=== PATIENT | male | born 1955 | race Caucasian/White ===

== ENCOUNTER 2019-10-10 12:23 | Emergency (ER) | payer OTHER, SELFPAY ==
--- NOTE | ~2019-10-10 | XR_ITS ---
EXAMINATION: XR ankle LT min 3V DATE: 10/10/2019 13:19 INDICATION: Right ankle edema. TECHNIQUE: 5 views of right ankle were obtained. COMPARISON: None. FINDINGS: Bone alignment is normal. No fracture. There is mild to moderate midfoot osteoarthritis. Th ere are enthesophytes at the posterior and plantar aspects of calcaneal tuberosity. Ankle soft tissue swelling is noted. IMPRESSION: 1. Polyarticular osteoarthritis. Reviewed, dictated and finalized at location A. D CERTIFIED ARTS THERAPIST
--- NOTE | ~2019-10-10 | US_ITS ---
EXAMINATION: US venous doppler LE EXAM DATE: 10/10/2019 14:31 INDICATION: Right leg edema. TECHNIQUE: Multiple grayscale, color flow and Doppler images of the right lower extremity deep venous system obtained and reviewed. There is no prior study for comparison. FINDINGS: RIGHT SIDE Common femoral: -------- Normal. Profunda femoral: ------- Normal. Femoral: Normal. Popliteal: Normal. Posterior tibial: ---------Thrombosed. Peroneal: Thrombosed. Gastrocnemius: Not visualized. Soleus: Not visualized. Greater saphenous: ----- Normal. Lesser saphenous: ------ Not visualized. IMPRESSION: 1. Positive for right calf DVT. Reviewed, dictated and finalized at location B. [facility] [employer]
[2019-10-10 12:41] VITALS: BP 153/68; PULSE 90; RESP 19; TEMP 36.6; O2SAT 100
--- NOTE | 2019-10-10 12:46 | ED.EXTPRO ---
HPI - Extremity Problem General Chief complaint: Extremity Injury, Lower Stated complaint: R FOOT WOUND, DIABETIC Time Seen by Provider: 10/10/19 12:37 Source: patient and RN notes reviewed Mode of arrival: ambulatory Limitations: no limitations History of Present Illness HPI Narrative: Pt is a 63 y/o male with a Hx of diabetic retinopathy, who presents to the ED with c/o pain and swelling in his rt foot starting 4 days ago. Pt notes that he has recently been using new shoes, and states that he has been noticing increasing pain and bruising around his rt posterior foot and ankle while using the shoes. He notes that he developed warmth and erythema around his medial rt foot earlier today, which concerned him that he may have an infection. MD Complaint: extremity pain and extremity swelling Onset (ago): day(s) (4) Location: right (rt foot/ankle) Associated symptoms: other ( bruising around rt foot and ankle; warmth and erythema on medial aspect of rt foot) Context: other (increased walking with new shoes) Related Data Allergies Allergy/AdvReac Type Severity Reaction Status Date / Time No Known Allergies Allergy Unknown Verified 10/10/19 12:55 Review of Systems Review of Systems: Narrative: CONSTITUTIONAL: Denies fever, chills, or sweats. SKIN: Denies itching. Reports erythema and warmth on medial rt foot. MUSCULOSKELETAL: Denies back pain or myalgia. Reports pain and swelling in rt foot and ankle. Reports bruising around rt foot and ankle. NEUROLOGIC: Denies headache, numbness, or weakness. All systems reviewed & are unremarkable except as noted in HPI and below PMFSH Past Medical History Medical History Brain tumor COPD (chronic obstructive pulmonary disease) Diabetes type 2, controlled Diabetic retinopathy GERD (gastroesophageal reflux disease) HLD (hyperlipidemia) HTN (hypertension) Hypothyroidism Sleep apnea UTI (urinary tract infection) Surgical History Surgical History Hx of craniotomy removal of brain tumor Hx of tonsillectomy Social History Social History (Updated 10/10/19 @ 13:02 by Aric Nguyen) Smoking status: Smoker, status unknown Gender identity (if verbalized by the patient): Male 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 Exam Narrative: Exam Narrative: GENERAL: Well-appearing, well-nourished, and in no acute distress. HEAD: Normocephalic, atraumatic. CHEST: Clear to auscultation. No respiratory distress. HEART: Regular rate and rhythm. No murmur heard. Normal peripheral pulses. ABDOMEN: Soft, nontender, nondistended, normal active bowel sounds. EXTREMITIES: Normal range of motion. No edema. Ecchymosis on medial aspect of rt ankle. CHarcoat joint deformity. No pain with flexion or extension of the right ankle. No warmth. Does not thony with pressure. No ulcerations. DP pulse 2+. SKIN: Warm, dry. Erythema on medial aspect of rt foot. NEURO: No focal deficits. Alert and oriented. Course Vital Signs Vital signs: Vital Signs Temperature 36.6 C 10/10/19 12:41 Pulse Rate 90 10/10/19 12:41 Respiratory Rate 19 10/10/19 12:41 Blood Pressure 153/68 H 10/10/19 12:41 Pulse Oximetry 100 10/10/19 12:41 Temperature 36.6 C 10/10/19 12:41 Pulse Rate 90 10/10/19 12:41 Respiratory Rate 19 10/10/19 12:41 Blood Pressure 153/68 H 10/10/19 12:41 Pulse Oximetry 100 10/10/19 12:41 MDM - Extremity (Nontraumatic) MDM Narrative Medical decision making narrative: Patient presented for evaluation of right foot swelling and erythema. At the time of initial assessment, ABCs are intact and vital signs are stable. There is no ulceration to the right foot. He has good pulses and capillary refill. He has no pain with range of motion, there is very mild medial erythema without warmth. This is not entirely consistent with infection. There is some ecchymoses present that the patient attributes to new fo
[2019-10-10 13:52] LABS: Basophils Absolute Auto 0.1 K/mm3 (0.0-0.1); Basophils Percent Auto 1.2 % (0.2-1.2); Eosinophils Absolute Auto 0.1 K/mm3 (0-0.3); Eosinophils Percent Auto 2.3 % (0-4.4); Hematocrit 40.4 % (42.0-52.0); Immature Granulocyte Absolute 0.02 K/mm3 (0.00-0.031); Immature Granulocyte Percent A 0.4 % (0-0.5); Lymphocytes Absolute Auto 0.85 K/mm3 (0.9-3.2); Lymphocytes Percent Auto 16.4 % (18.3-44.2); Mean Corpuscular HGB Conc 34.7 g/dl (32-36); Mean Corpuscular Volume 92.4 fl (80-100); Mean Platelet Volume 10.3 fl (7.4-10.4); Monocytes Absolute Auto 0.7 K/mm3 (0.1-0.6); Monocytes Percent Auto 13.3 % (2.6-8.5); Neutrophils Absolute Auto 3.5 K/mm3 (1.3-6.7); Neutrophils Percent Auto 66.4 % (45.5-73.1); Platelet Count Result 187 k/mm3 (150-375); Red Blood Count 4.37 M/mm3 (4.6-6.20); White Blood Count 5.2 K/mm3 (4.5-10.0)
[2019-10-10 14:09] LABS: Blood Urea Nitrogen 14 mg/dL (9-20); CRP < 0.5 mg/dL (<1.0); Calcium 9.1 mg/dL (8.4-10.2); Carbon Dioxide 29 mmol/L (22-30); Chloride 86 mmol/L (98-107); Estimated Glomerular Filt Rate > 60; Glucose 201 mg/dL (75-110); Potassium 4.2 mmol/L (3.4-5.0); Sodium 126 mmol/L (137-145)
[2019-10-10 14:15] LABS: Erythrocyte Sedimentation Rate 14 mm/hr (0-20)
[2019-10-10 15:47] VITALS: BP 152/94; PULSE 81; RESP 16; O2SAT 100
== END 2019-10-10 15:48 | disposition home or self-care (01) ==
PROVIDERS: Emergency Provider Emergency Medicine
DX: I82.451 Acute embolism and thrombosis of right peroneal vein (principal); E87.1 Hypo-osmolality and hyponatremia; J44.9 Chronic obstructive pulmonary disease, unspecified; K21.9 Gastro-esophageal reflux disease without esophagitis; E78.5 Hyperlipidemia, unspecified; I10 Essential (primary) hypertension; E11.319 Type 2 diabetes mellitus with unspecified diabetic retinopathy without macular edema; E03.9 Hypothyroidism, unspecified; G47.30 Sleep apnea, unspecified; Z87.440 Personal history of urinary (tract) infections; M19.071 Primary osteoarthritis, right ankle and foot
CPT/HCPCS: 36415; 73610; 80048; 85025; 85652; 86140; 93971; 99284

== ENCOUNTER 2020-02-09 14:51 | Emergency (ER) | payer OTHER, SELFPAY ==
--- NOTE | ~2020-02-09 | XR_ITS ---
[XR ribs LT 2V w CXR 2V ] INDICATION: Left axillary and rib pain TECHNIQUE: Frontal projection of the upper left ribs, frontal projection of the lower left ribs, obli que projection of all the left ribs, frontal inspiratory chest x-ray for interpretation. FINDINGS: There are no displaced rib fractures identified. There are no soft tissue abnormality see n. The lungs are clear. There is bilateral lower lobe airspace disease, compatible with pneumonia. There is calcified granuloma right mid thorax. The lower ribs are not well visualized due to soft tis belen attenuation. IMPRESSION: 1:No acute displaced rib fractures. 2:Bilateral lower lobe airspace disease, compatible with pneumonia. Reviewed, dictated and finalized at location A.
[2020-02-09 15:04] VITALS: BP 177/94; PULSE 90; RESP 19; TEMP 36.8; O2SAT 97
--- NOTE | 2020-02-09 16:14 | ED.FALL ---
HPI - Fall General Chief Complaint: Fall Stated Complaint: fall with left rib pain Time Seen by Provider: 02/09/20 15:43 Source: patient Mode of arrival: ambulatory Limitations: no limitations History of Present Illness HPI Narrative: This is a 64 year old male that presents to the ER for left sided rib pain after a fall today. Reports he was doing yard work and fell. Reports hitting his left side. Reports since he has had increasing pain on the left side of the ribs. Reports it is painful when he breathes. Denies hitting his head, loss of consciousness, or other injuries. Related Data Allergies Allergy/AdvReac Type Severity Reaction Status Date / Time No Known Allergies Allergy Unknown Verified 02/09/20 15:15 Review of Systems Review of Systems: Narrative: CONSTITUTIONAL: Denies fever CARDIOVASCULAR: Reports chest pain RESPIRATORY: Reports dyspnea. MUSCULOSKELETAL: Denies back pain, joint pain, or myalgia. All systems reviewed & are unremarkable except as noted in HPI and below PMFSH Social History Social History (Updated 10/10/19 @ 13:02 by Aric Nguyen) Smoking status: Smoker, status unknown Gender identity (if verbalized by the patient): Male Exam Narrative: Exam Narrative: GENERAL: Well-appearing, well-nourished, and in no acute distress. HEAD: Normocephalic, atraumatic. EYES: EOMI. NECK: Supple. No adenopathy or masses. No midline spinal tenderness CHEST: Clear to auscultation. No respiratory distress. No wheezes rales or rhonchi. Tender palpation of left lateral ribs HEART: Regular rate and rhythm. No murmur heard. Normal peripheral pulses. BACK: No midline spinal tenderness EXTREMITIES: Normal range of motion. No edema. SKIN: Warm, dry, no rash. NEURO: No focal deficits. Alert and oriented x3. PSYCH: Normal mood and affect Course Vital Signs Vital signs: Vital Signs Temperature 98.3 F 02/09/20 15:04 Pulse Rate 90 02/09/20 15:04 Respiratory Rate 19 02/09/20 15:04 Blood Pressure 177/94 H 02/09/20 15:04 Pulse Oximetry 97 02/09/20 15:04 Temperature 98.3 F 02/09/20 15:04 Pulse Rate 61 02/09/20 17:30 Respiratory Rate 15 05/29/20 17:30 Blood Pressure 150/84 H 02/09/20 17:30 Pulse Oximetry 96 02/09/20 17:30 MDM - Fall MDM Narrative Medical decision making narrative: Patient presents to the emergency department for a fall this afternoon. Reports he tripped and hit his left side. Denies hitting his head or loss of consciousness. Reports left-sided rib pain. Oxygen saturation is normal on room air. Left-sided rib/chest x-ray shows left eighth rib fracture. Also shows bilateral airspace disease compatible with pneumonia. Patient does not report a cough or fever, does report he has been short of breath over the last couple of days. Patient given incentive spirometer. He will be started on oral antibiotics. He will be given pain medication as needed. He is to follow-up with his primary care doctor. Patient is stable and felt appropriate for further outpatient evaluation. He was given warnings to return to the ER Imaging Data Radiologist's impression: ITS Impressions Ribs w/Chest X-Ray 02/09/20 16:54 IMPRESSION: 1:No acute displaced rib fractures. 2:Bilateral lower lobe airspace disease, compatible with pneumonia. ITS Impressions Ribs w/Chest X-Ray 02/09/20 16:54 IMPRESSION: 1:No acute displaced rib fractures. 2:Bilateral lower lobe airspace disease, compatible with pneumonia. Critical Care Time Critical Care Time Critical Care Time: No Discharge Plan Discharge Clinical Impression: Closed fracture of one rib of left side Qualifiers: Encounter type: initial encounter Qualified Code(s): S22.32XA - Fracture of one rib, left side, initial encounter for closed fracture Pneumonia Qualifiers: Pneumonia type: due to unspecified organism Laterality: bilateral Lung location: lower lobe of lung Qualified Code(s): J18.9 - Pneu
[2020-02-09 17:30] VITALS: BP 150/84; PULSE 61; RESP 15; O2SAT 96
[2020-02-09] MEDS: AZITHROMYCIN 250 MG TABLET 500 MG PO (18:08)
[2020-02-09 18:30] VITALS: BP 154/84; PULSE 67; RESP 18; O2SAT 98
--- NOTE | 2020-02-12 13:41 | PCCCNOTE ---
[facility]
== END 2020-02-09 18:42 | disposition home or self-care (01) ==
PROVIDERS: Emergency Provider Emergency Medicine
DX: S22.32XA Fracture of one rib, left side, initial encounter for closed fracture (principal); J18.9 Pneumonia, unspecified organism; W01.0XXA Fall on same level from slipping, tripping and stumbling without subsequent striking against object, initial encounter
CPT/HCPCS: 71046; 71100; 99283; A9270

== ENCOUNTER 2020-12-11 22:11 | Observation (INO) | payer OTHER, SELFPAY ==
[2020-12-11 22:15] VITALS: BP 151/83; PULSE 76; RESP 16; TEMP 36; O2SAT 100
[2020-12-11] MEDS: SODIUM CHLORIDE 0.9% IV 1,000 ML 200 ML IV CONT (23:24)
--- NOTE | 2020-12-11 23:24 | ED.GIBLEED ---
HPI - GI Bleed General Chief complaint: GI Bleed Stated complaint: massive blood in stool Time Seen by Provider: 12/11/20 22:34 Source: patient Mode of arrival: ambulatory Limitations: no limitations History of Present Illness HPI Narrative: 65-year-old male Complains of hematochezia x3 bowel movements since last night Denies any abdominal pain, denies any discomfort with passing stools No nausea or vomiting, no dizziness or lightheadedness Pertinent past medical history includes being started on Eliquis for a DVT more than a year ago and it does not sound like he was ever actually followed up [facility] and they have just been rolling over his prescription indefinitely instead of stopping it after 3 to 6 months He last took Eliquis this morning approximately 16 hours ago Additionally he drinks 10-15 beers a day but has never had any trouble with that before, although he had hyponatremia when last seen in the ED MD complaint: gross hematochezia Related Data Home Medications Medication Instructions Recorded Confirmed glipizide mg 12/11/20 lovastatin mg 12/11/20 metformin mg 12/11/20 12/11/20 Allergies Allergy/AdvReac Type Severity Reaction Status Date / Time No Known Allergies Allergy Unknown Verified 12/11/20 22:19 Review of Systems Review of Systems: All systems reviewed & are unremarkable except as noted in HPI and below Constitutional: Constitutional: Reports no additional constitutional complaints, Denies chills, Denies fever(s) and Denies headache(s) Eyes: Eyes: Reports no additional eye complaints and Denies change in vision ENT: Denies headache(s) and Denies sore throat Cardiovascular: Cardiovascular: Denies chest pain and Denies dyspnea Respiratory: Respiratory: Denies cough and Denies dyspnea Gastrointestinal: Gastrointestinal: Denies abdominal pain, Denies diarrhea and Denies vomiting Genitourinary: Genitourinary: Denies dysuria and Denies urinary frequency Musculoskeletal: Musculoskeletal: Denies deformity, Denies arthralgias, Denies joint swelling and Denies numbness Integumentary/Breasts: Skin/Breast: Denies rash and Denies wounds Neurologic: Denies headache(s), Denies focal weakness and Denies numbness Psychiatric: Psychiatric: Reports no additional psychiatric complaints Endocrine: Endocrine: Reports no additional endocrine complaints Hematologic/Lymphatic: Hematologic/Lymphatic: Reports no additional hematologic/lymphatic complaints Allergic/Immunologic: Allergic/Immunologic: Reports no additional allergic/immunologic complaints [facility] Past Medical History Medical History (Updated 12/12/20 @ 00:43 by Jaziel Greenberg MD) Brain tumor COPD (chronic obstructive pulmonary disease) Diabetes type 2, controlled Diabetic retinopathy GERD (gastroesophageal reflux disease) HLD (hyperlipidemia) HTN (hypertension) Hypothyroidism Sleep apnea UTI (urinary tract infection) Surgical History Surgical History Hx of craniotomy removal of brain tumor Hx of tonsillectomy Social History Social History (Updated 10/10/19 @ 13:02 by Aric Nguyen) Smoking status: Smoker, status unknown Gender identity (if verbalized by the patient): Male Course Course Emergency Course: Patient is hemodynamically stable and hemoglobin is 12.8 versus previous 14 and will need to be trended It has been approximately 16 hours since his last Eliquis so reversal would not generally be indicated at this time unless there was massive ongoing hemorrhage Other labs unfortunately remain pending through several lab draws at this time Discussed with Dr. Jamil for GI and he will see patient in the a.m., does not need a CT or CTA done tonight Discussed with Dr. Fisher for admission and he will follow up on the other labs once they are resulted Vital Signs Vital signs: Vital Signs Temperature 36.0 C L 12/11/20 22:15 Pulse Rate 76
[2020-12-11] MEDS: THIAMINE HCL 200 MG/2 ML VIAL 500 MG IV PUSH (23:27)
[2020-12-11] MEDS: PANTOPRAZOLE SODIUM IV 40 MG VIAL 80 MG IV PUSH (23:27)
[2020-12-11 23:31] LABS: Basophils Absolute Auto 0.1 K/mm3 (0.0-0.1); Eosinophils Absolute Auto 0.2 K/mm3 (0-0.3); Eosinophils Percent Auto 2.3 % (0-4.4); Hematocrit 34.8 % (42.0-52.0); Hemoglobin 12.8 g/dL (14.0-18.0); Immature Granulocyte Absolute 0.05 K/mm3 (0.00-0.031); Immature Granulocyte Percent A 0.7 % (0-0.5); Lymphocytes Absolute Auto 1.25 K/mm3 (0.9-3.2); Lymphocytes Percent Auto 18.3 % (18.3-44.2); Mean Corpuscular HGB Conc 36.8 g/dl (32-36); Mean Corpuscular Hemoglobin 33.2 pg (26-34); Mean Corpuscular Volume 90.2 fl (80-100); Mean Platelet Volume 11.2 fl (7.4-10.4); Monocytes Absolute Auto 0.8 K/mm3 (0.1-0.6); Monocytes Percent Auto 12.2 % (2.6-8.5); Neutrophils Absolute Auto 4.5 K/mm3 (1.3-6.7); Neutrophils Percent Auto 65.5 % (45.5-73.1); Platelet Count Result 273 k/mm3 (150-375); Red Blood Count 3.86 M/mm3 (4.6-6.20); Red Cell Distribution Width 11.9 % (11.5-14.5); White Blood Count 6.8 K/mm3 (4.5-10.0)
[2020-12-12] VITALS (7 sets, daily range): BP systolic 133–169; BP diastolic 64–94; PULSE 75–97; RESP 16–20; TEMP 36.2–36.8; O2SAT 92–100; BMI 35.8
[2020-12-12 00:52] LABS: Alanine Aminotransferase 30 U/L (4-50); Albumin Level 3.5 g/dL (3.5-5.1); Alkaline Phosphatase 37 U/L (38-126); Anion Gap 7 mmol/L (8-16); Aspartate Amino Transferase 28 U/L (17-59); Bilirubin,Total 0.6 mg/dL (0.2-1.3); Blood Urea Nitrogen 10 mg/dL (9-20); Calcium 8.1 mg/dL (8.4-10.2); Carbon Dioxide 24 mmol/L (22-30); Chloride 100 mmol/L (98-107); Estimated CRCL calculation 221 ml/min; Estimated Glomerular Filt Rate > 60; Glucose 150 mg/dL (75-110); Lipase 216 U/L (23-300); Magnesium 1.7 mg/dL (1.6-2.3); Partial Thromboplastin Time 25.8 SECONDS (22.3-36.8); Sodium 131 mmol/L (137-145)
[2020-12-12] MEDS: POTASSIUM CHLORIDE 20 MEQ TABLET 40 MEQ PO (01:42)
--- NOTE | 2020-12-12 02:10 | PM.IMHP ---
H&P: HPI History of Present Illness Date/Time: 12/12/20 02:10 Chief Complaint: Bright red rectal bleeding since yesterday Narrative: This is a morbidly obese Diabetic male who is known to be chronically anticoagulated on Eliquis for the past year after having multiple DVTs and presented to the hospital with a complaint of #3 bright red bloody stools since yesterday. The patient denies any nausea, vomiting, hematemesis, blurry vision, dizziness, shortness of breath, lightheadedeness, chest pain, syncope, abdominal pain, dysuria, hematuria, LE swelling, LE pain, or LE redness. His last dose of Eliquis was yesterday morning. The patient has no previous history of GI bleeding and denies every having a colonoscopy or EGD before. The patient is known to drink 10-15 alcoholic beverages daily. Tonight he denies any withdrawal symptoms. ER provider has consulted Gastroenterology who will evaluate the patient in the morning. No other complaints. Review of Systems Review of Systems: All systems reviewed & are unremarkable except as noted in HPI and below PMFSH Past Medical History Medical History Brain tumor COPD (chronic obstructive pulmonary disease) Diabetes type 2, controlled Diabetic retinopathy GERD (gastroesophageal reflux disease) HLD (hyperlipidemia) HTN (hypertension) Hypothyroidism Sleep apnea UTI (urinary tract infection) Surgical History Surgical History Hx of craniotomy removal of brain tumor Hx of tonsillectomy Social History Social History Smoking status: Smoker, status unknown Gender identity (if verbalized by the patient): Male Comments Family Medical history is reviewed and noncontributory Meds Home Medications and Allergies Home Medications Medication Instructions Recorded Confirmed Type apixaban [Eliquis DVT-PE Treat 30D See Rx Instructions .ROUTE 10/10/19 Rx Start] .COMPLEX #74 each glipizide mg 12/11/20 History lovastatin mg 12/11/20 History metformin mg 12/11/20 12/11/20 History Allergies Allergy/AdvReac Type Severity Reaction Status Date / Time No Known Allergies Allergy Unknown Verified 12/11/20 22:19 Vital Signs Vital Signs - 24 hr 12/11/20 22:15 12/12/20 00:56 Temperature 36.0 C L Pulse Rate 76 83 Respiratory Rate 16 16 Blood Pressure 151/83 H 143/82 H Pulse Oximetry 100 100 Exam Const: General: cooperative, no acute distress, alert, awake and ill appearing chronically Nutritional Appearance: obese morbidly obese Orientation/consciousness: patient oriented x3 HENMT: Head: normal to inspection General nose exam: Normal external nose present Face and sinus: normal facial exam Mouth: Yes Normal oral and palatal mucosa present and Yes oropharynx normal Eyes: Pupils: Equal, round and reactive pupils present EOM: EOMs intact bilaterally Neck: Neck: supple and no JVD Thyroid: thyroid normal Lymphatic: lymphadenopathy not noted Resp: Effort & Inspection: normal respiratory effort Auscultation: clear to auscultation bilaterally Cardio: Rate: regular rate Rhythm: regular rhythm Heart sounds: no murmurs GI: Inspection: normal to inspection Auscultation: normal bowel sounds Skin: General skin exam: normal color and no rashes or lesions noted Neuro: General: patient oriented x3 Cranial nerves: Yes CN's II-XII intact bilaterally and Yes Equal, round and reactive pupils present Speech: normal speech Motor exam (neuro): 5/5 motor strength present throughout Sensory Exam: normal sensation Extrem: General: normal to inspection and no edema Psych: Mental Status: mental status grossly normal Affect: normal affect H&P: Results Labs Labs: Short CBC 12/11/20 Range/Units 23:24 WBC 6.8 (4.5-10.0) K/mm3 Hgb 12.8 L (14.0-18.0) g/dL Hct 34.8 L (42.0-52.0) % Plt Count 273
--- NOTE | 2020-12-12 02:37 | ADMGEN ---
This patient, Lalo Sexton, was admitted to [address] [place] [address] Room 305-02. Patient/family oriented to hospital policies and general routines including ID bracelet, bed and alarms, visiting hours, pain management, procedures, bathroom and other care routines, personal items, smoking policy, room service/diet, and visiting hours. Information on how to activate the Rapid Response Team has been discussed. Patient/Family are encouraged to report perceived risks to care and to ask questions if they do not understand what they are told or what they should do.
[2020-12-12 06:13] LABS: Glucose Point of Care 161 (65-105)
[2020-12-12] MEDS: LACTATED RINGERS 1,000 ML 125 ML IV CONT ×3 (06:20→23:17)
[2020-12-12 07:07] LABS: Basophils Absolute Auto 0.1 K/mm3 (0.0-0.1); Basophils Percent Auto 1.3 % (0.2-1.2); Eosinophils Absolute Auto 0.1 K/mm3 (0-0.3); Eosinophils Percent Auto 2.6 % (0-4.4); Hematocrit 33.4 % (42.0-52.0); Hemoglobin 11.9 g/dL (14.0-18.0); Immature Granulocyte Absolute 0.03 K/mm3 (0.00-0.031); Immature Granulocyte Percent A 0.6 % (0-0.5); Lymphocytes Absolute Auto 0.98 K/mm3 (0.9-3.2); Mean Corpuscular HGB Conc 35.6 g/dl (32-36); Mean Corpuscular Volume 92.5 fl (80-100); Mean Platelet Volume 10.8 fl (7.4-10.4); Monocytes Absolute Auto 0.6 K/mm3 (0.1-0.6); Monocytes Percent Auto 12.8 % (2.6-8.5); Neutrophils Absolute Auto 2.9 K/mm3 (1.3-6.7); Neutrophils Percent Auto 61.7 % (45.5-73.1); Platelet Count Result 201 k/mm3 (150-375); Red Blood Count 3.61 M/mm3 (4.6-6.20); Red Cell Distribution Width 12.2 % (11.5-14.5); White Blood Count 4.7 K/mm3 (4.5-10.0)
[2020-12-12 07:18] LABS: Anion Gap 3 mmol/L (8-16); Blood Urea Nitrogen 10 mg/dL (9-20); Calcium 8.4 mg/dL (8.4-10.2); Carbon Dioxide 27 mmol/L (22-30); Chloride 102 mmol/L (98-107); Estimated CRCL calculation 178 ml/min; Estimated Glomerular Filt Rate > 60; Glucose 153 mg/dL (75-110); Magnesium 1.7 mg/dL (1.6-2.3); Potassium 4.2 mmol/L (3.4-5.0); Sodium 132 mmol/L (137-145)
[2020-12-12] MEDS: PANTOPRAZOLE SODIUM IV 40 MG VIAL IV PUSH ×2 (09:51→18:20)
[2020-12-12 11:25] LABS: Glucose Point of Care 181 (65-105)
[2020-12-12 12:03] LABS: Hematocrit 32.4 % (42.0-52.0); Hemoglobin 11.5 g/dL (14.0-18.0); Mean Corpuscular HGB Conc 35.5 g/dl (32-36); Mean Corpuscular Volume 93.1 fl (80-100); Mean Platelet Volume 10.3 fl (7.4-10.4); Platelet Count Result 192 k/mm3 (150-375); Red Blood Count 3.48 M/mm3 (4.6-6.20); Red Cell Distribution Width 12.2 % (11.5-14.5); White Blood Count 5.1 K/mm3 (4.5-10.0)
--- NOTE | 2020-12-12 14:14 | PM.IMPN ---
Progress Note: A&P Assessment and Plan (1) Acute lower gastrointestinal bleeding: Code(s): K92.2 - Gastrointestinal hemorrhage, unspecified Status: Acute Assessment and Plan: The patient has been placed in observation. NPO. Continue Protonix. Monitor H&H, transfuse p.r.n.. Strict bed rest. Hold Eliquis. GI has been consulted by ER provider. Continue GI recommendations. 12/12/20 14:14 patient is 65-year-old male with history of multiple DVT chronically on Eliquis currently on hold he presented emergency department with a complaint 3 bloody stools, currently patient denies any abdominal pain nausea or vomiting or rectal bleeding, he does have history of alcohol drinks 10 to 15 beverages daily he denies any history of DT, clinically stable hemoglobin is stable, he will be seen by GI, will continue to monitor H&H. (2) Alcohol dependence: Qualifiers: Substance use status: unspecified alcohol-induced disorder Qualified Code(s): F10.29 - Alcohol dependence with unspecified alcohol-induced disorder Code(s): F10.20 - Alcohol dependence, uncomplicated Status: Acute Assessment and Plan: CIWA-AR protocol. Ativan withdrawal prophylaxis IV. Thiamine IV daily. (3) Hypokalemia: Code(s): E87.6 - Hypokalemia Status: Acute Assessment and Plan: KCL was replaced in ER. Monitor serum potassium. Continue to replace as needed. 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 Resume oral hypoglycemic agents with the patient is eating again. (6) GERD (gastroesophageal reflux disease): Qualifiers: Esophagitis presence: esophagitis presence not specified Qualified Code(s): K21.9 - Gastro-esophageal reflux disease without esophagitis Code(s): K21.9 - Gastro-esophageal reflux disease without esophagitis Status: Chronic Assessment and Plan: Continue PPI therapy. (7) HLD (hyperlipidemia): Qualifiers: Hyperlipidemia type: unspecified Qualified Code(s): E78.5 - Hyperlipidemia, unspecified Code(s): E78.5 - Hyperlipidemia, unspecified Status: Chronic Assessment and Plan: Resume lovastatin when the patient is eating again (8) HTN (hypertension): Qualifiers: Hypertension type: unspecified Qualified Code(s): I10 - Essential (primary) hypertension Code(s): I10 - Essential (primary) hypertension Status: Chronic Assessment and Plan: Monitor blood pressure. P.r.n. IV antihypertensives as needed. Subjective Date/time seen: 12/12/20 14:14 patient is 65-year-old male with history of multiple DVT chronically on Eliquis currently on hold he presented emergency department with a complaint 3 bloody stools, currently patient denies any abdominal pain nausea or vomiting or rectal bleeding, he does have history of alcohol drinks 10 to 15 beverages daily he denies any history of DT, clinically stable hemoglobin is stable, he will be seen by GI, will continue to monitor H&H. Review of Systems Review of Systems: All systems reviewed & are unremarkable except as noted in HPI and below Exam Narrative: Exam Narrative: Patient is comfortable, NAD HEENT: eyes are clear and none icteric LUNGS
[2020-12-12 14:32] LABS: Hemoglobin 11.9 g/dL (14.0-18.0)
[2020-12-12 16:49] LABS: Glucose Point of Care 285 (65-105)
--- NOTE | 2020-12-12 17:17 | WPDGICN ---
Assessment and Plan Assessment and plan (1) GIB (gastrointestinal bleeding): Code(s): K92.2 - Gastrointestinal hemorrhage, unspecified Status: Acute Assessment and Plan: will proceed tomorrow with egd and colonoscopy (had dark stools so need to assess if ulcers, esophagitis, etc) and never had a colonoscopy (2) Acute blood loss anemia: Code(s): D62 - Acute posthemorrhagic anemia Status: Acute Assessment and Plan: continue to monitor hb supportive care npo after midnight (3) Alcohol dependence: Qualifiers: Substance use status: unspecified alcohol-induced disorder Qualified Code(s): F10.29 - Alcohol dependence with unspecified alcohol-induced disorder Code(s): F10.20 - Alcohol dependence, uncomplicated Status: Acute Assessment and Plan: heavy drinker, monitor for withdrawal thiamine, mvi (4) Diabetes type 2, controlled: Qualifiers: 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 insulin use: without terminal operations supervisor use Diabetes mellitus complication status: without complication Qualified Code(s): E11.9 - Type 2 diabetes mellitus without complications Code(s): E11.9 - Type 2 diabetes mellitus without complications Status: Chronic Assessment and Plan: on meds (5) HTN (hypertension): Qualifiers: Hypertension type: unspecified Qualified Code(s): I10 - Essential (primary) hypertension Code(s): I10 - Essential (primary) hypertension Status: Chronic (6) Chronic anticoagulation: Code(s): Z79.01 - MCC (current) use of anticoagulants Status: Acute Assessment and Plan: hold eliquis GI Consult Note Consult date/time: 12/12/20 17:17 Reason for consult: gib, rectal bleeding HPI: Lalo Sexton is a 65 year old male with history of diabetes, history of DVT using Eliquis here with new onset of rectal bleeding but also noted dark stools. Denies previous GIB but never had colonoscopy or EGD. No fever, abdominal pain or nausea. He also is a drinker about 10-15 alcoholic beverages daily. Hb in the past 14 and repeat 11.9, normal renal function, platelets and liver enzymes. is at bedside. Review of Systems Constitutional: Constitutional: Denies chills Eyes: Eyes: Denies blurry vision ENT: Reports Normal hearing present Cardiovascular: Cardiovascular: Denies chest pain Respiratory: Respiratory: Denies dyspnea Gastrointestinal: Gastrointestinal: Denies abdominal pain, Reports melena and Reports hematochezia Genitourinary: Genitourinary: Denies dysuria Musculoskeletal: Musculoskeletal: Denies neck pain Integumentary/Breasts: Skin/Breast: Denies dry skin Neurologic: Denies headache(s) Psychiatric: Psychiatric: Denies behavioral changes [facility] Past Medical History Medical History Brain tumor COPD (chronic obstructive pulmonary disease) Diabetes type 2, controlled Diabetic retinopathy GERD (gastroesophageal reflux disease) HLD (hyperlipidemia) HTN (hypertension) Hypothyroidism Sleep apnea UTI (urinary tract infection) Surgical History Surgical History Hx of craniotomy removal of brain tumor Hx of tonsillectomy Social History Social History Smoking packs per day: 2.5 Smoking cigarettes per day: 50.0 Smoking status: Former smoker Tobacco type: cigarettes Alcohol intake: current Drinks per week: 70 Substance use: former Substance use type: does not use Gender identity (if verbalized by the patient): Male Sexual Orientation (if Verbalized by the Patient): Straight or Heterosexual Spiritual care concerns: No Meds Home Medications and Allergies Home Medications Medication Instructions Recorded Confirmed Type apixaban [Eliquis DVT-PE Treat 30D See Rx Instructions .ROUTE 10/10/19 12/12/[address]
[2020-12-12] MEDS: metFORMIN HCL 500 MG TABLET 1000 MG PO (18:19)
[2020-12-12] MEDS: BISACODYL 5 MG TABLET EC 20 MG PO (18:19)
[2020-12-12] MEDS: glipiZIDE 5 MG TABLET 10 MG PO (18:19)
[2020-12-12] MEDS: polyethylene glycoL 3350 238 GM BOTTLE PO (18:21)
[2020-12-12] MEDS: INSULIN ASPART (*BKC) 100 UNITS/ML SUB-Q (18:22)
[2020-12-12 20:02] LABS: Hematocrit 33.4 % (42.0-52.0)
[2020-12-12] MEDS: LOVASTATIN 20 MG TABLET 40 MG PO (20:26)
[2020-12-12 22:07] LABS: Glucose Point of Care 291 (65-105)
[2020-12-13 00:07] LABS: Glucose Point of Care 191 (65-105)
[2020-12-13] MEDS: MAGNESIUM CITRATE 300 ML BTL PO (04:38)
[2020-12-13 06:00] VITALS: BP 148/81; PULSE 56; RESP 18; TEMP 36.2; O2SAT 99
[2020-12-13 06:15] LABS: Hematocrit 30.9 % (42.0-52.0); Hemoglobin 10.9 g/dL (14.0-18.0); Mean Corpuscular HGB Conc 35.3 g/dl (32-36); Mean Corpuscular Hemoglobin 32.5 pg (26-34); Mean Corpuscular Volume 92.2 fl (80-100); Mean Platelet Volume 10.7 fl (7.4-10.4); Platelet Count Result 186 k/mm3 (150-375); Red Blood Count 3.35 M/mm3 (4.6-6.20); Red Cell Distribution Width 12.1 % (11.5-14.5); White Blood Count 5.1 K/mm3 (4.5-10.0)
[2020-12-13 06:17] LABS: Glucose Point of Care 191 (65-105)
[2020-12-13 06:49] LABS: Anion Gap 3 mmol/L (8-16); Blood Urea Nitrogen 7 mg/dL (9-20); Calcium 7.6 mg/dL (8.4-10.2); Carbon Dioxide 25 mmol/L (22-30); Chloride 104 mmol/L (98-107); Estimated CRCL calculation 178 ml/min; Estimated Glomerular Filt Rate > 60; Glucose 177 mg/dL (75-110); Magnesium 1.7 mg/dL (1.6-2.3); Potassium 3.9 mmol/L (3.4-5.0); Sodium 132 mmol/L (137-145)
[2020-12-13] MEDS: LACTATED RINGERS 1,000 ML 125 ML IV CONT (07:36)
[2020-12-13] MEDS: PANTOPRAZOLE SODIUM IV 40 MG VIAL IV PUSH (10:00)
--- NOTE | 2020-12-13 10:23 | PM.IMPN ---
Progress Note: A&P Assessment and Plan (1) Acute lower gastrointestinal bleeding: Code(s): K92.2 - Gastrointestinal hemorrhage, unspecified Status: Acute Assessment and Plan: The patient has been placed in observation. NPO. Continue Protonix. Monitor H&H, transfuse p.r.n.. Strict bed rest. Hold Eliquis. GI has been consulted by ER provider. Continue GI recommendations. 12/13/20 10:23 The patient has been placed in observation. NPO. Continue Protonix. Monitor H&H, transfuse p.r.n.. Strict bed rest. Hold Eliquis. GI has been consulted by ER provider. Continue GI recommendations. 12/12 patient is 65-year-old male with history of multiple DVT chronically on Eliquis currently on hold he presented emergency department with a complaint 3 bloody stools, currently patient denies any abdominal pain nausea or vomiting or rectal bleeding, he does have history of alcohol drinks 10 to 15 beverages daily he denies any history of DT, clinically stable hemoglobin is stable, he will be seen by GI, will continue to monitor H&H. 12/13 patient was seen by GI yesterday recommended endoscopy and colonoscopy which is scheduled for today patient was prepped last night, patient still complains rectal bleeding sometime bright red blood, any abdominal pain nausea or vomiting fever or chills,Yesterday patient appeared slightly agitated and risk for DTs was placed on CIWA port and Librium as needed, will continue to monitor the patient will follow-up on GI recommendation. (2) Alcohol dependence: Qualifiers: Substance use status: unspecified alcohol-induced disorder Qualified Code(s): F10.29 - Alcohol dependence with unspecified alcohol-induced disorder Code(s): F10.20 - Alcohol dependence, uncomplicated Status: Acute Assessment and Plan: [facility] protocol. Ativan withdrawal prophylaxis IV. Thiamine IV daily. (3) Hypokalemia: Code(s): E87.6 - Hypokalemia Status: Acute Assessment and Plan: KCL was replaced in ER. Monitor serum potassium. Continue to replace as needed. 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 Resume oral hypoglycemic agents with the patient is eating again. (6) GERD (gastroesophageal reflux disease): Qualifiers: Esophagitis presence: esophagitis presence not specified Qualified Code(s): K21.9 - Gastro-esophageal reflux disease without esophagitis Code(s): K21.9 - Gastro-esophageal reflux disease without esophagitis Status: Chronic Assessment and Plan: Continue PPI therapy. (7) HLD (hyperlipidemia): Qualifiers: Hyperlipidemia type: unspecified Qualified Code(s): E78.5 - Hyperlipidemia, unspecified Code(s): E78.5 - Hyperlipidemia, unspecified Status: Chronic Assessment and Plan: Resume lovastatin when the patient is eating again (8) HTN (hypertension): Qualifiers: Hypertension type: unspecified Qualified Code(s): I10 - Essential (primary) hypertension Code(s): I10 - Essential (primary) hypertension Status: Chronic Assessment and Plan: Monitor blood pressure. P.r.n. IV antihypertensives as needed. Subjective Date/time seen: 12/13/20 10:23 The p
[2020-12-13] MEDS: THIAMINE HCL 200 MG/2 ML VIAL 100 MG IV PUSH (11:42)
[2020-12-13 12:04] LABS: Glucose Point of Care 216 (65-105)
[2020-12-13] MEDS: INSULIN ASPART (*BKC) 100 UNITS/ML SUB-Q (12:26)
--- NOTE | 2020-12-13 13:20 | PC.NURSE ---
Patient out of room for EGD with via stretcher
[2020-12-13 13:32] VITALS: BP 161/92; PULSE 68; RESP 18; TEMP 36.6; O2SAT 100
[2020-12-13] MEDS: LACTATED RINGERS 1,000 ML 150 ML IV CONT (13:37)
[2020-12-13 14:01] LABS: Glucose Point of Care 190 (65-105)
--- NOTE | 2020-12-13 14:31 | WPDANESEPPF ---
Anes - Initial Pre Proc Eval Procedure: Operation Date: 12/13/20 16:00 Proposed Procedures p Esophagogastroduodenoscopy & Colonoscopy - Siddhartha Schulz MD Date/Time: 12/13/20 14:31 Surgeon: Ivan Dailey MD Pre Op Diagnosis: lower gi bleed Patient Data Age: 65 Gender: M Height: 6 ft 3 in Weight: 130 kg Last Vital Signs Temp 97.9 F 12/13/20 13:32 Pulse 68 12/13/20 13:32 Resp 18 12/13/20 13:32 BP 161/92 H 12/13/20 13:32 Pulse Ox 100 12/13/20 13:32 Allergies Allergy/AdvReac Type Severity Reaction Status Date / Time No Known Allergies Allergy Unknown Verified 12/13/20 13:30 Home Medications Medication Instructions Recorded Confirmed Type apixaban [Eliquis DVT-PE Treat 30D See Rx Instructions .ROUTE 10/10/19 12/12/20 Rx Start] .COMPLEX #74 each glipizide 10 mg PO BID 12/11/20 12/12/20 History lovastatin 40 mg PO DAILY 12/11/20 12/12/20 History metformin 1,000 mg PO BID 12/11/20 12/12/20 History Fish Oil 1,000 mg PO DAILY 12/12/20 12/12/20 History apixaban [Eliquis] 5 mg PO BID 12/12/20 12/12/20 History multivitamin,jk-dxeq-lumtznbq 1 tablet PO DAILY 12/12/20 12/12/20 History [Complete Multivitamin] Laboratory Tests 12/12/20 12/12/20 12/12/20 14:26 16:42 19:40 WBC RBC Hgb 11.9 g/dL L g/dL 12.0 g/dL L g/dL (14.0-18.0) (14.0-18.0) Hct 33.0 % L % 33.4 % L % (42.0-52.0) (42.0-52.0) MCV MCH MCHC RDW Plt Count MPV Sodium Potassium Chloride Carbon Dioxide Anion Gap BUN Creatinine Estim Creat Clear Calc Estimated GFR Glucose POC Capillary Glucose 285 mg/dl H mg/dl (65-105) Calcium Magnesium 12/12/20 12/13/20 12/13/20 20:24 00:02 05:25 WBC 5.1 K/mm3 K/mm3 (4.5-10.0) RBC 3.35 M/mm3 L M/mm3 (4.6-6.20) Hgb 10.9 g/dL L g/dL (14.0-18.0) Hct 30.9 % L % (42.0-52.0) MCV 92.2 fl fl (80-100) MCH 32.5 pg pg (26-34) MCHC 35.3 g/dl g/dl (32-36) RDW 12.1 % % (11.5-14.5) Plt Count 186 k/mm3 k/mm3 (150-375) MPV 10.7 fl H fl (7.4-10.4) Sodium Potassium Chloride Carbon Dioxide Anion Gap BUN Creatinine Estim Creat Clear Calc Estimated GFR Glucose POC Capillary Glucose 291 mg/dl H mg/dl 191 mg/dl H mg/dl (65-105) (65-105) Calcium Magnesium 12/13/20 12/13/20 12/13/20 05:26 06:07 12:01 WBC RBC Hgb Hct MCV MCH MCHC RDW Plt Count MPV Sodium 132 mmol/L L mmol/L (137-145) Potassium 3.9 mmol/L mmol/L (3.4-5.0) Chloride 104 mmol/L mmol/L (98-107) Carbon Dioxide 25 mmol/L mmol/L (22-30) Anion Gap 3 mmol/L L mmol/L (8-16) BUN 7 mg/dL L mg/dL (9-20) Creatinine 0.50 mg/dL L mg/dL (0.7-1.3) Estim Creat Clear Calc 178 ml/min ml/min Estimated GFR > 60 (59 - ) Glucose 177 mg/dL H mg/dL (75-110) POC Capillary Glucose 191 mg/dl H mg/dl 216 mg/dl H mg/dl (65-105) (65-105) Calcium 7.6 mg/dL L mg/dL (8.4-10.2) Magnesium 1.7 mg/dL mg/dL (1.6-2.3) 12/13/20 13:59 WBC RBC Hgb Hct MCV MCH MCHC RDW Plt Count MPV Sodium Potassium Chloride Carbon Dioxide Anion Gap BUN Creatinine Estim Creat Clear Calc Estimated GFR Glucose POC Capillary
[2020-12-13] MEDS: BENZOCAINE (*SP) 60 ML SPRAY CAN (HURRICAINE) 1 SPRAY MUCOUS MEM (15:13)
[2020-12-13 15:56] VITALS: BP 136/80; PULSE 71; RESP 20; O2SAT 100
[2020-12-13 16:06] VITALS: BP 141/93; PULSE 80; RESP 21; O2SAT 100
[2020-12-13 16:16] VITALS: BP 153/98; PULSE 71; RESP 24; O2SAT 100
--- NOTE | 2020-12-13 17:03 | PM.DS ---
DS: Admitting Diagnosis Admitting Diagnosis Admitting Diagnosis: Chief Complaint: Bright red rectal bleeding since yesterday DS: Discharge Diagnosis Discharge Diagnosis (1) Acute lower gastrointestinal bleeding: Code(s): K92.2 - Gastrointestinal hemorrhage, unspecified Status: Acute Assessment and Plan: The patient has been placed in observation. NPO. Continue Protonix. Monitor H&H, transfuse p.r.n.. Strict bed rest. Hold Eliquis. GI has been consulted by ER provider. Continue GI recommendations. 12/13/20 10:23 The patient has been placed in observation. NPO. Continue Protonix. Monitor H&H, transfuse p.r.n.. Strict bed rest. Hold Eliquis. GI has been consulted by ER provider. Continue GI recommendations. 12/12 patient is 65-year-old male with history of multiple DVT chronically on Eliquis currently on hold he presented emergency department with a complaint 3 bloody stools, currently patient denies any abdominal pain nausea or vomiting or rectal bleeding, he does have history of alcohol drinks 10 to 15 beverages daily he denies any history of DT, clinically stable hemoglobin is stable, he will be seen by GI, will continue to monitor H&H. 12/13 patient was seen by GI yesterday recommended endoscopy and colonoscopy which is scheduled for today patient was prepped last night, patient still complains rectal bleeding sometime bright red blood, any abdominal pain nausea or vomiting fever or chills,Yesterday patient appeared slightly agitated and risk for DTs was placed on CIWA port and Librium as needed, will continue to monitor the patient will follow-up on GI recommendation. (2) Alcohol dependence: Qualifiers: Substance use status: unspecified alcohol-induced disorder Qualified Code(s): F10.29 - Alcohol dependence with unspecified alcohol-induced disorder Code(s): F10.20 - Alcohol dependence, uncomplicated Status: Acute Assessment and Plan: [facility] protocol. Ativan withdrawal prophylaxis IV. Thiamine IV daily. (3) Hypokalemia: Code(s): E87.6 - Hypokalemia Status: Acute Assessment and Plan: KCL was replaced in ER. Monitor serum potassium. Continue to replace as needed. 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 Resume oral hypoglycemic agents with the patient is eating again. (6) GERD (gastroesophageal reflux disease): Qualifiers: Esophagitis presence: esophagitis presence not specified Qualified Code(s): K21.9 - Gastro-esophageal reflux disease without esophagitis Code(s): K21.9 - Gastro-esophageal reflux disease without esophagitis Status: Chronic Assessment and Plan: Continue PPI therapy. (7) HLD (hyperlipidemia): Qualifiers: Hyperlipidemia type: unspecified Qualified Code(s): E78.5 - Hyperlipidemia, unspecified Code(s): E78.5 - Hyperlipidemia, unspecified Status: Chronic Assessment and Plan: Resume lovastatin when the patient is eating again (8) HTN (hypertension): Qualifiers: Hypertension type: unspecified Qualified Code(s): I10 - Essential (primary) hypertension Code(s): I10 - Essential (primary) hypertension Status: Chronic Asses
== END 2020-12-13 18:00 | disposition home or self-care (01) ==
LOC: ANHED 12-12 01:20 → ANH3MEDSUR 12-12 02:42
PROVIDERS: Internal Medicine Gastroenterology; Admitting Provider Family Medicine; Emergency Provider Emergency Medicine; Visit Provider Family Medicine
PROC: 0DJ08ZZ Inspection of Upper Intestinal Tract, Via Natural or Artificial Opening Endoscopic (ICD-10-PCS; CPT 43235; principal; 2020-12-13 16:00)
DX: K92.2 Gastrointestinal hemorrhage, unspecified (principal); F10.20 Alcohol dependence, uncomplicated; E87.6 Hypokalemia; E11.319 Type 2 diabetes mellitus with unspecified diabetic retinopathy without macular edema; K21.9 Gastro-esophageal reflux disease without esophagitis; E78.5 Hyperlipidemia, unspecified; I10 Essential (primary) hypertension; D12.0 Benign neoplasm of cecum; D12.2 Benign neoplasm of ascending colon; D12.5 Benign neoplasm of sigmoid colon; K63.5 Polyp of colon; K64.8 Other hemorrhoids; J44.9 Chronic obstructive pulmonary disease, unspecified; G47.30 Sleep apnea, unspecified; E03.9 Hypothyroidism, unspecified; Z79.01 Long term (current) use of anticoagulants; Z79.84 Long term (current) use of oral hypoglycemic drugs; Z87.891 Personal history of nicotine dependence
CPT/HCPCS: 43239; 45385; 36415; 80048; 80053; 83690; 83735; 85014; 85018; 85025; 85027; 85610; 85730; 86850; 86900; 86901; 88305; 96361; 96374; 96375; 96376; 99285; A9270; C9113; G0378; J1815; J2704; J3411; J7030; J7120

== ENCOUNTER 2021-06-11 07:19 | Emergency (ER) | payer OTHER, SELFPAY ==
[2021-06-11] VITALS (7 sets, daily range): BP systolic 139–155; BP diastolic 72–108; PULSE 68–87; RESP 13–17; TEMP 37.1; O2SAT 98–100
--- NOTE | ~2021-06-11 | XR_ITS ---
EXAMINATION: XR chest 1V portable DATE: 06/11/2021 08:20 INDICATION: Dyspnea TECHNIQUE: frontal view of the chest was obtained. COMPARISON: Chest radiograph dated 02/09/2020 FINDINGS: Unchanged calcified nodule in the right midlung zone consistent with old granulomatous disease. Linea r discoid atelectasis/scarring at the lateral left lower lung zone. No other airspace opacities, pulm onary edema, pleural effusion or pneumothorax. The cardiomediastinal silhouette is normal. Interval h ealing of a prior posterolateral left eighth rib fracture. IMPRESSION: 1. No acute cardiopulmonary disease. Reviewed, dictated and finalized at location [facility].
--- NOTE | 2021-06-11 07:54 | ECG_ITS ---
Measurements Intervals [place] Rate: 72 P: SD: 0 QRS: -60 QRSD: 110 T: 5 QT: 380 QTc: 417 Interpretive Statements ATRIAL FIBRILLATION LEFT ANTERIOR FASCICULAR BLOCK ABNORMAL ECG Electronically Signed On 06-11-2021 10:26:50 CDT by Ranulfo Albright D.O.
--- NOTE | 2021-06-11 07:55 | ED.GENADULT ---
HPI - General Adult General Chief complaint: Arrhythmia/Palpitations Stated complaint: high bp Time Seen by Provider: 06/11/21 07:21 Source: RN notes reviewed History of Present Illness HPI narrative: Patient presents emergency department from home for hypertension. Patient states that this morning he took his blood pressure and it was 220/140. Patient states he does not normally take his blood pressure a morning but this morning has been feeling that he needed to take it he states he recently quit smoking does begin vaping patient states that he has had no chest pain or shortness of breath he denies any headaches vision changes he states he has had some mild tightness in his neck which she describes as feeling like his arteries are expanding . Patient denies any nausea vomiting states he is on blood pressure medication followed at the [facility] and to take his medication this morning Related Data Home Medications Medication Instructions Recorded Confirmed glipizide 10 mg PO BID 12/11/20 12/12/20 lovastatin 40 mg PO DAILY 12/11/20 12/12/20 metformin 1,000 mg PO BID 12/11/20 12/12/20 Eliquis 5 mg PO BID 12/12/20 12/12/20 Fish Oil 1,000 mg PO DAILY 12/12/20 12/12/20 multivitamin,lv-qhxm-epyrsbed 1 tablet PO DAILY 12/12/20 12/12/20 amlodipine 06/11/21 lisinopril-hydrochlorothiazide tablet 06/11/21 Allergies Allergy/AdvReac Type Severity Reaction Status Date / Time No Known Allergies Allergy Unknown Verified 06/11/21 08:37 Review of Systems Review of Systems: Gen.: Denies fevers or chills Eyes: Denies eye pain or visual change ENT: Denies congestion Respiratory: Denies shortness of breath or cough CV: Denies chest pain or palpitations GI: Denies abdominal pain nausea, emesis or diarrhea Musculoskeletal: Denies back pain or muscle pain Neuro: Denies numbness, tingling, weakness or focal weakness Skin: Denies rash Except as documented, all other systems reviewed and negative [facility] Past Medical History Medical History Acute blood loss anemia Brain tumor Chronic anticoagulation COPD (chronic obstructive pulmonary disease) Diabetes type 2, controlled Diabetic retinopathy GERD (gastroesophageal reflux disease) GIB (gastrointestinal bleeding) HLD (hyperlipidemia) HTN (hypertension) Hypothyroidism Sleep apnea UTI (urinary tract infection) Surgical History Surgical History Hx of craniotomy removal of brain tumor Hx of tonsillectomy Social History Social History Smoking packs per day: 2.5 Smoking cigarettes per day: 50.0 Smoking status: Former smoker Tobacco type: cigarettes Alcohol intake: current Drinks per week: 70 Substance use: former Substance use type: does not use Gender identity (if verbalized by the patient): Male Sexual Orientation (if Verbalized by the Patient): Straight or Heterosexual Spiritual care concerns: No Exam Narrative: APPEARANCE: No acute distress, nontoxic, resting in bed EYES: EOMI HEENT: Normocephalic, atraumatic, OMM RESPIRATORY: No respiratory distress Clear to auscultation bilaterally with no rhonchi wheezing or rales. CARDIOVASCULAR: Regular rate and rhythm without murmurs rubs or gallops. ABDOMINAL: Soft, nontender, nondistended, no rebound or guarding MUSCULOSKELETAl: Moves all extremities. No clubbing, cyanosis or edema. NEURO: Awake and alert. Following commands, speech normal, no focal deficits SKIN:: Warm, dry. No rashes lesions or abrasions PSYCHIATRIC: Normal affect/mood, Course Course Emergency Course: Patient was an EKG showing atrial fibrillation discussed with the patient he states he has no history that he is aware of atrial fibrillation [facility] Eli[facility] for history of DVTs that he has been on for the past 2 years. I reviewed the patient old records the
[2021-06-11 08:20] LABS: Basophils Absolute Auto 0.1 K/mm3 (0.0-0.1); Basophils Percent Auto 1.2 % (0.2-1.2); Eosinophils Absolute Auto 0.1 K/mm3 (0-0.3); Eosinophils Percent Auto 1.5 % (0-4.4); Hematocrit 40.5 % (42.0-52.0); Hemoglobin 14.6 g/dL (14.0-18.0); Immature Granulocyte Absolute 0.04 K/mm3 (0.00-0.031); Immature Granulocyte Percent A 0.8 % (0-0.5); Lymphocytes Absolute Auto 0.62 K/mm3 (0.9-3.2); Mean Corpuscular Hemoglobin 32.9 pg (26-34); Mean Corpuscular Volume 91.2 fl (80-100); Mean Platelet Volume 10.1 fl (7.4-10.4); Monocytes Absolute Auto 0.6 K/mm3 (0.1-0.6); Monocytes Percent Auto 12.2 % (2.6-8.5); Neutrophils Absolute Auto 3.7 K/mm3 (1.3-6.7); Neutrophils Percent Auto 72.3 % (45.5-73.1); Platelet Count Result 207 k/mm3 (150-375); Red Blood Count 4.44 M/mm3 (4.6-6.20); Red Cell Distribution Width 12.2 % (11.5-14.5); White Blood Count 5.2 K/mm3 (4.5-10.0)
[2021-06-11 08:43] LABS: Alanine Aminotransferase 26 U/L (4-50); Albumin Level 4.5 g/dL (3.5-5.1); Alkaline Phosphatase 66 U/L (38-126); Anion Gap 8 mmol/L (8-16); Aspartate Amino Transferase 28 U/L (17-59); Bilirubin,Total 0.8 mg/dL (0.2-1.3); Blood Urea Nitrogen 14 mg/dL (9-20); Calcium 9.4 mg/dL (8.4-10.2); Carbon Dioxide 28 mmol/L (22-30); Chloride 94 mmol/L (98-107); Estimated CRCL calculation 183 ml/min; Estimated Glomerular Filt Rate > 60; Glucose 261 mg/dL (65-110); Potassium 4.4 mmol/L (3.4-5.0); Sodium 130 mmol/L (137-145)
[2021-06-11 08:49] LABS: Add Urine Microscopic? YES; Appearance Urine Clear (Clear); Bilirubin Urine Negative (Negative); Blood Urine Negative (Negative); Color Urine Yellow (Yellow); Glucose Urine UA 3+ mg/dL (Negative); Ketones Urine Negative (Negative); Leukocyte Esterase Ur Trace LEU/UL (Negative); Nitrate Urine Negative (Negative); Protein Urine 1+ mg/dL (Negative); RBC Urine 0-2 /hpf (0-2); Urobilinogen Urine Negative mg/dL (<2.0); WBC Urine 0-3 /hpf
[2021-06-11 08:53] LABS: Troponin I < 0.012 ng/mL (0.000-0.034)
== END 2021-06-11 10:00 | disposition home or self-care (01) ==
PROVIDERS: Emergency Provider Emergency Medicine
DX: I10 Essential (primary) hypertension (principal); I48.91 Unspecified atrial fibrillation; J44.9 Chronic obstructive pulmonary disease, unspecified; E11.319 Type 2 diabetes mellitus with unspecified diabetic retinopathy without macular edema; K21.9 Gastro-esophageal reflux disease without esophagitis; E78.5 Hyperlipidemia, unspecified; E03.9 Hypothyroidism, unspecified; G47.30 Sleep apnea, unspecified; F17.290 Nicotine dependence, other tobacco product, uncomplicated; Z87.440 Personal history of urinary (tract) infections; Z79.84 Long term (current) use of oral hypoglycemic drugs; Z79.01 Long term (current) use of anticoagulants
CPT/HCPCS: 36415; 71045; 80053; 81001; 84484; 85025; 93005; 99284

== ENCOUNTER 2022-10-04 21:07 | Emergency (ER) | payer OTHER, SELFPAY ==
--- NOTE | ~2022-10-04 | XR_ITS ---
Right foot Technique: AP, oblique, and lateral views were obtained. Clinical History: Wound Findings: No acute fracture or dislocation is seen. Suggestion of pes planus. Joint spaces are preser matthew without erosive or degenerative change. Marked dorsal soft tissue swelling of the foot noted. Impression: No radiographic evidence for osteomyelitis. Probable pes planus. Marked dorsal soft tissue swelling of the forefoot. Reviewed, dictated and finalized at location . [facility] Impression: No radiographic evidence for osteomyelitis. Probable pes planus. Marked dorsal soft tissue swelling of the forefoot.
[2022-10-04 21:27] VITALS: BP 153/78; PULSE 81; RESP 18; TEMP 36.7; O2SAT 97
[2022-10-05 00:01] VITALS: BP 135/62; PULSE 81; RESP 16; O2SAT 99
--- NOTE | 2022-10-05 00:14 | ED.EXTPRO ---
HPI - Extremity Problem General Chief complaint: Extremity Problem,Nontraumatic Stated complaint: right leg swelling/sores Time Seen by Provider: 10/05/22 00:07 History of Present Illness HPI Narrative: 66-year-old male history of hypothyroidism, hypertension, hyperlipidemia, GERD, type 2 diabetes, COPD who is currently anticoagulated presents to the emergency room for multiple wounds to his right foot. Patient states that he has been wearing new prosthetic shoes due to his foot drop and has noticed the shoes rubbing up against an side of his foot and the bottom of his toes. Patient saw his PCP at the [facility] 2 weeks ago and was instructed to monitor for signs of worsening. States he has been experiencing significant amount of friction with his shoe over the last week. Observed some skin breakdown to the inside of his foot. No purulent drainage noted states he is experiencing some swelling extending from the skin breakdown up into his mid calf. Patient states he recently completed a lower extremity Doppler to assess for peripheral vascular disease, states the results were normal. Related Data Home Medications Medication Instructions Recorded Confirmed glipizide 10 mg tablet 10 mg PO BID 12/11/20 12/12/20 lovastatin 40 mg tablet 40 mg PO DAILY 12/11/20 12/12/20 metformin 1,000 mg tablet 1,000 mg PO BID 12/11/20 12/12/20 Fish Oil 1,000 mg PO DAILY 12/12/20 12/12/20 apixaban 5 mg tablet (Eliquis) 5 mg PO BID 12/12/20 12/12/20 multivitamin,jo-cidq-aucujbmz 1 tablet PO DAILY 12/12/20 12/12/20 amlodipine 5 mg tablet 06/11/21 lisinopril 20 tablet 06/11/21 mg-hydrochlorothiazide 12.5 mg tablet Allergies Allergy/AdvReac Type Severity Reaction Status Date / Time No Known Allergies Allergy Unknown Verified 10/04/22 21:31 Review of Systems Review of Systems: CONSTITUTIONAL: Denies fever, chills, or sweats. EYES: Denies visual changes, redness, or discharge. ENT: Denies rhinorrhea, congestion, sore throat, or otalgia. CARDIOVASCULAR: Denies chest pain, palpitations, or edema. RESPIRATORY: Denies cough or dyspnea. GASTROINTESTINAL: Denies abdominal pain, nausea, vomiting, or diarrhea. GENITOURINARY: Denies dysuria or hematuria. SKIN: Skin breakdown to the right foot MUSCULOSKELETAL: Denies back pain, joint pain, or myalgia. NEUROLOGIC: Denies headache, numbness, dizziness, or weakness. PSYCHIATRIC: Denies anxiety or depression. [facility] Past Medical History Medical History Acute blood loss anemia Brain tumor Chronic anticoagulation COPD (chronic obstructive pulmonary disease) Diabetes type 2, controlled Diabetic retinopathy GERD (gastroesophageal reflux disease) GIB (gastrointestinal bleeding) HLD (hyperlipidemia) HTN (hypertension) Hypothyroidism Sleep apnea UTI (urinary tract infection) Surgical History Surgical History Hx of craniotomy removal of brain tumor Hx of tonsillectomy Social History Social History Smoking packs per day: 2.5 Smoking cigarettes per day: 50.0 Smoking status: Former smoker Tobacco type: cigarettes Alcohol intake: current Drinks per week: 70 Substance use: former Substance use type: does not use Gender identity (if verbalized by the patient): Male Sexual Orientation (if Verbalized by the Patient): Straight or Heterosexual Spiritual care concerns: No Exam Narrative: GENERAL: Well-appearing, well-nourished, no physical limitations, and in no acute distress. HEAD: Normocephalic, atraumatic. EYES: Conjunctivae normal, PERRLA and EOMI. CHEST: Clear to auscultation. No respiratory distress. No wheezes rales or rhonchi. HEART: Regular rate and rhythm. No murmur heard. Normal peripheral pulses. EXTREMITIES: Normal range of motion. No edema. No clubbing or cyanosis SKIN: Right foot: 3 cm x 4 cm diabetic skin
[2022-10-05 00:54] LABS: Basophils Absolute Auto 0.1 K/mm3 (0.0-0.1); Basophils Percent Auto 0.9 % (0.2-1.2); Eosinophils Absolute Auto 0.1 K/mm3 (0-0.3); Eosinophils Percent Auto 1.5 % (0-4.4); Hematocrit 43.4 % (42.0-52.0); Hemoglobin 15.2 g/dL (14.0-18.0); Immature Granulocyte Absolute 0.04 K/mm3 (0.00-0.031); Immature Granulocyte Percent A 0.5 % (0-0.5); Lymphocytes Absolute Auto 1.11 K/mm3 (0.9-3.2); Lymphocytes Percent Auto 14.8 % (18.3-44.2); Mean Corpuscular Hemoglobin 32.4 pg (26-34); Mean Corpuscular Volume 92.5 fl (80-100); Mean Platelet Volume 10.2 fl (7.4-10.4); Monocytes Absolute Auto 0.9 K/mm3 (0.1-0.6); Monocytes Percent Auto 12.3 % (2.6-8.5); Neutrophils Absolute Auto 5.3 K/mm3 (1.3-6.7); Platelet Count Result 201 k/mm3 (150-375); Red Blood Count 4.69 M/mm3 (4.6-6.20); Red Cell Distribution Width 12.9 % (11.5-14.5); White Blood Count 7.5 K/mm3 (4.5-10.0)
[2022-10-05 01:09] LABS: Alanine Aminotransferase 22 U/L (6-50); Albumin Level 3.8 g/dL (3.5-5.1); Alkaline Phosphatase 69 U/L (38-126); Anion Gap 5 mmol/L (8-16); Aspartate Amino Transferase 26 U/L (17-59); Bilirubin,Total 0.9 mg/dL (0.2-1.3); Blood Urea Nitrogen 11 mg/dL (9-20); Calcium 8.6 mg/dL (8.4-10.2); Carbon Dioxide 30 mmol/L (22-30); Chloride 97 mmol/L (98-107); Estimated Glomerular Filt Rate > 60; Glucose 239 mg/dL (65-110); Potassium 4.3 mmol/L (3.4-5.0); Sodium 132 mmol/L (137-145)
== END 2022-10-05 01:51 | disposition home or self-care (01) ==
PROVIDERS: Emergency Provider Nurse Practitioner Family
DX: E11.621 Type 2 diabetes mellitus with foot ulcer (principal); L97.511 Non-pressure chronic ulcer of other part of right foot limited to breakdown of skin; E11.319 Type 2 diabetes mellitus with unspecified diabetic retinopathy without macular edema; J44.9 Chronic obstructive pulmonary disease, unspecified; E78.5 Hyperlipidemia, unspecified; I10 Essential (primary) hypertension; E03.9 Hypothyroidism, unspecified; K21.9 Gastro-esophageal reflux disease without esophagitis; G47.30 Sleep apnea, unspecified; Z87.442 Personal history of urinary calculi; Z87.891 Personal history of nicotine dependence; Z79.84 Long term (current) use of oral hypoglycemic drugs; Z79.01 Long term (current) use of anticoagulants
CPT/HCPCS: 36415; 73630; 80053; 85025; 87070; 87205; 96365; 99284; J0696

== ENCOUNTER 2022-10-16 13:33 | Emergency (ER) | payer OTHER, SELFPAY ==
[2022-10-16 13:48] VITALS: BP 161/79; PULSE 57; RESP 20; TEMP 36.2; O2SAT 97
[2022-10-16 13:50] VITALS: BP 161/79; PULSE 57; RESP 20; TEMP 36.2; O2SAT 97
--- NOTE | 2022-10-16 13:50 | ED.WOUNDLAC ---
HPI - Wound/Laceration General Chief Complaint: Wound/Laceration Stated Complaint: right foot ulcer Time Seen by Provider: 10/16/22 14:00 Source: patient and RN notes reviewed Mode of arrival: ambulatory Limitations: no limitations History of Present Illness HPI narrative: 66-year-old male presents with concern for wounds to his right foot. He reports he was treated with 2 antibiotics on October 05 after a visit to the emergency room. He reports the wounds are persisting. He reports the wounds have been draining, he has been doing dressing changes at home. He reports diabetic neuropathy so he is not having pain to his foot. Denies fevers. Related Data Home Medications Medication Instructions Recorded Confirmed glipizide 10 mg tablet 10 mg PO BID 12/11/20 12/12/20 lovastatin 40 mg tablet 40 mg PO DAILY 12/11/20 12/12/20 metformin 1,000 mg tablet 1,000 mg PO BID 12/11/20 12/12/20 Fish Oil 1,000 mg PO DAILY 12/12/20 12/12/20 apixaban 5 mg tablet (Eliquis) 5 mg PO BID 12/12/20 12/12/20 multivitamin,wd-ixbh-dxhmvkor 1 tablet PO DAILY 12/12/20 12/12/20 amlodipine 5 mg tablet 06/11/21 lisinopril 20 tablet 06/11/21 mg-hydrochlorothiazide 12.5 mg tablet carvedilol 6.25 mg tablet mg 10/16/22 diltiazem HCl 180 mg mg PO 10/16/22 capsule,extended release 24 hr folic acid 400 mcg tablet 0.4 mg PO DAILY 10/16/22 10/16/22 Allergies Allergy/AdvReac Type Severity Reaction Status Date / Time No Known Allergies Allergy Unknown Verified 10/16/22 13:47 Review of Systems Review of Systems: CONSTITUTIONAL: Denies malaise, chills, sweats, or fever. EYES: Denies redness, or discharge. ENT: Denies rhinorrhea, congestion, swollen lips, swollen tongue CARDIOVASCULAR: Denies chest pain, palpitations, or edema. RESPIRATORY: Denies cough or dyspnea. GASTROINTESTINAL: Denies abdominal pain, nausea, vomiting SKIN: Reports redness, swelling and purulence draining wounds to the right foot. MUSCULOSKELETAL: Denies joint pain or myalgia. NEUROLOGIC: Denies headache. All systems reviewed & are unremarkable except as noted in HPI and below PMFSH Past Medical History Medical History Acute blood loss anemia Brain tumor Chronic anticoagulation COPD (chronic obstructive pulmonary disease) Diabetes type 2, controlled Diabetic retinopathy GERD (gastroesophageal reflux disease) GIB (gastrointestinal bleeding) HLD (hyperlipidemia) HTN (hypertension) Hypothyroidism Sleep apnea UTI (urinary tract infection) Surgical History Surgical History Hx of craniotomy removal of brain tumor Hx of tonsillectomy Social History Social History Smoking packs per day: 2.5 Smoking cigarettes per day: 50.0 Smoking status: Former smoker Tobacco type: cigarettes Alcohol intake: current Drinks per week: 70 Substance use: former Substance use type: does not use Gender identity (if verbalized by the patient): Male Sexual Orientation (if Verbalized by the Patient): Straight or Heterosexual Spiritual care concerns: No Comments At time of signature, agree with nursing past medical, surgical, social and family history. There is no relevant family history pertinent to the presenting complaint Exam Narrative: GENERAL: Well-appearing, well-nourished, and in no acute distress. HEAD: Normocephalic, atraumatic. EYES: PERRLA, conjunctivae clear ENT: Mucous membranes moist. NECK: Supple. No lymphadenopathy CHEST: Clear to auscultation. No respiratory distress. HEART: Regular rate and rhythm. SKIN: Warm, dry. Erythema, induration, pitting edema, warmth noted to the generalized right foot moving up the ankle, 3.5 x 4 cm open wound with yellow wound bed noted to the right medial foot. Early staged ulcerations noted to the plantar surface of the 1st, 2nd, 3rd digits of the r
== END 2022-10-16 14:12 | disposition short-term general hospital (02) ==
PROVIDERS: Emergency Provider Nurse Practitioner
DX: E11.621 Type 2 diabetes mellitus with foot ulcer (principal); L97.519 Non-pressure chronic ulcer of other part of right foot with unspecified severity; L97.518 Non-pressure chronic ulcer of other part of right foot with other specified severity; E11.42 Type 2 diabetes mellitus with diabetic polyneuropathy; E11.319 Type 2 diabetes mellitus with unspecified diabetic retinopathy without macular edema; Z79.84 Long term (current) use of oral hypoglycemic drugs; J44.9 Chronic obstructive pulmonary disease, unspecified; K21.9 Gastro-esophageal reflux disease without esophagitis; E78.5 Hyperlipidemia, unspecified; I10 Essential (primary) hypertension; E03.9 Hypothyroidism, unspecified; Z87.891 Personal history of nicotine dependence; Z79.01 Long term (current) use of anticoagulants
CPT/HCPCS: 99212; G0463

== ENCOUNTER 2022-10-16 14:51 | Emergency (ER) | payer OTHER, SELFPAY ==
--- NOTE | ~2022-10-16 | XR_ITS ---
EXAMINATION: XR foot RT min 3V DATE: 10/16/2022 17:17 INDICATION: Right foot diabetic ulcer. TECHNIQUE: 4 views of right foot were obtained. COMPARISON: Right foot radiographs 10/05/2022 FINDINGS: Bone alignment is normal. No fracture. There is mild osteoarthritis of first metatarsophala ngeal and some of the interphalangeal joints. There is moderate osteoarthritis of talonavicular joint and calcaneocuboid joint. There is an enthesophyte at plantar aspect of calcaneal tuberosity. There is soft tissue swelling of the forefoot. IMPRESSION: 1. Polyarticular osteoarthritis. Reviewed, dictated and finalized at location A. SSIONS GATE ATTENDANT
[2022-10-16 14:53] VITALS: BP 163/82; PULSE 71; RESP 18; TEMP 36.9; O2SAT 98
--- NOTE | 2022-10-16 17:05 | ED.WOUNDLAC ---
HPI - Wound/Laceration General Chief Complaint: Wound/Laceration Stated Complaint: patient sent by for foot ulcer Time Seen by Provider: 10/16/22 16:42 Source: patient and old records reviewed Mode of arrival: ambulatory Limitations: no limitations History of Present Illness HPI narrative: Patient is a 66-year-old male who presents to the ED with report of a diabetic ulcer to his right foot. Patient reports having an ulcer to his right medial plantar foot for the past few months, it was about the size of a nickel in Aug. Patient has a chronic foot drop and deformity to his right ankle and recently received new diabetic foot orthotic shoes. He has had issues with the shoes rubbing against that area of his foot. Patient was seen in the ED 10/05 at which point the ulcer was noted to be approximately 4 x 3 cm. He was prescribed Keflex and doxycycline and advised to follow-up with podiatry and wound care through the [place] system. Patient has since completed the antibiotics. He noted improvement of the redness, swelling, inflammation surrounding the ulcer while on the antibiotics. He has an appointment with podiatry on 11/03, but is still waiting to hear from the wound care clinic. Over the last few days, he has noticed increased redness, warmth, drainage from the ulcer, in addition to swelling of his right foot and lower leg. Patient has decreased sensation to his lower extremities and denies significant pain. Patient denies any fevers, chills, diaphoresis. He states his blood sugars have been fairly well under control. Patient also reports he had a arterial Doppler performed of his lower extremity recently which showed adequate blood flow. Patient has a history of DVT and is on Eliquis. He denies missing any doses. Related Data Home Medications Medication Instructions Recorded Confirmed glipizide 10 mg tablet 10 mg PO BID 12/11/20 12/12/20 lovastatin 40 mg tablet 40 mg PO DAILY 12/11/20 12/12/20 metformin 1,000 mg tablet 1,000 mg PO BID 12/11/20 12/12/20 Fish Oil 1,000 mg PO DAILY 12/12/20 12/12/20 apixaban 5 mg tablet (Eliquis) 5 mg PO BID 12/12/20 12/12/20 multivitamin,fm-uhwz-eldpvlkt 1 tablet PO DAILY 04/01/21 04/01/21 amlodipine 5 mg tablet 06/11/21 lisinopril 20 tablet 06/11/21 mg-hydrochlorothiazide 12.5 mg tablet carvedilol 6.25 mg tablet mg 10/16/22 diltiazem HCl 180 mg mg PO 10/16/22 capsule,extended release 24 hr folic acid 400 mcg tablet 0.4 mg PO DAILY 10/16/22 10/16/22 Allergies Allergy/AdvReac Type Severity Reaction Status Date / Time No Known Allergies Allergy Unknown Verified 10/16/22 13:47 Review of Systems Review of Systems: CONSTITUTIONAL: Denies fever, chills, or sweats. CARDIOVASCULAR: Denies chest pain. RESPIRATORY: Denies dyspnea. GASTROINTESTINAL: Denies abdominal pain, nausea, vomiting. SKIN: See HPI. MUSCULOSKELETAL: See HPI. NEUROLOGIC: Reports numbness to feet. All systems reviewed & are unremarkable except as noted in HPI and below PMFSH Past Medical History Medical History Acute blood loss anemia Brain tumor Chronic anticoagulation COPD (chronic obstructive pulmonary disease) Diabetes type 2, controlled Diabetic retinopathy GERD (gastroesophageal reflux disease) GIB (gastrointestinal bleeding) HLD (hyperlipidemia) HTN (hypertension) Hypothyroidism Sleep apnea UTI (urinary tract infection) Surgical History Surgical History Hx of craniotomy removal of brain tumor Hx of tonsillectomy Social History Social History Smoking packs per day: 2.5 Smoking cigarettes per day: 50.0 Smoking status: Former smoker Tobacco type: cigarettes Alcohol intake: current Drinks per week: 70 Substance use: former Substance use type: does not use Gender identity (if verbalized by the patient): Mal
[2022-10-16 17:52] LABS: Basophils Absolute Auto 0.1 K/mm3 (0.0-0.1); Basophils Percent Auto 0.9 % (0.2-1.2); Eosinophils Absolute Auto 0.1 K/mm3 (0-0.3); Eosinophils Percent Auto 1.4 % (0-4.4); Hematocrit 43.6 % (42.0-52.0); Hemoglobin 15.1 g/dL (14.0-18.0); Immature Granulocyte Absolute 0.02 K/mm3 (0.00-0.031); Immature Granulocyte Percent A 0.4 % (0-0.5); Lymphocytes Absolute Auto 0.94 K/mm3 (0.9-3.2); Mean Corpuscular HGB Conc 34.6 g/dl (32-36); Mean Corpuscular Hemoglobin 32.3 pg (26-34); Mean Corpuscular Volume 93.2 fl (80-100); Mean Platelet Volume 9.8 fl (7.4-10.4); Monocytes Absolute Auto 0.7 K/mm3 (0.1-0.6); Monocytes Percent Auto 13.2 % (2.6-8.5); Neutrophils Absolute Auto 3.7 K/mm3 (1.3-6.7); Neutrophils Percent Auto 67.1 % (45.5-73.1); Platelet Count Result 207 k/mm3 (150-375); Red Blood Count 4.68 M/mm3 (4.6-6.20); Red Cell Distribution Width 13.3 % (11.5-14.5); White Blood Count 5.5 K/mm3 (4.5-10.0)
[2022-10-16 18:12] LABS: Hemoglobin A1C 6.4 % (<5.7)
[2022-10-16 18:24] LABS: Alanine Aminotransferase 23 U/L (6-50); Albumin Level 4.3 g/dL (3.5-5.1); Alkaline Phosphatase 72 U/L (38-126); Anion Gap 5 mmol/L (8-16); Aspartate Amino Transferase 29 U/L (17-59); Bilirubin,Total 0.8 mg/dL (0.2-1.3); Blood Urea Nitrogen 11 mg/dL (9-20); CRP 1.6 mg/dL (<1.0); Calcium 8.8 mg/dL (8.4-10.2); Carbon Dioxide 29 mmol/L (22-30); Chloride 95 mmol/L (98-107); Estimated CRCL calculation 151 ml/min; Estimated Glomerular Filt Rate > 60; Glucose 119 mg/dL (65-110); Potassium 3.8 mmol/L (3.4-5.0); Sodium 129 mmol/L (137-145)
[2022-10-16 18:25] LABS: Erythrocyte Sedimentation Rate 17 mm/hr (0-20)
--- NOTE | 2022-10-16 21:02 | PC.NURSE ---
Wound cleaned with wound cleanser, dried, CRAIG applied with non-adherent dressing ad wrapped with kerlex
== END 2022-10-16 20:42 | disposition home or self-care (01) ==
PROVIDERS: Emergency Provider Physician Assistant
DX: E11.621 Type 2 diabetes mellitus with foot ulcer (principal); L97.419 Non-pressure chronic ulcer of right heel and midfoot with unspecified severity; L97.519 Non-pressure chronic ulcer of other part of right foot with unspecified severity; E87.1 Hypo-osmolality and hyponatremia; E11.319 Type 2 diabetes mellitus with unspecified diabetic retinopathy without macular edema; J44.9 Chronic obstructive pulmonary disease, unspecified; I10 Essential (primary) hypertension; E78.5 Hyperlipidemia, unspecified; E03.9 Hypothyroidism, unspecified; K21.9 Gastro-esophageal reflux disease without esophagitis; G47.30 Sleep apnea, unspecified; Z86.718 Personal history of other venous thrombosis and embolism; Z87.440 Personal history of urinary (tract) infections; Z87.891 Personal history of nicotine dependence; Z79.01 Long term (current) use of anticoagulants; Z79.84 Long term (current) use of oral hypoglycemic drugs; M19.071 Primary osteoarthritis, right ankle and foot
CPT/HCPCS: 36415; 73630; 80053; 83036; 85025; 85652; 86140; 99283

== ENCOUNTER 2023-02-22 16:10 | Inpatient (IN) | payer MEDICARE, OTHER, SELFPAY ==
[2023-02-22] VITALS (8 sets, daily range): BP systolic 133–158; BP diastolic 56–117; PULSE 92–123; RESP 14–23; TEMP 37.2–38.2; O2SAT 96–100; BMI 33.6
--- NOTE | ~2023-02-22 | XR_ITS ---
EXAMINATION: XR chest PICC line DATE: 02/26/2023 14:53 INDICATION: Central line placement. TECHNIQUE: A single frontal view of the chest was obtained. COMPARISON: Chest single view 06/11/2021 FINDINGS: Calcified right lung nodules and calcified right hilar lymph nodes are consistent with old granulomatous disease. There is mild atelectasis in left lower lung zone. No pleural effusion or pneu mothorax. The heart size is normal. A right upper extremity peripherally inserted central venous cath eter (PICC) is seen with tip at the superior cavoatrial junction. IMPRESSION: 1. PICC tip at the superior cavoatrial junction. Reviewed, dictated and finalized at location A.
--- NOTE | ~2023-02-22 | XR_ITS ---
EXAM: XR foot RT min 3V DATE: 02/22/2023 18:43 HISTORY: ULCER TO MEDIAL/PLANTAR SURFACE OF FOOT. HX DIABETES . COMPARISON: 10/16/2022. FINDINGS: Severe ankle and foot soft tissue swelling hindfoot and midfoot sclerosis and joint destru ction, typical of neuropathic arthropathy. Interval erosion along the medial navicular, with the sugg estion of overlying soft tissue defect. 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 Progressive neuropathic arthropathyr. Reviewed, dictated and finalized at location K. 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 Progressive neur opathic arthropathyr.
--- NOTE | 2023-02-22 17:00 | PC.NURSE ---
when pt arrived by ems pt needed to use restroom. pt taken to bathroom via wheelchair. gave pt urine cup for urine sample. when pt was done pt states he used the urine cup to drink some water because he was so thirsty. pt taken back to room 5. when undressing pt, pt pulled out IV that ems place. 20 G. in R. hand was removed w/ catheter intact. gauze placed over site. bleeding controlled.
[2023-02-22 17:30] LABS: Basophils Percent Auto 0.3 % (0.2-1.2); Hematocrit 34.9 % (42.0-52.0); Hemoglobin 12.3 g/dL (14.0-18.0); Immature Granulocyte Absolute 0.11 K/mm3 (0.00-0.031); Lymphocytes Absolute Auto 0.25 K/mm3 (0.9-3.2); Lymphocytes Percent Auto 2.2 % (18.3-44.2); Mean Corpuscular HGB Conc 35.2 g/dl (32-36); Mean Corpuscular Hemoglobin 31.5 pg (26-34); Mean Corpuscular Volume 89.5 fl (80-100); Mean Platelet Volume 9.1 fl (7.4-10.4); Monocytes Absolute Auto 0.7 K/mm3 (0.1-0.6); Monocytes Percent Auto 5.9 % (2.6-8.5); Neutrophils Absolute Auto 10.5 K/mm3 (1.3-6.7); Neutrophils Percent Auto 90.6 % (45.5-73.1); Platelet Count Result 372 k/mm3 (150-375); Red Cell Distribution Width 14.2 % (11.5-14.5); White Blood Count 11.5 K/mm3 (4.5-10.0)
[2023-02-22 17:38] LABS: Lactic Acid Reflex 0.8 mmol/L (0.7-2.0)
[2023-02-22 17:39] LABS: INR 1.4; Prothrombin Time 18.1 Seconds (11.1-14.7)
[2023-02-22 17:48] LABS: NT Pro B Type Natriuretic Pept 2670 pg/mL (19.9-100)
[2023-02-22 18:03] LABS: CRP 21.3 mg/dL (<1.0)
--- NOTE | 2023-02-22 18:44 | ED.GENADULT ---
HPI - General Adult General Chief complaint: Weakness Stated complaint: weakness, left leg infection. Time Seen by Provider: 02/22/23 16:26 Source: patient Mode of arrival: EMS Limitations: no limitations History of Present Illness HPI narrative: 67-year-old with a history of hypertension, diabetes, chronic right foot ulcer, foot drop here with complaints of foul-smelling drainage from the right foot. Patient states that he has been a patient in wound clinic at [facility] for last several months he still continues to have a lot of drainage and redness. He finished a course of antibiotics 4 days ago. He presently denies any fever or chills. He states his blood sugar is under well controlled and last hemoglobin A1c was 6.1. Onset (ago): month(s) Location: lower extremity (Right foot) Severity: moderate Relieving factors: none Exacerbating factors: none Associated symptoms: denies other symptoms Treatments prior to arrival: none Related Data Home Medications Medication Instructions Recorded Confirmed glipizide 10 mg tablet 10 mg PO BID 12/11/20 12/12/20 lovastatin 40 mg tablet 40 mg PO DAILY 12/11/20 12/12/20 metformin 1,000 mg tablet 1,000 mg PO BID 12/11/20 12/12/20 Fish Oil 1,000 mg PO DAILY 12/12/20 12/12/20 apixaban 5 mg tablet (Eliquis) 5 mg PO BID 12/12/20 12/12/20 multivitamin,tx-eipn-pldpwdog 1 tablet PO DAILY 12/12/20 12/12/20 amlodipine 5 mg tablet 06/11/21 lisinopril 20 tablet 06/11/21 mg-hydrochlorothiazide 12.5 mg tablet carvedilol 6.25 mg tablet mg 10/16/22 diltiazem HCl 180 mg mg PO 10/16/22 capsule,extended release 24 hr folic acid 400 mcg tablet 0.4 mg PO DAILY 10/16/22 10/16/22 Allergies Allergy/AdvReac Type Severity Reaction Status Date / Time No Known Allergies Allergy Unknown Verified 10/16/22 13:47 Review of Systems Review of Systems: All systems reviewed & are unremarkable except as noted in HPI and below Constitutional: Constitutional: Reports no additional constitutional complaints Eyes: Eyes: Reports no additional eye complaints ENT: Reports system reviewed and no additional complaints, except as documented Cardiovascular: Cardiovascular: Reports no additional cardiovascular complaints Respiratory: Respiratory: Reports no additional respiratory complaints Gastrointestinal: Gastrointestinal: Reports no additional gastrointestinal complaints Musculoskeletal: Musculoskeletal: Reports as per HPI Integumentary/Breasts: Skin/Breast: Reports as per HPI Neurologic: Reports system reviewed and no additional complaints, except as documented Psychiatric: Psychiatric: Reports no additional psychiatric complaints PMFSH Past Medical History Medical History Acute blood loss anemia Brain tumor Chronic anticoagulation COPD (chronic obstructive pulmonary disease) Diabetes type 2, controlled Diabetic retinopathy GERD (gastroesophageal reflux disease) GIB (gastrointestinal bleeding) HLD (hyperlipidemia) HTN (hypertension) Hypothyroidism Sleep apnea UTI (urinary tract infection) Surgical History Surgical History Hx of craniotomy removal of brain tumor Hx of tonsillectomy Social History Social History Smoking packs per day: 2.5 Smoking cigarettes per day: 50.0 Smoking status: Former smoker Tobacco type: cigarettes Alcohol intake: current Drinks per week: 70 Substance use: former Substance use type: does not use Gender identity (if verbalized by the patient): Male Sexual Orientation (if Verbalized by the Patient): Straight or Heterosexual Spiritual care concerns: No Exam Narrative: GENERAL: ill -appearing, well-nourished, and in no acute distress. HEAD: Normocephalic, atraumatic. EYES: PERRLA and EOMI. ENT: Nares clear, no rhinorrhea or epistaxis. Mucous membranes moist. NECK: Supp
[2023-02-22] MEDS: CEFEPIME 1 GM/NS 50 ML 1 GM/50 ML BAG IVPB (19:04)
[2023-02-22] MEDS: ACETAMINOPHEN 325 MG TABLET 650 MG PO (19:52)
[2023-02-22] MEDS: VANCOMYCIN 1,250 MG/NS 250 ML 1,250 MG/250 ML BAG 166.67 MG IVPB ×2 (19:54→21:03)
[2023-02-22] MEDS: SODIUM CHLORIDE 0.9% IV 1,000 ML 75 ML IV CONT (19:58)
[2023-02-22 20:42] LABS: Estimated CRCL calculation 208 ml/min; Estimated Glomerular Filt Rate > 60
[2023-02-22 21:57] LABS: Alanine Aminotransferase 28 U/L (6-50); Albumin Level 2.8 g/dL (3.5-5.1); Alkaline Phosphatase 147 U/L (38-126); Anion Gap 10 mmol/L (8-16); Aspartate Amino Transferase 35 U/L (17-59); Bilirubin,Total 0.9 mg/dL (0.2-1.3); Blood Urea Nitrogen 9 mg/dL (9-20); Calcium 8.1 mg/dL (8.4-10.2); Carbon Dioxide 22 mmol/L (22-30); Chloride 97 mmol/L (98-107); Estimated CRCL calculation 208 ml/min; Estimated Glomerular Filt Rate > 60; Glucose 231 mg/dL (65-110); Potassium 3.1 mmol/L (3.4-5.0); Sodium 129 mmol/L (137-145)
--- NOTE | 2023-02-22 22:41 | PM.IMHP ---
H&P: HPI History of Present Illness Date/Time: 02/22/23 22:41 Chief Complaint: Right foot wound that is infected Narrative: 67-year-old male with a past medical history of alcoholism, diabetic peripheral neuropathy, obstructive sleep apnea and Charcot joint bilateral feet chronic diabetic foot wound of the right foot who presented to the ER with worsening foot wound and increased weakness. Review of Systems Review of Systems: 12 systems were reviewed with pertinent positives and negatives per HPI. Except as documented in the HPI, all other systems were reviewed and are negative. [facility] Past Medical History Medical History (Updated 02/22/23 @ 23:00 by Tayler Dupree DO) Brain tumor Chronic anticoagulation Chronic hyponatremia COPD (chronic obstructive pulmonary disease) Diabetes type 2, controlled A1c 6.7 12/2022 Diabetic retinopathy GERD (gastroesophageal reflux disease) GIB (gastrointestinal bleeding) HLD (hyperlipidemia) HTN (hypertension) Hypothyroidism Sleep apnea With CPAP UTI (urinary tract infection) Surgical History Surgical History (Updated 02/22/23 @ 22:50 by Tayler Dupree DO) Hx of craniotomy removal of brain tumor as a child Hx of tonsillectomy Family History Family History Mother Heart disease Social History Social History (Updated 02/22/23 @ 22:52 by Tayler Dupree DO) Social History: He and his have been since he was 17. A used to smoke 2.5 packs of cigarettes per day but quit approximately 2018. He reports that is not unusual for him to drink 18 beers a day. He has drink heavily since he was 26 years old. He quit drinking alcohol 02/07/2023. He denies illicit substance use. Code status: DNR/DNI per patient request Surrogate decision maker: Smoking packs per day: 2.5 Smoking cigarettes per day: 50.0 Years smoked: 45 Smoking pack-years: 112.50 Smoking status: Former smoker Tobacco type: cigarettes Alcohol intake: current Drinks per week: 70 Substance use: former Substance use type: does not use Gender identity (if verbalized by the patient): Male Sexual Orientation (if Verbalized by the Patient): Straight or Heterosexual Spiritual care concerns: No Meds Home Medications and Allergies Home Medications Medication Instructions Recorded Confirmed Type glipizide 10 mg tablet 10 mg PO BID 12/11/20 02/22/23 History metformin 1,000 mg tablet 1,000 mg PO BID 12/11/20 02/22/23 History apixaban 5 mg tablet (Eliquis) 5 mg PO BID 12/12/20 02/22/23 History carvedilol 6.25 mg tablet 6.25 mg PO BID 10/16/22 02/22/23 History diltiazem HCl 180 mg 180 mg PO DAILY 10/16/22 02/22/23 History capsule,extended release 24 hr empagliflozin 25 mg tablet 25 mg PO DAILY 02/22/23 02/22/23 History omeprazole 20 mg capsule,delayed 20 mg PO 02/22/23 History release Allergies Allergy/AdvReac Type Severity Reaction Status Date / Time No Known Allergies Allergy Unknown Verified 10/16/22 13:47 Vital Signs Vital Signs - 24 hr 02/22/23 16:19 02/22/23 19:05 02/22/23 19:45 Temperature 100.2 F H 100.8 F H 100.7 F H Pulse Rate 95 92 102 H Respiratory Rate 14 20 23 H Blood Pressure 133/70 148/68 H 144/117 H Pulse Oximetry 98 96 96 Oxygen Delivery Room Air 02/22/23 20:21 02/22/23 20:22 02/22/23 20:50 Temperature 99.6 F 100.1 F H Pulse Rate 123 H 97 Respiratory Rate 20 20 Blood Pressure 158/68 H 142/56 H Pulse Oximetry 100 96 Oxygen Delivery 02/22/23 22:15 Temperature 98.9 F Pulse Rate 96 Respiratory Rate 20 Blood Pressure 139/69 Pulse Oximetry 96 Oxygen Delivery Exam Narrative: Weight 133 kg BMI 38.7 Const: Other: Obese, mildly ill-appearing, appears older than stated age, disheveled HENMT: Other: Mucous membranes are tacky, no oral pharyngeal erythema, crowded posterior oropharynx Eyes: Other: Pupil
--- NOTE | 2023-02-22 23:08 | PC.NURSE ---
Patient arrived on 3 Med-Surg at 20:45
[2023-02-23] VITALS (11 sets, daily range): BP systolic 136–147; BP diastolic 73–94; PULSE 88–114; RESP 17–22; TEMP 36.1–36.8; O2SAT 96–98; BMI 33.6
[2023-02-23] MEDS: carvediloL 6.25 MG TABLET PO ×3 (00:22→21:08)
[2023-02-23] MEDS: metFORMIN HCL 500 MG TABLET 1000 MG PO ×3 (00:23→16:57)
[2023-02-23] MEDS: POTASSIUM CHLORIDE 20 MEQ ER TABLET 40 MEQ PO ×2 (00:23→09:15)
[2023-02-23] MEDS: glipiZIDE 5 MG TABLET 10 MG PO ×3 (00:23→16:57)
[2023-02-23] MEDS: MEROPENEM 1 GM in SODIUM CHLORIDE 0.9% IV 100 ML 200 ML IVPB ×4 (01:56→21:07)
[2023-02-23 02:58] LABS: Glucose Point of Care 186 mg/dl (65-105)
[2023-02-23 05:04] LABS: Glucose Point of Care 207 mg/dl (65-105)
[2023-02-23] MEDS: INSULIN ASPART (*BKC) 100 UNITS/ML SUB-Q ×2 (05:05→15:32)
[2023-02-23 06:30] LABS: Basophils Percent Auto 0.4 % (0.2-1.2); Eosinophils Percent Auto 0.1 % (0-4.4); Hematocrit 33.4 % (42.0-52.0); Hemoglobin 11.5 g/dL (14.0-18.0); Immature Granulocyte Absolute 0.08 K/mm3 (0.00-0.031); Immature Granulocyte Percent A 0.9 % (0-0.5); Lymphocytes Absolute Auto 0.61 K/mm3 (0.9-3.2); Lymphocytes Percent Auto 6.5 % (18.3-44.2); Mean Corpuscular HGB Conc 34.4 g/dl (32-36); Mean Corpuscular Hemoglobin 31.2 pg (26-34); Mean Corpuscular Volume 90.5 fl (80-100); Mean Platelet Volume 9.4 fl (7.4-10.4); Monocytes Percent Auto 11.2 % (2.6-8.5); Neutrophils Absolute Auto 7.5 K/mm3 (1.3-6.7); Neutrophils Percent Auto 80.9 % (45.5-73.1); Platelet Count Result 323 k/mm3 (150-375); Red Blood Count 3.69 M/mm3 (4.6-6.20); Red Cell Distribution Width 14.2 % (11.5-14.5); White Blood Count 9.3 K/mm3 (4.5-10.0)
[2023-02-23 06:49] LABS: Anion Gap 8 mmol/L (8-16); Blood Urea Nitrogen 7 mg/dL (9-20); Calcium 7.7 mg/dL (8.4-10.2); Carbon Dioxide 26 mmol/L (22-30); Chloride 98 mmol/L (98-107); Estimated CRCL calculation 168 ml/min; Estimated Glomerular Filt Rate > 60; Glucose 131 mg/dL (65-110); Magnesium 1.8 mg/dL (1.6-2.3); Phosphorus 3.4 mg/dL (2.5-4.5); Potassium 3.1 mmol/L (3.4-5.0); Sodium 132 mmol/L (137-145)
[2023-02-23] MEDS: EMPAGLIFLOZIN 25 MG TABLET PO (09:29)
[2023-02-23] MEDS: dilTIAZem HCL CD 180 MG CAP.ER.24H PO (09:30)
--- NOTE | 2023-02-23 10:17 | PM.CNGS ---
Assessment and Plan Assessment and plan (1) Diabetic foot ulcer associated with type 2 diabetes mellitus: Qualifiers: Diabetic foot ulcer location: unspecified part of foot Laterality: right Non-pressure ulcer stage: with fat layer exposed Qualified Code(s): E11.621 - Type 2 diabetes mellitus with foot ulcer; L97.512 - Non-pressure chronic ulcer of other part of right foot with fat layer exposed Code(s): E11.621 - Type 2 diabetes mellitus with foot ulcer; L97.509 - Non-pressure chronic ulcer of other part of unspecified foot with unspecified severity Status: Acute Assessment and Plan: no acute surgical intervention required at this point as wound base is clean, will need local wound care including packing of tract, will likely need PICC and IV abx, will ask wound care nurse to see (2) Osteomyelitis: Code(s): M86.9 - Osteomyelitis, unspecified Status: Acute Assessment and Plan: local wound care, PICC, IV abx History of Present Illness Consult details Consult date: 02/23/23 Reason for consult: wound care Requesting physician: David Wilson MD Narrative: The patient is a 67-year-old male with multiple medical issues presenting with worsening right foot wound and cellulitis. The patient reports that since November he has been dealing with a wound on his right foot. He reports multiple debridements and rounds of antibiotics. The patient reports recently the foot seems more red and swollen. Workup in the emergency department, including imaging, is significant for likely osteo of the navicular bone on the right. Review of Systems Constitutional: Constitutional: Reports as per HPI, Denies anorexia, Denies chills, Reports fatigue, Denies fever(s), Reports lethargy, Denies malaise, Denies night sweats, Denies poor appetite, Reports weakness, Denies weight gain and Denies weight loss Eyes: Eyes: Reports no additional eye complaints ENT: Reports system reviewed and no additional complaints, except as documented Cardiovascular: Cardiovascular: Reports no additional cardiovascular complaints Respiratory: Respiratory: Reports no additional respiratory complaints Gastrointestinal: Gastrointestinal: Reports no additional gastrointestinal complaints Genitourinary: Genitourinary: Reports no additional male genitourinary complaints Musculoskeletal: Musculoskeletal: Reports as per HPI, Reports abnormal gait and Reports deformity Integumentary/Breasts: Skin/Breast: Reports as per HPI Neurologic: Reports system reviewed and no additional complaints, except as documented Psychiatric: Psychiatric: Reports no additional psychiatric complaints Endocrine: Endocrine: Reports no additional endocrine complaints Hematologic/Lymphatic: Hematologic/Lymphatic: Reports no additional hematologic/lymphatic complaints Allergic/Immunologic: Allergic/Immunologic: Reports no additional allergic/immunologic complaints [facility] Past Medical History Medical History Brain tumor Chronic anticoagulation Chronic hyponatremia COPD (chronic obstructive pulmonary disease) Diabetes type 2, controlled A1c 6.7 12/2022 Diabetic retinopathy GERD (gastroesophageal reflux disease) GIB (gastrointestinal bleeding) HLD (hyperlipidemia) HTN (hypertension) Hypothyroidism Sleep apnea With CPAP UTI (urinary tract infection) Surgical History Surgical History Hx of craniotomy removal of brain tumor as a child Hx of tonsillectomy Family History Family History Mother Heart disease Father Cirrhosis Social History Social History Social History: He and his have been since he was 17. A used to smoke 2.5 packs of cigarettes per day but quit approximately 2018. He reports that is not unusual for h
--- NOTE | 2023-02-23 10:50 | VASCRN ---
Order received for:PICC line insertion from Dr. Levy After review of the chart and the patient assessment, patient is not a candidate for the following reason(s):Patient has positive blood culture drawn on 02/22/23. Will need negative blood cultures prior to picc line placement, so that picc line does not get seeded with bacteria that is in the blood. Provider notified: Charge nurse Leona notified. Wound care, Daniella, is contacting ordering physician, Dr. Levy, regarding another matter, so she inform him that negative blood cultures will be needed prior to picc line placement.
--- NOTE | 2023-02-23 11:02 | PM.IMPN ---
Progress Note: A&P Assessment and Plan (1) Sepsis: Qualifiers: Sepsis type: sepsis due to unspecified organism Sepsis acute organ dysfunction status: without acute organ dysfunction Qualified Code(s): A41.9 - Sepsis, unspecified organism Code(s): A41.9 - Sepsis, unspecified organism Status: Acute Assessment and Plan: Sepsis criteria met with tachycardia, fever, leukocytosis in the setting of osteomyelitis and bacteremia. BCx growing GNB probably from foot. Other BCx bottle pending. Continue Vanco and Meropenem. Follow up on wound and blood cultures (2) Diabetic infection of right foot: Code(s): E11.628 - Type 2 diabetes mellitus with other skin complications; L08.9 - Local infection of the skin and subcutaneous tissue, unspecified Status: Acute Assessment and Plan: Xray showing possible osteomyelitis. Defer to GenSurg about further imaging to confirm osteomyelitis. WBC better. Continue current dressing changes. Appreciate GenSurg input. Appreciate Wound care input (3) Osteomyelitis: Qualifiers: Laterality: right Osteomyelitis location: foot Osteomyelitis type: chronic, with draining sinus Qualified Code(s): M86.471 - Chronic osteomyelitis with draining sinus, right ankle and foot Code(s): M86.9 - Osteomyelitis, unspecified Status: Acute Assessment and Plan: As above. (4) Type 2 diabetes mellitus with hyperglycemia, without long-term current use of insulin: Code(s): E11.65 - Type 2 diabetes mellitus with hyperglycemia Status: Acute Assessment and Plan: A1c 6.4 in Oct. The patient's blood glucose was reviewed on 02/23 Glucose remains well controlled. Continue AccuCheks covering with sliding scale. Hypoglycemia protocol available as needed. Continue current medications. (5) Hypokalemia: Code(s): E87.6 - Hypokalemia Status: Acute Assessment and Plan: Potassium low again this morning. Replace again. Stop IV fluids. (6) Alcohol dependence: Qualifiers: Substance use status: unspecified alcohol-induced disorder Qualified Code(s): F10.29 - Alcohol dependence with unspecified alcohol-induced disorder Code(s): F10.20 - Alcohol dependence, uncomplicated Status: Acute Assessment and Plan: Patient has a hx of alcohol withdrawal. No evidence of withdrawal symptoms. Add thiamine and folate (7) Atrial fibrillation: Code(s): I48.91 - Unspecified atrial fibrillation Status: Inactive Assessment and Plan: Patient has chronic atrial fibrillation. Heart rate is well controlled. Continue Cardizem and Coreg. Resume Eliquis since no plan for surgical intervention. Subjective Date/time seen: 02/23/23 11:02 Interval history: 67yo male with hx of alcoholism, DM with neuropathy, MARCELINA and chronic right diabetic foot wound who presented to the ER with worsening right foot wound and increased weakness. Patient has been followed at the [facility] for wound care. He has had vascular studies showing normal arterial flow. He has been feeling weak. He has no feeling i his feet due tot he neuropathy. No CP or SOB. Hx of DVT and AFib on alf AC. Exam Narrative: Tm 100.8 97.0 147/94 104 18 98% ra Gen - NARD Chest - bibasilar inspiratory crackles. nml RR CV - irregularly irregular. Tele showing AFib with controlled rate Abd - Soft, obese, NT Ext - 2-3+ pittiing pedal edema Psych - Nml mood and affect Skin - right medial shallow ulcer with heaped up lateral border and clean base, possible tunnel. Surrounding erythema Objective Data Vital Signs Vital Signs: Vital Signs - 24 hr 02/22/23 16:19 02/22/23 19:05 02/22/23 19:45 Temperature 100.2 F H 100.8 F H 100.7 F H Pulse Rate 95 92 102 H Respiratory Rate 14 20 23 H Blood Pressure 133/70 148/68 H 144/117 H Pulse Oximetry 98 96 96 Oxygen Delivery Room Air 02/22/23 20:21 02/22/23 20:22
[2023-02-23 12:19] LABS: Glucose Point of Care 214 mg/dl (65-105)
[2023-02-23] MEDS: MAGNESIUM SULF 2 GM/WATER 50ML 2 GM/50 ML BAG IVPB (14:00)
[2023-02-23] MEDS: FOLIC ACID 1 MG TABLET PO (14:04)
[2023-02-23] MEDS: THIAMINE HCL 100 MG TABLET PO (14:04)
[2023-02-23 14:27] LABS: Appearance Urine Cloudy (Clear); Bacteria Urine None Seen /hpf; Bilirubin Urine Negative (Negative); Blood Urine Negative (Negative); Color Urine Yellow (Yellow); Glucose Urine UA 3+ mg/dL (Negative); Ketones Urine 2+ mg/dL (Negative); Leukocyte Esterase Ur Negative LEU/UL (Negative); Nitrate Urine Negative (Negative); Non Pathogenic Casts 0-2; Protein Urine 1+ mg/dL (Negative); Squamous Epithelial Cell Urine Few /hpf (Few); WBC Urine 0-5 /hpf; pH Urine 6.5 (5.0-9.0)
[2023-02-23 14:29] LABS: Add Urine Microscopic? YES; Specific Grav Ur 1.038 (1.001-1.035)
[2023-02-23 16:29] LABS: Glucose Point of Care 160 mg/dl (65-105)
[2023-02-23 21:02] LABS: Glucose Point of Care 166 mg/dl (65-105)
[2023-02-23] MEDS: APIXABAN 5 MG TABLET PO (21:08)
[2023-02-24 12:10] LABS: Glucose Point of Care 121 mg/dl (65-105)
[2023-02-24 12:37] LABS: Glucose Point of Care 293 mg/dl (65-105)
[2023-02-24 17:03] LABS: Glucose Point of Care 236 mg/dl (65-105)
[2023-02-24 20:00] VITALS: BP 158/88; PULSE 94; RESP 18; TEMP 36.3; O2SAT 96
[2023-02-24 21:03] LABS: Glucose Point of Care 338 mg/dl (65-105)
--- NOTE | 2023-02-24 21:14 | PC.NURSE ---
Paper documentation exists on this patient due to [employer] [facility] downtime on 02/24/23 from 0030 to 1930 .
[2023-02-24 21:48] VITALS: BP 158/88; PULSE 94; RESP 18; TEMP 36.3; O2SAT 96
[2023-02-24] MEDS: APIXABAN 5 MG TABLET PO (21:53)
[2023-02-24] MEDS: carvediloL 6.25 MG TABLET PO (21:53)
[2023-02-24] MEDS: INSULIN ASPART (*BKC) 100 UNITS/ML SUB-Q (21:58)
[2023-02-24] MEDS: MEROPENEM 1 GM in SODIUM CHLORIDE 0.9% IV 100 ML 200 ML IVPB (22:38)
[2023-02-24 23:51] VITALS: RESP 20; O2SAT 98
[2023-02-25] VITALS (8 sets, daily range): BP systolic 130–149; BP diastolic 72–92; PULSE 80–93; RESP 18–19; TEMP 35.8–37; O2SAT 97–99
[2023-02-25 03:06] LABS: Glucose Point of Care 151 mg/dl (65-105)
[2023-02-25] MEDS: MEROPENEM 1 GM in SODIUM CHLORIDE 0.9% IV 100 ML 200 ML IVPB (05:25)
[2023-02-25 06:00] LABS: Basophils Percent Auto 0.8 % (0.2-1.2); Eosinophils Percent Auto 0.8 % (0-4.4); Hematocrit 32.9 % (42.0-52.0); Hemoglobin 11.3 g/dL (14.0-18.0); Immature Granulocyte Absolute 0.04 K/mm3 (0.00-0.031); Immature Granulocyte Percent A 0.8 % (0-0.5); Lymphocytes Absolute Auto 0.75 K/mm3 (0.9-3.2); Lymphocytes Percent Auto 14.4 % (18.3-44.2); Mean Corpuscular HGB Conc 34.3 g/dl (32-36); Mean Corpuscular Hemoglobin 30.9 pg (26-34); Mean Corpuscular Volume 89.9 fl (80-100); Mean Platelet Volume 9.7 fl (7.4-10.4); Monocytes Absolute Auto 0.9 K/mm3 (0.1-0.6); Monocytes Percent Auto 16.5 % (2.6-8.5); Neutrophils Absolute Auto 3.5 K/mm3 (1.3-6.7); Neutrophils Percent Auto 66.7 % (45.5-73.1); Platelet Count Result 285 k/mm3 (150-375); Red Blood Count 3.66 M/mm3 (4.6-6.20); Red Cell Distribution Width 13.7 % (11.5-14.5); White Blood Count 5.2 K/mm3 (4.5-10.0)
[2023-02-25 06:21] LABS: Alanine Aminotransferase 54 U/L (6-50); Albumin Level 2.5 g/dL (3.5-5.1); Alkaline Phosphatase 126 U/L (38-126); Anion Gap 4 mmol/L (8-16); Aspartate Amino Transferase 66 U/L (17-59); Bilirubin,Total 0.7 mg/dL (0.2-1.3); Blood Urea Nitrogen 6 mg/dL (9-20); Calcium 7.5 mg/dL (8.4-10.2); Carbon Dioxide 30 mmol/L (22-30); Chloride 97 mmol/L (98-107); Estimated CRCL calculation 205 ml/min; Estimated Glomerular Filt Rate > 60; Glucose 163 mg/dL (65-110); Potassium 3.3 mmol/L (3.4-5.0); Sodium 131 mmol/L (137-145)
[2023-02-25 07:54] LABS: Glucose Point of Care 149 mg/dl (65-105)
[2023-02-25] MEDS: dilTIAZem HCL CD 180 MG CAP.ER.24H PO (08:40)
[2023-02-25] MEDS: carvediloL 6.25 MG TABLET PO ×2 (08:40→21:27)
[2023-02-25] MEDS: THIAMINE HCL 100 MG TABLET PO (08:40)
[2023-02-25] MEDS: FOLIC ACID 1 MG TABLET PO (08:41)
[2023-02-25] MEDS: APIXABAN 5 MG TABLET PO ×2 (08:41→21:27)
[2023-02-25] MEDS: EMPAGLIFLOZIN 25 MG TABLET PO (08:41)
[2023-02-25] MEDS: polyethylene glycoL 3350 17 GM POWD.PACK PO (08:41)
[2023-02-25] MEDS: metFORMIN HCL 500 MG TABLET 1000 MG PO ×2 (08:41→17:19)
[2023-02-25] MEDS: glipiZIDE 5 MG TABLET 10 MG PO ×2 (08:48→17:19)
--- NOTE | 2023-02-25 09:37 | PM.PNGS ---
Progress Note: A&P Assessment and Plan (1) Osteomyelitis: Code(s): M86.9 - Osteomyelitis, unspecified Status: Acute Assessment and Plan: cont local wound care and IV abx, will likely need 6 wks of IV abx, consult ID pharm, no acute surgical issues, will s/o, call c ?s, issues Subjective Subjective Date/Time Seen: 02/25/23 09:37 Interval history: no acute issues, no c/o Review of Systems Review of Systems: All systems reviewed & are unremarkable except as noted in HPI and below Exam Const: General: cooperative and no acute distress GI: Inspection: normal to inspection Extrem: Other: R foot - cellulitis and edema improved, drsg C/D/I Objective Data Vital Signs Vital Signs: Vital Signs - 24 hr 02/24/23 20:00 02/24/23 21:48 02/24/23 20:00 Temperature 36.3 C L 36.3 C L Pulse Rate 94 94 Respiratory Rate 18 18 Blood Pressure 158/88 H 158/88 H Pulse Oximetry 96 96 Oxygen Delivery Room Air 02/24/23 23:51 02/25/23 00:00 02/24/23 22:00 Temperature 37.0 C Pulse Rate 82 Respiratory Rate 20 18 Blood Pressure 130/81 Pulse Oximetry 98 98 Oxygen Delivery Autopap CPAP 02/25/23 04:00 02/25/23 08:00 02/25/23 08:40 Temperature 36.1 C L 35.8 C L Pulse Rate 93 84 84 Respiratory Rate 18 18 Blood Pressure 130/72 149/83 H Pulse Oximetry 98 99 Oxygen Delivery Intake/Output Intake/Output: Intake & Output 02/22/23 02/23/23 02/24/23 02/25/23 23:59 23:59 23:59 23:59 Intake Total 50 6623 928 8530 Output Total 1100 2400 Balance 50 760 100 -1063 Meds/Results Medications: Active Medications Generic Name Dose Route Start Last Admin Trade Name Freq PRN Reason Stop Dose Admin Acetaminophen 650 mg 02/22/23 18:57 02/22/23 19:52 Acetaminophen 325 Mg Tablet PO 650 mg Q4H PRN Administration Mild Pain (1-3) or Fever Hydrocodone Bitart/Acetaminophen 1 tab 02/22/23 18:57 Hydrocodone/Acetaminophen (*Crx) 5-325 Mg Tablet PO Q4H PRN Pain Rated 4-6 Apixaban 5 mg 02/23/23 09:00 02/25/23 08:41 Apixaban 5 Mg Tablet PO 5 mg Q12HR SWETHA Administration Carvedilol 6.25 mg 02/22/23 23:00 02/25/23 08:40 Carvedilol 6.25 Mg Tablet PO 6.25 mg Q12HR SWETHA Administration Dextrose 12.5 gm 02/22/23 18:57 Dextrose 50% 25 Gm/50 Ml Syringe IV PUSH PRN PRN Hypoglycemia Protocol Diltiazem HCl 180 mg 02/23/23 09:00 02/25/23 08:40 Diltiazem Hcl Cd 180 Mg Cap.Er.24h PO 180 mg DAILY SWETHA Administration Empagliflozin 25 mg 02/23/23 09:00 02/25/23 08:41 Empagliflozin 25 Mg Tablet PO 25 mg DAILY SWETHA Administration Folic Acid 1 mg 02/23/23 11:35 02/25/23 08:41 Folic Acid 1 Mg Tablet PO 1 mg DAILY SWETHA Administration Glipizide 10 mg 02/22/23 23:00 02/25/23 08:48 Glipizide 5 Mg Tablet PO 10 mg BID SWETHA Administration Glucagon 1 mg 02/24/23 21:36 Glucagon For Inj 1 Mg Vial IM PRN PRN Hypoglycemia Protocol Glucose 15 gm 02/22/23 18:57 Glucose Oral Gel 15 Gm Of Glucse In 37.5 Gm Tube PO PRN PRN Hypoglycemia Protocol Meropenem 1 gm/ Sodium 100 mls @ 200 mls/hr 02/22/23 23:05 02/25/23 05:55 Chloride IVPB Infused Q8HR SWETHA Infusion Vancomycin HCl 1,500 mg in 500 mls @ 250 mls/hr 02/25/23 03:00 02/25/23 04:44 Vancomycin 1,500 Mg/D5w 500 Ml IVPB Infused Q8H SWETHA Infusion Dextrose 1,000 mls @ 100 mls/hr 02/24/23 21:36 Dextrose 5% 1,000 Ml IVPB PRN PRN Hypoglycemia Protocol Insulin Aspart 2 - 5 units 02/23/23 00:00 02/25/23 03:05 Insulin Aspart (*Bkc) 100 Units/Ml SUB-Q Not Given Q6HR SWETHA Protocol Metformin HCl 1,000 mg 02/22/23 23:00 02/25/23 08:41 Metformin Hcl 500 Mg Tablet PO 1,000 mg BID SWETHA Administration Ondansetron HCl 4 mg 02/22/23 18:57 Ondansetron Inj 4 Mg/2 Ml Vial IV PUSH Q4H PRN Nausea Polyethylene Glycol 17 gm 02/25/23 09:00
--- NOTE | 2023-02-25 10:00 | PM.IMPN ---
Progress Note: A&P Assessment and Plan (1) Sepsis: Qualifiers: Sepsis acute organ dysfunction status: without acute organ dysfunction Sepsis type: sepsis due to unspecified organism Qualified Code(s): A41.9 - Sepsis, unspecified organism Code(s): A41.9 - Sepsis, unspecified organism Status: Acute Assessment and Plan: Sepsis criteria met with tachycardia, fever, leukocytosis in the setting of osteomyelitis and bacteremia. BCx growing GNB probably from foot. Other BCx bottle pending. Continue Vanco and Meropenem. Follow up on wound and blood cultures PICC placed, f/u repeat blood cultures, d/c soon on 6 weeks IV abx, appreciate ID pharm consult, pending (2) Diabetic infection of right foot: Code(s): E11.628 - Type 2 diabetes mellitus with other skin complications; L08.9 - Local infection of the skin and subcutaneous tissue, unspecified Status: Acute Assessment and Plan: Gen surgery has signed off, rec abx only for osteo (3) Osteomyelitis: Qualifiers: Laterality: right Osteomyelitis location: foot Osteomyelitis type: chronic, with draining sinus Qualified Code(s): M86.471 - Chronic osteomyelitis with draining sinus, right ankle and foot Code(s): M86.9 - Osteomyelitis, unspecified Status: Acute Assessment and Plan: As above. (4) Type 2 diabetes mellitus with hyperglycemia, without long-term current use of insulin: Code(s): E11.65 - Type 2 diabetes mellitus with hyperglycemia Status: Acute Assessment and Plan: A1c 6.4 in Oct. The patient's blood glucose was reviewed on 02/25 Glucose remains well controlled. Continue AccuCheks covering with sliding scale. Hypoglycemia protocol available as needed. Continue current medications. (5) Hypokalemia: Code(s): E87.6 - Hypokalemia Status: Acute Assessment and Plan: Potassium low again this morning. Replace again. Stop IV fluids. (6) Alcohol dependence: Qualifiers: Substance use status: unspecified alcohol-induced disorder Qualified Code(s): F10.29 - Alcohol dependence with unspecified alcohol-induced disorder Code(s): F10.20 - Alcohol dependence, uncomplicated Status: Acute Assessment and Plan: Patient has a hx of alcohol withdrawal. No evidence of withdrawal symptoms. Add thiamine and folate (7) Atrial fibrillation: Code(s): I48.91 - Unspecified atrial fibrillation Status: Inactive Assessment and Plan: Patient has chronic atrial fibrillation. Heart rate is well controlled. Continue Cardizem and Coreg. Resume Eliquis since no plan for surgical intervention. Plan DVT prophylaxis with Eliquis GI prophylaxis not indicated Code status DNR Subjective Date/time seen: 02/25/23 10:00 Interval history: 67yo male with hx of alcoholism, DM with neuropathy, MARCELINA and chronic right diabetic foot wound who presented to the ER with worsening right foot wound and increased weakness. No overnight events noted. No chest pain or shortness of breath. No nausea, vomiting or diarrhea. No fevers or chills. Review of Systems Review of Systems: 12 point review of systems was assessed and was negative except as noted in the HPI Exam Narrative: Temp Pulse Resp BP Pulse Ox O2 Del Method 96.8 F L 80 19 145/92 H 99 Autopap 02/25/23 11:40 02/25/23 11:40 02/25/23 11:40 02/25/23 11:40 02/25/23 11:40 02/24/23 23:51 General: No acute distress, alert and oriented per baseline HEENT: Atraumatic, normocephalic, mucous membranes moist CV: Regular rate and rhythm, S1, S2 Lungs: Clear to auscultation bilaterally, no rales or crackles noted, no wheezes, good air entry Abdomen: Soft, nontender, nondistended Extremities:
[2023-02-25 10:42] LABS: Hepatitis B Surface Antigen Negative (Negative)
[2023-02-25 10:48] LABS: HAV RESULT Negative (Negative); Hepatitis B Core IgM Result Negative (Negative)
[2023-02-25 11:00] LABS: Hepatitis C Virus Antibody Negative (Negative)
--- NOTE | 2023-02-25 11:11 | P.PNINF_ITS ---
Pharmacy ID Consult - Stewardship Interventions Type of Interventions: De-escalation Pharmacy ID Note: Subjective Pharmacy was consulted by Singh Russo regarding infectious diseases for Lalo Sexton. Lalo Sexton is a 67 year old M with concerns regarding Osteomyelitis. Background The patient is currently receiving Meropenem and Vancomycin (~full day3). The patient's PMH includes Afib, T2DM and COPD among various provider notes. Additi onally, foot x-ray shows concern for osteomyelitis and leukocytosis has resolved. The patient cultures are as follows 02/22 L. Foot Wound Cx S. aureus Sensitivities Pending 02/22 Blood culture S. aureus, E coli MSSA (oxa=0.5, vanc <0.5), E coli (CTX<1) 02/22 Blood culture [[facility] suspects 2nd set of BCX holding 2 more GPC's likely S. aureus and Enterococcus Spp. but is pending ID and sensitivities via VITEK and MALDI] 02/24 Blood culture Pending Assessment/Recommendation/Discussion Had brief discussion with consulting provider. Likely bloodstream infection secondary to L foot Osteomyelitis that appears to not be undergoing any additional source control per notes. Foot culture shows one of the pathogens in the blood, but this is likely not the only pathogen and this culture was showing mixed bacterial kalina which may be our other causative BSI pathogens. Given that [facility] believes additional GPC organism present in second set of 02/22 Blood cultures, a conservative approach to gram positive therapies is likely appropriate until additional information is known. Will transition this patient to more targeted E. coli coverage with ceftriaxone 2g iv q24h from meropenem, continue anaerobic coverage with PO metronidazole 500 mg q8h, and continue vancomycin therapy for MSSA and potential enterococcus. Looking forward to discharge - parenteral antibiotics are likely recommended and the recommendations would be for ~6 weeks from last source control and given the complicated blood stream infection this duration would have to also be >4 weeks from cleared blood cultures - which at this time falls within the 6 week duration. If outpatient vancomycin at a q8h frequency is needed but cannot be done - may be able to consider daptomycin - however will await resistance profile of enterococcus. While dosing optimization and cultures are still yet pending likely looking at long-term parenteral antibiotics for potential durations stated above with likely vancomycin (or daptomycin) and ceftriaxone iv 2g q24h, with oral metronidazole 500 mg q8h. Thank you for the interesting consult. Link Crawford, PharmD Infectious Disease/Antimicrobial Stewardship Pharmacist 02/25/23; 1111 WBC 5.2 K/mm3 (4.5-10.0) 02/25/23 05:33 Creatinine 0.40 mg/dL (0.7-1.3) L 02/25/23 05:33 Estim Creat Clear Calc 205 ml/min 02/25/23 05:33
[2023-02-25 11:16] LABS: Glucose Point of Care 187 mg/dl (65-105)
[2023-02-25] MEDS: POTASSIUM CHLORIDE 20 MEQ ER TABLET 40 MEQ PO (12:15)
[2023-02-25 13:04] LABS: Hematocrit 32.9 % (42.0-52.0); Hemoglobin 11.3 g/dL (14.0-18.0); Red Blood Count 3.65 M/mm3 (4.6-6.20); White Blood Count 5.8 K/mm3 (4.5-10.0)
[2023-02-25 13:05] LABS: Basophils Percent Auto 0.5 % (0.2-1.2); Eosinophils Absolute Auto 0.1 K/mm3 (0-0.3); Eosinophils Percent Auto 0.9 % (0-4.4); Immature Granulocyte Absolute 0.06 K/mm3 (0.00-0.031); Lymphocytes Absolute Auto 0.67 K/mm3 (0.9-3.2); Lymphocytes Percent Auto 11.5 % (18.3-44.2); Mean Corpuscular HGB Conc 34.3 g/dl (32-36); Mean Corpuscular Volume 90.1 fl (80-100); Mean Platelet Volume 9.7 fl (7.4-10.4); Monocytes Percent Auto 17.7 % (2.6-8.5); Neutrophils Percent Auto 68.4 % (45.5-73.1); Platelet Count Result 317 k/mm3 (150-375); Red Cell Distribution Width 13.9 % (11.5-14.5)
[2023-02-25 13:06] LABS: Anion Gap 4 mmol/L (8-16); Blood Urea Nitrogen 8 mg/dL (9-20); Carbon Dioxide 28 mmol/L (22-30); Chloride 97 mmol/L (98-107); Estimated CRCL calculation 261 ml/min; Estimated Glomerular Filt Rate > 60; Glucose 120 mg/dL (65-110); Potassium 3.5 mmol/L (3.4-5.0); Sodium 129 mmol/L (137-145)
[2023-02-25 13:07] LABS: Albumin Level 2.7 g/dL (3.5-5.1); Calcium 7.7 mg/dL (8.4-10.2); Magnesium 1.9 mg/dL (1.6-2.3)
[2023-02-25] MEDS: cefTRIAXone 2 GM/NS 100 ML 2 GM/100 ML BAG IVPB (16:15)
[2023-02-25] MEDS: metroNIDAZOLE 250 MG TABLET 500 MG PO ×2 (16:15→21:27)
[2023-02-25 16:31] LABS: Glucose Point of Care 217 mg/dl (65-105)
[2023-02-25] MEDS: INSULIN ASPART (*BKC) 100 UNITS/ML SUB-Q (17:19)
[2023-02-25 19:59] LABS: Vancomycin Trough 15.4 ug/mL (10.0-20.0)
[2023-02-26] VITALS: BP 150/85; PULSE 75; RESP 18; TEMP 36.2; O2SAT 98
[2023-02-26 00:01] LABS: Phosphorus 3.5 mg/dL (2.5-4.5)
[2023-02-26 00:13] LABS: Glucose Point of Care 201 mg/dl (65-105)
[2023-02-26] MEDS: INSULIN ASPART (*BKC) 100 UNITS/ML SUB-Q ×2 (01:09→06:07)
[2023-02-26 04:00] VITALS: BP 133/78; PULSE 90; RESP 18; TEMP 35.7; O2SAT 97
[2023-02-26] MEDS: metroNIDAZOLE 250 MG TABLET 500 MG PO ×2 (05:49→15:36)
[2023-02-26 06:07] LABS: Glucose Point of Care 221 mg/dl (65-105)
[2023-02-26 08:14] LABS: Glucose Point of Care 188 mg/dl (65-105)
[2023-02-26] MEDS: polyethylene glycoL 3350 17 GM POWD.PACK PO (08:29)
[2023-02-26] MEDS: dilTIAZem HCL CD 180 MG CAP.ER.24H PO (08:29)
[2023-02-26] MEDS: FOLIC ACID 1 MG TABLET PO (08:29)
[2023-02-26] MEDS: EMPAGLIFLOZIN 25 MG TABLET PO (08:29)
[2023-02-26] MEDS: glipiZIDE 5 MG TABLET 10 MG PO (08:29)
[2023-02-26] MEDS: carvediloL 6.25 MG TABLET PO (08:29)
[2023-02-26] MEDS: THIAMINE HCL 100 MG TABLET PO (08:29)
[2023-02-26] MEDS: APIXABAN 5 MG TABLET PO (08:29)
[2023-02-26] MEDS: metFORMIN HCL 500 MG TABLET 1000 MG PO (08:29)
[2023-02-26 11:32] LABS: Glucose Point of Care 190 mg/dl (65-105)
[2023-02-26 11:38] LABS: Basophils Percent Auto 0.7 % (0.2-1.2); Eosinophils Percent Auto 0.7 % (0-4.4); Hematocrit 36.3 % (42.0-52.0); Hemoglobin 12.3 g/dL (14.0-18.0); Immature Granulocyte Absolute 0.05 K/mm3 (0.00-0.031); Immature Granulocyte Percent A 0.8 % (0-0.5); Lymphocytes Absolute Auto 0.82 K/mm3 (0.9-3.2); Lymphocytes Percent Auto 13.5 % (18.3-44.2); Mean Corpuscular HGB Conc 33.9 g/dl (32-36); Mean Corpuscular Hemoglobin 30.9 pg (26-34); Mean Corpuscular Volume 91.2 fl (80-100); Mean Platelet Volume 9.4 fl (7.4-10.4); Monocytes Absolute Auto 0.9 K/mm3 (0.1-0.6); Monocytes Percent Auto 14.9 % (2.6-8.5); Neutrophils Absolute Auto 4.2 K/mm3 (1.3-6.7); Neutrophils Percent Auto 69.4 % (45.5-73.1); Platelet Count Result 290 k/mm3 (150-375); Red Blood Count 3.98 M/mm3 (4.6-6.20); Red Cell Distribution Width 13.6 % (11.5-14.5); White Blood Count 6.1 K/mm3 (4.5-10.0)
[2023-02-26 11:48] LABS: Alanine Aminotransferase 52 U/L (6-50); Albumin Level 3.1 g/dL (3.5-5.1); Alkaline Phosphatase 145 U/L (38-126); Anion Gap 5 mmol/L (8-16); Aspartate Amino Transferase 47 U/L (17-59); Bilirubin,Total 0.6 mg/dL (0.2-1.3); Blood Urea Nitrogen 10 mg/dL (9-20); Carbon Dioxide 29 mmol/L (22-30); Chloride 97 mmol/L (98-107); Estimated CRCL calculation 205 ml/min; Estimated Glomerular Filt Rate > 60; Glucose 189 mg/dL (65-110); Potassium 4.4 mmol/L (3.4-5.0); Sodium 131 mmol/L (137-145)
--- NOTE | 2023-02-26 12:36 | PCPTNOTE ---
On 02/26/23, the student, [Anjelica Yap], provided care and completed [facility] documentation on this patient. I have reviewed the student's documentation and agree with the findings.
[2023-02-26 14:00] VITALS: BP 152/85; PULSE 92; RESP 17; TEMP 36.3; O2SAT 95
--- NOTE | 2023-02-26 15:34 | PM.DS ---
DS: Admitting Diagnosis Discharge Date 02/26/23 Admitting Diagnosis right foot wound DS: Discharge Diagnosis Discharge Diagnosis (1) Sepsis: Qualifiers: Sepsis type: sepsis due to unspecified organism Sepsis acute organ dysfunction status: without acute organ dysfunction Qualified Code(s): A41.9 - Sepsis, unspecified organism Code(s): A41.9 - Sepsis, unspecified organism Status: Acute Assessment and Plan: Sepsis criteria met with tachycardia, fever, leukocytosis in the setting of osteomyelitis and bacteremia. BCx growing GNB probably from foot. Other BCx bottle pending. Continue Vanco and Meropenem. Follow up on wound and blood cultures PICC placed, f/u repeat blood cultures, d/c soon on 6 weeks IV abx, appreciate ID pharm consult, pending (2) Diabetic infection of right foot: Code(s): E11.628 - Type 2 diabetes mellitus with other skin complications; L08.9 - Local infection of the skin and subcutaneous tissue, unspecified Status: Acute Assessment and Plan: Gen surgery has signed off, rec abx only for osteo (3) Osteomyelitis: Qualifiers: Laterality: right Osteomyelitis location: foot Osteomyelitis type: chronic, with draining sinus Qualified Code(s): M86.471 - Chronic osteomyelitis with draining sinus, right ankle and foot Code(s): M86.9 - Osteomyelitis, unspecified Status: Acute Assessment and Plan: As above. (4) Type 2 diabetes mellitus with hyperglycemia, without long-term current use of insulin: Code(s): E11.65 - Type 2 diabetes mellitus with hyperglycemia Status: Acute Assessment and Plan: A1c 6.4 in Oct. The patient's blood glucose was reviewed on 02/25 Glucose remains well controlled. Continue AccuCheks covering with sliding scale. Hypoglycemia protocol available as needed. Continue current medications. (5) Hypokalemia: Code(s): E87.6 - Hypokalemia Status: Acute Assessment and Plan: Potassium low again this morning. Replace again. Stop IV fluids. (6) Alcohol dependence: Qualifiers: Substance use status: unspecified alcohol-induced disorder Qualified Code(s): F10.29 - Alcohol dependence with unspecified alcohol-induced disorder Code(s): F10.20 - Alcohol dependence, uncomplicated Status: Acute Assessment and Plan: Patient has a hx of alcohol withdrawal. No evidence of withdrawal symptoms. Add thiamine and folate (7) Atrial fibrillation: Code(s): I48.91 - Unspecified atrial fibrillation Status: Inactive Assessment and Plan: Patient has chronic atrial fibrillation. Heart rate is well controlled. Continue Cardizem and Coreg. Resume Eliquis since no plan for surgical intervention. Plan DVT prophylaxis with Eliquis GI prophylaxis not indicated Code status DNR DS: Summary Hospital Course Hospital Course: 67yo male with hx of alcoholism, DM with neuropathy, MARCELINA and chronic right diabetic foot wound who presented to the ER with worsening right foot wound and increased weakness. Surgery was consulted and recommended long-term IV antibiotics for osteomyelitis as opposed to surgical intervention at this point. Patient was initiated on vancomycin and meropenem and this was continued until cultures came back. Of foot wound culture showed Staph aureus. Blood cultures showed Staph aureus as well as E coli. There is concern for possible Enterococcus, sensitivities pending. Repeat blood cultures from February 24 are negative growth times 48 hours. PICC line was placed, patient was transitioned to vancomycin, Rocephin and oral Flagyl. [facility]. However, no physicians were willing to follow the vancomycin troughs while the patient was receiving 6 weeks of IV antibiotics at home. They required transfer to their facility so that the patient could have an in
[2023-02-26] MEDS: VANCOMYCIN HCL 1,500 MG in SODIUM CHLORIDE 0.9% IV 500 ML 350 MG IVPB (15:35)
[2023-02-26] MEDS: cefTRIAXone 2 GM/NS 100 ML 2 GM/100 ML BAG IVPB (15:36)
[2023-02-26 16:24] LABS: Glucose Point of Care 199 mg/dl (65-105)
--- NOTE | 2023-02-26 16:28 | PC.NURSE ---
[facility] pharmacy unable to fill rocephin script. [facility] taking care of medication. I talked with case coordination and they confirmed [facility] taking care of medication. [facility] pharmacy called. I talked with Aric and rocephin script cancelled.
== END 2023-02-26 17:40 | disposition home health service (06) | DRG 872 ==
LOC: ANHED 18:53 → ANH3MEDSUR 20:02
PROVIDERS: Internal Medicine; Admitting Provider Internal Medicine; Emergency Provider Family Medicine; Visit Provider Student in an Organized Health Care Education/Training Program
DX: A41.01 Sepsis due to Methicillin susceptible Staphylococcus aureus (principal); M86.671 Other chronic osteomyelitis, right ankle and foot; I48.20 Chronic atrial fibrillation, unspecified; E11.69 Type 2 diabetes mellitus with other specified complication; I10 Essential (primary) hypertension; J44.9 Chronic obstructive pulmonary disease, unspecified; E11.621 Type 2 diabetes mellitus with foot ulcer; L97.512 Non-pressure chronic ulcer of other part of right foot with fat layer exposed; E11.319 Type 2 diabetes mellitus with unspecified diabetic retinopathy without macular edema; E03.9 Hypothyroidism, unspecified; E78.5 Hyperlipidemia, unspecified; E66.9 Obesity, unspecified; E87.6 Hypokalemia; E11.42 Type 2 diabetes mellitus with diabetic polyneuropathy; F10.20 Alcohol dependence, uncomplicated; G47.33 Obstructive sleep apnea (adult) (pediatric); Z68.33 Body mass index [BMI] 33.0-33.9, adult; Z79.84 Long term (current) use of oral hypoglycemic drugs; Z87.891 Personal history of nicotine dependence
CPT/HCPCS: 36415; 36569; 73630; 80048; 80053; 80069; 80074; 80202; 81001; 82565; 82948; 83605; 83735; 83880; 84100; 85025; 85610; 86140; 87040; 87070; 87077; 87147; 87181; 87186; 87205; 94660; 97161; 97165; 97530; 97535; 99285; A9270; C1751; J0692; J0696; J1815; J2185; J3370; J3475; J7030; J7040

== ENCOUNTER 2023-02-28 10:03 | Outpatient (NON) | payer OTHER, SELFPAY ==
[2023-02-28 10:32] LABS: Anion Gap 5 mmol/L (8-16); Blood Urea Nitrogen 9 mg/dL (9-20); Calcium 7.9 mg/dL (8.4-10.2); Carbon Dioxide 28 mmol/L (22-30); Chloride 98 mmol/L (98-107); Estimated Glomerular Filt Rate > 60; Glucose 215 mg/dL (65-110); Sodium 131 mmol/L (137-145)
[2023-02-28 10:35] LABS: Vancomycin Trough 11.5 ug/mL (10.0-20.0)
== END 2023-02-28 10:04 | disposition home or self-care (01) ==
LOC: HOME HLTH 10:05
PROVIDERS: Visit Provider Student in an Organized Health Care Education/Training Program
DX: M86.9 Osteomyelitis, unspecified (principal)
CPT/HCPCS: 80048; 80202

== ENCOUNTER 2023-03-06 18:17 | Emergency (ER) | payer OTHER, SELFPAY ==
--- NOTE | ~2023-03-06 | XR_ITS ---
Clinical Indication: Cough, fever AP and lateral views of the chest: Comparison: 02/26/2023 Findings: Right-sided PICC line remains in satisfactory position. Stable calcified right midlung gran uloma. The lungs are otherwise clear, without evidence of focal consolidation or pleural effusion. C ardiomediastinal silhouette is within normal limits. Bones and soft tissues are unremarkable. Impression: Right-sided PICC line remains in place. No acute pulmonary abnormality. Stable calcified right midlung granuloma. Reviewed, dictated and finalized at location M. Impression: Right-sided PICC line remains in place. No acute pulmonary abnormality. Stable calcified right midlung granuloma.
[2023-03-06 18:20] VITALS: BP 125/63; PULSE 72; RESP 14; TEMP 36.9; O2SAT 98
--- NOTE | 2023-03-06 18:52 | ED.GENADULT ---
HPI - General Adult General Chief complaint: Wound/Laceration <Joselin Victor PA-C - Last Filed: 03/07/23 00:51> Stated complaint: R FOOT INFECTION <EMEKA Gilliland Last Filed: 03/07/23 00:51> Time Seen by Provider: 03/06/23 18:36 <EMEKA Gilliland Last Filed: 03/07/23 00:51> History of Present Illness HPI narrative: Patient is a 67 year old male with a history of osteomyelitis of the right foot, currently on daptomycin and ertapenem through his PICC, here due to low grade fever today. Patient's home health nurse took his temperature today and it was 99.8. She took it again after taking his hat off and it normalized to 97.5. Patient was doing well and then he took his temperature again later in the afternoon and it was again 99.8. He is having sinus congestion, nonproductive cough and intermittent issues with constipation but he had a large bowel movement before arrival. His is sick with similar symptoms. States his foot is healing well and has improved in appearance. No abdominal pain, chest pain, SOB. <EMEKA Gilliland Last Filed: 03/07/23 00:51> Related Data Home medications: Home Medications Medication Instructions Recorded Confirmed glipizide 10 mg tablet 10 mg PO BID 12/11/20 02/22/23 metformin 1,000 mg tablet 1,000 mg PO BID 12/11/20 02/22/23 apixaban 5 mg tablet (Eliquis) 5 mg PO BID 12/12/20 02/22/23 carvedilol 6.25 mg tablet 6.25 mg PO BID 10/16/22 02/22/23 diltiazem HCl 180 mg 180 mg PO DAILY 10/16/22 02/22/23 capsule,extended release 24 hr empagliflozin 25 mg tablet 25 mg PO DAILY 02/22/23 02/22/23 omeprazole 20 mg capsule,delayed 20 mg PO 02/22/23 release <EMEKA Gilliland Last Filed: 03/07/23 00:51> Allergies/adverse reactions: Allergies Allergy/AdvReac Type Severity Reaction Status Date / Time No Known Allergies Allergy Unknown Verified 02/22/23 23:16 <Joselin Victor PA-C - Last Filed: 03/07/23 00:51> Review of Systems Review of Systems: Gen: Reports fever Eyes: Denies eye pain or visual change ENT: Denies congestion Respiratory: Denies shortness of breath or cough CV: Denies chest pain or palpitations GI: Denies abdominal pain nausea, emesis or diarrhea denies burning, urgency, frequency or hematuria Musculoskeletal: Denies back pain or muscle pain Neuro: Denies numbness, tingling, weakness or focal weakness Skin: Denies rash Except as documented, all other systems reviewed and negative <Joselin Victor PA-C - Last Filed: 03/07/23 00:51> [facility] Past Medical History Medical History: Medical History Atrial fibrillation Brain tumor Chronic anticoagulation Chronic hyponatremia COPD (chronic obstructive pulmonary disease) Diabetes type 2, controlled A1c 6.7 12/2022 Diabetic retinopathy GERD (gastroesophageal reflux disease) GIB (gastrointestinal bleeding) HLD (hyperlipidemia) HTN (hypertension) Hypothyroidism Sleep apnea With CPAP UTI (urinary tract infection) <Joselin Victor PA-C - Last Filed: 03/07/23 00:51> Surgical History Surgical History: Surgical History Hx of craniotomy removal of brain tumor as a child Hx of tonsillectomy <Joselin Victor PA-C - Last Filed: 03/07/23 00:51> Family History Family History: Family History Mother Heart disease Father Cirrhosis <Joselin Victor PA-C - Last Filed: 03/07/23 00:51> Social History Social History: Social History Social History: He and his have been since he was 17. A used to smoke 2.5 packs of cigarettes per day but quit approximately 2018. He reports that is not unusual for him to drink 18 beers a day. He has drink
[2023-03-06 19:18] VITALS: BP 131/88; PULSE 80; RESP 17; TEMP 36.8; O2SAT 98
--- NOTE | 2023-03-06 19:30 | PC.NURSE ---
Patient states he had a low grade fever before coming into ED. Patient was afebrile upon assessment.
[2023-03-06 19:31] LABS: Basophils Percent Auto 0.2 % (0.2-1.2); Eosinophils Percent Auto 0.2 % (0-4.4); Hematocrit 35.1 % (42.0-52.0); Hemoglobin 11.6 g/dL (14.0-18.0); Immature Granulocyte Absolute 0.04 K/mm3 (0.00-0.031); Immature Granulocyte Percent A 0.8 % (0-0.5); Lymphocytes Absolute Auto 0.67 K/mm3 (0.9-3.2); Lymphocytes Percent Auto 13.7 % (18.3-44.2); Mean Corpuscular Hemoglobin 31.1 pg (26-34); Mean Corpuscular Volume 94.1 fl (80-100); Mean Platelet Volume 9.2 fl (7.4-10.4); Monocytes Absolute Auto 0.7 K/mm3 (0.1-0.6); Monocytes Percent Auto 14.5 % (2.6-8.5); Neutrophils Absolute Auto 3.5 K/mm3 (1.3-6.7); Neutrophils Percent Auto 70.6 % (45.5-73.1); Platelet Count Result 255 k/mm3 (150-375); Red Blood Count 3.73 M/mm3 (4.6-6.20); Red Cell Distribution Width 14.9 % (11.5-14.5); White Blood Count 4.9 K/mm3 (4.5-10.0)
[2023-03-06 19:34] VITALS: PULSE 88
[2023-03-06 19:40] LABS: Anion Gap 5 mmol/L (8-16); Blood Urea Nitrogen 9 mg/dL (9-20); Calcium 7.9 mg/dL (8.4-10.2); Carbon Dioxide 30 mmol/L (22-30); Chloride 101 mmol/L (98-107); Estimated CRCL calculation 209 ml/min; Estimated Glomerular Filt Rate > 60; Glucose 159 mg/dL (65-110); Potassium 3.9 mmol/L (3.4-5.0); Sodium 136 mmol/L (137-145)
[2023-03-06 20:01] LABS: Influenza A QL RT-PCR Negative (Negative); Influenza B QL RT-PCR Negative (Negative); SARS-CoV-2 RNA PCR Positive (Negative)
== END 2023-03-06 20:23 | disposition home or self-care (01) ==
PROVIDERS: Emergency Provider Physician Assistant
DX: U07.1 COVID-19 (principal); E11.69 Type 2 diabetes mellitus with other specified complication; M86.8X7 Other osteomyelitis, ankle and foot; I48.91 Unspecified atrial fibrillation; I10 Essential (primary) hypertension; J44.9 Chronic obstructive pulmonary disease, unspecified; E11.319 Type 2 diabetes mellitus with unspecified diabetic retinopathy without macular edema; E78.5 Hyperlipidemia, unspecified; E87.1 Hypo-osmolality and hyponatremia; E03.9 Hypothyroidism, unspecified; G47.30 Sleep apnea, unspecified; Z87.440 Personal history of urinary (tract) infections; Z79.01 Long term (current) use of anticoagulants; Z79.84 Long term (current) use of oral hypoglycemic drugs; Z87.891 Personal history of nicotine dependence
CPT/HCPCS: 36415; 71046; 80048; 85025; 87636; 99283

== ENCOUNTER 2024-05-24 13:10 | Emergency (ER) | payer OTHER, SELFPAY ==
[2024-05-24 13:28] VITALS: BP 157/78; PULSE 91; RESP 16; TEMP 36.5; O2SAT 97
--- NOTE | 2024-05-24 13:30 | ED.URI ---
HPI - URI/Sore Throat General Chief Complaint: Upper Respiratory Infection Stated Complaint: urinary issue,congestion,loss of voice Source: patient, RN notes reviewed and old records reviewed Mode of arrival: ambulatory Limitations: no limitations History of Present Illness HPI Narrative: Patient presents today with 3 weeks worth of multiple complaints. He reports intermittent cough and sinus congestion over the past 3 weeks. Reports temperature has been as high as 99?. He is not taking anything for this. He is also complaining of urinary frequency and burning, associated low back pain, and dark cloudy urine intermittently for 3 weeks Related Data Home Medications Medication Instructions Recorded Confirmed glipizide 10 mg tablet 10 mg PO BID 12/11/20 02/22/23 metformin 1,000 mg tablet 1,000 mg PO BID 12/11/20 02/22/23 apixaban 5 mg tablet (Eliquis) 5 mg PO BID 12/12/20 02/22/23 carvedilol 6.25 mg tablet 6.25 mg PO BID 10/16/22 02/22/23 diltiazem HCl 180 mg 180 mg PO DAILY 10/16/22 02/22/23 capsule,extended release 24 hr empagliflozin 25 mg tablet 25 mg PO DAILY 02/22/23 02/22/23 omeprazole 20 mg capsule,delayed 20 mg PO 02/22/23 release lovastatin 40 mg tablet 40 mg PO HS 05/24/24 05/24/24 Allergies Allergy/AdvReac Type Severity Reaction Status Date / Time No Known Allergies Allergy Unknown Verified 05/24/24 13:13 Review of Systems Review of Systems: All systems reviewed & are unremarkable except as noted in HPI and below Constitutional: Constitutional: Reports no additional constitutional complaints ENT: Reports system reviewed and no additional complaints, except as documented, Reports change in voice, Reports hoarseness, Reports sinus pain, Reports sinus pressure and Reports sore throat Cardiovascular: Cardiovascular: Reports as per HPI and Reports no additional cardiovascular complaints Respiratory: Respiratory: Reports as per HPI, Reports no additional respiratory complaints and Reports cough Gastrointestinal: Gastrointestinal: Reports no additional gastrointestinal complaints Genitourinary: Genitourinary: Reports no additional male genitourinary complaints, Reports as per HPI, Reports urinary frequency, Reports urinary hesitancy and Reports urinary urgency Musculoskeletal: Musculoskeletal: Reports back pain PMFSH Past Medical History Medical History Atrial fibrillation Brain tumor Chronic anticoagulation Chronic hyponatremia COPD (chronic obstructive pulmonary disease) Diabetes type 2, controlled A1c 6.7 12/2022 Diabetic retinopathy GERD (gastroesophageal reflux disease) GIB (gastrointestinal bleeding) HLD (hyperlipidemia) HTN (hypertension) Hypothyroidism Sleep apnea With CPAP UTI (urinary tract infection) Surgical History Surgical History Hx of craniotomy removal of brain tumor as a child Hx of tonsillectomy Family History Family History Mother Heart disease Father Cirrhosis Social History Social History Social History: He and his have been since he was 17. A used to smoke 2.5 packs of cigarettes per day but quit approximately 2018. He reports that is not unusual for him to drink 18 beers a day. He has drink heavily since he was 26 years old. He quit drinking alcohol 02/07/2023. He denies illicit substance use. Code status: DNR/DNI per patient request Surrogate decision maker: Smoking packs per day: 2.5 Smoking cigarettes per day: 50.0 Years smoked: 45 Smoking pack-years: 112.50 Smoking status: Former smoker Tobacco type: cigarettes Smoking end date: 02/22/18 Alcohol intake: former Drinks per week: 105 Substance use: never Substance use type: does not use Lack of Transportation: No Lack of F
[2024-05-24 13:32] LABS: EDUAAPPEAR Cloudy; EDUABILI Negative (Negative); EDUABLOOD Negative (Negative); EDUACOLOR1 Yellow; EDUAGLUCOSE 2+ (Negative); EDUAKETONE Negative (Negative); EDUALEUKO 1+ (Negative); EDUANITRATE Positive (Negative); EDUAPH 7.5; EDUAPROTEIN 1+ (Negative); EDUASPGRAVITY 1.015; EDUAUROBILI 0.2
== END 2024-05-24 13:51 | disposition home or self-care (01) ==
PROVIDERS: Emergency Provider Nurse Practitioner Family
DX: N39.0 Urinary tract infection, site not specified (principal); I10 Essential (primary) hypertension; I48.91 Unspecified atrial fibrillation; Z79.01 Long term (current) use of anticoagulants; E11.9 Type 2 diabetes mellitus without complications; K21.9 Gastro-esophageal reflux disease without esophagitis; E78.5 Hyperlipidemia, unspecified; E03.9 Hypothyroidism, unspecified; G47.30 Sleep apnea, unspecified; Z99.89 Dependence on other enabling machines and devices; Z87.891 Personal history of nicotine dependence
CPT/HCPCS: 81003; 87077; 87086; 87088; 87186; 99213; G0463

== ENCOUNTER 2024-07-17 15:36 | Emergency (ER) | payer OTHER, SELFPAY ==
[2024-07-17 15:46] VITALS: BP 147/72; PULSE 72; RESP 20; TEMP 36.8; O2SAT 96
--- NOTE | 2024-07-17 15:49 | ED.MALEGU ---
HPI - Male Genitourinary General Chief complaint: Urogenital-Male Stated complaint: UTI Time Seen by Provider: 07/17/24 16:30 Source: patient, RN notes reviewed and old records reviewed Mode of arrival: ambulatory Limitations: no limitations History of Present Illness HPI Narrative: Patient presents with complaints of cloudy urine for the past couple of weeks. He denies any dysuria. He denies any yasmin blood in the urine. He does report some low back pain. He denies any fever, chills, sweats. He denies any urinary frequency or urgency. He denies all other complaints. Denies all injury and trauma Related Data Home Medications Medication Instructions Recorded Confirmed glipizide 10 mg tablet 10 mg PO BID 12/11/20 02/22/23 metformin 1,000 mg tablet 1,000 mg PO BID 12/11/20 02/22/23 apixaban 5 mg tablet (Eliquis) 5 mg PO BID 12/12/20 02/22/23 carvedilol 6.25 mg tablet 6.25 mg PO BID 10/16/22 02/22/23 diltiazem HCl 180 mg 180 mg PO DAILY 10/16/22 02/22/23 capsule,extended release 24 hr empagliflozin 25 mg tablet 25 mg PO DAILY 02/22/23 02/22/23 omeprazole 20 mg capsule,delayed 20 mg PO 02/22/23 release lovastatin 40 mg tablet 40 mg PO HS 05/24/24 05/24/24 Allergies Allergy/AdvReac Type Severity Reaction Status Date / Time No Known Allergies Allergy Unknown Verified 05/24/24 13:13 Review of Systems Review of Systems: All systems reviewed & are unremarkable except as noted in HPI and below Constitutional: Constitutional: Reports no additional constitutional complaints ENT: Reports system reviewed and no additional complaints, except as documented Cardiovascular: Cardiovascular: Reports no additional cardiovascular complaints Respiratory: Respiratory: Reports no additional respiratory complaints Gastrointestinal: Gastrointestinal: Reports no additional gastrointestinal complaints Genitourinary: Genitourinary: Reports no additional male genitourinary complaints and Reports as per HPI [facility] Past Medical History Medical History Atrial fibrillation Brain tumor Chronic anticoagulation Chronic hyponatremia COPD (chronic obstructive pulmonary disease) Diabetes type 2, controlled A1c 6.7 12/2022 Diabetic retinopathy GERD (gastroesophageal reflux disease) GIB (gastrointestinal bleeding) HLD (hyperlipidemia) HTN (hypertension) Hypothyroidism Sleep apnea With CPAP UTI (urinary tract infection) Surgical History Surgical History Hx of craniotomy removal of brain tumor as a child Hx of tonsillectomy Family History Family History Mother Heart disease Father Cirrhosis Social History Social History Social History: He and his have been since he was 17. A used to smoke 2.5 packs of cigarettes per day but quit approximately 2018. He reports that is not unusual for him to drink 18 beers a day. He has drink heavily since he was 26 years old. He quit drinking alcohol 02/07/2023. He denies illicit substance use. Code status: DNR/DNI per patient request Surrogate decision maker: Smoking packs per day: 2.5 Smoking cigarettes per day: 50.0 Years smoked: 45 Smoking pack-years: 112.50 Smoking status: Former smoker Tobacco type: cigarettes Smoking end date: 02/22/18 Alcohol intake: former Drinks per week: 105 Substance use: never Substance use type: does not use Lack of Transportation: No Lack of Food: Never True Current Housing: I Have Housing Concerned About Future Housing: No Difficulty Paying Gas/Electric Bills: No Difficulty Paying for Meds: No Currently Unemployed: No Education: Trade/Vocational Certificate Difficulty w/ Childcare or Family Care: No Gender identity (if verbalized by the patient): Male Sexual Orientation (if Verbalized by the Patient): Straight or Heterosexual Spiritual care concerns: No Comments At the time of my signature, I reviewed and agree with the nursing past medical, surgical, social, and family history. There is no relevant family history pertinent to the patient complaint. Exam Const: General: cooperative, no acute distress, alert and awake Orientation/consciousness: oriented to person, oriented to place and oriented to time HENMT: Head: normal to inspection Resp: Effort & Inspection: normal respiratory effort and able to speak in complete sentences Auscultation: clear to auscultation bilaterally, no crackles, no rales, no rhonchi and no wheezes Cardio: Palpation: normal PMI Rate: regular rate Rhythm: regular rhythm Heart sounds: S1 normal heart sound present and S2 normal heart sound present : General: Yes bladder normal to palpation and Yes no CVA tenderness Neuro: General: oriented to person, oriented to place and oriented to time Cranial nerves: Yes CN's II-XII intact bilaterally Psych: Appearance: grossly normal Thought process: Normal thought process present Insight: Good insight present (Psych) Judgement: Good judgement present (Psych) Course Course Level of Care: Express Care Visit Vital Signs Vital signs: Vital Signs Temperature 98.3 F 07/17/24 15:46 Pulse Rate 72 07/17/24 15:46 Respiratory Rate 20 07/17/24 15:46 Blood Pressure 147/72 H 07/17/24 15:46 Pulse Oximetry 96 07/17/24 15:46 Oxygen Delivery Room Air 07/17/24 15:46 Temperature 98.3 F 07/17/24 15:46 Pulse Rate 72 07/17/24 15:46 Respiratory Rate 20 07/17/24 15:46 Blood Pressure 147/72 H 07/17/24 15:46 Pulse Oximetry 96 07/17/24 15:46 Oxygen Delivery Room Air 07/17/24 15:46 Reviewed MDM - Male Genitourinary MDM Narrative Medical decision making narrative: Patient with minimal complaints, reassuring UA, reassuring physical exam. Discharge home, no medications warranted. Follow with primary care provider. Emergency department for new or worse symptoms. Discharge instructions reviewed with patient, as well as provided in writing per nursing staff. The instructions also include specific and strict return/GO TO THE ER as well as f/u information. All questions have been answered, and the patient deny any further questions with discharge and discharge plan. Some parts of this dictation were generated by voice recognition software and may contain typographical and/or grammatical inaccuracies. Differential Diagnosis Differential diagnosis: Likely urinary tract infection and prostatitis Medical Records Attestation: I reviewed the patient's medical records. Lab Data Attestation: I reviewed the patient's lab results. Discharge Plan Discharge Clinical Impression: Cloudy urine Patient Disposition: Home, Self-Care Condition: Stable Instructions: Antibiotic Form, Urinary Urgency and Frequency (DC) Additional Instructions: Follow-up with primary care provider. Emergency department for new or worse symptoms Prescriptions: No Action carvedilol 6.25 mg tablet 6.25 mg PO BID diltiazem HCl 180 mg capsule,extended release 24hr 180 mg PO DAILY lovastatin 40 mg tablet 40 mg PO HS levofloxacin 750 mg tablet 750 mg PO DAILY Qty: 10 0RF glipizide 10 mg tablet 10 mg PO BID metformin 1,000 mg tablet 1,000 mg PO BID Eliquis 5 mg Tablet 5 mg PO BID Hold Instructions: Hold for 10 days omeprazole 20 mg Capsule,Delayed Release(Dr/Ec) 20 mg PO empagliflozin 25 mg Tablet 25 mg PO DAILY trazodone 50 mg Tablet 50 mg PO HS PRN (Reason: Insomnia) Qty: 30 0RF polyethylene glycol 3350 [Miralax] 17 gram Powder In Packet 17 g PO BID Qty: 100 0RF metronidazole 250 mg Tablet 500 mg PO Q8HR 42 Days Qty: 252 0RF thiamine HCl (vitamin B1) [Vitamin B-1] 100 mg Tablet 100 mg PO QAM 30 Days Qty: 30 0RF folic acid 1 mg Tablet 1 mg PO DAILY 30 Days Qty: 30 0RF vancomycin 1.5 gram recon soln 1.5 g IV Q8H 42 Days ceftriaxone 2 gram Recon Soln 2 g IV Q24H 42 Days Qty: 10 0RF Rx Instructions: please dispense QS x 5 weeks Follow-up/Referrals: [facility] [Primary Care Provider] - Time of Disposition: 16:44
[2024-07-17 16:12] LABS: Glucose Point of Care 244 mg/dl (65-105)
[2024-07-17 16:23] LABS: EDUAAPPEAR Cloudy; EDUABILI Negative (Negative); EDUABLOOD Trace (Negative); EDUACOLOR1 Yellow; EDUAGLUCOSE 2+ (Negative); EDUAKETONE Negative (Negative); EDUALEUKO Negative (Negative); EDUANITRATE Negative (Negative); EDUAPROTEIN Negative (Negative); EDUAUROBILI 0.2
== END 2024-07-17 16:56 | disposition home or self-care (01) ==
PROVIDERS: Emergency Provider Nurse Practitioner Family
DX: R82.998 Other abnormal findings in urine (principal); Z87.891 Personal history of nicotine dependence; I48.91 Unspecified atrial fibrillation; J44.9 Chronic obstructive pulmonary disease, unspecified; E11.319 Type 2 diabetes mellitus with unspecified diabetic retinopathy without macular edema; Z79.84 Long term (current) use of oral hypoglycemic drugs; K21.9 Gastro-esophageal reflux disease without esophagitis; I10 Essential (primary) hypertension; E78.5 Hyperlipidemia, unspecified; E03.9 Hypothyroidism, unspecified; G47.30 Sleep apnea, unspecified; Z79.01 Long term (current) use of anticoagulants
CPT/HCPCS: 81003; 82948; 99212; G0463

== ENCOUNTER 2024-11-26 15:10 | Emergency (ER) | payer OTHER, SELFPAY ==
[2024-11-26 15:26] VITALS: BP 160/83; PULSE 87; RESP 19; TEMP 37.4; O2SAT 98
--- NOTE | 2024-11-26 15:27 | ED_ITS ---
HPI - Male Genitourinary General Chief complaint: Urogenital-Male Stated complaint: UTI Time Seen by Provider: 11/26/24 15:27 Source: patient Mode of arrival: ambulatory Limitations: no limitations History of Present Illness HPI Narrative: 69-year-old male presents with complaint cloudy urine, fatigue, fever for 2 days. Patient concerns that he has a urinary tract infection. Last took Tylenol this morning. Afebrile at this time. No nausea vomiting. No abdominal or back pain. All systems reviewed and negative except as noted above. Related Data Home Medications ?Medication ?Instructions ?Recorded ?Confirmed ?Last Taken ?Type glipizide 10 mg tablet 10 mg PO BID 12/11/20 07/17/24 Unknown History metformin 1,000 mg tablet 1,000 mg PO BID 12/11/20 07/17/24 Unknown History apixaban 5 mg tablet (Eliquis) 5 mg PO BID 12/12/20 07/17/24 Unknown History carvedilol 6.25 mg tablet 6.25 mg PO BID 10/16/22 07/17/24 Unknown History omeprazole 20 mg capsule,delayed 20 mg PO DIRECTED 02/22/23 07/17/24 Unknown History release lovastatin 40 mg tablet 40 mg PO HS 05/24/24 07/17/24 Unknown History Allergies Allergy/AdvReac Type Severity Reaction Status Date / Time No Known Allergies Allergy Unknown Verified 05/24/24 13:13 Review of Systems Review of Systems: CONSTITUTIONAL: Reports fever, chills, or sweats. EYES: Denies visual changes, redness, or discharge. ENT: Denies rhinorrhea, congestion, sore throat, or otalgia. CARDIOVASCULAR: Denies chest pain, palpitations, or edema. RESPIRATORY: Denies cough or dyspnea. GASTROINTESTINAL: Denies abdominal pain, nausea, vomiting, or diarrhea. GENITOURINARY: Denies dysuria or hematuria. Reports cloudy urine. SKIN: Denies rash or itching. MUSCULOSKELETAL: Denies back pain, joint pain, or myalgia. NEUROLOGIC: Denies headache, numbness, or weakness. PSYCHIATRIC: Denies anxiety or depression. All other systems reviewed are negative, except as documented in HPI. [facility] Past Medical History Medical History Atrial fibrillation Brain tumor Chronic anticoagulation Chronic hyponatremia COPD (chronic obstructive pulmonary disease) Diabetes type 2, controlled A1c 6.7 12/2022 Diabetic retinopathy GERD (gastroesophageal reflux disease) GIB (gastrointestinal bleeding) HLD (hyperlipidemia) HTN (hypertension) Hypothyroidism Sleep apnea With CPAP UTI (urinary tract infection) Surgical History Surgical History Hx of craniotomy removal of brain tumor as a child Hx of tonsillectomy Family History Family History Mother Heart disease Father Cirrhosis Social History Social History Social History: He and his have been since he was 17. A used to smoke 2.5 packs of cigarettes per day but quit approximately 2018. He reports that is not unusual for him to drink 18 beers a day. He has drink heavily since he was 26 years old. He quit drinking alcohol 02/07/2023. He denies illicit substance use. Code status: DNR/DNI per patient request Surrogate decision maker: Smoking packs per day: 2.5 Smoking cigarettes per day: 50.0 Years smoked: 45 Smoking pack-years: 112.50 Smoking status: Former smoker Tobacco type: cigarettes Smoking end date: 02/22/18 Alcohol intake: former Drinks per week: 105 Substance use: never Substance use type: does not use Lack of Transportation: No Lack of Food: Never True Current Housing: I Have Housing Concerned About Future Housing: No Difficulty Paying Gas/Electric Bills: No Difficulty Paying for Meds: No Currently Unemployed: No Education: Trade/Vocational Certificate Difficulty w/ Childcare or Family Care: No Gender identity (if verbalized by the patient): Male Sexual Orientation (if Verbalized by the Patient): Straight or Heterosexual Spiritual care concerns: No Comments At time of signature, agree with nursing past medical, surgical, social and family history. There is no relevant family history pertinent to the presenting complaint. Exam Narrative: GENERAL: This is a well-nourished, well-developed patient, in no apparent distress. HEAD: normocephalic, atraumatic. EYES: PERRL. Sclera clear/white. Vision is grossly intact. EARS: External ears normal NOSE: External nose normal NECK: Neck supple, non-tender without lymphadenopathy, masses or thyromegaly. CARDIOVASCULAR: Regular rate and rhythm without murmurs, gallops, or rubs. RESPIRATORY: Clear to auscultation. Breath sounds equal bilaterally. No wheezes, rales, or rhonchi. SKIN: warm, Dry, intact with no suspicious lesions or rash, good texture and tur gor. NEURO: awake, alert, and oriented to person, place and time. There were no obvious focal neurologic abnormalities. EXTREMITIES: No joint tenderness, effusion, or edema noted. Course Course Level of Care: Express Care Visit Vital Signs Vital signs: Vital Signs Temperature 37.4 C 11/26/24 15: Pulse Rate 87 11/26/24 15: Respiratory Rate 19 11/26/24 15: Blood Pressure 160/83 H 11/26/24 15: Pulse Oximetry 98 11/26/24 15:26 Oxygen Delivery Room Air 11/26/24 15: Temperature 37.4 C 11/26/24 15: Pulse Rate 87 11/26/24 15:26 Respiratory Rate 19 11/26/24 15:26 Blood Pressure 160/83 H 11/26/24 15:26 Pulse Oximetry 98 11/26/24 15:26 Oxygen Delivery Room Air 11/26/24 15:26 reviewed MDM - Male Genitourinary MDM Narrative Medical decision making narrative: urinalysis positive for leukocytes, nitrites, blood, protein. Patient is alert, nontoxic. Will treat with Augmentin. Urine culture ordered. Please be advised this is a medical document. It is intended for [id number] communication. It is written in medical language and may contain unfamiliar abbreviations or verbiage. Medical documents are intended to carry relevant information, facts as evident, and the clinical opinion of the practitioner at t he time of the encounter. This report may have been done utilizing a voice recognition system. Attempts have been made to correct errors. However, there may be uncorrected grammatical, spelling, and recognition errors present. The file time of this note does not necessarily represent the time of service. Lab Data Labs: Lab Results 11/26/24 Range/Units 15:26 POC Urine Color Dark POC Urine Clarity Cloudy POC Urine pH 5.5 POC Ur Specif [place] 1.000 POC Urine Protein 1+ (Negative) POC Ur Glucose (UA) 2+ (Negative) POC Urine Ketones Negative (Negative) POC Urine Blood Trace (Negative) POC Urine Nitrite Positive (Negative) POC Urine Bilirubin Negative (Negative) POC Urine Urobilinogen 0.2 POC U Leukocyte Esteras 1+ (Negative) Discharge Plan Discharge Clinical Impression: Urinary tract infection Patient Disposition: Home, Self-Care Condition: Stable Instructions: Antibiotic Form Additional Instructions: take antibiotic as prescribed until gone. Drink at least 64 oz water a day. Take Tylenol every 6-8 hours as needed for pain. See your doctor if symptoms are not improving. For any worsening of symptoms go to the ER. Patient Language: Faroese Prescriptions: New amoxicillin-pot clavulanate 875-125 mg tablet 1 tablet PO Q12H 10 Days Qty: 20 0RF No Action carvedilol 6.25 mg tablet 6.25 mg PO BID lovastatin 40 mg tablet 40 mg PO HS glipizide 10 mg tablet 10 mg PO BID metformin 1,000 mg tablet 1,000 mg PO BID Eliquis 5 mg Tablet 5 mg PO BID omeprazole 20 mg Capsule,Delayed Release(Dr/Ec) 20 mg PO DIRECTED trazodone 50 mg Tablet 50 mg PO HS PRN (Reason: Insomnia) Qty: 30 0RF polyethylene glycol 3350 [Miralax] 17 gram Powder In Packet 17 g PO BID Qty: 100 0RF folic acid 1 mg Tablet 1 mg PO DAILY 30 Days Qty: 30 0RF Follow-up/Referrals: [facility] [Primary Care Provider] - Time of Disposition: 15:40
[2024-11-26 15:29] LABS: EDUAAPPEAR Cloudy; EDUABILI Negative (Negative); EDUABLOOD Trace (Negative); EDUACOLOR1 Dark; EDUAGLUCOSE 2+ (Negative); EDUAKETONE Negative (Negative); EDUALEUKO 1+ (Negative); EDUANITRATE Positive (Negative); EDUAPH 5.5; EDUAPROTEIN 1+ (Negative); EDUAUROBILI 0.2
== END 2024-11-26 15:45 | disposition home or self-care (01) ==
PROVIDERS: Emergency Provider Nurse Practitioner Family
DX: N39.0 Urinary tract infection, site not specified (principal); B96.89 Other specified bacterial agents as the cause of diseases classified elsewhere; Z87.891 Personal history of nicotine dependence; I48.91 Unspecified atrial fibrillation; J44.9 Chronic obstructive pulmonary disease, unspecified; E11.319 Type 2 diabetes mellitus with unspecified diabetic retinopathy without macular edema; Z79.84 Long term (current) use of oral hypoglycemic drugs; E78.5 Hyperlipidemia, unspecified; I10 Essential (primary) hypertension; E03.9 Hypothyroidism, unspecified; G47.30 Sleep apnea, unspecified; K21.9 Gastro-esophageal reflux disease without esophagitis; Z79.01 Long term (current) use of anticoagulants
CPT/HCPCS: 81003; 87086; 87186; 99213; G0463

== ENCOUNTER 2025-02-02 14:44 | Emergency (ER) | payer OTHER, SELFPAY ==
[2025-02-02 14:56] VITALS: BP 147/76; PULSE 97; RESP 16; TEMP 36.8; O2SAT 99
--- NOTE | 2025-02-02 15:21 | ED_ITS ---
HPI - Male Genitourinary General Chief complaint: Urogenital-Male Stated complaint: UTI Time Seen by Provider: 02/02/25 15:21 Source: patient and RN notes reviewed Mode of arrival: ambulatory Limitations: no limitations History of Present Illness HPI Narrative: 69-year-old male presents with concern for urinary tract infection. Reports 3-4 day history of fever, fatigue, right flank pain and right groin discomfort. Reports cloudy urine. Reports history of urinary tract infections MD Complaint: dysuria Related Data Home Medications ?Medication ?Instructions ?Recorded ?Confirmed ?Last Taken ?Type glipizide 10 mg tablet 10 mg PO BID 12/11/20 07/17/24 Unknown History metformin 1,000 mg tablet 1,000 mg PO BID 12/11/20 07/17/24 Unknown History apixaban 5 mg tablet (Eliquis) 5 mg PO BID 12/12/20 07/17/24 Unknown History carvedilol 6.25 mg tablet 6.25 mg PO BID 10/16/22 07/17/24 Unknown History omeprazole 20 mg capsule,delayed 20 mg PO DIRECTED 02/22/23 07/17/24 Unknown History release lovastatin 40 mg tablet 40 mg PO HS 05/24/24 07/17/24 Unknown History Allergies Allergy/AdvReac Type Severity Reaction Status Date / Time empagliflozin (From AdvReac Intermediate Rash Verified 02/02/25 15:06 Jardiance) Review of Systems Review of Systems: CONSTITUTIONAL: Reports malaise, chills, fever. CARDIOVASCULAR: Denies chest pain, palpitations, or edema. RESPIRATORY: Denies cough or dyspnea. GASTROINTESTINAL: Denies abdominal pain, nausea, vomiting, diarrhea GENITOURINARY: Reports flank pain, groin discomfort, cloudy urine. Denies flank pain or hematuria. SKIN: Denies rash or itching. MUSCULOSKELETAL: Denies back pain or myalgia. All systems reviewed & are unremarkable except as noted in HPI and below PMFSH Past Medical History Medical History Atrial fibrillation Brain tumor Chronic anticoagulation Chronic hyponatremia COPD (chronic obstructive pulmonary disease) Diabetes type 2, controlled A1c 6.7 12/2022 Diabetic retinopathy GERD (gastroesophageal reflux disease) GIB (gastrointestinal bleeding) HLD (hyperlipidemia) HTN (hypertension) Hypothyroidism Sleep apnea With CPAP UTI (urinary tract infection) Surgical History Surgical History Hx of craniotomy removal of brain tumor as a child Hx of tonsillectomy Family History Family History Mother Heart disease Father Cirrhosis Social History Social History Social History: He and his have been since he was 17. A used to smoke 2.5 packs of cigarettes per day but quit approximately 2018. He reports that is not unusual for him to drink 18 beers a day. He has drink heavily since he was 26 years old. He quit drinking alcohol 02/07/2023. He denies illicit substance use. Code status: DNR/DNI per patient request Surrogate decision maker: Smoking packs per day: 2.5 Smoking cigarettes per day: 50.0 Years smoked: 45 Smoking pack-years: 112.50 Smoking status: Former smoker Tobacco type: cigarettes Smoking end date: 02/22/18 Alcohol intake: former Drinks per week: 105 Substance use: never Substance use type: does not use Lack of Transportation: No Lack of Food: Never True Current Housing: I Have Housing Concerned About Future Housing: No Difficulty Paying Gas/Electric Bills: No Difficulty Paying for Meds: No Currently Unemployed: No Education: Trade/Vocational Certificate Difficulty w/ Childcare or Family Care: No Gender identity (if verbalized by the patient): Male Sexual Orientation (if Verbalized by the Patient): Straight or Heterosexual Spiritual care concerns: No Comments At time of signature, agree with nursing past medical, surgical, social and family history. There is no relevant family history pertinent to the presenting complaint Exam Narrative: GENERAL: Well-appearing, well-nourished, and in no acute distress. HEAD: Normocephalic. EYES: PERRLA, conjunctivae clear. NECK: Supple. No lymphadenopathy CHEST: Clear to auscultation. No respiratory distress. HEART: Regular rate and rhythm. SKIN: Warm, dry, no rash. NEURO: Alert and oriented x3. PSYCH: Normal mood and affect Course Course Emergency Course: Patient is aware of diagnosis, understands and agrees to treatment plan. Ant icipatory guidance given. Patient agrees to follow-up as directed and is aware of reasons to seek care at the emergency department. Portions of this record may have been created with voice recognition software Level of Care: Express Care Visit Vital Signs Vital signs: Vital Signs Temperature 98.2 F 02/02/25 14:56 Pulse Rate 97 02/02/25 14:56 Respiratory Rate 16 02/02/25 14:56 Blood Pressure 147/76 H 02/02/25 14:56 Pulse Oximetry 99 02/02/25 14:56 Oxygen Delivery Room Air 02/02/25 14:56 Temperature 98.2 F 02/02/25 14:56 Pulse Rate 97 02/02/25 14:56 Respiratory Rate 16 02/02/25 14:56 Blood Pressure 147/76 H 02/02/25 14:56 Pulse Oximetry 99 02/02/25 14:56 Oxygen Delivery Room Air 02/02/25 14:56 Reviewed. MDM - Male Genitourinary MDM Narrative Medical decision making narrative: I evaluated this patient in the express care. History is obtained from patient who is an independent historian and physical exam was performed.? Available medical records were reviewed. ? Exam findings and relevant testing show no acute concerns or changes; patient is non-toxic appearing and is in no distress. ? Differential diagnosis and treatment plan were discussed with the patient. Patient agrees with discussion and after shared medical decision making agrees with plan of care. All questions were answered to the patient's satisfaction. Patient is appropriate for outpatient treatment and follow-up. Critical Care Time Critical Care Time Critical Care Time: No Discharge Plan Discharge Clinical Impression: Urinary tract infection Patient Disposition: Home Condition: Stable Instructions: Antibiotic Form, Urinary Tract Infection in Older Adults (ED) Additional Instructions: We will send a urine culture to the lab; if the culture identifies an organism that the prescribed antibiotic will not treat, you will receive a phone call from an urgent care staff member and an appropriate antibiotic will be prescribed. -Your symptoms should begin to improve within a day of starting antibiotics. But you should finish all the antibiotic pills you get. Otherwise your infection might come back. -Also recommend: increase water intake. Tylenol/ibuprofen as needed for pain or fever -Follow-up with your primary care provider for urine recheck or seek ER visit if condition worsens with high fever, nausea, vomiting and severe back pain. Patient Language: [place] Prescriptions: New sulfamethoxazole-trimethoprim 800-160 mg tablet 1 tablet PO Q12H 7 Days Qty: 14 0RF No Action carvedilol 6.25 mg tablet 6.25 mg PO BID lovastatin 40 mg tablet 40 mg PO HS amoxicillin-pot clavulanate 875-125 mg tablet 1 tablet PO Q12H 10 Days Qty: 20 0RF glipizide 10 mg tablet 10 mg PO BID metformin 1,000 mg tablet 1,000 mg PO BID Eliquis 5 mg Tablet 5 mg PO BID omeprazole 20 mg Capsule,Delayed Release(Dr/Ec) 20 mg PO DIRECTED trazodone 50 mg Tablet 50 mg PO HS PRN (Reason: Insomnia) Qty: 30 0RF polyethylene glycol 3350 [Miralax] 17 gram Powder In Packet 17 g PO BID Qty: 100 0RF folic acid 1 mg Tablet 1 mg PO DAILY 30 Days Qty: 30 0RF Follow-up/Referrals: [facility] [Primary Care Provider] - Time of Disposition: 15:28
[2025-02-02 15:25] LABS: EDUAAPPEAR Cloudy; EDUABILI Negative (Negative); EDUABLOOD 3+ (Negative); EDUACOLOR1 Yellow; EDUAGLUCOSE 3+ (Negative); EDUAKETONE Negative (Negative); EDUALEUKO 1+ (Negative); EDUANITRATE Negative (Negative); EDUAPH 5.5; EDUAPROTEIN 1+ (Negative); EDUASPGRAVITY 1.005; EDUAUROBILI 0.2
== END 2025-02-02 15:35 | disposition home or self-care (01) ==
PROVIDERS: Emergency Provider Nurse Practitioner
DX: N39.0 Urinary tract infection, site not specified (principal); Z87.891 Personal history of nicotine dependence; I48.91 Unspecified atrial fibrillation; J44.9 Chronic obstructive pulmonary disease, unspecified; E11.319 Type 2 diabetes mellitus with unspecified diabetic retinopathy without macular edema; Z79.84 Long term (current) use of oral hypoglycemic drugs; K21.9 Gastro-esophageal reflux disease without esophagitis; I10 Essential (primary) hypertension; E78.5 Hyperlipidemia, unspecified; G47.30 Sleep apnea, unspecified; Z79.01 Long term (current) use of anticoagulants
CPT/HCPCS: 81003; 87077; 87086; 87186; 99213; G0463

== ENCOUNTER 2025-02-03 16:35 | Emergency (ER) | payer OTHER, SELFPAY ==
--- NOTE | ~2025-02-03 | CT_ITS ---
CT abdomen pelvis w con Ordering provider: Latrell James MD History: 69 years Male with . concern SBO . Comparison: None. Technique: CT abdomen and pelvis with IV and without oral contrast. Automated exposure control and it erative reconstruction technique were employed. The dose-length product was 1618.44 mGy-cm. 100 mL Om nipaque 350 was given IV. Findings: VISUALIZED LOWER CHEST: Groundglass appearance is seen in the middle lobe and left lower lobe suggest royer of atelectasis versus pneumonia. Atypical pneumonia should be considered. UPPER ABDOMINAL ORGANS: Liver: Hepatomegaly. Focal fat infiltration seen adjacent to the interlobar fissure. Gallbladder: Normal. Spleen: Normal. Calcifications. Stomach/duodenum: Sliding hiatus hernia. Pancreas: Normal. Adrenals: Normal. Kidneys: Tiny cysts in the left kidney lower pole. PELVIC ORGANS: The bladder is slightly thickened wall. Evaluation for cystitis advised. BOWEL AND MESENTERY: Colon: No evidence of diverticulitis.. . Appendix is not demonstrated. Small Bowel: Normal. No obstruction. Peritoneum/mesentery: No free air or free fluid. No mesenteric lymphadenopathy. RETROPERITONEUM: Moderate atheromatous disease of the abdominal aorta. Bilateral iliac atherosclerot ic changes with moderate to severe narrowing seen bilaterally. No retroperitoneal lymphadenopathy. MUSCULOSKELETAL: Superficial soft tissues: The superficial soft tissues are normal. Bones: Age appropriate degenerative changes of the spine. IMPRESSION: 1. Groundglass appearance is seen in the middle lobe and left lower lobe which may indicate pneumoni a. 2. No evidence of appendicitis, diverticulitis or intestinal obstruction. 3. Hepatomegaly. Reviewed, dictated and finalized at location A. IMPRESSION: 1. Groundglass appearance is seen in the middle lobe and left lower lobe which may indicate pneumonia. 2. No evidence of appendicitis, diverticulitis or intestinal obstruction. 3. Hepatomegaly.
[2025-02-03 16:45] VITALS: BP 152/96; PULSE 82; RESP 20; TEMP 36.6; O2SAT 98
--- OUTSIDE RECORDS SUMMARY | 2025-02-03 16:56 | XMS_ITS | Encounter Summary ---
Author Name [facility] [place] [facility] Address [address] [place] [address] Care Team Providers Care Nipple Threader Name Role Phone BAYRON FABRIZIO Primary Care Provider Unavailabl e Insurance Providers: All historical and current Section Date Range: From patient's date of to the date document was created. This section includes the names of all active insurance providers for the patient. Insurance Provider Type of Coverage Plan Name Start of Policy Coverage End of Policy Coverage Group Number Member ID Insurance Provider's Telephone Number Policy Pantoja's Name Patient's Relationship to Policy Pantoja MEDICARE (WNR) MEDICARE (M) PART A Oct 14, 2020 PART A [id number] BECKA FOSTER PATIENT Selected Encounter This section includes the information on record at [place] for the Encounter. Date/Time Encounter Type Encounter Description Reason Provider Source Sep 20, 2024 12:12 PM Outpatient Encounter ADMIN PAT ACTIVTIES (MASNONCT) IRMA GONZALEZ Encounter Template Text not used by [place] Plan of Treatment: Future Appointments (+ 6 months) and Future Tests (+/- 45 days) The Plan of Treatment section includes future care activities for the patient from all [facility] treatment[facility]ilities. This section includes future appointments and future orders which are active, pending or scheduled. Future Appointments This section includes appointments that were scheduled to occur 6 months from the date of the Encounter, up to a maximum of 20 appointments. The data comes from all [place] treatment facilities. Appointment Date/Time Appointment Type Appointme nt Facility Name Oct 19, 2024 10:30 AM AMBULATORY - SURGERY [facility] January 11, 2025 01:00 PM AMBULATORY - NONE [facility] January 15, 2025 03:30 PM AMBULATORY - MEDICINE [facility] January 17, 2025 01:00 PM AMBULATORY - SURGERY [facility] January 18, 2025 01:30 PM AMBULATORY - NONE [facility] January 18, 2025 02:00 PM AMBULATORY - MEDICINE [facility] January 30, 2025 01:30 PM AM[facility]ULATORY - SURGERY [facility] Feb 12, 2025 01:00 PM AMBULATORY - NONE . [facility] Feb 26, 2025 12:40 PM AMBULATORY - MEDICINE [facility] Mar 20, 2025 11:00 AM AMBULATORY - MEDICINE [facility] Lab Results: +/- 30 days of the encounter This section includes the Chemistry and Hematology Lab Results on record with [place] for the patient. Radiology Reports and Pathology Reports are provided separately, in subsequent sections. Lab Results This section contains the Chemistry/Hematology Results that were resulted 30 days before or 30 daysafter the date of the Encounter. Date/Time Source Result Type Result - Unit Interpretation Reference Range Specimen Type Comment Sep 20, 2024 11:09 AM [facility] GLUCOSE,BLOOD-poct (STL) BLOOD Specimen Type: BLOOD Comment: Test Performed by: [id number] Meter #: [id number] Ordering Provider: FABRIZIO QUEEN Report Released Date/Time: Sep 20, 2024 11:11 AM Reporting Lab: [address] [id number] Performing Lab: [address] [address] GLUCOSE,BLOOD-poct (STL) 232 mg/dL H 72-99 Aug 31, 2024 12:44 PM [facility] HGA1C BLOOD Specimen Type: BLOOD No comment entered. Ordering Provider: FABRIZIO QUEEN Report Released Date/Time: Aug 31, 2024 11:36 AM Reporting Lab: [facility] [address] [facility] [address] Performing Lab: [facility] [address] [facility] [address] HGA1C 7.2 H 4.0-6.0 Aug 31, 2024 12:44 PM [facility] VITAMIN D, 25-HYDROXY SERUM Specimen Type: SE RUM No comment entered. Ordering Provider: FABRIZIO QUEEN Report Released Date/Time: Aug 31, 2024 11:36 AM Reporting Lab: [facility] [address] [facility] [address] Performing Lab: [facility] [address] [place] [phone] VITAMIN D, 25-HYDROXY 22.6 ng/mL L 30-96 Aug 31, 2024 12:44 PM [facility] LIPID PANEL (STL) PLASMA Specimen Type: PLASM A Comment: No hemolysis noted. Ordering Provider: FABRIZIO QUEEN Report Released Date/Time: Aug 31, 2024 11:36 AM Reporting Lab: [facility] [address] [facility] [address] Performing Lab: [facility] [address] [facility] [address] CHOLESTEROL 134 mg/dL 0-200 TRIGLYCERIDE 106 mg/dL 0-150 CALCULATED LDL 62 mg/dL HDL(New) 51 mg/dL >40 Aug 31, 2024 12:44 PM [facility] TSH W/ REFLEX FT4 (STL) PLASMA Specimen Type: PLASMA No comment entered. Ordering Provider: FABRIZIO QUEEN Report Released Date/Time: Aug 31, 2024 11:36 AM Reporting Lab: [facility] [address] [facility] [address] Performing Lab: [facility] [address] [facility] [phone] TSH 1.702 u[IU]/mL 0.47-5 Aug 31, 2024 12:44 PM [facility] CBC BLOOD Specimen Type: BLOOD No comment entered. Ordering Provider: FABRIZIO QUEEN Report Released Date/Time: Aug 31, 2024 11:36 AM Reporting Lab: [facility] [address] [facility] [address] Performing Lab: [facility] [address] [place] [phone] WBC 6.5 10*3/uL 3.6-11.2 RBC 5.11 10*6/uL 4.10-5.70 HGB 16.4 g/dL 13.1-16.8 HCT 47.4 38.2-48.4 MCV 92.8 fL 80.0-100.0 MCH 32.1 pg 27.0-34.0 MCHC 34.6 g/dL 33.0-36.0 PLT 189 10*3/uL 150-400 MPV 11.5 fL H 7.5-11.2 RDW 13.0 11.8-15.1 LYMPHOCYTES, AUTO % 14 MONOCYTES, AUTO % 9 NEUTROPHILS, AUTO % 75 EOSINOPHILS, AUTO % 1 BASOPHILS, AUTO % 1 LYMPHOCYTES, ABSOLUTE 0.88 10*3/uL 0.77- 4.50 MONOCYTES, ABSOLUTE 0.58 10*3/uL 0.19-0. 80 NEUTROPHILS, ABSOLUTE 4.83 10*3/uL 2.10- 8.00 EOSINOPHILS, ABSOLUTE 0.07 10*3/uL 0.00- 0.60 BASOPHILS, ABSOLUTE 0.05 10*3/uL 0.00-0. 20 Aug 31, 2024 12:44 PM [facility] COMPREHENSIVE METABOLIC PANEL PLASMA Specimen Type: PLASMA Comment: No hemolysis noted. Ordering Provider: FABRIZIO QUEEN Report Released Date/Time: Aug 31, 2024 11:36 AM Reporting Lab: [facility] [address] [facility] [phone] Performing Lab: [facility] [address] [place] [phone] CREATININE 0.58 mg/dL L 0.7-1.3 UREA NITROGEN 11.3 mg/dL 9.0-25.0 GLUCOSE 159 mg/dL H 72-99 SODIUM 137 meq/L 136-145 POTASSIUM 4.6 meq/L 3.5-5 CHLORIDE 104 meq/L 98-107 CARBON DIOXIDE 23 meq/L 22-31 CALCIUM 9.3 mg/dL 8.4-10.4 PROTEIN 7.5 g/dL 6-8.6 ALBUMIN 4.1 g/dL 3.4-5 TOTAL BILIRUBIN 0.9 mg/dL 0.2-1.2 ALKALINE PHOSPHATASE 62 U/L 40-150 AST/SGOT 29 U/L 5-34 ALT/SGPT 23 U/L 8-40 EGFR (CKD-EPI 2020) 106.2 >60 Aug 31, 2024 12:44 PM [facility] URINALYSIS W/ CX REFLEX (STL-PB) URINE Specim en Type: URINE No comment entered. Ordering Provider: FABRIZIO QUEEN Report Released Date/Time: Aug 31, 2024 11:36 AM Reporting Lab: [facility] [address] [facility] [phone] Performing Lab: [facility] [address] [facility] [phone] URINE COLOR Light-Yellow Yellow U.BILIRUBIN Negative mg/dL Negative U.PH 6.0 5.0-8.0 URINE WBC/HPF 57 /[HPF] H 0-5 URINE RBC/HPF 5 /[HPF] 0-5 APPEARANCE Clear Clear U.NITRITE 2+ mg/dL H Negative WBC Clumps RARE /[HPF] Negative-Rare BACTERIA RARE /[HPF] Negative SQUAMOUS EPITH. <1 /[HPF] 0-5 MUCUS RARE /[LPF] Negative-Rare URN.GLUCOSE > mg/dL H Negative URN.PROTEIN Negative mg/dL URN.UROBILINOGEN Normal mg/dL Normal URN.BLOOD Negative mg/dL Negative-Trace URN.KETONES Negative mg/dL Negative-Trac e URN.LEUK.EST. 500 mg/dL H Negative-Trace URN.SPECIFIC GRAVITY 1.014 *URINE FOR REFLEX CULTURE CX ORDERED AND SENT TO MICROBIOLOGY Social History: Smoking Status (Most current) and Tobacco Use (All prior to encounter date) This section includes the most current, and the historical, smoking and tobacco- related health factors from the [place] facility where the Encounter took place. Current Smoking Status This section includes the most current smoking, or tobacco-related health factor, from the [place] facility where the Encounter took place. Date/Time Current Smoking Status Comment Harriet ity Mar 02, 2023 01:17 AM ORYX ADMIT TOBACCO SCREEN NO [facility] Tobacco Use History This section includes a history of the smoking, or tobacco-related health factors, that were collected on or before the date of the Encounter. The data comes from the [place] facility where the Encounter took place. Date/Time Smoking Status/Tobacco Use Comment F acility Dec 15, 2021 01:45 PM VA-TOBACCO FORMER USER [facility] Dec 15, 2021 01:45 PM VA-TOBACCO QUIT 1 TO < 5 YRS [facility] Oct 01, 2020 01:30 PM VA-TOBACCO FORMER USER [facility] Oct 01, 2020 01:30 PM VA-TOBACCO QUIT 1 TO < 5 YRS [facility] Sep 27, 2018 02:38 PM VA-TOBACCO FORMER USER [facility] Sep 27, 2018 02:38 PM VA-TOBACCO QUIT < 1 YEAR [facility] Nov 04, 2017 12:48 PM CURRENT TOBACCO USER [facility] Nov 04, 2017 12:48 PM CURRENT TOBACCO US ER (NOT READY TO QUIT) [facility] Nov 04, 2017 12:48 PM TOBACCO CESSATION REFERRAL DECLINED [facility] Nov 04, 2017 12:48 PM TOBACCO MEDS OFFER ED BUT DECLINED [facility] Nov 04, 2017 12:48 PM TOBACCO USER OFFERED MEDS [facility] May 22, 2017 11:37 AM CURRENT TOBACCO USER [facility] May 22, 2017 11:37 AM TOBACCO MEDS OFFER ED BUT DECLINED [facility] Oct 08, 2016 08:41 AM CURRENT TOBACCO USER [facility] Oct 08, 2016 08:41 AM TOBACCO MEDS OFFER ED BUT DECLINED [facility] Dec 28, 2015 12:50 AM CURRENT TOBACCO USER [facility] Jun 12, 2015 01:24 PM CURRENT TOBACCO USER [facility] Jun 12, 2015 01:[address] OP SMOKING CLINIC [facility] Oct 26, 2014 01:36 PM CURRENT TOBACCO USER [facility] Nov 10, 2013 11:47 AM CURRENT TOBACCO USER [facility] Nov 10, 2013 11:47 AM TOBACCO MEDS OFFER ED BUT DECLINED [facility] Apr 28, 2012 11:29 AM CURRENT TOBACCO USER [facility] Apr 28, 2012 11:29 AM TOBACCO OFFERRED P T MEDS (PROVIDER) [facility] Mar 10, 2012 09:00 PM CURRENT TOBACCO USER [facility] Mar 10, 2012 09:[address] [facility] SMOKING CLINIC [facility] Mar 09, 2012 12:32 PM CURRENT TOBACCO USER [facility] Mar 09, 2012 12:32 PM TOBACCO MEDS OFFER ED BUT DECLINED [facility] Advance Directives: All historical and current Section Date Range: From patient's date of to the date document was created. This section includes ALL of a patient's completed or amended [place] Advance and Rescinded Directives. The entries below indicate that a directive exists for the patient, but an actual copy is not included with this document. The data comes from all [place] facilities. Date Advance Directives Provider Source Mar 11, 2012 ADVANCE DIRECTIVE DISCUSSION EUGENE HOFFMAN [facility] Pathology Reports: +/- 30 days of the encounter Pathology Reports For cases when an order for pathology services may have been completed prior to the date of the Encounter, the report list includes the Pathology Reports that were completed up to 30 days before dateof the Encounter. For cases when an order for pathology services may have been completed after the date of the Encounter, the report list also includes the Pathology Reports that were completed up to30 days after date of the Encounter. The data comes from all [place] treatment facilities. Date/Time Pathology Report Provider Source Sep 21, 2024 03:20 PM LR SURGICAL PATHOL OGY REPORT: LOCAL TITLE: LR SURGICAL PATHOLOGY REPORT STANDARD TITLE: PATHOLOGY PROCEDURE NOTE DATE OF NOTE: SEP 21, 2024@15:20:10 ENTRY DATE: SEP 21, 2024@15:20:10 AUTHOR: SAL ALEXANDRE COSIGNER: URGENCY: STATUS: COMPLETED $APHDR - - - - - - - - - - - - - - - - - - - - - - - - - - - - - - - - - - - - - - - - MEDICAL RECORD SURGICAL PATHOLOGY - - - - - - - - - - - - - - - - - - - - - - - - - - - - - - - - - - - - - - - - PATHOLOGY REPORT Accession No. SP [id number] 97 - - - - - - - - - - - - - - - - - - - - - - - - - - - - - - - - - - - - - - - - $TEXT Submitted by: JOHN RUBIO Date obtained: Sep 20, 2024 13:39 - - - - - - - - - - - - - - - - - - - - - - - - - - - - - - - - - - - - - - - - Specimen (Received Sep 20, 2024 13:42): A. CECAL POLYP B. ASCENDING COLON POLYPS X 2 C. TRANSVERSE COLON POLYPS X 5 D. DESCENDING COLON POLYP E. SIGMOID COLON POLYPS X 2 - - - - - - - - - - - - - - - - - - - - - - - - - - - - - - - - - - - - - - - - BRIEF CLINICAL HISTORY: Hx of adenomatous polyps, surveillance colonoscopy - - - - - - - - - - - - - - - - - - - - - - - - - - - - - - - - - - - - - - - - PREOPERATIVE DIAGNOSIS: - - - - - - - - - - - - - - - - - - - - - - - - - - - - - - - - - - - - - - - - OPERATIVE FINDINGS: Polyps as described - - - - - - - - - - - - - - - - - - - - - - - - - - - - - - - - - - - - - - - - POSTOPERATIVE DIAGNOSIS: Surgeon/physician: JAYCE LARA MD =-=-=-=-=-=-=-=-=-=-=-=-=-= -=-=-=-=-=-=-=-=-=-=-=-=-=- =-=-=-=-=-=-=-=-=-=-=-=-= - - - - - - - - - - - - - - - - - - - - - - - - - - - - - - - - - - - - - - - - PATHOLOGY REPORT Accession No. SP [id number] 97 - - - - - - - - - - - - - - - - - - - - - - - - - - - - - - - - - - - - - - - - GROSS DESCRIPTION: Mayra Tobar, 09/20/24 The specimen is received in formalin in five containers, each labeled with the patient's full name and SSN. A. Labeled as Cecal Polyp are two jackson tissue fragments measuring 0.6 x 0.4 x 0.2 cm and 0.7 x 0.5 x 0.3 cm, which are submitted in toto in A1. B. Labeled as Ascending Colon Polyps x 2 are multiple red-jackson tissue fragments measuring 1.5 x 1.4 x 0.3 cm in aggregate, which are submitted in toto in B1. C. Labeled as Transverse Colon Polyps x 5 are multiple red-jackson tissue fragments measuring 1.4 x 1.3 x 0.3 cm in aggregate, which are submitted in toto in C1. D. Labeled as Descending Colon Polyp is one jackson tissue fragment measuring 0.4 x 0.3 x .0.3 cm which is submitted in toto in D1. E. Labeled as Sigmoid Colon Polyps x 2 are two red-ran tissue fragments measuring 0.4 x 0.3 x 0.2 cm and 0.5 x 0.4 x 0.6 cm, which are submitted in toto in E1. MICROSCOPIC EXAM: (Sandee) Microscopic examination of the sections submitted from cecal, ascending, transverse and descending colon polyps shows tubular adenomas. High grade dysplasia is not seen within these sections. Microscopic examination of the sections submitted from sigmoid colon polyps shows hyperplastic polyps. Dysplasia is not seen within these sections. DIAGNOSIS: CECUM, POLYP, BIOPSY: TUBULAR ADENOMA COLON, ASCENDING, POLYPS X2, BIOPSY: TUBULAR ADENOMAS COLON, TRANSVERSE, POLYPS X5, BIOPSY: TUBULAR ADENOMAS COLON, DESCENDING, POLYP, BIOPSY: TUBULAR ADENOMA SIGMOID COLON, POLYPS X2, BIOPSY: HYPERPLASTIC POLYPS /george/ SAL ALEXANDRE Pathologist Signed Sep 21, 2024@15:20 Performing Laboratory: Surgical Pathology Report Performed By: [facility] MOCTEZ[facility]MA [facility] CLIA# [id number] [address] [facility] [address] [place] [address] $FTR - - - - - - - - - - - - - - - - - - - - - - - - - - - - - - - - - - - - - - - - (End of report) SAL ALEXANDRE MD [facility] Date Sep 21, 2024 - - - - - - - - - - - - - - - - - - - - - - - - - - - - - - - - - - - - - - - - BECKA FOSTER STANDARD FORM 515 ID:[id number] SEX:M :1955 AGE: 68 LOC:[place] [id number] PCP: Fabrizio Queen MD /george/ SAL ALEXANDRE Pathologist Signed: 09/21/2024 15:20 SAL ALEXANDRE [facility] Aug 31, 2024 12:44 PM LR MICROBIOLOGY RE PORT: Accession [UID]: [id number] [[id number]] Received: Aug 31, 2024@18:20 Collection sample: URINE,CLEAN CATCH Collection date: Aug 31, 2024 12:44 Site/Specimen: URINE Provider: FABRIZIO QUEEN Test(s) ordered: URINE CX REFLEX (STL)......... completed: Sep 02, 2024 14:26 * BACTERIOLOGY FINAL REPORT => Sep 03, 2024 16:51 TECH CODE: [id number] CULTURE RESULTS: 1. STAPHYLOCOCCUS AUREUS - Quantity: >100,000 CFU/ML Comment: Susceptibilities Complete 09/02/24 [facility]G 2. KLEBSIELLA PNEUMONIAE - Quantity: >10,000 - <25,000 CFU/ML Comment: Susceptibilities Complete 09/02/24 [facility] ANTIBIOTIC SUSCEPTIBILITY TEST RESULTS: 1. STAPHYLOCOCCUS AUREUS : 2. KLEBSIELLA PNEUMONIAE : : SUSC INTP SUSC INTP AMIKACIN ..................... <=1.0 S GENTAMICIN................. ... <=0.5 S <=1.0 S TOBRAMYCIN................. ... <=1.0 S AMPICILLIN/SULBACTAM....... ... =4.0 S PIPERACILLIN/TAZOBACTAM.... ... <=4.0 S DAPTOMYCIN................. ... =0.5 S ERTAPENEM.................. ... <=0.12 S IMIPENEM................... ... <=0.25 S CEFEPIME................... ... <=0.12 S CEFTRIAXONE................ ... <=0.25 S ESBL....................... ... NEG NEG CIPROFLOXACIN.............. ... <=0.5 S <=0.06 S OXACILLIN.................. ... =0.5 S SULFA/TRIMETHAPRIM......... ... <=10.0 S <=20.0 S VANCOMYCIN................. ... =1.0 S NITROFURANTOIN............. ... <=16.0 S =64.0 I AMPICILLIN................. ... >=32.0 R PENICILLIN-G............... ... >=0.5 R TETRACYCLINE............... ... <=1.0 S AUGMENTIN.................. ... S S AZTREONAM.................. ... <=1.0 S CEFPODOXIME................ ... <=0.25 S Linezolid IV.................. =2.0 S MINOCYCLINE................ ... <=0.5 S =--=--=--=--=--=--=--=--=-- =--=--=--=--=--=--=--=--=-- =--=--=--=--=--=--=--=-- Performing Laboratory: Bacteriology Report Performed By: [address]# [id number] [address] [place] [phone] [facility] Encounter Notes: All associated encounter notes This section contains the clinical notes associated to the Encounter. Date/Time Encounter Note(s) Provider Source Sep 20, 2024 12:12 PM ANESTHESIOLOGY JOSE WSHEET: LOCAL TITLE: ANES INTRA-OP FLOWSHEET ST STANDARD TITLE: ANESTHESIOLOGY FLOWSHEET DATE OF NOTE: SEP 20, 2024@12:12 ENTRY DATE: SEP 20, 2024@12:12:45 AUTHOR: IRMA GONZALEZ EXP COSIGNER: URGENCY: STATUS: COMPLETED Patient: BECKA FOSTER SSN: [id number] Date of Operation: 09/20/2024 Surgery Start Time: Surgery End Time: Anesthesia Care Start: 09/20/2024 11:14 Anesthesia Care End: 09/20/2024 12:12 Anesthesia Method: Monitored 09/20/2024 11:17 (Primary), Level Of Consciousness: Sedated, Monitors Applied, Oxygen Therapy: Mask, EtCO2 Verified: Waveform Positioning: Head Neutral, Head And Neck In Alignment With Spine, Pressure Points Padded & Checked, Eyes, Ears And Nose Free Of Pressure ASA Number: 3 Procedure: Colonoscopy Diagnosis: GERD & constipation Holding, Anesthesia, PACU Drugs: ------- Lidocaine: 100 mg Propofol: 100 mg Propofol gtt: 639.816 mg Holding, Anesthesia, PACU Fluids: -------- Normal Saline: 250 ml Resources: Headrest - Pillow Staff: --------- IRMA GONZALEZ PRIN. ANES. GILLEN, DANIEL P, ANES. SUPER. Procedure Date: 09/20/2024 Procedure Start Time: 09/20/2024 11:20 Procedure End Time: 09/20/2024 12:08 /george/ IRMA GONZALEZ CERTIFIED REGISTERED NURSE SALES PRODUCT SPECIALIST Signed: 09/20/2024 12:12 IRMA GONZALEZ [facility]
--- OUTSIDE RECORDS SUMMARY | 2025-02-03 16:56 | XMS_ITS | Encounter Summary ---
Author Name [facility] [place] [facility] [place] Address [address] [place] [address] Care Team Providers Care Powdered Sugar Supervisor Name Role Phone FABRIZIO VERMA Primary Care Provider Unavailabl e Insurance Providers: [...] PART A Oct 14, 2020 PART A [id number] BECKA FOSTER PATIENT Selected Encounter This section includes the information on record at [place] for the Encounter. Date/Time Encounter Type Encounter Description Reason Pro vider Source February 11, 2024 09:28 AM Outpatient Encounter CARDIOLOGY IHE Encounter Template Text not used by [place] Plan of Treatment: Future Appointments (+ 6 [...] 20 appointments. The data comes from all [facility]. Appointment Date/Time Appointment Type Appointme nt Facility Name Feb 24, 2024 02:00 PM AMBULATORY - MEDICINE [facility] Mar 15, 2024 11:15 AM AMBULATORY - MEDICINE [facility] Jun 20, 2024 11:00 AM AMBULATORY - MEDICINE [facility] Aug 11, 2024 11:00 AM AMBULATORY - MEDICINE [facility] Aug 11, 2024 01:30 PM AMBULATORY - MEDICINE [facility] Active, Pending, and Scheduled Orders This section includes a listing of several types of active, pending, and scheduled orders, including clinic medications orders, diagnostic test orders, procedure orders and consult orders; where the start date of the order is 45 days before the date of the Encounter or 45 days after the date of theEncounter. The data comes from all [facility]. Test Date/Time Test Type Test Details Facility Name Mar 09, 2024 12:00 AM Laboratory - Chemi stry Order MICRAL/CREAT PROFILE (STL) URINE SP [facility] Lab Results: +/- 30 days of the encounter This section includes the Chemistry and Hematology Lab Results on record with [place] for the patient. Radiology Reports and Pathology Reports are provided separately, in subsequent sections. Lab Results This section contains the Chemistry/Hematology Results that were resulted 30 days before or 30 daysafter the date of the Encounter. Date/Time Source Result Type Result - Unit Interpretation Reference Range Specimen Type Comment Feb 24, 2024 02:16 PM [facility] GLUCOSE,BLOOD-poct (STL) BLOOD Specimen Type: BLOOD Comment: Test Performed by: [id number] Meter #: [id number] Ordering Provider: FABRIZIO VERMA Report Released Date/Time: Feb 24, 2024 04:39 PM Reporting Lab: [facility] [address] [facility] [address] Performing Lab: [place] [id number] [facility] [address] GLUCOSE,BLOOD-poct (STL) 239 mg/dL H 72-99 February 11, 2024 10:23 AM [facility] I-STAT, CREAT (STL-MA) BLOOD Specimen Type: B LOOD Comment: Test Performed by: [id number] Meter #: [id number] Ordering Provider: FABRIZIO VERMA Report Released Date/Time: February 11, 2024 12:08 PM Reporting Lab: [facility] [address] [place] [phone] Performing Lab: [facility] [address] [phone] I-STAT, CREAT (STL-MA) 0.6 mg/dL L 0.7-1.3 February 11, 2024 10:08 AM [facility] MAGNESIUM PLASMA Specimen Type: PLASM A Comment: No hemolysis noted. Ordering Provider: CHERIE MOMIN Report Released Date/Time: February 11, 2024 09:27 AM Reporting Lab: [place] [address] [facility] [address] Performing Lab: [place] [address] [place] [phone] MAGNESIUM 2.2 mg/dL 1.6-2.6 February 11, 2024 10:08 AM [facility] TSH W/ REFLEX FT4 (STL) PLASMA Specimen Type: PLASMA Comment: No hemolysis noted. Ordering Provider: CHERIE MOMIN Report Released Date/Time: February 11, 2024 09:27 AM Reporting Lab: [place] [address] [facility] [address] Performing Lab: [place] [address] [facility] [phone] TSH 2.557 u[IU]/mL 0.47-5 February 11, 2024 10:08 AM [facility] LIPID PANEL (STL) PLASMA Specimen Type: PLASM A Comment: No hemolysis noted. Ordering Provider: CHERIE MOMIN Report Released Date/Time: February 11, 2024 09:27 AM Reporting Lab: [place] [address] [facility] [address] Performing Lab: [place] [address] [facility] [address] CHOLESTEROL 159 mg/dL 0-200 TRIGLYCERIDE 173 mg/dL H 0-150 CALCULATED LDL 79 mg/dL HDL(New) 45 mg/dL >40 February 11, 2024 10:08 AM [facility] COMPREHENSIVE METABOLIC PANEL PLASMA Specimen Type: PLASMA Comment: No hemolysis noted. Ordering Provider: CHERIE MOMIN Report Released Date/Time: February 11, 2024 09:27 AM Reporting Lab: [address] [address] Performing Lab: [address] [address] CREATININE 0.83 mg/dL 0.7-1.3 UREA NITROGEN 14.5 mg/dL 9.0-25.0 GLUCOSE 209 mg/dL H 72-99 SODIUM 135 meq/L L 136-145 POTASSIUM 4.9 meq/L 3.5-5 CHLORIDE 103 meq/L 98-107 CARBON DIOXIDE 24 meq/L 22-31 CALCIUM 9.6 mg/dL 8.4-10.4 PROTEIN 7.4 g/dL 6-8.6 ALBUMIN 4.3 g/dL 3.4-5 TOTAL BILIRUBIN 0.8 mg/dL 0.2-1.2 ALKALINE PHOSPHATASE 81 U/L 40-150 AST/SGOT 19 U/L 5-34 ALT/SGPT 21 U/L 8-40 EGFR (CKD-EPI 2020) 95.3 >60 February 11, 2024 10:08 AM [facility] CBC BLOOD Specimen Type: BLOOD No comment entered. Ordering Provider: CHERIE MOMIN Report Released Date/Time: February 11, 2024 09:27 AM Reporting Lab: [address] [address] Performing Lab: [address] [address] WBC 6.6 10*3/uL 3.6-11.2 RBC 5.08 10*6/uL 4.10-5.70 HGB 16.3 g/dL 13.1-16.8 HCT 46.1 38.2-48.4 MCV 90.7 fL 80.0-100.0 MCH 32.1 pg 27.0-34.0 MCHC 35.4 g/dL 33.0-36.0 PLT 206 10*3/uL 150-400 MPV 10.9 fL 7.5-11.2 RDW 12.9 11.8-15.1 LYMPHOCYTES, AUTO % 23 MONOCYTES, AUTO % 9 NEUTROPHILS, AUTO % 65 EOSINOPHILS, AUTO % 2 BASOPHILS, AUTO % 1 LYMPHOCYTES, ABSOLUTE 1.52 10*3/uL 0.77- 4.50 MONOCYTES, ABSOLUTE 0.60 10*3/uL 0.19-0. 80 NEUTROPHILS, ABSOLUTE 4.29 10*3/uL 2.10- 8.00 EOSINOPHILS, ABSOLUTE 0.10 10*3/uL 0.00- 0.60 BASOPHILS, ABSOLUTE 0.05 10*3/uL 0.00-0. 20 Vital Signs: All taken on the encounter date This section contains inpatient and outpatient Vital Signs collected on the date of the Encounter. Date/Time Temperature Pulse Blood Pressure Respiratory Rate SP02 Pain Height Weight Body Mass Index Source February 11, 2024 09:01 AM 147/83 [facility] February 11, 2024 09:01 AM 98 79 148/71 20 96 0 75 266.8 33 [facility] N Social History: Smoking Status (Most current) and Tobacco Use (All prior to encounter date) This section includes the most current, and the historical, smoking and tobacco- related health factors from the [place] facility where the Encounter took place. Current Smoking Status This section includes the most current smoking, or tobacco-related health factor, from the [place] facility where the Encounter took place. Date/Time Current Smoking Status Comment Harriet butler Mar 02, 2023 01:17 AM ORYX ADMIT TOBACCO SCREEN NO [facility] Tobacco Use History This section includes a history of the smoking, or tobacco-related health factors, that were collected on or before the date of the Encounter. The data comes from the [place] facility where the Encounter took place. Date/Time Smoking Status/Tobacco Use Comment F acility Dec 15, 2021 01:45 PM VA-TOBACCO FORMER USER [facility] Dec 15, 2021 01:45 PM VA-TOBACCO QUIT 1 TO < 5 YRS [facility] Oct 01, 2020 01:30 PM VA-TOBACCO FORMER USER [facility] Oct 01, 2020 01:30 PM VA-TOBACCO QUIT 1 TO < 5 YRS [facility] Sep 27, 2018 02:38 PM VA-TOBACCO FORMER USER [facility] Sep 27, 2018 02:38 PM VA-TOBACCO QUIT < 1 YEAR [facility] Nov 04, 2017 12:48 PM CURRENT TOBACCO USER [facility] Nov 04, 2017 12:48 PM CURRENT TOBACCO US ER (NOT READY TO QUIT) [facility] Nov 04, 2017 12:48 PM TOBACCO CESSATION REFERRAL DECLINED [facility] Nov 04, 2017 12:48 PM TOBACCO MEDS OFFER ED BUT DECLINED [facility] Nov 04, 2017 12:48 PM TOBACCO USER OFFERED MEDS [facility] May 22, 2017 11:37 AM CURRENT TOBACCO USER [facility] May 22, 2017 11:37 AM TOBACCO MEDS OFFER ED BUT DECLINED [facility] Oct 08, 2016 08:41 AM CURRENT TOBACCO USER [facility] Oct 08, 2016 08:41 AM TOBACCO MEDS OFFER ED BUT DECLINED [facility] Dec 28, 2015 12:50 AM CURRENT TOBACCO USER [facility] Jun 12, 2015 01:24 PM CURRENT TOBACCO USER [facility] Jun 12, 2015 01:[address] OP SMOKING CLINIC [facility] Oct 26, 2014 01:36 PM CURRENT TOBACCO USER [facility] Nov 10, 2013 11:47 AM CURRENT TOBACCO USER [facility] Nov 10, 2013 11:47 AM TOBACCO MEDS OFFER ED BUT DECLINED [facility] Apr 28, 2012 11:29 AM CURRENT TOBACCO USER [facility] Apr 28, 2012 11:29 AM TOBACCO OFFERRED P T MEDS (PROVIDER) [facility] Mar 10, 2012 09:00 PM CURRENT TOBACCO USER [facility] Mar 10, 2012 09:[address] OP SMOKING CLINIC [facility] Mar 09, 2012 12:32 PM CURRENT TOBACCO USER [facility] Mar 09, 2012 12:32 PM TOBACCO MEDS OFFER ED BUT DECLINED [facility] Advance Directives: All historical and current Section Date Range: From patient's date of to the date document was created. This section includes ALL of a patient's completed or amended [place] Advance and Rescinded Directives. The entries below indicate that a directive exists for the patient, but an actual copy is not included with this document. The data comes from all [place] facilities. Date Advance Directives Provider Source Mar 11, 2012 ADVANCE DIRECTIVE DISCUSSION EUGENE HOFFMAN [facility] Radiology Reports: +/- 30 days of the encounter Radiology Reports For cases when an order for radiology services may have been completed prior to the date of the Encounter, the report list includes the Radiology Reports that were completed up to 30 days before dateof the Encounter. For cases when an order for radiology services may have been completed after the date of the Encounter, the report list also includes the Radiology Reports that were completed up to30 days after date of the Encounter. The data comes from all [place] treatment facilities. 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 True Patient has 20+ pack-year smoking history? True Patient is current smoker, or has quit within the past 15 years. True Patient does not have a health problem the substantially limits life expectancy, or the ability or willingness to have curative treatment. True Shared decision-making has occurred regarding the benefits and risks of a screening program. True Report Status: Verified Date Reported: FEBRUARY 11, 2024 Date Verified: FEBRUARY 11, 2024 Nuclear Equipment Design Engineer E-Sig:/ES/RAISA HUSAIN MD Report: EXAM: LDCT LUNG CANCER SCREENING COMPARISON: 02/09/2023, 07/31/2015 PROTOCOL: Screening protocol, low dose, non-contrast CT chest was performed at the local [place] facility in accordance with Lung-Rads 2021. Additional coronal and sagittal reconstructions. MIP reconstructions were reviewed. Secondary computer-aided detection post-processing used. INDEX NODULE: OTHER NODULES: Stable LUNG/AIRWAY FINDINGS: Ill-defined groundglass opacities in the middle lobe. Scattered cysts and fibrotic changes MEDIASTINUM: No significant mediastinal adenopathy VISUAL CORONARY ARTERY CALCIFICATIONS: Yes UPPER ABDOMEN: Unremarkable.. This examination has been performed using a low-dose technique which limits the ability to detect nonpulmonary pathology BONES, SOFT TISSUES, AND ADDITIONAL FINDINGS: Unremarkable.. (The term unremarkable may include mild or even moderate spondylotic changes not unusual for patient age}. ) Impression: LUNG-RADS: 2: Benign. RECOMMENDATION: One year Low-dose lung cancer screening CT recommended if patient meets criteria LUNG-RADS MODIFIER: N/A. Primary Interpreting Staff: RAISA HUSAIN MD, Radiologist (Nuclear Equipment Design Engineer) /RAISA LOEPZ [facility] February 11, 2024 09:[address] ABDOMEN PELVIS W/O CONTRAST-P: BECKA FOSTER [id number] -1955 Ex Date: FEBRUARY 11, 2024@09:44 Req Phys: ARA OLIVER Loc: DOUG-PHONE REINA OLIVER (Req'g Loc) Im Loc: DOUG-CT IMAGING DOUG Service: Unknown [facility] [address] [place] [address] (Case [id number] COMPLETE) CT ABDOMEN AND PELVIS W/CONTRAST (CT Detailed) CPT:38562 Contrast Media : Non-ionic Iodinated Reason for Study: RUQ lesion Clinical History: Responsible Attending: Ara Oliver Attending Contact Number: [phone] Resident Contact Number: OSIRIS lesion Allergies listed in CPRS chart: Patient has answered NKA Creatinine:CREATININE 0.60 L mg/dL 03/03/2023 06:00 /eGFR: STL EGFR (within one year). CREATININE 0.60 mg/dL L (03/03/23 06:00) Wt: 226 lb [102.51 kg] (08/12/2023 13:43) History of: Renal failure, chronic or acute renal disease: NO Report Status: Verified Date Reported: FEBRUARY 11, 2024 Date Verified: FEBRUARY 11, 2024 Nuclear Equipment Design Engineer E-Sig:/ES/RAISA HUSAIN MD Report: Spiral axial imaging through the abdomen and pelvis was performed with IV contrast Comparison: 08/17/2023 Liver: normal The spleen: Calcified granulomas Pancreas: normal Adrenal glands: No significant abnormality Kidneys: normal Aorta and retroperitoneum: Calcified plaque, caliber does not exceed 3 cm. No retroperitoneal adenopathy. Peritoneal cavity: No ascites. Minor changes with no increase in size of upper abdominal cyst with more clearly cystic density of less than 20 Hounsfield units on today's imaging Skeleton: Unremarkable. The term unremarkable may include mild to moderate arthritic changes that would not be considered unusual for the patient's age Pelvis: The pelvic organs are unremarkable. 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 Date/Time Encounter Note(s) Provider Source February 11, 2024 02:20 PM CARDIOLOGY DIAGNOS TIC STUDY CONSULT: LOCAL TITLE: EKG CONSULT ST STANDARD TITLE: CARDIOLOGY DIAGNOSTIC STUDY CONSULT DATE OF NOTE: FEBRUARY 11, 2024@14:20:40 ENTRY DATE: FEBRUARY 11, 2024@14:20:40 AUTHOR: CLINICAL,DEVICE PRO EXP COSIGNER: URGENCY: STATUS: COMPLETED DOCUMENT IN VISTA IMAGING SEE FULL REPORT IN VISTA IMAGING SIGNATURE NOT REQUIRED SEE SIGNATURE IN VISTA IMAGING (Gerlaw EKG) AUTO-INSTRUMENT DIAGNOSIS Procedure: [id number] 12 Lead ECG Release Status: Released Off-Line Verified Date Verified: February 11, 2024@14:20:39 96260.2 Ventricular Rate: 77 BPM 60250.5 QRS Duration: 104 ms 77282.6 Q-T Interval: 378 ms 82519 QTC Calculation(Bazett)427 ms 26389.13 Calculated R [place]: -48 degrees 86715.14 Calculated T [place]: 4 degrees Atrial fibrillation Left anterior fascicular block Moderate voltage criteria for LVH, may be normal variant ( R in aVL , Hiwasse product ) Abnormal ECG When compared with ECG of 12-JUN-2021 12:30, No significant change was found Administrative Closure: 02/11/2024 by: CLINICAL,DEVICE PROXY SERVICE CLINICAL,DEVICE PROXY SERVICE [facility]
--- OUTSIDE RECORDS SUMMARY | 2025-02-03 16:56 | XMS_ITS ---
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 Date/Time Encounter Type Encounter Description Reason Provider Source Mar 15, 2024 02:01 PM Outpatient Encounter ADMIN PAT ACTIVTIES (MASNONCT) ANDRIY HANNA Encounter Template Text not used by [place] [...] 20 appointments. The data comes from all [facility]. Appointment Date/Time Appointment Type Appointme nt Facility Name Jun 20, 2024 11:00 AM AMBULATORY - MEDICINE [facility] Aug 11, 2024 11:00 AM AMBULATORY - MEDICINE [facility] Aug 11, 2024 01:30 PM AMBULATORY - MEDICINE [facility] Aug 31, 2024 11:00 AM AMBULATORY MEDICINE [facility] Active, Pending, and Scheduled Orders This section includes a listing of several types of active, pending, and scheduled orders, including clinic medications orders, diagnostic test orders, procedure orders and consult orders; where the start date of the order is 45 days before the date of the Encounter or 45 days after the date of theEncounter. The data comes from all [facility]. Test Date/Time Test Type Test Details Facility Name Mar 09, 2024 12:00 AM Laboratory - Chemi stry Order MICRAL/CREAT PROFILE (STL) URINE SP [facility] Lab Results: +/- 30 days of [...] Unit Interpretation Reference Range Specimen Type Comment Mar 15, 2024 02:52 PM [facility] URIC ACID PLASMA Specimen Type: PLASMA No comment entered. Ordering Provider: FABRIZIO QUEEN Report Released Date/Time: Feb 24, 2024 02:26 PM Reporting Lab: [facility] [address] [facility] [place] [place] [address] Performing Lab: [facility] [address] [facility] [address] URIC ACID 2.4 mg/dL L 3.5-7.2 Mar 15, 2024 02:52 PM [facility] PROST. SPECIFIC AG.(PB-STL) SERUM Specimen Ty pe: SERUM Comment: The listed sex of this patient may not be a typical indication for this test. Therefore, reference ranges or interpretive criteria listed may not be valid. Clinical correlation suggested. Ordering Provider: FABRIZIO QUEEN Report Released Date/Time: Feb 24, 2024 02:26 PM Reporting Lab: [address] [address] Performing Lab: [address] [address] PROST. SPECIFIC AG.(PB-STL) 1.448 ng/mL 0-4 Mar 15, 2024 02:52 PM [facility] HGA1C BLOOD Specimen Type: BLOOD No comment entered. Ordering Provider: FABRIZIO QUEEN Report Released Date/Time: Feb 24, 2024 02:26 PM Reporting Lab: [address] [address] Performing Lab: [address] [address] HGA1C 7.2 H 4.0-6.0 Mar 15, 2024 11:11 AM [facility] GLUCOSE,BLOOD-poct (STL) BLOOD Specimen Type: BLOOD Comment: Test Performed by: [id number] Meter #: [id number] Ordering Provider: FABRIZIO QUEEN Report Released Date/Time: Mar 15, 2024 11:23 AM Reporting Lab: [address] [address] Performing Lab: [address] [address] GLUCOSE,BLOOD-poct (STL) 216 mg/dL H 72-99 Feb 24, 2024 02:16 PM [facility] GLUCOSE,BLOOD-poct (STL) BLOOD Specimen Type: BLOOD Comment: Test Performed by: [id number] Meter #: [id number] Ordering Provider: FABRIZIO QUEEN Report Released Date/Time: Feb 24, 2024 04:39 PM Reporting Lab: [place] [id number] [facility] [address] Performing Lab: [facility] [address] [facility] [address] GLUCOSE,BLOOD-poct (STL) 239 mg/dL H 72-99 Social History: Smoking Status (Most current) and [...] took place. Date/Time Current Smoking Status Comment Facil ity Mar 02, 2023 01:17 AM [facility]YX ADMIT TOBACCO SCREEN NO [facility] Tobacco Use History This section includes a history of the smoking, or tobacco-related health factors, that were collected on or before the date of the Encounter. The data comes from the [place] facility where the Encounter took place. Date/Time Smoking Status/Tobacco Use Comment F acility Dec 15, 2021 01:45 PM VA-TOBACCO FORMER USER [facility] Dec 15, 2021 01:45 PM VA-TOBACCO QUIT 1 TO < 5 YRS [facility] Oct 01, 2020 01:30 PM VA-TOBACCO FORMER USER [facility] Oct 01, 2020 01:30 PM VA-TOBACCO QUIT 1 TO < 5 YRS [facility] Sep 27, 2018 02:38 PM VA-TOBACCO FORMER USER [facility] Sep 27, 2018 02:38 PM VA-TOBACCO QUIT < 1 YEAR [facility] Nov 04, 2017 12:48 PM CURRENT TOBACCO USER [facility] Nov 04, 2017 12:48 PM CURRENT TOBACCO US ER (NOT READY TO QUIT) [facility] Nov 04, 2017 12:48 PM TOBACCO CESSATION REFERRAL DECLINED [facility] Nov 04, 2017 12:48 PM TOBACCO MEDS OFFER ED BUT DECLINED [facility] Nov 04, 2017 12:48 PM TOBACCO USER OFFERED MEDS [facility] May 22, 2017 11:37 AM CURRENT TOBACCO USER [facility] May 22, 2017 11:37 AM TOBACCO MEDS OFFER ED BUT DECLINED [facility] Oct 08, 2016 08:41 AM CURRENT TOBACCO USER [facility] Oct 08, 2016 08:41 AM TOBACCO MEDS OFFER ED BUT DECLINED [facility] Dec 28, 2015 12:50 AM CURRENT TOBACCO USER [facility] Jun 12, 2015 01:24 PM CURRENT TOBACCO USER [facility] Jun 12, 2015 01:[address] OP SMOKING CLINIC [facility] Oct 26, 2014 01:36 PM CURRENT TOBACCO USER [facility] Nov 10, 2013 11:47 AM CURRENT TOBACCO USER [facility] Nov 10, 2013 11:47 AM TOBACCO MEDS OFFER ED BUT DECLINED [facility] Apr 28, 2012 11:29 AM CURRENT TOBACCO USER [facility] Apr 28, 2012 11:29 AM TOBACCO OFFERRED P T MEDS (PROVIDER) [facility] Mar 10, 2012 09:00 PM CURRENT TOBACCO USER [facility] Mar 10, 2012 09:[address] OP SMOKING CLINIC [facility] Mar 09, 2012 12:32 PM CURRENT TOBACCO USER [facility] Mar 09, 2012 12:32 PM TOBACCO MEDS OFFER ED BUT DECLINED [facility] Advance Directives: All historical and current [...] 11, 2012 ADVANCE DIRECTIVE DISCUSSION EUGENE HOFFMAN [facility] Pathology Reports: +/- 30 days of the [...] treatment facilities. Date/Time Pathology Report Provider Source Mar 17, 2024 03:25 PM LR SURGICAL PATHOL OGY REPORT: LOCAL TITLE: LR SURGICAL PATHOLOGY REPORT STANDARD TITLE: PATHOLOGY PROCEDURE NOTE DATE OF NOTE: MAR 17, 2024@15:25:17 ENTRY DATE: MAR 17, 2024@15:25:17 AUTHOR: JAYLA WILLIAM COSIGNER: URGENCY: STATUS: COMPLETED $APHDR - - [...] - - PATHOLOGY REPORT Accession No. [id number] - - - - - - - - - - - - - - - - - - - - - - - - - - - - - - - - - - - - - - - - $TEXT Submitted by: SHANEL OWUSU Date obtained: Mar 15, 2024 15:04 - - - - - - - - - - - - - - - - - - - - - - - - - - - - - - - - - - - - - - - - Specimen (Received Mar 15, 2024 15:07): A. GASTRIC BIOPSIES B. DISTAL ESOPHAGEAL BIOPSIES C. CECAL POLYPS X 7 D. ASCENDING COLON POLYPS X 3 - - - - - - - - - - - - - - - - - - - - - - - - - - - - - - - - - - - - - - - - BRIEF CLINICAL HISTORY: prior hx of GI bleed, personal hx of polyps - - - - - - - - - - - - - - - - - - - - - - - - - - - - - - - - - - - - - - - - PREOPERATIVE DIAGNOSIS: prior hx of GI bleed, personal hx of polyps - - - - - - - - - - - - - - - - - - - - - - - - - - - - - - - - - - - - - - - - OPERATIVE FINDINGS: salmon mucosa in esophagus, several colon polyps - - - - - - - - - - - - - - - - - - - - - - - - - - - - - - - - - - - - - - - - POSTOPERATIVE DIAGNOSIS: salmon mucosa in esophagus, several colon polyps Surgeon/physician: JUSTINE CASTANO MD =-=-=-=-=-=-=-=-=-=-=-=-=-= -=-=-=-=-=-=-=-=-=-=-=-=-=- =-=-=-=-=-=-=-=-=-=-=-=-= - - - - - - - - - - - - - - - - - - - - - - - - - - - - - - - - - - - - - - - - PATHOLOGY REPORT Accession No. [id number] - - - - - - - - - - - - - - - - - - - - - - - - - - - - - - - - - - - - - - - - GROSS DESCRIPTION: (Dr. Kiara Quinones) The specimens are received in four formalin filled containers each labeled with patient's name and Social Security number. Specimen A, gastric biopsies , consists of multiple yellow-jackson tissue fragments measuring 0.2 to 0.5 cm in greatest dimension, and 1.0 x 0.7 x 0.5 cm in aggregate. The specimen is submitted in toto in cassette A1. Specimen B, distal esophageal biopsies , consists of multiple yellow-jackson tissue fragments measuring 0.2 to 0.3 cm in greatest dimension, and 0.9 x 0.3 x 0.5 cm in aggregate. The specimen is submitted in toto in cassette B1. Specimen C, cecal polyps (7) , consists of multiple yellow-jackson tissue fragments measuring 0.2 to 1.1 cm in greatest dimension, and 2.0 x 0.5 x 0.3 cm in aggregate. The specimen is submitted in toto in cassette C1. Specimen D, ascending colon polyps (3) , consists of multiple yellow-jackson tissue fragments measuring 0.1 to 0.7 cm in greatest dimension, and 0.9 x 0.5 x 0.5 cm in aggregate. The specimen is submitted in toto in cassette D1. MICROSCOPIC EXAM: Part A shows gastric mucosa with mild chronic inflammation. No histologic features of H. pylori gastritis are identified. Intestinal metaplasia and dysplasia are not seen. Clinical correlation is required. Part B shows variably oriented portions of squamocolumnar mucosa with chronic inflammation. Intestinal metaplasia is present. No dysplasia or evidence of malignancy is seen. Clinical correlation is required. Microscopic examination of parts C and D substantiates the cited diagnoses. 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 - SEE DESCRIPTION LARGE INTESTINE, CECUM, POLYPS X 7, BIOPSIES (C): - TUBULAR ADENOMAS - NO HIGH-GRADE DYSPLASIA OR MALIGNANCY LARGE INTESTINE, ASCENDING COLON, POLYPS X 3, BIOPSIES (D): - TUBULAR ADENOMAS - NO HIGH-GRADE DYSPLASIA OR MALIGNANCY /george/ JAYLA WILLIAM PATHOLOGIST Signed Mar 17, 2024@15:25 Performing Laboratory: Surgical Pathology Report Performed By: [address]# [id number] [address] [place] [phone] $FTR - - - - - - - - - - - - - - - - - - - - - - - - - - - - - - - - - - - - - - - - (End of report) JAYLA WILLIAM MD Date Mar 17, 2024 - - - - - - - - - - - - - - - - - - - - - - - - - - - - - - - - - - - - - - - - BECKA FOSTER STANDARD FORM 515 ID:[id number] SEX:M :1955 AGE: 68 LOC:[id number] PCP: Fabrizio Queen MD /george/ JAYLA WILLIAM PATHOLOGIST Signed: 03/17/2024 15:25 JAYLA WILLIAM [facility] Encounter Notes: All associated encounter notes This section contains the clinical notes associated to the Encounter. Date/Time Encounter Note(s) Provider Source Mar 15, 2024 02:01 PM ANESTHESIOLOGY JOSE WSHEET: LOCAL TITLE: ANES INTRA-OP FLOWSHEET STL STANDARD TITLE: ANESTHESIOLOGY FLOWSHEET DATE OF NOTE: MAR 15, 2024@14:01 ENTRY DATE: MAR 15, 2024@14:01:56 AUTHOR: ANDRIY HANNA EXP COSIGNER: URGENCY: STATUS: COMPLETED Patient: BECKA FOSTER SSN: [id number] Date of Operation: 03/15/2024 Surgery Start Time: Surgery End Time: Anesthesia Care Start: 03/15/2024 12:30 Anesthesia Care End: 03/15/2024 14:01 Anesthesia Method: - Monitored 03/15/2024 12:40 (Primary), Level Of Consciousness: Sedated, Monitors Applied, Oxygen Therapy: Mask, EtCO2 Verified: Waveform Positioning: Head Neutral, Head And Neck In Alignment With Spine, Pressure Points Padded & Checked, Eyes, Ears And Nose Free Of Pressure ASA Number: 3 Procedure: colonoscopy Diagnosis: surveillance Holding, Anesthesia, PACU Drugs: --------- Lidocaine: 100 mg Propofol: 80 mg Propofol gtt: 986.901 mg Glucagon: 1 mg Holding, Anesthesia, PACU Fluids: Normal Saline: 800 ml Resources: Headrest - Pillow Staff: --------- ARASELI BUTTS ANES. SUPER. ANDRIY HANNA PRIN. ANES. Procedure Date: 03/15/2024 Procedure Start Time: 03/15/2024 12:38 Procedure End Time: 03/15/2024 13:58 /george/ ANDRIY HANNA MANAGER OF CREATIVE SERVICES, Anesthesiology Signed: 03/15/2024 14:01 ANDRIY HANNA [facility]
--- OUTSIDE RECORDS SUMMARY | 2025-02-03 16:56 | XMS_ITS | Continuity of Care Document ---
Author Name [facility] Organization [facility] Care Team Providers Care Building Trades Instructor Name Role Phone [facility] Unavailable Unavailable Problems Combined list of problems from Department of Defense and Veterans Affairs facilities. It does not include entries that were removed or entered in error. Problem Status Onset Date Problem Type Date of Resolution Comments Source Acute deep venous thrombosis of tibial vein of right leg Active Condition [facility] Alcohol abuse (SNOMED CT 98704095) Active Condition [facility] Anticoagulant effect Active Condition [facility] Chronic atrial fibrillation Active Condition [facility] Constipation (SCT 20318179) Active Condition [facility] Deep venous thrombosis of peroneal vein Active Condition [facility] Diabetes Mellitus without mention of Complication, type II or unspecified type, Active Condition [facility] Diabetic Foot Ulcer (SCT 953442940) Active Condition Mar 22, 2023 Entered By: VIKY VERMA Comment: charcot foot [facility] Diabetic neuropathy Active Condition [facility] DM - Diabetes mellitus (SNOMED CT 34336144) Active Condition Mar 28, 2012 Entered By: GEORGINA FERNÁNDEZ Comment: 12-15 years [facility] Essential hypertension (SNOMED CT 53080372) Active Condition Mar 28, 2012 Entered By: GEORGINA FERNÁNDEZ Comment: 10 years [facility] Fatigue Active Condition [facility] Gastroesophageal reflux disease without esophagitis (SNOMED CT 168340102) Active Condition [facility] H/O: rheumatic fever Active Condition [facility] Hypertension Active Condition [facility] Microalbuminuric diabetic nephropathy Active Condition [facility] Obesity (SCT 505994908) Active Condition [facility] Obstructive Sleep Apnea of Adult ([facility] 7518218302579) Active Condition [facility] Rosacea Active Condition [facility] Shoulder pain Active Condition [facility] Therapeutic drug effect Active Condition [facility] Tobacco dependence, continuous Active Condition [facility] Unspecified infection of bone, ankle and foot (ICD-9-CM 730.97) Active Condition [facility] Diabetic Foot Ulcer (ICD-9-CM 250.80/707.15) Inactive Condition 01/16/2014 [facility] Intracranial tumor Inactive Condition 03/23/2014 Mar 23, 2014 Entered By: DIANA RUZI Comment: treated at age 7 with surgery [facility] Diagnosis: ICD-10-CM Z46.89 Encounter for fitting and adjustment of oth devices Active Diagnosis [facility] Diagnosis: ICD-10-CM E11.621 Type 2 diabetes mellitus with foot ulcer Active Diagnosis [facility] Diagnosis: ICD-10-CM Z13.9 Encounter for screening, unspecified Active Diagnosis [facility] Diagnosis: ICD-10-CM E11.42 Type 2 diabetes mellitus with diabetic polyneuropathy Active Diagnosis [facility] Diagnosis: ICD-10-CM Z13.5 Encounter for screening for eye and ear disorders Active Diagnosis [facility] Diagnosis: ICD-10-CM S91.309S Unspecified open wound, unspecified foot, sequela Active Diagnosis [facility] Diagnosis: ICD-10-CM E13.621 Other specified diabetes mellitus with foot ulcer Active Diagnosis [facility] Diagnosis: ICD-10-CM S91.301A Unspecified open wound, right foot, initial encounter Active Diagnosis [facility] Diagnosis: ICD-10-CM M20.42 Other hammer toe(s) (acquired), left foot Active Diagnosis [facility] Diagnosis: ICD-10-CM K63.5 Polyp of colon Active Diagnosis [facility] Diagnosis: ICD-10-CM Z01.818 Encounter for other preprocedural examination Active Diagnosis [facility] Diagnosis: ICD-10-CM I48.20 Chronic atrial fibrillation, unspecified Active Diagnosis [facility] Diagnosis: ICD-10-CM E08.40 Diabetes due to underlying condition w diabetic neurop, unsp Active Diagnosis [facility] Diagnosis: ICD-10-CM N39.0 Urinary tract infection, site not specified Active Diagnosis [facility] Diagnosis: ICD-10-CM Z51.81 Encounter for therapeutic drug level monitoring Active Diagnosis [facility] Diagnosis: ICD-10-CM K59.00 Constipation, unspecified Active Diagnosis [facility] Diagnosis: ICD-10-CM K21.9 Gastro-esophageal reflux disease without esophagitis Active Diagnosis [facility] Diagnosis: ICD-10-CM Z12.11 Encounter for screening for malignant neoplasm of colon Active Diagnosis [facility] Diagnosis: ICD-10-CM Z12.2 Encntr screen for malignant neoplasm of respiratory organs Active Diagnosis [facility] Diagnosis: ICD-10-CM I10 Essential (primary) hypertension Active Diagnosis [facility] Diagnosis: ICD-10-CM E11.3292 Type 2 diab with mild nonp rtnop without mclr edema, l eye Active Diagnosis [facility] Diagnosis: ICD-10-CM R93.5 Abn findings on dx imaging of abd regions, inc retroperiton Active Diagnosis [facility] Diagnosis: ICD-10-CM Z86.31 Personal history of diabetic foot ulcer Active Diagnosis [facility] Medications Combined list of outpatient medications from Department of Defense and Veterans Affairs facilities.Medications provided include 1) outpatient medications from the last 15 months, and 2) patient-reported medications. Medication Details Route Status Patient Instructions Prescription Expires Prescription Number Last Dispense Date Ordering Provider Order Date Order Qty Source AMOXICILLIN TRIHYDRATE 875MG/CLAVU LANATE K 125MG TAB TAKE 1 TABLET BY MOUTH TWICE A DAY FOR URINARY TRACT INFECTIO N TAKE WITH FOOD. TAKE UNTIL GONE UNLESS OTHERWIS E DIRECTED . ORAL 10/19/2024 [id number] VERMA,A RMIDA A 2024 20 [facility] APIXABAN 5MG TAB TAKE ONE TABLET BY MOUTH TWICE A DAY FOR ANTICOAG ULATION ORAL ACTIVE 07/01/2025 [id number] REGAN VIDAL Y S 2023 180 [facility] N APIXABAN 5MG TAB TAKE ONE TABLET BY MOUTH TWICE A DAY FOR ANTICOAG ULATION ORAL DISCONT INUED 07/01/2024 [id number] YOUNGREGAN Y S 2022 180 [facility] N BACITRACIN 500UNT/GM OINT,TOP APPLY LIGHTLY TO AFFECTED AREA(S) TWICE DAILY (EXTERNA L USE ONLY) TOPICA L ACTIVE 02/10/2025 [id number] 5 MICHELLE DEL TORO 2024 30 [facility] DIVISIO N BACITRACIN/ POLYMYXIN B OINT,TOP APPLY TO AFFECTED AREA(S) THREE TIMES A DAY TOPICA L ACTIVE SEANAND LIZZ Jefferson 2011 [facility] N BISACODYL 5MG TAB,EC TAKE TWO TABLETS BY MOUTH DIRECTED AT 4PM 2 DAYS PRIOR TO TEST AND REPEAT AT 4PM ON DAY PRIOR TO TEST. CALL FOR QUESTION S. AT 4PM 2 DAYS PRIOR TO TEST AND REPEAT AT 4PM ON DAY PRIOR TO TEST. CALL FOR QUESTION S. ORAL DISCONT INUED 10/20/2024 [id number] 5 SIR Jessica RUBIO 2024 4 [facility] N BISACODYL 5MG TAB,EC TAKE TWO TABLETS BY MOUTH DIRECTED AT 4PM 2 DAYS PRIOR TO TEST AND REPEAT AT 4PM ON DAY PRIOR TO TEST. CALL FOR QUESTION S. AT 4PM 2 DAYS PRIOR TO TEST AND REPEAT AT 4PM ON DAY PRIOR TO TEST. CALL FOR QUESTION S. ORAL 11/15/2024 [id number] 5 SIR Jessica RUBIO 2024 4 [facility] N BISACODYL 5MG TAB,EC TAKE TWO TABLETS BY MOUTH DIRECTED AT 4PM 2 DAYS PRIOR TO TEST AND REPEAT AT 4PM ON DAY PRIOR TO TEST. CALL FOR QUESTION S. AT 4PM 2 DAYS PRIOR TO TEST AND REPEAT AT 4PM ON DAY PRIOR TO TEST. CALL [phone] FOR QUESTION S. ORAL 04/14/2024 [id number] 4 BERTRAND CASTANO E 2023 4 [facility] N BISACODYL 5MG TAB,EC TAKE TWO TABLETS BY MOUTH ONE TIME TAKE BISACODY L TABLETS AT 4PM ON AFTERNOO N PRIOR TO TEST. CALL WITH ANY QUESTION S ABOUT THESE INSTRUCT IONS. MAIL TAKE BISACODY L TABLETS AT 4PM ON AFTERNOO N PRIOR TO TEST. CALL WITH ANY QUESTION S ABOUT THESE INSTRUCT IONS. MAIL ORAL 01/30/2024 [id number] LEÓN EDWARDS E 2023 2 [facility] N CARVEDILOL 12.5MG TAB TAKE ONE-HALF TABLET BY MOUTH TWICE A DAY FOR HIGH BLOOD PRESSURE TAKE WITH FOOD. ORAL ACTIVE 01/27/2026 [id number] VERMA,A RMIDA A [address] [place] [address] DILTIAZEM (EQV-TIAZAC AB4) 180MG 24HR CAP TAKE ONE CAPSULE BY MOUTH EVERY MORNING BEFORE A MEAL ORAL SUSPEND ED 11/01/2025 [id number] VERMA,A RMIDA A [address] [place] [address] DIVISIO N DILTIAZEM (EQV-TIAZAC AB4) 180MG 24HR CAP TAKE ONE CAPSULE BY MOUTH EVERY MORNING BEFORE A MEAL ORAL DISCONT INUED 09/30/2024 [id number] VERMA,A RMIDA A [address] [place] [address] DIVISIO N EMPAGLIFLOZ IN 25MG TAB TAKE ONE TABLET BY MOUTH ONCE A DAY ORAL DISCONT INUED BY PROVIDE R 07/19/2025 [id number] 5 VERMA,A RMIDA A 2024 90 [facility] EMPAGLIFLOZ IN 25MG TAB TAKE ONE TABLET BY MOUTH ONCE A DAY ORAL DISCONT INUED 09/30/2024 [id number] VERMA,A RMIDA A 2023 90 [facility] DIVISIO N GLIPIZIDE 10MG TAB TAKE ONE TABLET BY MOUTH TWO TIMES A DAY BEFORE MEALS ORAL ACTIVE LUIS ,CATHERIN E 2021 [facility] DIVISIO N HYDROPHILIC (EQV EUCERIN) CREAM,TOP APPLY LIBERALL Y TO AFFECTED AREA(S) ONCE A DAY FOR SKIN CARE (EXTERNA L USE ONLY) APPLY TO FEET DAILY AND DRY BETWEEN TOES AFTER APPLYING . TOPICA L ACTIVE 10/20/2025 [id number] RYAN RAMOS 2024 454 [facility] DIVISIO N LISINOPRIL 40MG TAB TAKE ONE-HALF TABLET BY MOUTH ONCE A DAY ORAL ACTIVE 01/30/2026 [id number] VERMA,A RMIDA A 2024 45 [facility] LOVASTATIN 40MG TAB TAKE ONE TABLET BY MOUTH EVERY EVENING FOR HIGH CHOLESTE ROL ORAL ACTIVE 01/30/2026 [id number] VERMA,A RMIDA A 2024 90 [facility] LOVASTATIN 40MG TAB TAKE ONE TABLET BY MOUTH EVERY EVENING ORAL ACTIVE VERMA,A RMIDA A 2023 [facility] METFORMIN HCL 1000MG TAB TAKE ONE TABLET BY MOUTH TWICE A DAY WITH MEALS TAKE WITH FOOD. AVOID ALCOHOL. DISCONTI NUE BEFORE GETTING XRAY DYE. ORAL ACTIVE 01/27/2026 [id number] VERMA,A RMIDA A 2024 180 [facility] MICONAZOLE NITRATE 2% PWDR,TOP APPLY LIGHTLY TO AFFECTED AREA(S) THREE TIMES A DAY FOR TOPICAL USE ONLY. TOPICA L ACTIVE 09/01/2025 [id number] VERMA,A RMIDA A 2023 90 [facility] NICOTINE 14MG/24HRS PATCH APPLY 1 PATCH TO SKIN SITE EVERY MORNING REMOVE OLD PATCH BEFORE APPLYING NEW ONE. ROTATE SITES. DO NOT SMOKE WHILE WEARING PATCH. TRANSD ERMAL ACTIVE 09/01/2025 [id number] VERMA,A RMIDA A 2023 28 [facility] NICOTINE 7MG/24HRS PATCH APPLY 1 PATCH TO SKIN SITE EVERY MORNING REMOVE OLD PATCH BEFORE APPLYING NEW ONE. ROTATE SITES. DO NOT SMOKE WHILE WEARING PATCH. TRANSD ERMAL ACTIVE 11/01/2025 [id number] VERMA,A RMIDA A 2024 28 [facility] OMEPRAZOLE 20MG CAP,EC TAKE ONE CAPSULE BY MOUTH TWO TIMES A DAY BEFORE MEALS 30 MINUTES BEFORE MEAL(S) ORAL ACTIVE 09/30/2025 [id number] 5 VERMA,A RMIDA A 2024 180 [facility] DIVISIO N OMEPRAZOLE 20MG CAP,EC TAKE ONE CAPSULE BY MOUTH TWO TIMES A DAY BEFORE MEALS 30 MINUTES BEFORE MEAL(S) ORAL DISCONT INUED 07/05/2024 [id number] VERMA,A RMIDA A 2022 180 [facility] DIVISIO N PEG-3350/EL ECTROLYTES PWDR MIX AND DRINK CONTENTS OF BOTTLE BY MOUTH DIRECTED FOR 2 DAYS BEFORE YOUR TEST ONLY DRINK CLEAR LIQUIDS- NO SOLID FOOD! AT 4PM TAKE THE 2 BISACODY L TABLETS AND MIX ONE GOLYTELY WITH WATER AND REFRIGER ATE. AT 7PM START TO DRINK THE GOLYTELY . REPEAT SAME PROCESS ON THE 2ND DAY. DO NOT DRINK ANYTHING AFTER MIDNIGHT . READ INSTRUCT ION SHEET! FOR 2 DAYS BEFORE YOUR TEST ONLY DRINK CLEAR LIQUIDS- NO SOLID FOOD! AT 4PM TAKE THE 2 BISACODY L TABLETS AND MIX ONE GOLYTELY WITH WATER AND REFRIGER ATE. AT 7PM START TO DRINK THE GOLYTELY . REPEAT SAME PROCESS ON THE 2ND DAY. DO NOT DRINK ANYTHING AFTER MIDNIGHT . READ INSTRUCT ION SHEET! ORAL 10/20/2024 [id number] SIR RUBIO Jessica 2024 2 [facility] DIVISIO N PEG-3350/EL ECTROLYTES PWDR MIX AND DRINK CONTENTS OF BOTTLE BY MOUTH DIRECTED FOR 2 DAYS BEFORE YOUR TEST ONLY DRINK CLEAR LIQUIDS- NO SOLID FOOD! AT 4PM TAKE THE 2 BISACODY L TABLETS AND MIX ONE GOLYTELY WITH WATER AND REFRIGER ATE. AT 7PM START TO DRINK THE GOLYTELY . REPEAT SAME PROCESS ON THE 2ND DAY. DO NOT DRINK ANYTHING AFTER MIDNIGHT . READ INSTRUCT ION SHEET! FOR 2 DAYS BEFORE YOUR TEST ONLY DRINK CLEAR LIQUIDS- NO SOLID FOOD! AT 4PM TAKE THE 2 BISACODY L TABLETS AND MIX ONE GOLYTELY WITH WATER AND REFRIGER ATE. AT 7PM START TO DRINK THE GOLYTELY . REPEAT SAME PROCESS ON THE 2ND DAY. DO NOT DRINK ANYTHING AFTER MIDNIGHT . READ INSTRUCT ION SHEET! ORAL 04/14/2024 [id number] BERTRAND CASTANO 2023 2 [facility] DIVISIO N PEG-3350/EL ECTROLYTES PWDR MIX AND DRINK CONTENTS OF BOTTLE BY MOUTH DIRECTED (THE DAY BEFORE YOUR TEST ONLY DRINK CLEAR LIQUIDS- NO SOLID FOOD! TAKE THE BISACODY L TABLETS AT 4PM AND MIX THE GOLYTELY WITH WATER AND REFRIGER ATE. AT 7PM DRINK HALF OF THE GOLYTELY . REFRIGER ATE OVERNIGH T. COMPLETE GOLYTELY 3 HRS BEFORE LEAVING HOME FOR TEST. READ YOUR INSTRUCT IONS!) (THE DAY BEFORE YOUR TEST ONLY DRINK CLEAR LIQUIDS- NO SOLID FOOD! TAKE THE BISACODY L TABLETS AT 4PM AND MIX THE GOLYTELY WITH WATER AND REFRIGER ATE. AT 7PM DRINK HALF OF THE GOLYTELY . REFRIGER ATE OVERNIGH T. COMPLETE GOLYTELY 3 HRS BEFORE LEAVING HOME FOR TEST. READ YOUR INSTRUCT IONS!) ORAL 01/30/2024 [id number] LEÓN EDWARDS 2023 1 [facility] DIVISIO N PLECANATIDE 3MG TAB,ORAL TAKE ONE TABLET BY MOUTH ONCE A DAY FOR CONSTIPA TION ORAL DISCONT INUED 01/01/2025 [id number] PRESTI,TX CHAEL E 2024 90 [facility] DIVISIO N PLECANATIDE 3MG TAB,ORAL TAKE ONE TABLET BY MOUTH ONCE A DAY FOR CONSTIPA TION ORAL DISCONT INUED 09/18/2024 [id number] PARULITX CHAEL E 2023 90 [facility] DIVISIO N PLECANATIDE 3MG TAB,ORAL TAKE ONE TABLET BY MOUTH ONCE A DAY FOR CONSTIPA TION ORAL DISCONT INUED 06/21/2025 [id number] PARULI,LEÓN MAYORGAEL E 2023 30 [facility] DIVISIO N PLECANATIDE 3MG TAB,ORAL TAKE ONE TABLET BY MOUTH ONCE A DAY FOR CONSTIPA TION ORAL 01/10/2025 [id number] PARULI,TX CHAEL E 2024 90 [facility] DIVISIO N POLYETHYLEN E GLYCOL 3350 PWDR,ORAL MIX AND DRINK 1 CAPFUL BY MOUTH TWICE DAILY NEEDED FOR CONSTIPA TION (MEASURE WITH CAP AND MIX IN 8 OZ OF WATER) ORAL ACTIVE 10/27/2025 [id number] 5 PARULI,TX CHAEL E 2024 1020 [facility] DIVISIO N POLYETHYLEN E GLYCOL 3350 PWDR,ORAL MIX AND DRINK 1 CAPFUL BY MOUTH TWICE DAILY NEEDED FOR CONSTIPA TION (MEASURE WITH CAP AND MIX IN 8 OZ OF WATER) ORAL DISCONT INUED 06/21/2025 [id number] PRESTI,TX CHAEL E 2023 1020 [facility] DIVISIO N POLYETHYLEN E GLYCOL 3350 PWDR,ORAL MIX AND DRINK 1 CAPFUL BY MOUTH TWICE DAILY NEEDED FOR CONSTIPA TION (MEASURE WITH CAP AND MIX IN 8 OZ OF WATER) ORAL DISCONT INUED 06/16/2025 [id number] PRESTI,TX CHAEL E 2023 1020 [facility] DIVISIO N POLYETHYLEN E GLYCOL 3350 PWDR,ORAL MIX AND DRINK 1 CAPFUL BY MOUTH TWICE DAILY NEEDED FOR CONSTIPA TION (MEASURE WITH CAP AND MIX IN 8 OZ OF WATER) ORAL DISCONT INUED 01/31/2025 [id number] PARULILEÓN CHAEL E 2023 1020 [facility] DIVISIO N POLYETHYLEN E GLYCOL 3350 PWDR,ORAL MIX AND DRINK 1 CAPFUL BY MOUTH TWICE DAILY NEEDED FOR CONSTIPA TION (MEASURE WITH CAP AND MIX IN 8 OZ OF WATER) ORAL DISCONT INUED 10/15/2024 [id number] PARULILEÓN CHAEL E 2023 1020 [facility] DIVISIO N POLYETHYLEN E GLYCOL 3350 PWDR,ORAL MIX AND DRINK 1 CAPFUL BY MOUTH ONCE A DAY NEEDED FOR CONSTIPA TION (MEASURE WITH CAP AND MIX IN 8 OZ OF WATER) ORAL DISCONT INUED 09/30/2024 [id number] VERMA,A RMIDA A 2023 1530 [facility] DIVISIO N SEMAGLUTIDE 0.25MG/0.37 5ML INJ,SOLN,PE N,3ML INJECT 0.5MG UNDER THE SKIN EVERY WEEK FOR DIABETES SUBCUT ANEOUS ACTIVE 01/19/2026 [id number] 5 VERMA,A RMIDA A 2024 3 [facility] SEMAGLUTIDE 0.25MG/0.37 5ML INJ,SOLN,PE N,3ML INJECT 0.25MG UNDER THE SKIN EVERY WEEK FOR DIABETES SUBCUT ANEOUS DISCONT INUED 09/21/2025 [id number] VERMA,A RMIDA A 2024 1 [facility] SIMETHICONE 80MG TAB,CHEW CHEW AND SWALLOW FOUR TABLETS BY MOUTH DIRECTED FOR GAS DISCOMFO RT FOR TWO DOSES BEFORE GI PROCEDUR E ORAL 10/20/2024 [id number] ANCHA,SIR I 2024 8 [facility] DIVISIO N SIMETHICONE 80MG TAB,CHEW CHEW AND SWALLOW FOUR TABLETS BY MOUTH DIRECTED FOR GAS DISCOMFO RT FOR TWO DOSES BEFORE GI PROCEDUR E ORAL 04/14/2024 [id number] BERTRAND CASTANO E 2023 8 [facility] DIVISIO N SIMETHICONE 80MG TAB,CHEW CHEW AND SWALLOW FOUR TABLETS BY MOUTH DIRECTED FOR GAS DISCOMFO RT FOR TWO DOSES BEFORE GI PROCEDUR E ORAL 01/30/2024 [id number] LEÓN EDWARDS E 2023 8 [facility] DIVISIO N TERBINAFINE HCL 1% CREAM,TOP APPLY SPARINGL Y TO AFFECTED AREA(S) TWICE A DAY TOPICA L ACTIVE 08/19/2025 [id number] VERMA,A RMIDA A 2023 30 [facility] DIVIS N TERBINAFINE HCL 1% CREAM,TOP APPLY SPARINGL Y TO AFFECTED AREA(S) TWICE A DAY TOPICA L DISCONT INUED 09/30/2024 [id number] VERMA,A RMIDA A 2023 30 [facility] DIVISIO N TRIAMCINOLO NE ACETONIDE 0.1% CREAM,TOP APPLY SPARINGL Y TO AFFECTED AREA(S) TWICE A DAY FOR CONTACT DERMATIT IS (EXTERNA L USE ONLY) TOPICA L ACTIVE 06/17/2025 [id number] 4 VERMA,A RMIDA A 2023 454 [facility] TRIAMCINOLO NE ACETONIDE 0.1% CREAM,TOP APPLY SPARINGL Y TO AFFECTED AREA(S) TWICE A DAY FOR ATOPIC DERMATIT IS (EXTERNA L USE ONLY) TOPICA L 06/04/2024 [id number] VERMA,A RMIDA A 2023 454 [facility] Allergies, Adverse Reactions, Alerts Combined list of allergies from Department of Defense and Veterans Affairs facilities. It does not include entries that were removed or entered in error. Substance Category Reaction Severity Reaction type Status Date Reported Comments Source ABEL Escalera Propensity to adverse reactions to drug (finding) Urinary tract infectious disease active 4 [facility] Immunizations Combined list of available immunizations from the Department of Defense and Veterans Affairs facilities. 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 Status Comments Source COVID-19 (Platypus TV), MRNA, LNP-S, PF, RIANA-SUCROSE, 30 MCG/0.3 ML (AGES 12+ YEARS) 4 2023 309 complet ed HISTORICA L INFORMATI ON - FROM OTHER REGISTRY, [facility] INFLUENZA, HIGH-DOSE, TRIVALENT, PF 1 2023 135 complet ed HISTORICA L INFORMATI ON - FROM OTHER REGISTRY, [facility] INFLUENZA, HIGH-DOSE, QUADRIVALENT 2022 DAMION WINTER LEFT DELTO ID [id number] A 197 complet ed Completed Series, ADMINISTE [place] AT [place], [facility] INFLUENZA, HIGH-DOSE, QUADRIVALENT 2021 197 complet ed HISTORICA L INFORMATI ON - FROM OTHER PROVIDER, Partner:Deana RINCON.Admin istered by:[facility] .( [id number]).NDC:[id number] .Address: [address] [place], [place] [id number] Dosage: ML 0.7 [facility] ZOSTER RECOMBINANT 2 2021 187 complet ed [facility] COVID-19 (Platypus TV), MRNA, LNP-S, PF, 30 MCG/0.3 ML DOSE 2021 208 complet ed HISTORICA L INFORMATI ON - FROM OTHER PROVIDER, Partner:Deana RINCON.Admin istered by:[facility] [employer] [facility] .( [id number] [phone]).NDC:[id number] .Address: [address] [place], [place] [id number] Dosage: ML 0.3 [facility] N PNEUMOCOCCAL POLYSACCHARID E PPV23 2020 33 complet ed [facility] INFLUENZA, HIGH-DOSE, QUADRIVALENT 2020 197 complet ed HISTORICA L INFORMATI ON - FROM OTHER PROVIDER, Partner:Deana RINCON.Admin istered by:[facility] [id number].( [id number]).ND:[phone] .Address: [address] [place] [address] [employer] [place] .[id number] Dosage: ML 0.7 [facility] COVID-19 (PFIZER), MRNA, LNP-S, PF, 30 MCG/0.3 ML DOSE 2 2020 208 complet ed [facility] COVID-19 (PFIZER), MRNA, LNP-S, PF, 30 MCG/0.3 ML DOSE 1 2020 208 complet ed [facility] ZOSTER RECOMBINANT 1 2020 187 complet ed [facility] INFLUENZA, RECOMBINANT, QUADRIVALENT, INJECTABLE, PRESERVATIVE FREE 2019 185 complet ed HISTORICA L INFORMATI ON - FROM OTHER PROVIDER, [facility] INFLUENZA, INJECTABLE, QUADRIVALENT 2018 158 complet ed 02, Partner: [facility]. Administe red by: [facility] Clinician (NPI=Not Provided) . Partner 2 Lot#: [id number] 1 Mfr: SEQIRUS [facility] INFLUENZA, INJECTABLE, QUADRIVALENT, PRESERVATIVE FREE 2017 150 complet ed [facility] PNEUMOCOCCAL POLYSACCHARID E PPV23 2015 33 complet ed [facility] TDAP 2015 115 complet ed Left Deltoid [facility] Results Combined list of recent chemistry, hematology and other laboratory results from Department of Defense and Veterans Affairs, ranging from 15 months to all on record, depending upon the facility. Order Name Results Value Reference Range Date Interpretation Specimen Comments Source GLUCOSE, BLOOD-po ct (STL) GLUCOSE [MASS/VOLU ME] IN BLOOD BY AUTOMATED TEST STRIP 232 mg/dL 72 - 99 09/20 H Specimen Type: BLOOD Comment: Test Performed by: [id number] Meter #: [id number] Ordering Provider: VIKY VERMA Report Released Date/Time: Sep 20, 2024 11:11 AM Reporting Lab: [address] [address] Performing Lab: [address] [address] [facility] CBC LEUKOCYTES [#/VOLUME] IN BLOOD BY AUTOMATED COUNT 6.5 10*3/uL 3.6 - 11.2 08/31 Specimen Type: BLOOD No comment entered. Ordering Provider: VIKY VERMA Report Released Date/Time: Aug 31, 2024 11:36 AM Reporting Lab: [address] [address] Performing Lab: [id number] [place] [address] CBC ERYTHROCYT ES [#/VOLUME] IN BLOOD BY AUTOMATED COUNT 5.11 10*6/uL 4.10 - 5.70 08/31 Specimen Type: BLOOD No comment entered. Ordering Provider: VIKY VERMA Report Released Date/Time: Aug 31, 2024 11:36 AM Reporting Lab: [address] [id number] Performing Lab: [id number] [place] [address] CBC HEMOGLOBIN [MASS/VOLU ME] IN BLOOD 16.4 g/dL 13.1 - 16.8 08/31 Specimen Type: BLOOD No comment entered. Ordering Provider: VIKY VERMA Report Released Date/Time: Aug 31, 2024 11:36 AM Reporting Lab: [address] [id number] Performing Lab: [address] [place] [address] [facility] CBC HEMATOCRIT [VOLUME FRACTION] OF BLOOD 47.4 38.2 - 48.4 08/31 Specimen Type: BLOOD No comment entered. Ordering Provider: VIKY VERMA Report Released Date/Time: Aug 31, 2024 11:36 AM Reporting Lab: [address] [address] Performing Lab: [address] [address] [facility] CBC MCV [ENTITIC VOLUME] BY AUTOMATED COUNT 92.8 fL 80.0 - 100.0 08/31 Specimen Type: BLOOD No comment entered. Ordering Provider: VIKY VERMA Report Released Date/Time: Aug 31, 2024 11:36 AM Reporting Lab: [address] [address] Performing Lab: [address] [address] [facility] CBC MCH [ENTITIC MASS] BY AUTOMATED COUNT 32.1 pg 27.0 - 34.0 08/31 Specimen Type: BLOOD No comment entered. Ordering Provider: VIKY VERMA Report Released Date/Time: Aug 31, 2024 11:36 AM Reporting Lab: [address] [phone] Performing Lab: [address] [address] [facility] CBC MCHC [MASS/VOLU ME] BY AUTOMATED COUNT 34.6 g/dL 33.0 - 36.0 08/31 Specimen Type: BLOOD No comment entered. Ordering Provider: VIKY VERMA Report Released Date/Time: Aug 31, 2024 11:36 AM Reporting Lab: [address] [phone] Performing Lab: [address] [address] [facility] CBC PLATELETS [#/VOLUME] IN BLOOD BY AUTOMATED COUNT 189 10*3/uL 150 - 400 08/31 Specimen Type: BLOOD No comment entered. Ordering Provider: VIKY VERMA Report Released Date/Time: Aug 31, 2024 11:36 AM Reporting Lab: [facility] [address] Performing Lab: [facility] [address] [place] [phone] [facility] CBC PLATELET MEAN VOLUME [ENTITIC VOLUME] IN BLOOD BY AUTOMATED COUNT 11.5 fL 7.5 - 11.2 08/31 H Specimen Type: BLOOD No comment entered. Ordering Provider: VIKY VERMA Report Released Date/Time: Aug 31, 2024 11:36 AM Reporting Lab: [address] [address] Performing Lab: [facility] [address] [place] [phone] [facility] CBC ERYTHROCYT E DISTRIBUTI ON WIDTH [RATIO] BY AUTOMATED COUNT 13.0 11.8 - 15.1 08/31 Specimen Type: BLOOD No comment entered. Ordering Provider: VIKY VERMA Report Released Date/Time: Aug 31, 2024 11:36 AM Reporting Lab: [facility] [address] [place] [phone] Performing Lab: [facility] [address] [place] [phone] [facility] CBC LYMPHOCYTE S/100 LEUKOCYTES IN BLOOD BY AUTOMATED COUNT 14 08/31 Specimen Type: BLOOD No comment entered. Ordering Provider: VIKY VERMA Report Released Date/Time: Aug 31, 2024 11:36 AM Reporting Lab: [facility] [address] [place] [phone] Performing Lab: [address] [address] [facility] CBC MONOCYTES/ 100 LEUKOCYTES IN BLOOD BY AUTOMATED COUNT 9 08/31 Specimen Type: BLOOD No comment entered. Ordering Provider: VIKY VERMA A Report Released Date/Time: Aug 31, 2024 11:36 AM Reporting Lab: [facility] [address] [facility] [phone] Performing Lab: [facility] [address] [facility] [address] [facility] CBC NEUTROPHIL S/100 LEUKOCYTES IN BLOOD BY AUTOMATED COUNT 75 08/31 Specimen Type: BLOOD No comment entered. Ordering Provider: VIKY VERMA A Report Released Date/Time: Aug 31, 2024 11:36 AM Reporting Lab: [facility] [address] [facility] [phone] Performing Lab: [facility] [address] [facility] [address] [facility] CBC EOSINOPHIL S/100 LEUKOCYTES IN BLOOD BY AUTOMATED COUNT 1 08/31 Specimen Type: BLOOD No comment entered. Ordering Provider: VIKY VERMA A Report Released Date/Time: Aug 31, 2024 11:36 AM Reporting Lab: [facility] [address] [facility] [address] Performing Lab: [facility] [address] [facility] [address] [facility] CBC BASOPHILS/ 100 LEUKOCYTES IN BLOOD BY AUTOMATED COUNT 1 08/31 Specimen Type: BLOOD No comment entered. Ordering Provider: VIKY VERMA A Report Released Date/Time: Aug 31, 2024 11:36 AM Reporting Lab: [facility] [address] [facility] [phone] Performing Lab: [facility] [address] [place] [phone] [facility] CBC LYMPHOCYTE S [#/VOLUME] IN BLOOD BY AUTOMATED COUNT 0.88 10*3/uL 0.77 - 4.50 08/31 Specimen Type: BLOOD No comment entered. Ordering Provider: VIKY VERMA A Report Released Date/Time: Aug 31, 2024 11:36 AM Reporting Lab: [facility] [address] [place] [phone] Performing Lab: [facility] [address] [place] [phone] [facility] CBC MONOCYTES [#/VOLUME] IN BLOOD BY AUTOMATED COUNT 0.58 10*3/uL 0.19 - 0.80 08/31 Specimen Type: BLOOD No comment entered. Ordering Provider: VIKY VERMA A Report Released Date/Time: Aug 31, 2024 11:36 AM Reporting Lab: [facility] [address] [place] [phone] Performing Lab: [facility] [address] [place] [phone] [place] [address] CBC NEUTROPHIL S [#/VOLUME] IN BLOOD BY AUTOMATED COUNT 4.83 10*3/uL 2.10 - 8.00 08/31 Specimen Type: BLOOD No comment entered. Ordering Provider: VIKY VERMA A Report Released Date/Time: Aug 31, 2024 11:36 AM Reporting Lab: [facility] [address] [place] [phone] Performing Lab: [facility] [address] [place] [phone] [facility] CBC EOSINOPHIL S [#/VOLUME] IN BLOOD BY AUTOMATED COUNT 0.07 10*3/uL 0.00 - 0.60 08/31 Specimen Type: BLOOD No comment entered. Ordering Provider: VIKY VERMA A Report Released Date/Time: Aug 31, 2024 11:36 AM Reporting Lab: [facility] [address] [place] [phone] Performing Lab: [facility] [address] [place] [phone] [facility] CBC BASOPHILS [#/VOLUME] IN BLOOD BY AUTOMATED COUNT 0.05 10*3/uL 0.00 - 0.20 08/31 Specimen Type: BLOOD No comment entered. Ordering Provider: VIKY VERMA Report Released Date/Time: Aug 31, 2024 11:36 AM Reporting Lab: [facility] [address] [facility] [phone] Performing Lab: [facility] [address] [facility] [address] [facility] COMPREHE NSIVE METABOLI C PANEL CREATININE [MASS/VOLU ME] IN SERUM OR PLASMA 0.58 mg/dL 0.7 - 1.3 08/31 L Specimen Type: PLASMA Comment: No hemolysis noted. Ordering Provider: VIKY VERMA A Report Released Date/Time: Aug 31, 2024 11:36 AM Reporting Lab: [facility] [address] [facility] [phone] Performing Lab: [facility] [address] [facility] [address] [facility] COMPREHE NSIVE METABOLI C PANEL UREA NITROGEN [MASS/VOLU ME] IN SERUM OR PLASMA 11.3 mg/dL 9.0 - 25.0 08/31 Specimen Type: PLASMA Comment: No hemolysis noted. Ordering Provider: VIKY VERMA Report Released Date/Time: Aug 31, 2024 11:36 AM Reporting Lab: [facility] [address] [facility] [phone] Performing Lab: [facility] [address] [facility] [facility] [address] [facility] COMPREHE NSIVE METABOLI C PANEL GLUCOSE [MASS/VOLU ME] IN SERUM OR PLASMA 159 mg/dL 72 - 99 08/31 H Specimen Type: PLASMA Comment: No hemolysis noted. Ordering Provider: VIKY VERMA Report Released Date/Time: Aug 31, 2024 11:36 AM Reporting Lab: [facility] [address] [facility] [address] Performing Lab: [facility] [address] [facility] [address] [facility] COMPREHE NSIVE METABOLI C PANEL SODIUM [MOLES/VOL UME] IN SERUM OR PLASMA 137 meq/L 136 - 145 08/31 Specimen Type: PLASMA Comment: No hemolysis noted. Ordering Provider: VIKY VERMA Report Released Date/Time: Aug 31, 2024 11:36 AM Reporting Lab: [facility] [address] [facility] [phone] Performing Lab: [facility] [address] [facility] [phone] [place] [address] COMPREHE NSIVE METABOLI C PANEL POTASSIUM [MOLES/VOL UME] IN SERUM OR PLASMA 4.6 meq/L 3.5 - 5 08/31 Specimen Type: PLASMA Comment: No hemolysis noted. Ordering Provider: VIKY VERMA Report Released Date/Time: Aug 31, 2024 11:36 AM Reporting Lab: [facility] [address] [place] [phone] Performing Lab: [facility] [address] [facility] [address] [facility] COMPREHE NSIVE METABOLI C PANEL CHLORIDE [MOLES/VOL UME] IN SERUM OR PLASMA 104 meq/L 98 - 107 08/31 Specimen Type: PLASMA Comment: No hemolysis noted. Ordering Provider: VIKY VERMA Report Released Date/Time: Aug 31, 2024 11:36 AM Reporting Lab: [facility] [address] [facility] [phone] Performing Lab: [facility] [address] [facility] [phone] [facility] COMPREHE NSIVE METABOLI C PANEL CARBON DIOXIDE, TOTAL [MOLES/VOL UME] IN SERUM OR PLASMA 23 meq/L 22 - 31 08/31 Specimen Type: PLASMA Comment: No hemolysis noted. Ordering Provider: VIKY VERMA Report Released Date/Time: Aug 31, 2024 11:36 AM Reporting Lab: [facility] [address] [facility] [phone] Performing Lab: [facility] [address] [facility] [phone] [facility] COMPREHE NSIVE METABOLI C PANEL CALCIUM [MASS/VOLU ME] IN SERUM OR PLASMA 9.3 mg/dL 8.4 - 10.4 08/31 Specimen Type: PLASMA Comment: No hemolysis noted. Ordering Provider: VIKY VERMA Report Released Date/Time: Aug 31, 2024 11:36 AM Reporting Lab: [facility] [address] [facility] [phone] Performing Lab: [facility] [address] [facility] [phone] [facility] COMPREHE NSIVE METABOLI C PANEL PROTEIN [MASS/VOLU ME] IN SERUM OR PLASMA 7.5 g/dL 6 - 8.6 08/31 Specimen Type: PLASMA Comment: No hemolysis noted. Ordering Provider: VIKY VERMA A Report Released Date/Time: Aug 31, 2024 11:36 AM Reporting Lab: [facility] [address] [facility] [phone] Performing Lab: [facility] [address] [facility] [address] [facility] COMPREHE NSIVE METABOLI C PANEL ALBUMIN [MASS/VOLU ME] IN SERUM OR PLASMA 4.1 g/dL 3.4 - 5 08/31 Specimen Type: PLASMA Comment: No hemolysis noted. Ordering Provider: VIKY VERMA A Report Released Date/Time: Aug 31, 2024 11:36 AM Reporting Lab: [facility] [address] [facility] [phone] Performing Lab: [facility] [address] [facility] [address] [facility] COMPREHE NSIVE METABOLI C PANEL BILIRUBIN. TOTAL [MASS/VOLU ME] IN SERUM OR PLASMA 0.9 mg/dL 0.2 - 1.2 08/31 Specimen Type: PLASMA Comment: No hemolysis noted. Ordering Provider: VIKY VERMA A Report Released Date/Time: Aug 31, 2024 11:36 AM Reporting Lab: [facility] [address] [facility] [phone] Performing Lab: [facility] [address] [place] [phone] [facility] COMPREHE NSIVE METABOLI C PANEL ALKALINE PHOSPHATAS E [ENZYMATIC ACTIVITY/V OLUME] IN SERUM OR PLASMA 62 U/L 40 - 150 08/31 Specimen Type: PLASMA Comment: No hemolysis noted. Ordering Provider: VIKY VERMA Report Released Date/Time: Aug 31, 2024 11:36 AM Reporting Lab: [facility] [address] [facility] [phone] Performing Lab: [facility] [address] [place] [phone] [facility] COMPREHE NSIVE METABOLI C PANEL ASPARTATE AMINOTRANS FERASE [ENZYMATIC ACTIVITY/V OLUME] IN SERUM OR PLASMA 29 U/L 5 - 34 08/31 Specimen Type: PLASMA Comment: No hemolysis noted. Ordering Provider: VIKY VERMA Report Released Date/Time: Aug 31, 2024 11:36 AM Reporting Lab: [facility] [address] [place] [phone] Performing Lab: [facility] [address] [place] [phone] [facility] COMPREHE NSIVE METABOLI C PANEL ALANINE AMINOTRANS FERASE [ENZYMATIC ACTIVITY/V OLUME] IN SERUM OR PLASMA 23 U/L 8 - 40 08/31 Specimen Type: PLASMA Comment: No hemolysis noted. Ordering Provider: VIKY VERMA Report Released Date/Time: Aug 31, 2024 11:36 AM Reporting Lab: [facility] [address] [facility] [address] Performing Lab: [facility] [address] [facility] [address] [facility] COMPREHE NSIVE METABOLI C PANEL GLOMERULAR FILTRATION RATE/1.73 SQ M.PREDICTE D [VOLUME RATE/AREA] IN SERUM, PLASMA OR BLOOD BY CREATININE -BASED FORMULA (CKD-EPI 2020) 106.2 60 08/31 Specimen Type: PLASMA Comment: No hemolysis noted. Ordering Provider: VIKY VERMA Report Released Date/Time: Aug 31, 2024 11:36 AM Reporting Lab: [facility] [address] [place] [phone] Performing Lab: [facility] [address] [place] [place] [phone] [facility] HGA1C HEMOGLOBIN A1C/HEMOGL OBIN.TOTAL IN BLOOD 7.2 4.0 - 6.0 08/31 H Specimen Type: BLOOD No comment entered. Ordering Provider: VIKY VERMA Report Released Date/Time: Aug 31, 2024 11:36 AM Reporting Lab: [address] [phone] Performing Lab: [address] [phone] [facility] LIPID PANEL (STL) CHOLESTERO L [MASS/VOLU ME] IN SERUM OR PLASMA 134 mg/dL 0 - 200 08/31 Specimen Type: PLASMA Comment: No hemolysis noted. Ordering Provider: VIKY VERMA Report Released Date/Time: Aug 31, 2024 11:36 AM Reporting Lab: [address] [phone] Performing Lab: [facility] [address] [place] [phone] [facility] LIPID PANEL (STL) TRIGLYCERI DE [MASS/VOLU ME] IN SERUM OR PLASMA 106 mg/dL 0 - 150 08/31 Specimen Type: PLASMA Comment: No hemolysis noted. Ordering Provider: VIKY VERMA Report Released Date/Time: Aug 31, 2024 11:36 AM Reporting Lab: [facility] [address] [place] [phone] Performing Lab: [address] [phone] [place] [address] LIPID PANEL (STL) CHOLESTERO L IN LDL [MASS/VOLU ME] IN SERUM OR PLASMA BY FELIX N 62 mg/dL 08/31 Specimen Type: PLASMA Comment: No hemolysis noted. Ordering Provider: VIKY VERMA Report Released Date/Time: Aug 31, 2024 11:36 AM Reporting Lab: [facility] [address] [facility] [address] Performing Lab: [facility] [address] [facility] [phone] [place] [address] LIPID PANEL (STL) CHOLESTERO L IN HDL [MASS/VOLU ME] IN SERUM OR PLASMA 51 mg/dL 40 08/31 Specimen Type: PLASMA Comment: No hemolysis noted. Ordering Provider: VIKY VERMA A Report Released Date/Time: Aug 31, 2024 11:36 AM Reporting Lab: [facility] [address] [place] [phone] Performing Lab: [facility] [address] [facility] [phone] [place] [address] TSH W/ REFLEX FT4 (STL) THYROTROPI N [UNITS/VOL UME] IN SERUM OR PLASMA 1.702 u[IU]/mL 0.47 - 5 08/31 Specimen Type: PLASMA No comment entered. Ordering Provider: VIKY VERMA A Report Released Date/Time: Aug 31, 2024 11:36 AM Reporting Lab: [facility] [address] [facility] [phone] Performing Lab: [address] [phone] [facility] URINALYS IS W/ CX REFLEX (STL-PB) COLOR OF URINE Light-Ye llow 08/31 Specimen Type: URINE No comment entered. Ordering Provider: VIKY VERMA Report Released Date/Time: Aug 31, 2024 11:36 AM Reporting Lab: [facility] [address] [facility] [phone] Performing Lab: [facility] [address] [facility] [phone] [facility] URINALYS IS W/ CX REFLEX (STL-PB) BILIRUBIN. TOTAL [PRESENCE] IN URINE BY TEST STRIP Negative mg/dL 08/31 Specimen Type: URINE No comment entered. Ordering Provider: VIKY VERMA A Report Released Date/Time: Aug 31, 2024 11:36 AM Reporting Lab: [address] [address] Performing Lab: [address] [phone] [place] [address] URINALYS IS W/ CX REFLEX (STL-PB) PH OF URINE BY TEST STRIP 6.0 5.0 - 8.0 08/31 Specimen Type: URINE No comment entered. Ordering Provider: VIKY VERMA A Report Released Date/Time: Aug 31, 2024 11:36 AM Reporting Lab: [facility] [address] [place] [phone] Performing Lab: [address] [address] [facility] URINALYS IS W/ CX REFLEX (STL-PB) LEUKOCYTES [#/AREA] IN URINE SEDIMENT BY MICROSCOPY HIGH POWER FIELD 57 /[HPF] 0 - 5 08/31 H Specimen Type: URINE No comment entered. Ordering Provider: VIKY VERMA A Report Released Date/Time: Aug 31, 2024 11:36 AM Reporting Lab: [facility] [address] [place] [phone] Performing Lab: [address] [phone] [facility] URINALYS IS W/ CX REFLEX (STL-PB) ERYTHROCYT ES [#/VOLUME] IN URINE SEDIMENT BY MICROSCOPY HIGH POWER FIELD 5 /[HPF] 0 - 5 08/31 Specimen Type: URINE No comment entered. Ordering Provider: VIKY VERMA A Report Released Date/Time: Aug 31, 2024 11:36 AM Reporting Lab: [facility] [address] [place] [phone] Performing Lab: [facility] [address] [place] [phone] [facility] URINALYS IS W/ CX REFLEX (STL-PB) APPEARANCE OF URINE Clear 08/31 Specimen Type: URINE No comment entered. Ordering Provider: VIKY VERMA Report Released Date/Time: Aug 31, 2024 11:36 AM Reporting Lab: [address] [phone] Performing Lab: [address] [address] [facility] URINALYS IS W/ CX REFLEX (STL-PB) NITRITE [PRESENCE] IN URINE BY TEST STRIP 2+mg/dL 08/31 H Specimen Type: URINE No comment entered. Ordering Provider: VIKY VERMA Report Released Date/Time: Aug 31, 2024 11:36 AM Reporting Lab: [address] [address] Performing Lab: [facility] [address] [place] [phone] [facility] URINALYS IS W/ CX REFLEX (STL-PB) LEUKOCYTE CLUMPS [#/VOLUME] IN URINE BY AUTOMATED COUNT RARE/[HP F] 08/31 Specimen Type: URINE No comment entered. Ordering Provider: VIKY VERMA Report Released Date/Time: Aug 31, 2024 11:36 AM Reporting Lab: [facility] [address] [place] [phone] Performing Lab: [facility] [address] [place] [phone] [facility] URINALYS IS W/ CX REFLEX (STL-PB) BACTERIA [PRESENCE] IN URINE SEDIMENT BY LIGHT MICROSCOPY RARE/[HP F] 08/31 Specimen Type: URINE No comment entered. Ordering Provider: VIKY VERMA Report Released Date/Time: Aug 31, 2024 11:36 AM Reporting Lab: [facility] [address] [place] [phone] Performing Lab: [address] [phone] [place] [address] URINALYS IS W/ CX REFLEX (STL-PB) EPITHELIAL CELLS [#/AREA] IN URINE SEDIMENT BY MICROSCOPY LOW POWER FIELD <1/[HPF] 0 - 5 08/31 Specimen Type: URINE No comment entered. Ordering Provider: VIKY VERMA Report Released Date/Time: Aug 31, 2024 11:36 AM Reporting Lab: [address] [phone] Performing Lab: [address] [phone] [place] [address] URINALYS IS W/ CX REFLEX (STL-PB) MUCUS [PRESENCE] IN URINE SEDIMENT BY LIGHT MICROSCOPY RARE/[LP F] 08/31 Specimen Type: URINE No comment entered. Ordering Provider: VIKY VERMA Report Released Date/Time: Aug 31, 2024 11:36 AM Reporting Lab: [facility] [address] [place] [phone] Performing Lab: [address] [phone] [place] [address] URINALYS IS W/ CX REFLEX (STL-PB) GLUCOSE [MASS/VOLU ME] IN URINE BY TEST STRIP >mg/dL 08/31 H Specimen Type: URINE No comment entered. Ordering Provider: VIKY VERMA Report Released Date/Time: Aug 31, 2024 11:36 AM Reporting Lab: [facility] [address] [place] [phone] Performing Lab: [address] [phone] [facility] URINALYS IS W/ CX REFLEX (STL-PB) PROTEIN [MASS/VOLU ME] IN URINE BY TEST STRIP Negative mg/dL 08/31 Specimen Type: URINE No comment entered. Ordering Provider: VIKY VERMA Report Released Date/Time: Aug 31, 2024 11:36 AM Reporting Lab: [address] [phone] Performing Lab: [address] [phone] [place] [address] URINALYS IS W/ CX REFLEX (STL-PB) URN.UROBIL INOGEN Normalmg /dL 08/31 Specimen Type: URINE No comment entered. Ordering Provider: VIKY VERMA Report Released Date/Time: Aug 31, 2024 11:36 AM Reporting Lab: [address] [phone] Performing Lab: [address] [phone] [facility] URINALYS IS W/ CX REFLEX (STL-PB) HEMOGLOBIN [MASS/VOLU ME] IN URINE BY TEST STRIP Negative mg/dL 08/31 Specimen Type: URINE No comment entered. Ordering Provider: VIKY VERMA Report Released Date/Time: Aug 31, 2024 11:36 AM Reporting Lab: [address] [phone] Performing Lab: [facility] [address] [place] [phone] [facility] URINALYS IS W/ CX REFLEX (STL-PB) KETONES [MASS/VOLU ME] IN URINE BY TEST STRIP Negative mg/dL 08/31 Specimen Type: URINE No comment entered. Ordering Provider: VIKY VERMA Report Released Date/Time: Aug 31, 2024 11:36 AM Reporting Lab: [address] [phone] Performing Lab: [place] [phone] [facility] URINALYS IS W/ CX REFLEX (STL-PB) URN.LEUK.E ST. 500 mg/dL 08/31 H Specimen Type: URINE No comment entered. Ordering Provider: VIKY VERMA Report Released Date/Time: Aug 31, 2024 11:36 AM Reporting Lab: [facility] [facility] [address] [place] [phone] Performing Lab: [facility] [address] [place] [phone] [facility] URINALYS IS W/ CX REFLEX (STL-PB) SPECIFIC GRAVITY OF URINE 1.014 08/31 Specimen Type: URINE No comment entered. Ordering Provider: VIKY VERMA Report Released Date/Time: Aug 31, 2024 11:36 AM Reporting Lab: [address] [phone] Performing Lab: [facility] [address] [place] [phone] [facility] URINALYS IS W/ CX REFLEX (STL-PB) *URINE FOR REFLEX CULTURE [facility] Specimen Type: URINE No comment entered. Ordering Provider: VIKY VERMA Report Released Date/Time: Aug 31, 2024 11:36 AM Reporting Lab: [facility] [address] [place] [phone] Performing Lab: [facility] [address] [place] [phone] [facility] VITAMIN D, 25-HYDRO XY 25-HYDROXY VITAMIN D3 [MASS/VOLU ME] IN SERUM OR PLASMA 22.6 ng/mL 30 - 96 08/31 L Specimen Type: SERUM No comment entered. Ordering Provider: VIKY VERMA Report Released Date/Time: Aug 31, 2024 11:36 AM Reporting Lab: [facility] [address] [place] [phone] Performing Lab: [facility] [address] [place] [phone] [place] [address] PROST. SPECIFIC AG.(PB-S TL) PROSTATE SPECIFIC AG [MASS/VOLU ME] IN SERUM OR PLASMA 1.448 ng/mL 0 - 4 03/15 Specimen Type: SERUM Comment: The listed sex of this patient may not be a typical indication for this test. Therefore, reference ranges or interpretiv e criteria listed may not be valid. Clinical correlation suggested. Ordering Provider: VIKY VERMA Report Released Date/Time: Feb 24, 2024 02:26 PM Reporting Lab: [place] [phone] Performing Lab: [address] URIC ACID URATE [MASS/VOLU ME] IN SERUM OR PLASMA 2.4 mg/dL 3.5 - 7.2 03/15 L Specimen Type: PLASMA No comment entered. Ordering Provider: VIKY VERMA Report Released Date/Time: Feb 24, 2024 02:26 PM Reporting Lab: [facility] [address] [place] [phone] Performing Lab: [place] [phone] [place] [address] Vital Signs Combined list of inpatient and outpatient Vital Signs from Department of Defense and Veterans Affairs, ranging from 12 months to all on record, depending upon the facility. Vital Sign Value Date Comments Source SYSTOLIC BLOOD PRESSURE 140 01/18/2025 14:13:39 [facility] DIASTOLIC BLOOD PRESSURE 74 01/18/2025 14:13:39 [facility] PULSE OXIMETRY 97 01/18/2025 14:13:39 [facility] WEIGHT 285 01/18/2025 14:13:39 [facility] BMI 33 kg/m2 01/18/2025 14:13:39 [facility] PAIN 2 01/18/2025 14:13:39 [facility] HEIGHT 78 01/18/2025 14:13:39 [facility] TEMPERATURE 97.6 01/18/2025 14:13:39 [facility] PULSE 72 01/18/2025 14:13:39 [facility] RESPIRATION 18 01/18/2025 14:13:39 [facility] SYSTOLIC BLOOD PRESSURE 140 08/31/2024 11:07:41 [facility] DIASTOLIC BLOOD PRESSURE 82 08/31/2024 11:07:41 [facility] PULSE OXIMETRY 97 08/31/2024 11:07:41 S [facility] WEIGHT 280 08/31/2024 11:07:41 [facility] BMI 32 kg/m2 08/31/2024 11:07:41 [facility] PAIN 0 08/31/2024 11:07:41 [facility] HEIGHT 78 08/31/2024 11:07:41 [facility] TEMPERATURE 97.8 08/31/2024 11:07:41 [facility] PULSE 88 08/31/2024 11:07:41 [facility] RESPIRATION 18 08/31/2024 11:07:41 [facility] SYSTOLIC BLOOD PRESSURE 152 08/11/2024 10:54:04 [facility] DIASTOLIC BLOOD PRESSURE 80 08/11/2024 10:54:04 [facility] PULSE OXIMETRY 97 08/11/2024 10:54:04 S [place] PACHECO [facility] WEIGHT 272.9 08/11/2024 10:54:04 [facility] BMI 32 kg/m2 08/11/2024 10:54:04 [facility] PAIN 0 08/11/2024 10:54:04 [facility] TEMPERATURE 97.9 08/11/2024 10:54:04 [facility] PULSE 95 08/11/2024 10:54:04 ST[facility] Angella SANDOVAL [facility] RESPIRATION 18 08/11/2024 10:54:04 Dio [facility] SYSTOLIC BLOOD PRESSURE 172 02/24/2024 14:02:28 [facility] EU[facility] DIASTOLIC BLOOD PRESSURE 77 02/24/2024 14:02:28 [facility] EU[facility] PULSE OXIMETRY 99 02/24/2024 14:02:28 S [place] TRAORE [facility] WEIGHT 270 02/24/2024 14:02:[facility] BMI 31 kg/m2 02/24/2024 14:02:[facility] PAIN 0 02/24/2024 14:02:28 [facility] HEIGHT 78 02/24/2024 14:02:28 [facility] PULSE 62 02/24/2024 14:02:28 [facility] RESPIRATION 18 02/24/2024 14:02:28 [facility] SYSTOLIC BLOOD PRESSURE 148 02/11/2024 09:01:41 [facility] DIASTOLIC BLOOD PRESSURE 71 02/11/2024 09:01:41 [facility] PULSE OXIMETRY 96 02/11/2024 09:01:41 Jennifer [facility] WEIGHT 266.8 02/11/2024 09:01:41 [facility] BMI 33 kg/m2 02/11/2024 09:01:41 [facility] PAIN 0 02/11/2024 09:01:41 [facility] HEIGHT 75 02/11/2024 09:01:41 [facility] TEMPERATURE 98 02/11/2024 09:01:41 [facility] PULSE 79 02/11/2024 09:01:41 [facility] RESPIRATION 20 02/11/2024 09:01:41 [facility] Encounters Combined list of: 1) Encounters from Department of Veterans Affairs facilities going backup to the last 18 months, not all [place] inpatient encounters are included; 2) Encounters from the Department of Defense facilities going backup to 280 months. Location Location Details Encounter Type Encounter Number Reason For Visit Attending Provider ADM Date DC Date Status Disposition Source [facility] Outpatient Encounter 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 08/17 [facility] Outpatient Encounter [id number] 08/19 [facility] Outpatient Encounter [id number] 08/19 [facility] Outpatient Encounter [id number] EMILIANA CRANDALL 08/20 [facility] Outpatient Encounter [id number] Diagnos is: ICD-10- CM Z12.2 Encntr screen for maligna nt neoplas m of respira tory organs OHLMKELTON Rodriguez Y 08/25 [facility] Outpatient Encounter [id number] 2 09/02 [facility] Outpatient Encounter [id number] 09/21 [facility] Outpatient Encounter [id number] ASAD ASHFORD 09/26 [facility] Outpatient Encounter [id number] MARGARITO GARAY 09/26 [facility] OFFICE O/P EST SF 10 MIN [id number] Diagnos is: ICD-10- CM Z86.31 Persona l history of diabeti c foot ulcer ASAD LOPES 09/28 [facility] Outpatient Encounter [id number] 10/06 [facility] Outpatient Encounter [id number] JONO DEMPSEY 10/06 [facility] Outpatient Encounter [id number] Diagnos is: ICD-10- CM R93.5 Abn finding s on dx imaging of abd regions , inc retrope MADELYN Ni E 10/07 [facility] Outpatient Encounter [id number] Diagnos is: ICD-10- CM R93.5 Abn finding s on dx imaging of abd regions , inc retrope MADELYN Ni E 10/15 [facility] Outpatient Encounter [id number] 10/15 [facility] Outpatient Encounter [id number] 10/15 [facility] Outpatient Encounter [id number] 10/15 [facility] OFFICE O/P EST LOW 20 MIN [id number] Diagnos is: ICD-10- CM E11.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, l eye MATTEO,K ATHARINE KIMBERLY 12/14 [facility] OFF/OP CNSLTJ NEW/EST LOW 30 [id number] Diagnos is: ICD-10- CM Z12.2 Encntr screen for maligna nt neoplas m of respira tory organs OHLMS,KELTON Y 12/15 [facility] Outpatient Encounter [id number] 12/23 [facility] Outpatient Encounter [id number] [id number] OSCAR GARCIA 12/27 [facility] Outpatient Encounter [id number] KEMAR K D 12/27 [facility] Outpatient Encounter [id number] 12/27 [facility] Outpatient Encounter [id number] [id number] 12/27 [facility] Outpatient Encounter [id number] [id number] 12/29 [facility] Outpatient Encounter [id number] [id number] CECILIA PAGE D 01/30 [facility] Outpatient Encounter [id number] 01/30 [facility] Outpatient Encounter [id number] [id number] VERMALISAA A 01/31 [facility] HC PRO PHONE CALL 5-10 MIN [id number] [id number] Diagnos is: ICD-10- CM I10 Essenti al (primar y) hyperte nsion DEONNA SALINAS S 02/01 [facility] Outpatient Encounter [id number] 02/10 [facility] OFF/OP CNSLTJ NEW/EST MOD 40 [id number] [id number] Diagnos is: ICD-10- CM I48.20 Chronic atrial fibrill ation, unspeci fied JENNIE MOMIN S 02/10 [facility] Outpatient Encounter [id number] [id number] 02/10 [facility] Outpatient Encounter [id number] [id number] Diagnos is: ICD-10- CM Z12.2 Encntr screen for maligna nt neoplas m of respira tory organs OHLMS,KELTON Y 02/10 [facility] OFFICE O/P EST MOD 30 MIN [id number] Diagnos is: ICD-10- CM E11.42 Type 2 diabete s mellitu s with diabeti c polyneu ropathy VERMA,AR MIDA A 02/23 [facility] Outpatient Encounter [id number] 03/02 [facility] Outpatient Encounter [id number] [id number] 03/09 [facility] Outpatient Encounter [id number] [id number] 03/14 [facility] Outpatient Encounter [id number] [id number] 03/14 [facility] Outpatient Encounter [id number] 03/14 [facility] OFFICE O/P EST LOW 20 MIN [id number] [id number] Diagnos is: ICD-10- CM Z01.818 Encount er for other preproc edural examAYDE Armenta 03/15 [facility] COLONOSCOP Y W/CONTROL BLEED [id number] [id number] Diagnos is: ICD-10- CM Z12.11 Encount er for screeni ng for maligna nt neoplas m of colon RJA CASTANO E 03/15 [facility] Outpatient Encounter [id number] [id number] 03/15 [facility] Outpatient Encounter [id number] 03/15 [facility] Outpatient Encounter [id number] [id number] ANDRIY HANNA 03/15 [facility] Outpatient Encounter [id number] [id number] 03/17 [facility] Outpatient Encounter [id number] [id number] TAWNY WILLIAM 03/17 [facility] Outpatient Encounter [id number] [id number] 03/18 [facility] Outpatient Encounter [id number] [id number] 04/28 [facility] Outpatient Encounter [id number] [id number] 05/02 [facility] Outpatient Encounter [id number] [id number] 05/08 [facility] Outpatient Encounter [id number] [id number] 05/08 [facility] Outpatient Encounter [id number] [id number] 05/22 [facility] Outpatient Encounter [id number] [id number] 05/24 [facility] Outpatient Encounter [id number] [id number] 06/14 [facility] Outpatient Encounter [id number] 06/15 [facility] Outpatient Encounter [id number] [id number] Diagnos is: ICD-10- CM K21.9 Gastro- esophag eal reflux disease without esophag itis MADELYN EDWARDS E 06/20 [facility] QNHP OL DIG ASSMT&MGMT 5-10 [id number] [id number] Diagnos is: ICD-10- CM K59.00 Constip ation, unspeci Chiqui Velarde NNChiqui P 06/20 [facility] Outpatient Encounter [id number] 06/29 [facility] MTMS BY PHARM EST 15 MIN [id number] [id number] Diagnos is: ICD-10- CM Z51.81 Encount er for therape utic drug level monitor EILEEN Rush 06/30 [facility] Outpatient Encounter [id number] 07/07 [facility] HC PRO PHONE CALL 11-20 MIN [id number] [id number] Diagnos is: ICD-10- CM N39.0 Urinary tract infecti on, site not specifi ed CODIE,AZUCENAF ANY N 07/07 [facility] Outpatient Encounter [id number] [id number] 07/10 [facility] Outpatient Encounter [id number] 07/17 [facility] Outpatient Encounter [id number] 07/26 [facility] OFFICE O/P EST MOD 30 MIN [id number] [id number] Diagnos is: ICD-10- CM I48.20 Chronic atrial fibrill ation, unspeci fied JENNIE MOMIN IE S 08/11 [facility] Outpatient Encounter [id number] 08/11 [facility] Outpatient Encounter [id number] [id number] 08/14 [facility] OFFICE O/P EST MOD 30 MIN [id number] Diagnos is: ICD-10- CM 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, unsp VERMA,AR MIDA A 08/31 [facility] EXT ECG>48HR<7 D REV&INTERP J [id number] [id number] Diagnos is: ICD-10- CM I48.20 Chronic atrial fibrill ation, unspeci fied EMMANUEL,IGNACIA 09/05 [facility] Outpatient Encounter [id number] [id number] CASEY GARCIA 09/08 [facility] Outpatient Encounter [id number] [id number] 09/19 [facility] OFFICE O/P EST LOW 20 MIN [id number] [id number] Diagnos is: ICD-10- CM Z01.818 Encount er for other preproc edural examina IRMA Bridges 09/20 [facility] Outpatient Encounter [id number] [id number] 09/20 [facility] COLONOSCOP Y SUBMUCOUS NJX [id number] [id number] Diagnos is: ICD-10- CM K63.5 Polyp of colon AYDE LARA TTHEW H 09/20 [facility] Outpatient Encounter [id number] [id number] IRMA GONZALEZ 09/20 [facility] NQHP OL DIG ASSMT&MGMT 5-10 [id number] [id number] 5 Diagnos is: ICD-10- CM E11.42 Type 2 diabete s mellitu s with diabeti c polyneu ropathy MARISELA RAMIREZ 09/20 [facility] Outpatient Encounter [id number] [id number] SAL ALEXANDRE S 09/21 [facility] Outpatient Encounter [id number] [id number] 2 09/22 [facility] OFF/OP CNSLTJ NEW/EST MOD 40 [id number] [id number] Diagnos is: ICD-10- CM M20.42 Other hammer toe(s) (acquir ed), left foot RYAN RAMOS 10/19 [facility] Outpatient Encounter [id number] [id number] 1 10/27 [facility] Outpatient Encounter [id number] [id number] 12/20 [facility] Outpatient Encounter [id number] [id number] 01/11 [facility] Outpatient Encounter [id number] [id number] 01/11 [facility] Outpatient Encounter [id number] [id number] 01/11 [facility] SYNCH AUDIO-ONLY NEW LOW 30 [id number] [id number] Diagnos is: ICD-10- CM S91.301 A Unspeci fied open wound, right foot, initial encount er Sincere DEL TORO 01/11 [facility] PH1 ASSMT&MGMT NQHP 11-20 [id number] [id number] Diagnos is: ICD-10- CM E13.621 Other specifi ed diabete s mellitu s with foot ulcer HERMES CRUZ ORILEANDRO Perkins 01/15 [facility] OFFICE O/P EST LOW 20 MIN [id number] [id number] Diagnos is: ICD-10- CM S91.309 S Unspeci fied open wound, unspeci fied foot, sequela COUPER,TRIXIE ANGELICA G 01/17 [facility] Outpatient Encounter [id number] [id number] 01/18 [facility] IMG RTA DETCJ/MNTR DS STAFF [id number] [id number] Diagnos is: ICD-10- CM Z13.5 Encount er for screeni ng for eye and ear disorde ZACKERY Caldwell 01/18 OFFICE O/P EST MOD 30 MIN [id number] [id number] Diagnos is: ICD-10- CM E11.42 Type 2 diabete s mellitu s with diabeti c polyneu ropathy VERMA,AR MIDA A 01/18 [facility] Outpatient Encounter [id number] [id number] Diagnos is: ICD-10- CM Z13.9 Encount er for screeni ng, unspeci fied Chiqui WISDOM E 01/18 [facility] Outpatient Encounter [id number] [id number] 01/21 [facility] Outpatient Encounter [id number] [id number] 01/22 [facility] Outpatient Encounter [id number] [id number] 1 01/24 [facility] OFFICE O/P EST MOD 30 MIN [id number] [id number] Diagnos is: ICD-10- CM E11.621 Type 2 diabete s mellitu s with foot ulcer ASAD LOPES ISAMAR Earl 01/30 [facility] Outpatient Encounter [id number] [id number] 01/30 [facility] ORTHOTIC MGMT&TRAIN G 1ST ENC [id number] [id number] Diagnos is: ICD-10- CM Z46.89 Encount er for fitting and adjustm ent of oth devices ANAYELI HUA 01/31 [facility] N Social History Combined list of available smoking, tobacco, and other social history from Department of Defense and Veterans Affairs facilities. Social History Type Response Date Comment Sourc e Tobacco smoking status NHIS VA-TOBACCO USER EVERY DAY 02/24/2024 [facility] History of tobacco use VA-TOBACCO USE WI 30 MIN OF WAKEUP 02/24/2024 [facility] History of tobacco use ORYX ADMIT TOBACC O SCREEN NO 03/02/2023 [facility] History of tobacco use [place]-TOBACCO FORMER USER 01/28/2023 [facility] History of tobacco use VA-TOBACCO FORMER USER 12/15/2021 [facility] History of tobacco use NV-TOBACCO FORMER USER 10/01/2020 [facility] History of tobacco use NV-TOBACCO QUIT < 1 YEAR 09/27/2018 [facility] History of tobacco use TOBACCO USER OFFE RED MEDS 11/04/2017 [facility] History of tobacco use CURRENT TOBACCO USER 05/22/2017 [facility] History of tobacco use CURRENT TOBACCO USER 10/08/2016 [facility] History of tobacco use CURRENT TOBACCO USER 12/28/2015 [facility] History of tobacco use TOBACCO OFFERED [facility] 06/12/2015 [facility] History of tobacco use CURRENT TOBACCO USER 10/26/2014 [facility] History of tobacco use CURRENT TOBACCO USER 11/10/2013 [facility] History of tobacco use TOBACCO OFFERRED PT MEDS (PROVIDER) 04/28/2012 [facility] History of tobacco use TOBACCO OFFERED S [facility] 03/10/2012 [facility] History of tobacco use CURRENT TOBACCO USER 03/09/2012 [facility] Plan of Care List of future care activities from [facility] facilities. Additional future care activities may be listed in the Assessment and Plan section. Date/Time Care Activity Care Activity Detail Facili ty 02/12/2025 AMBULATORY - NONE AMBULATORY - NONE [facility] Advance Directives List of completed, amended, or rescinded Advance Directives on record at [facility] facilities. An actual copy of the Directive is not included. Date Advance Directive Provider Source 03/11/2012 ADVANCE DIRECTIVE DISCUSSION EUGENE HOFFMAN [facility]
--- OUTSIDE RECORDS SUMMARY | 2025-02-03 16:56 | XMS_ITS | Encounter Summary ---
Author Name [facility] [place] Organization [facility] [place] [facility] [place] Address [address] [place] [address] Care Team Providers Care Hazmat Cdl A Driver Name Role Phone FABRIZIO VERMA Primary Care [...] PART A Oct 14, 2020 PART A [id number] LALO SEXTON PATIENT Selected Encounter This section includes the information on record at [place] for the Encounter. Date/Time Encounter Type Encounter Description Reason Pro vider Source Aug 11, 2024 01:35 PM Outpatient Encounter ADMIN PAT ACTIVTIES (MASNONCT) IHE Encounter Template Text not used by [place] Plan of Treatment: Future Appointments (+ 6 [...] 20 appointments. The data comes from all [place] treatment facilities. Appointment Date/Time Appointment Type Appointme nt Facility Name Aug 31, 2024 11:00 AM AMBULATORY - MEDICINE [facility] Sep 20, 2024 11:15 AM AMBULATORY - MEDICINE . [facility] Oct 19, 2024 10:30 AM AMBULATORY - SURGERY [facility] January 11, 2025 01:00 PM AMBULATORY - NONE [facility] January 15, 2025 03:30 PM AMBULATORY - MEDICINE [facility] January 17, 2025 01:00 PM AMBULATORY - SURGERY [facility] January 18, 2025 01:30 PM AMBULATORY - NONE [facility] January 18, 2025 02:00 PM AMBULATORY - MEDICINE [facility] January 30, 2025 01:30 PM AMBULATORY - SURGERY [facility] Lab Results: +/- 30 days of the encounter This section includes the Chemistry and Hematology Lab Results on record with [place] for the patient. Radiology Reports and Pathology Reports are provided separately, in subsequent sections. Lab Results This section contains the Chemistry/Hematology Results that were resulted 30 days before or 30 daysafter the date of the Encounter. Date/Time Source Result Type Result - Unit Interpretation Reference Range Specimen Type Comment Aug 31, 2024 12:44 PM [facility] HGA1C BLOOD Specimen Type: BLOOD No comment entered. Ordering Provider: FABRIZIO VERMA Report Released Date/Time: Aug 31, 2024 11:36 AM Reporting Lab: [facility] [address] [facility] [address] Performing Lab: [facility] [address] [phone] HGA1C 7.2 H 4.0-6.0 Aug 31, 2024 12:44 PM [facility] LIPID PANEL (STL) PLASMA Specimen Type: PLASM A Comment: No hemolysis noted. Ordering Provider: FABRIZIO VERMA Report Released Date/Time: Aug 31, 2024 11:36 AM Reporting Lab: [facility] [address] [place] [phone] Performing Lab: [facility] [address] [place] [phone] CHOLESTEROL 134 mg/dL 0-200 TRIGLYCERIDE 106 mg/dL 0-150 CALCULATED LDL 62 mg/dL HDL(New) 51 mg/dL >40 Aug 31, 2024 12:44 PM [facility] VITAMIN D, 25-HYDROXY SERUM Specimen Type: SE RUM No comment entered. Ordering Provider: FABRIZIO VERMA Report Released Date/Time: Aug 31, 2024 11:36 AM Reporting Lab: [address] [phone] Performing Lab: [address] [address] VITAMIN D, 25-HYDROXY 22.6 ng/mL L 30-96 Aug 31, 2024 12:44 PM [facility] TSH W/ REFLEX FT4 (STL) PLASMA Specimen Type: PLASMA No comment entered. Ordering Provider: FABRIZIO VERMA Report Released Date/Time: Aug 31, 2024 11:36 AM Reporting Lab: [facility] [address] [place] [phone] Performing Lab: [address] [address] TSH 1.702 u[IU]/mL 0.47-5 Aug 31, 2024 12:44 PM [facility] CBC BLOOD Specimen Type: BLOOD No comment entered. Ordering Provider: FABRIZOI VERMA Report Released Date/Time: Aug 31, 2024 11:36 AM Reporting Lab: [address] [phone] Performing Lab: [address] [address] WBC 6.5 10*3/uL 3.6-11.2 RBC 5.11 10*6/uL [...] 0.00-0. 20 Aug 31, 2024 12:44 PM [facility] COMPREHENSIVE METABOLIC PANEL PLASMA Specimen Type: PLASMA Comment: No hemolysis noted. Ordering Provider: FABRIZIO VERMA Report Released Date/Time: Aug 31, 2024 11:36 AM Reporting Lab: [facility] [address] [phone] Performing Lab: [facility] [address] [address] CREATININE 0.58 mg/dL L 0.7-1.3 UREA NITROGEN [...] 106.2 >60 Aug 31, 2024 12:44 PM [facility] URINALYSIS W/ CX REFLEX (STL-PB) URINE Specim en Type: URINE No comment entered. Ordering Provider: FABRIZIO VERMA Report Released Date/Time: Aug 31, 2024 11:36 AM Reporting Lab: [facility] [address] [facility] [phone] Performing Lab: [facility] [address] [facility] [phone] URINE COLOR Light-Yellow Yellow U.BILIRUBIN Negative mg/dL [...] CULTURE CX ORDERED AND SENT TO MICROBIOLOGY Vital Signs: All taken on the encounter date This section contains inpatient and outpatient Vital Signs collected on the date of the Encounter. Date/Time Temperature Pulse Blood Pressure Respiratory Rate SP02 Pain Height Weight Body Mass Index Source Aug 11, 2024 10:54 AM 97.9 95 152/80 18 97 0 272.9 32 [facility] Social History: Smoking Status (Most current) and Tobacco Use (All prior to encounter date) This section includes the most current, and the historical, smoking and tobacco- related health factors from the [place] facility where the Encounter took place. Current Smoking Status This section includes the most current smoking, or tobacco-related health factor, from the [place] facility where the Encounter took place. Date/Time Current Smoking Status Comment Harriet butler Mar 02, 2023 01:17 AM ORYX ADMIT TOBACCO SCREEN NO [facility] Tobacco Use History This section includes a history of the smoking, or tobacco-related health factors, that were collected on or before the date of the Encounter. The data comes from the [place] facility where the Encounter took place. Date/Time Smoking Status/Tobacco Use Comment F acility Dec 15, 2021 01:45 PM VA-TOBACCO FORMER USER [facility] Dec 15, 2021 01:45 PM VA-TOBACCO QUIT 1 TO < 5 YRS [facility] Oct 01, 2020 01:30 PM VA-TOBACCO FORMER USER [facility] Oct 01, 2020 01:30 PM VA-TOBACCO QUIT 1 TO < 5 YRS [facility] Sep 27, 2018 02:38 PM VA-TOBACCO FORMER USER [facility] Sep 27, 2018 02:38 PM VA-TOBACCO QUIT < 1 YEAR [facility] Nov 04, 2017 12:48 PM CURRENT TOBACCO USER [facility] Nov 04, 2017 12:48 PM CURRENT TOBACCO US ER (NOT READY TO QUIT) [facility] Nov 04, 2017 12:48 PM TOBACCO CESSATION REFERRAL DECLINED [facility] Nov 04, 2017 12:48 PM TOBACCO MEDS OFFER ED BUT DECLINED [facility] Nov 04, 2017 12:48 PM TOBACCO USER OFFERED MEDS [facility] May 22, 2017 11:37 AM CURRENT TOBACCO USER [facility] May 22, 2017 11:37 AM TOBACCO MEDS OFFER ED BUT DECLINED [facility] Oct 08, 2016 08:41 AM CURRENT TOBACCO USER [facility] Oct 08, 2016 08:41 AM TOBACCO MEDS OFFER ED BUT DECLINED [facility] Dec 28, 2015 12:50 AM CURRENT TOBACCO USER [facility] Jun 12, 2015 01:24 PM CURRENT TOBACCO USER [facility] Jun 12, 2015 01:[address] [facility] Oct 26, 2014 01:36 PM CURRENT TOBACCO USER [facility] Nov 10, 2013 11:47 AM CURRENT TOBACCO USER [facility] Nov 10, 2013 11:47 AM TOBACCO MEDS OFFER ED BUT DECLINED [facility] Apr 28, 2012 11:29 AM CURRENT TOBACCO USER [facility] Apr 28, 2012 11:29 AM TOBACCO OFFERRED P T MEDS (PROVIDER) [facility] Mar 10, 2012 09:00 PM CURRENT TOBACCO USER [facility] Mar 10, 2012 09:[address] [facility] Mar 09, 2012 12:32 PM CURRENT TOBACCO USER [facility] Mar 09, 2012 12:32 PM TOBACCO MEDS OFFER ED BUT DECLINED [facility] Advance Directives: All historical and current Section Date Range: From patient's date of to the date document was created. This section includes ALL of a patient's completed or amended [place] Advance and Rescinded Directives. The entries below indicate that a directive exists for the patient, but an actual copy is not included with this document. The data comes from all [place] facilities. Date Advance Directives Provider Source Mar 11, 2012 ADVANCE DIRECTIVE DISCUSSION EUGENE HOFFMAN [facility] Pathology Reports: +/- 30 days of the [...] the Encounter. The data comes from all [place] treatment facilities. Date/Time Pathology Report Provider Source Aug 31, 2024 12:44 PM LR MICROBIOLOGY RE PORT: Accession [UID]: [id number] [[id number]] Received: Aug 31, 2024@18:20 Collection sample: URINE,CLEAN CATCH Collection date: Aug 31, 2024 12:44 Site/Specimen: URINE Provider: FABRIZIO VERMA Test(s) ordered: URINE CX REFLEX (STL)......... completed: Sep 02, 2024 14:26 * BACTERIOLOGY FINAL REPORT => Sep 03, 2024 16:51 TECH CODE: [id number] CULTURE RESULTS: 1. STAPHYLOCOCCUS AUREUS - Quantity: >100,000 CFU/ML Comment: Susceptibilities Complete 09/02/24 [facility] 2. KLEBSIELLA PNEUMONIAE - Quantity: >10,000 - <25,000 CFU/ML Comment: Susceptibilities Complete 09/02/24 [facility] ANTIBIOTIC SUSCEPTIBILITY TEST RESULTS: 1. STAPHYLOCOCCUS AUREUS : 2. KLEBSIELLA PNEUMONIAE : : SUSC INTP SUSC INTP AMIKACIN ..................... <=1.0 S GENTAMICIN.................... <=0.5 S <=1.0 S TOBRAMYCIN.................... <=1.0 S AMPICILLIN/SULBACTAM.......... =4.0 S PIPERACILLIN/TAZOBACTAM....... <=4.0 S DAPTOMYCIN.................... =0.5 S ERTAPENEM..................... <=0.12 S IMIPENEM...................... <=0.25 S CEFEPIME...................... <=0.12 S CEFTRIAXONE................... <=0.25 S ESBL.......................... NEG NEG CIPROFLOXACIN................. <=0.5 S <=0.06 S OXACILLIN..................... =0.5 S SULFA/TRIMETHAPRIM............ <=10.0 S <=20.0 S VANCOMYCIN.................... =1.0 S NITROFURANTOIN................ <=16.0 S =64.0 I AMPICILLIN.................... >=32.0 R PENICILLIN-G.................. >=0.5 R TETRACYCLINE.................. <=1.0 S AUGMENTIN..................... S S AZTREONAM..................... <=1.0 S CEFPODOXIME................... <=0.25 S Linezolid IV.................. =2.0 S MINOCYCLINE................... <=0.5 S =--=--=--=--=--=--=--=--=--=--= --=--=--=--=--=--=--=--=--=--=- -=--=--=--=--=-- Performing Laboratory: Bacteriology Report Performed By: [facility] [address]# [id number] [address] [place] [phone] [facility] Encounter Notes: All associated encounter notes This section contains the clinical notes associated to the Encounter. Date/Time Encounter Note(s) Provider Source Aug 11, 2024 01:35 PM PHYSICIAN LETTERS: LOCAL TITLE: PHYSICIAN LETTERS STANDARD TITLE: PHYSICIAN LETTERS DATE OF NOTE: AUG 11, 2024@13:35 ENTRY DATE: AUG 11, 2024@13:35:18 AUTHOR: INES SANDRA EXP COSIGNER: URGENCY: STATUS: COMPLETED [facility] [address] [place] [address] ALLO SEXTON [address] [place], [place] [address] Dear Lalo Sexton: Thank you for choosing the [facility] as your primary choice for health care. A home heart monitor has been ordered for you, this will be sent to you by [facility] in [facility], via [employer]. Please plan to wear the monitor for the prescribed time period of 3 days. After you complete the monitoring period, please send the monitor back via [employer] in the pre-addressed/pre-paid box it came in. DO NOT GIVE TO THE POST OFFICE UNLESS THAT IS SPECIFIED ON THE RETURN LABEL [facility] will generate a report, which will be reviewed by a [place] Filer Repairer, results will be uploaded to your record. [facility] contact number is [phone] press 1 then 2 for help 24 hours/day You may receive a text asking you to confirm the appt, please answer yes. Please call us at [phone], extension [phone] if you have any questions. If you would like help applying or removing your monitor you are welcome to come to either the [facility] EKG office 0730-1600pm F Building 1 room [address]206 (next to Blood Draw)ext. [phone] or the [facility] EKG office -F 5669-6848 [address] Room 2C-124 Nurse Practitioner Clinic ext. [phone] Your good health is important to us. Thank you for your service! Sincerely, INES SANDRA [employer] Hand/EKG [facility],INES NES[facility]
[2025-02-03 17:32] LABS: Basophils Absolute Auto 0.1 K/mm3 (0.0-0.1); Basophils Percent Auto 0.8 % (0.2-1.2); Eosinophils Absolute Auto 0.1 K/mm3 (0-0.3); Eosinophils Percent Auto 1.2 % (0-4.4); Hematocrit 39.8 % (42.0-52.0); Hemoglobin 13.7 g/dL (14.0-18.0); Immature Granulocyte Absolute 0.06 K/mm3 (0.00-0.031); Immature Granulocyte Percent A 0.8 % (0-0.5); Lymphocytes Absolute Auto 0.86 K/mm3 (0.9-3.2); Lymphocytes Percent Auto 11.5 % (18.3-44.2); Mean Corpuscular HGB Conc 34.4 g/dl (32-36); Mean Corpuscular Hemoglobin 30.6 pg (26-34); Monocytes Absolute Auto 0.9 K/mm3 (0.1-0.6); Monocytes Percent Auto 11.4 % (2.6-8.5); Neutrophils Absolute Auto 5.6 K/mm3 (1.3-6.7); Neutrophils Percent Auto 74.3 % (45.5-73.1); Platelet Count Result 237 k/mm3 (150-375); Red Blood Count 4.47 M/mm3 (4.6-6.20); White Blood Count 7.5 K/mm3 (4.5-10.0)
[2025-02-03 17:46] LABS: Lactic Acid Reflex 1.1 mmol/L (0.7-2.0)
[2025-02-03 17:47] LABS: Alanine Aminotransferase 19 U/L (6-50); Alkaline Phosphatase 74 U/L (38-126); Anion Gap 9 mmol/L (4-12); Aspartate Amino Transferase 23 U/L (17-59); Bilirubin,Total 0.9 mg/dL (0.2-1.3); Blood Urea Nitrogen 11 mg/dL (9-20); Calcium 8.6 mg/dL (8.4-10.2); Carbon Dioxide 24 mmol/L (22-30); Chloride 96 mmol/L (98-107); Estimated CRCL calculation 147 ml/min; Estimated Glomerular Filt Rate > 60; Glucose 279 mg/dL (65-110); INR 1.1; Lipase 119 U/L (23-300); Potassium 4.4 mmol/L (3.4-5.0); Prothrombin Time 14.9 Seconds (11.1-14.7); Sodium 129 mmol/L (137-145)
[2025-02-03 17:48] LABS: Partial Thromboplastin Time 30.9 Seconds (22.3-36.8)
--- NOTE | 2025-02-03 17:51 | ED_ITS ---
HPI - General Adult General Chief complaint: Abdominal Pain <Latrell James MD - Last Filed: 02/04/25 06:57> Stated complaint: DIARRHEA <Latrell James MD - Last Filed: 02/04/25 06:57> Time Seen by Provider: 02/03/25 16:49 <Latrell James MD - Last Filed: 02/04/25 06:57> History of Present Illness HPI narrative: 69-year-old male present to the emergency department for evaluation for concern of a small-bowel obstruction. Patient has no prior history of small- bowel obstruction. Patient states he typically does have issues with constipation for which he takes MiraLax 3 times a day. Patient states that he has been on was an back for approximately 5 months but did have an increase in his dose approximately 2 weeks ago. Patient states over last few days he has had increased issues with constipation but has been passing multiple bowel movements of chest clear liquid. Patient denies any associated abdominal pain. Patient denies any associated nausea or vomiting. Patient has no prior history of small-bowel obstruction and patient has no prior history of abdominal surgeries. <Latrell James MD - Last Filed: 02/04/25 06:57> Related Data Home medications: Home Medications ?Medication ?Instructions ?Recorded ?Confirmed ?Last Taken ?Type glipizide 10 mg tablet 10 mg PO BID 12/11/20 07/17/24 Unknown History metformin 1,000 mg tablet 1,000 mg PO BID 12/11/20 07/17/24 Unknown History apixaban 5 mg tablet (Eliquis) 5 mg PO BID 12/12/20 07/17/24 Unknown History carvedilol 6.25 mg tablet 6.25 mg PO BID 10/16/22 07/17/24 Unknown History omeprazole 20 mg capsule,delayed 20 mg PO DIRECTED 02/22/23 07/17/24 Unknown History release lovastatin 40 mg tablet 40 mg PO HS 05/24/24 07/17/24 Unknown History <Latrell James MD - Last Filed: 02/04/25 06:57> Allergies/adverse reactions: Allergies Allergy/AdvReac Type Severity Reaction Status Date / Time empagliflozin (From AdvReac Intermediate Rash Verified 02/02/25 15:06 Jardiance) <Latrell James MD - Last Filed: 02/04/25 06:57> Review of Systems 2 Review of Systems: All systems reviewed & are unremarkable except as noted in HPI and below <Latrell James MD - Last Filed: 02/04/25 06:57> FOR[facility]LY [facility] Past Medical History Medical History: Medical History Atrial fibrillation Brain tumor Chronic anticoagulation Chronic hyponatremia COPD (chronic obstructive pulmonary disease) Diabetes type 2, controlled A1c 6.7 12/2022 Diabetic retinopathy GERD (gastroesophageal reflux disease) GIB (gastrointestinal bleeding) HLD (hyperlipidemia) HTN (hypertension) Hypothyroidism Sleep apnea With CPAP UTI (urinary tract infection) <Latrell James MD - Last Filed: 02/04/25 06:57> Surgical History Surgical History: Surgical History Hx of craniotomy removal of brain tumor as a child Hx of tonsillectomy <Latrell James MD - Last Filed: 02/04/25 06:57> Family History Family History: Family History Mother Heart disease Father Cirrhosis <Latrell James MD - Last Filed: 02/04/25 06:57> Social History Social History: Social History Social History: He and his have been since he was 17. A used to smoke 2.5 packs of cigarettes per day but quit approximately 2018. He reports that is not unusual for him to drink 18 beers a day. He has drink heavily since he was 26 years old. He quit drinking alcohol 02/07/2023. He denies illicit substance use. Code status: DNR/DNI per patient request Surrogate decision maker: Smoking packs per day: 2.5 Smoking cigarettes per day: 50.0 Years smoked: 45 Smoking pack-years: 112.50 Smoking status: Former smoker Tobacco type: cigarettes Smoking end date: 02/22/18 Alcohol intake: former Drinks per week: 105 Substance use: never Substance use type: does not use Lack of Transportation: No Lack of Food: Never True Current Housing: I Have Housing Concerned About Future Housing: No Difficulty Paying Gas/Electric Bills: No Difficulty Paying for Meds: No Currently Unemployed: No Education: Trade/Vocational Certificate Difficulty w/ Childcare or Family Care: No Gender identity (if verbalized by the patient): Male Sexual Orientation (if Verbalized by the Patient): Straight or Heterosexual Spiritual care concerns: No <Latrell James MD - Last Filed: 02/04/25 06:57> Exam 2 Narrative: APPEARANCE: Well appearing, no pain, no distress, well-nourished. HEAD: normocephalic, atraumatic. EYES: PERRLA/EOMI, conjunctivae clear. NOSE: Normal no drainage EARS:TMS clear with good light reflex. THROAT: Pharynx clear, no exudate. NECK: Supple. No adenopathy, no masses. RESPIRATORY: Airway patent, respirations nonlabored. Clear to auscultation bilaterally, no rales, rhonchi, wheezing. CARDIOVASCULAR: Regular rate and rhythm without murmurs rubs or gallops. ABDOMINAL: Obese abdomen that is soft nontender with normal bowel sounds MUSCULOSKELETAL: Lower extremities in bilateral braces NEURO: Alert. Cranial nerves II through XII intact. Good gait. Good coordination SKIN: Warm, dry. Normal Color <Latrell James MD - Last Filed: 02/04/25 06:57> Course Vital Signs Vital signs: Vital Signs Temperature 97.8 F 02/03/25 16:45 Pulse Rate 82 02/03/25 16:45 Respiratory Rate 20 02/03/25 16:45 Blood Pressure 152/96 H 02/03/25 16:45 Pulse Oximetry 98 02/03/25 16:45 Oxygen Delivery Room Air 02/03/25 16:45 Temperature 97.8 F 02/03/25 16:45 Pulse Rate 67 02/03/25 18:37 Respiratory Rate 18 02/03/25 18:37 Blood Pressure 153/95 H 02/03/25 18:37 Pulse Oximetry 99 02/03/25 18:37 Oxygen Delivery Room Air 02/03/25 16:45 <Latrell James MD - Last Filed: 02/04/25 06:57> Vital Signs Temperature 97.8 F 02/03/25 16:45 Pulse Rate 82 02/03/25 16:45 Respiratory Rate 20 02/03/25 16:45 Blood Pressure 152/96 H 02/03/25 16:45 Pulse Oximetry 98 02/03/25 16:45 Oxygen Delivery Room Air 02/03/25 16:45 Temperature 97.8 F 02/03/25 16:45 Pulse Rate 67 02/03/25 18:37 Respiratory Rate 18 02/03/25 18:37 Blood Pressure 153/95 H 02/03/25 18:37 Pulse Oximetry 99 02/03/25 18:37 Oxygen Delivery Room Air 02/03/25 16:45 <Mallory Tim, IMAGING SCIENCE PROFESSOR - Last Filed: 02/03/25 19:28> Medical Decision Making MDM Narrative Medical decision making narrative: Pt's CT scan indicates 1. Groundglass appearance is seen in the middle lobe and left lower lobe which may indicate pneumonia. 2. No evidence of appendicitis, diverticulitis or intestinal obstruction. 3. Hepatomegaly. <Mallory Tim, IMAGING SCIENCE PROFESSOR - Last Filed: 02/03/25 19:28> Differential Diagnosis Differential Diagnosis: Small-bowel obstruction, diarrhea, pneumonia <Mallory Tim, IMAGING SCIENCE PROFESSOR - Last Filed: 02/03/25 19:28> Vital Signs Vital Signs: Vital Signs Temperature 97.8 F 02/03/25 16:45 Pulse Rate 82 02/03/25 16:45 Respiratory Rate 20 02/03/25 16:45 Blood Pressure 152/96 H 02/03/25 16:45 Pulse Oximetry 98 02/03/25 16:45 Oxygen Delivery Room Air 02/03/25 16:45 Temperature 97.8 F 02/03/25 16:45 Pulse Rate 67 02/03/25 18:37 Respiratory Rate 18 02/03/25 18:37 Blood Pressure 153/95 H 02/03/25 18:37 Pulse Oximetry 99 02/03/25 18:37 Oxygen Delivery Room Air 02/03/25 16:45 <Latrell James MD - Last Filed: 02/04/25 06:57> Vital Signs Temperature 97.8 F 02/03/25 16:45 Pulse Rate 82 02/03/25 16:45 Respiratory Rate 20 02/03/25 16:45 Blood Pressure 152/96 H 02/03/25 16:45 Pulse Oximetry 98 02/03/25 16:45 Oxygen Delivery Room Air 02/03/25 16:45 Temperature 97.8 F 02/03/25 16:45 Pulse Rate 67 02/03/25 18:37 Respiratory Rate 18 02/03/25 18:37 Blood Pressure 153/95 H 02/03/25 18:37 Pulse Oximetry 99 02/03/25 18:37 Oxygen Delivery Room Air 02/03/25 16:45 <Mallory Tim APRN - Last Filed: 02/03/25 19:28> Lab Data Lab results reviewed: Yes I reviewed the patient's lab results. <Mallory Tim APRN - Last Filed: 02/03/25 19:28> Result diagrams: 02/03/25 17:25 02/03/25 17:25 <Latrell James MD - Last Filed: 02/04/25 06:57> Labs: Lab Results 02/03/25 Range/Units 17:25 WBC 7.5 (4.5-10.0) K/mm3 RBC 4.47 L (4.6-6.20) M/mm3 Hgb 13.7 L (14.0-18.0) g/dL Hct 39.8 L (42.0-52.0) % MCV 89.0 (80-100) fl MCH 30.6 (26-34) pg MCHC 34.4 (32-36) g/dl RDW 13.0 (11.5-14.5) % Plt Count 237 (150-375) k/mm3 MPV 10.0 (7.4-10.4) fl Immature Gran % (Auto) 0.8 H (0-0.5) % Neut % (Auto) 74.3 H (45.5-73.1) % Lymph % (Auto) 11.5 L (18.3-44.2) % [place] % (Auto) 11.4 H (2.6-8.5) % Eos % (Auto) 1.2 (0-4.4) % Baso % (Auto) 0.8 (0.2-1.2) % Lymph # (Auto) 0.86 L (0.9-3.2) K/mm3 [place] # (Auto) 0.9 H (0.1-0.6) K/mm3 Eos # (Auto) 0.1 (0-0.3) K/mm3 Baso # (Auto) 0.1 (0.0-0.1) K/mm3 Abs Immat Gran (auto) 0.06 H (0.00-0.031) K/mm3 Absolute Neuts (auto) 5.6 (1.3-6.7) K/mm3 Absolute Nucleated RBC 0.000 (0.0-0.012) K/mm3 Nucleated RBC % 0.0 (0.0-0.2) % PT 14.9 H (11.1-14.7) Seconds INR 1.1 APTT 30.9 (22.3-36.8) Seconds Sodium 129 L (137-145) mmol/L Potassium 4.4 (3.4-5.0) mmol/L Chloride 96 L (98-107) mmol/L Carbon Dioxide 24 (22-30) mmol/L Anion Gap 9 (4-12) mmol/L BUN 11 (9-20) mg/dL Creatinine 0.57 L (0.7-1.3) mg/dL Estim Creat Clear Calc 147 ml/min Estimated GFR > 60 (59 - ) Glucose 279 H (65-110) mg/dL Lactic Acid 1.1 (0.7-2.0) mmol/L Calcium 8.6 (8.4-10.2) mg/dL Total Bilirubin 0.9 (0.2-1.3) mg/dL AST 23 (17-59) U/L ALT 19 (6-50) U/L Alkaline Phosphatase 74 (38-126) U/L Total Protein 7.0 (6.3-8.2) g/dL Albumin 4.0 (3.5-5.1) g/dL Lipase 119 (23-300) U/L <Latrell James MD - Last Filed: 02/04/25 06:57> Lab Results 02/03/25 Range/Units 17:25 WBC 7.5 (4.5-10.0) K/mm3 RBC 4.47 L (4.6-6.20) M/mm3 Hgb 13.7 L (14.0-18.0) g/dL Hct 39.8 L (42.0-52.0) % MCV 89.0 (80-100) fl MCH 30.6 (26-34) pg MCHC 34.4 (32-36) g/dl RDW 13.0 (11.5-14.5) % Plt Count 237 (150-375) k/mm3 MPV 10.0 (7.4-10.4) fl Immature Gran % (Auto) 0.8 H (0-0.5) % Neut % (Auto) 74.3 H (45.5-73.1) % Lymph % (Auto) 11.5 L (18.3-44.2) % [place] % (Auto) 11.4 H (2.6-8.5) % Eos % (Auto) 1.2 (0-4.4) % Baso % (Auto) 0.8 (0.2-1.2) % Lymph # (Auto) 0.86 L (0.9-3.2) K/mm3 [place] # (Auto) 0.9 H (0.1-0.6) K/mm3 Eos # (Auto) 0.1 (0-0.3) K/mm3 Baso # (Auto) 0.1 (0.0-0.1) K/mm3 Abs Immat Gran (auto) 0.06 H (0.00-0.031) K/mm3 Absolute Neuts (auto) 5.6 (1.3-6.7) K/mm3 Absolute Nucleated RBC 0.000 (0.0-0.012) K/mm3 Nucleated RBC % 0.0 (0.0-0.2) % PT 14.9 H (11.1-14.7) Seconds INR 1.1 APTT 30.9 (22.3-36.8) Seconds Sodium 129 L (137-145) mmol/L Potassium 4.4 (3.4-5.0) mmol/L Chloride 96 L (98-107) mmol/L Carbon Dioxide 24 (22-30) mmol/L Anion Gap 9 (4-12) mmol/L BUN 11 (9-20) mg/dL Creatinine 0.57 L (0.7-1.3) mg/dL Estim Creat Clear Calc 147 ml/min Estimated GFR > 60 (59 - ) Glucose 279 H (65-110) mg/dL Lactic Acid 1.1 (0.7-2.0) mmol/L Calcium 8.6 (8.4-10.2) mg/dL Total Bilirubin 0.9 (0.2-1.3) mg/dL AST 23 (17-59) U/L ALT 19 (6-50) U/L Alkaline Phosphatase 74 (38-126) U/L Total Protein 7.0 (6.3-8.2) g/dL Albumin 4.0 (3.5-5.1) g/dL Lipase 119 (23-300) U/L <Mallory Tim APRN - Last Filed: 02/03/25 19:28> Imaging Data Attestation: I personally reviewed and interpreted this imaging study as follows: < Mallory Tim APRN - Last Filed: 02/03/25 19:28> Radiologist's impression: Impressions Abdomen/Pelvis CT 02/03/25 18:47 IMPRESSION: 1. Groundglass appearance is seen in the middle lobe and left lower lobe which may indicate pneumonia. 2. No evidence of appendicitis, diverticulitis or intestinal obstruction. 3. Hepatomegaly. <Mallory Tim APRN - Last Filed: 02/03/25 19:28> Discharge Plan Discharge Clinical Impression: Pneumonia, Diarrhea <Latrell James MD - Last Filed: 02/04/25 06:57> Patient Disposition: Home <Latrell James MD - Last Filed: 02/04/25 06:57> Condition: Stable <Latrell James MD - Last Filed: 02/04/25 06:57> Instructions: Antibiotic Form <Latrell James MD - Last Filed: 02/04/25 06:57> Additional Instructions: Please return to the ER with any worsening symptoms. Follow-up with primary care provider as soon as possible. Take all medications as prescribed, including regularly scheduled medications. Complete your full dose of antibiotics. <Latrell James MD - Last Filed: 02/04/25 06:57> Patient Language: Greek <Latrell James MD - Last Filed: 02/04/25 06:57> Prescriptions: New azithromycin 250 mg tablet See Rx Instructions .ROUTE .COMPLEX Qty: 6 0RF Rx Instructions: For 250 mg dose pack: take 500 mg today (day 1), then 250 mg for 4 days (days 2-5) amoxicillin-pot clavulanate 875-125 mg tablet 1 tablet PO Q12H Qty: 20 0RF No Action carvedilol 6.25 mg tablet 6.25 mg PO BID lovastatin 40 mg tablet 40 mg PO HS sulfamethoxazole-trimethoprim 800-160 mg tablet 1 tablet PO Q12H 7 Days Qty: 14 0RF amoxicillin-pot clavulanate 875-125 mg tablet 1 tablet PO Q12H 10 Days Qty: 20 0RF glipizide 10 mg tablet 10 mg PO BID metformin 1,000 mg tablet 1,000 mg PO BID Eliquis 5 mg Tablet 5 mg PO BID omeprazole 20 mg Capsule,Delayed Release(Dr/Ec) 20 mg PO DIRECTED trazodone 50 mg Tablet 50 mg PO HS PRN (Reason: Insomnia) Qty: 30 0RF polyethylene glycol 3350 [Miralax] 17 gram Powder In Packet 17 g PO BID Qty: 100 0RF folic acid 1 mg Tablet 1 mg PO DAILY 30 Days Qty: 30 0RF <Latrell James MD - Last Filed: 02/04/25 06:57> Follow-up/Referrals: [facility] [Primary Care Provider] - <Latrell James MD - Last Filed: 02/04/25 06:57> Time of Disposition: 19:27 <Latrell James MD - Last Filed: 02/04/25 06:57> 19:27 <Mallory Tim APRN - Last Filed: 02/03/25 19:28>
[2025-02-03 18:37] VITALS: BP 153/95; PULSE 67; RESP 18; O2SAT 99
[2025-02-03] MEDS: AZITHROMYCIN 250 MG TABLET 500 MG PO (19:41)
[2025-02-03] MEDS: AMOXICILLIN/CLAVULANATE K 875-125 MG TAB 1 TABLET PO (19:41)
== END 2025-02-03 19:59 | disposition home or self-care (01) ==
PROVIDERS: Emergency Provider Emergency Medicine
DX: J18.9 Pneumonia, unspecified organism (principal); R19.7 Diarrhea, unspecified; Z79.01 Long term (current) use of anticoagulants; E11.9 Type 2 diabetes mellitus without complications; K21.9 Gastro-esophageal reflux disease without esophagitis; E78.5 Hyperlipidemia, unspecified; I10 Essential (primary) hypertension; E03.9 Hypothyroidism, unspecified; I48.91 Unspecified atrial fibrillation; Z87.891 Personal history of nicotine dependence
CPT/HCPCS: 36415; 74177; 80053; 83605; 83690; 85025; 85610; 85730; 99284; A9270; Q9967

== ENCOUNTER 2025-02-23 14:46 | Emergency (ER) | payer OTHER, SELFPAY ==
[2025-02-23 15:03] VITALS: BP 146/91; PULSE 89; RESP 16; TEMP 38.3; O2SAT 99
--- NOTE | 2025-02-23 15:17 | ED_ITS ---
HPI - Male Genitourinary General Chief complaint: Urogenital-Male Stated complaint: urinary irritation Time Seen by Provider: 02/23/25 15:17 Source: patient, RN notes reviewed and old records reviewed Mode of arrival: ambulatory Limitations: no limitations History of Present Illness HPI Narrative: 69-year-old male presents to the [facility] with complaints of fever and urinary symptoms. Patient reports fever 102 this morning, fever 100 last night. Has been taking Tylenol. Patient reports frequency, urgency and discomfort with urination. Had similar episode about a month ago. Reports that he is diabetic. Was taken off Jardiance inserted on Ozempic Patient denies any testicular pain. States he has had jock itch which antifungal cream has take care of. Related Data Home Medications ?Medication ?Instructions ?Recorded ?Confirmed ?Last Taken ?Type glipizide 10 mg tablet 10 mg PO BID 12/11/20 07/17/24 Unknown History metformin 1,000 mg tablet 1,000 mg PO BID 12/11/20 07/17/24 Unknown History apixaban 5 mg tablet (Eliquis) 5 mg PO BID 12/12/20 07/17/24 Unknown History carvedilol 6.25 mg tablet 6.25 mg PO BID 10/16/22 07/17/24 Unknown History omeprazole 20 mg capsule,delayed 20 mg PO DIRECTED 02/22/23 07/17/24 Unknown History release lovastatin 40 mg tablet 40 mg PO HS 05/24/24 07/17/24 Unknown History Allergies Allergy/AdvReac Type Severity Reaction Status Date / Time empagliflozin (From AdvReac Intermediate Rash Verified 02/23/25 15:12 Jardiance) Review of Systems Review of Systems: All systems reviewed & are unremarkable except as noted in HPI and below Constitutional: Constitutional: Reports no additional constitutional complaints ENT: Reports system reviewed and no additional complaints, except as docum ented Cardiovascular: Cardiovascular: Reports no additional cardiovascular complaints, Denies chest pain and Denies dyspnea Respiratory: Respiratory: Reports no additional respiratory complaints, Denies chest congestion, Denies cough and Denies dyspnea Genitourinary: Genitourinary: Reports as per HPI Musculoskeletal: Musculoskeletal: Reports no additional musculoskeletal complaints Integumentary/Breasts: Skin/Breast: Reports as per HPI [facility] Past Medical History Medical History Chronic hyponatremia Atrial fibrillation Chronic anticoagulation GIB (gastrointestinal bleeding) Brain tumor Hypothyroidism UTI (urinary tract infection) GERD (gastroesophageal reflux disease) Sleep apnea With CPAP HTN (hypertension) HLD (hyperlipidemia) Diabetic retinopathy Diabetes type 2, controlled A1c 6.7 12/2022 COPD (chronic obstructive pulmonary disease) Surgical History Surgical History Hx of craniotomy removal of brain tumor as a child Hx of tonsillectomy Family History Family History Mother Heart disease Father Cirrhosis Social History Social History Social History: He and his have been since he was 17. A used to smoke 2.5 packs of cigarettes per day but quit approximately 2018. He reports that is not unusual for him to drink 18 beers a day. He has drink heavily since he was 26 years old. He quit drinking alcohol 02/07/2023. He denies illicit substance use. Code status: DNR/DNI per patient request Surrogate decision maker: Smoking packs per day: 2.5 Smoking cigarettes per day: 50.0 Years smoked: 45 Smoking pack-years: 112.50 Smoking status: Former smoker Tobacco type: cigarettes Smoking end date: 02/22/18 Alcohol intake: former Drinks per week: 105 Substance use: never Substance use type: does not use Lack of Transportation: No Lack of Food: Never True Current Housing: I Have Housing Concerned About Future Housing: No Difficulty Paying Gas/Electric Bills: No Difficulty Paying for Meds: No Currently Unemployed: No Education: Trade/Vocational Certificate Difficulty w/ Childcare or Family Care: No Gender identity (if verbalized by the patient): Male Sexual Orientation (if Verbalized by the Patient): Straight or Heterosexual Spiritual care concerns: No Comments At the time of my signature, I reviewed and agree with the nursing past medical, surgical, social, and family history. There is no relevant family history pertinent to the patient complaint. Exam Const: General: cooperative, comfortable, no acute distress, well developed, alert, ill appearing chronically, uncomfortable and well nourished Nutritiona l Appearance: well nourished and obese Orientation/consciousness: patient oriented x3 Limitations: no limitations HENMT: Head: normal to inspection Eyes: General: appearance normal, both eyes and all related structures Alignment and Position: alignment normal Neck: Neck: normal visual inspection, full ROM, no lymphadenopathy and no meningeal signs Chest: Chest palpation & inspection: normal inspection of the chest Resp: Effort & Inspection: normal respiratory effort and able to speak in complete sentences Auscultation: clear to auscultation bilaterally, no crackles, no rales, no rhonchi and no wheezes Cardio: Rate: regular rate GI: GI Palp: No abdominal tenderness : General: Yes no CVA tenderness Skin: General skin exam: normal color and no rashes or lesions noted Neuro: General: patient oriented x3, gait normal, moves all extremities and no meningeal signs Cognition (Neuro): normal cognition Speech: normal speech Gait exam (Neuro): Normal gait present Extrem: General: normal to inspection, full ROM, capillary refill normal and normal gait Psych: Appearance: grossly normal and well kempt Mental Status: mental status grossly normal Speech and movement: Normal speech and movement present and Clear speech present Affect: normal affect Attitude: cooperative Course Course Level of Care: Express Care Visit Vital Signs Vital signs: Vital Signs Temperature 101.0 F H 02/23/25 15:03 Pulse Rate 89 02/23/25 15:03 Respiratory Rate 16 02/23/25 15:03 Blood Pressure 146/91 H 02/23/25 15:03 Pulse Oximetry 99 02/23/25 15:03 Oxygen Delivery Room Air 02/23/25 15:03 Temperature 101.0 F H 02/23/25 15:03 Pulse Rate 89 02/23/25 15:03 Respiratory Rate 16 02/23/25 15:03 Blood Pressure 146/91 H 02/23/25 15:03 Pulse Oximetry 99 02/23/25 15:03 Oxygen Delivery Room Air 02/23/25 15:03 Reviewed MDM - Male Genitourinary MDM Narrative Medical decision making narrative: Patient sitting in exam. Patient is nontoxic in appearance, is febrile. Had just taken Tylenol prior to arrival. Patient presents with concerns for a UTI. Patient has nitrites, leukocytes, will treat with antibiotic Reviewed previous my Patient appropriate for outpatient follow Discharge instructions reviewed with patient, as well as provided in writing per nursing staff. The instructions also include specific and strict return/GO TO THE ER as well as f/u information. All questions have been answered, and the patient deny any further questions with discharge and discharge plan. Some parts of this dictation were generated by voice recognition software and may contain typographical and/or grammatical inaccuracies. Differential Diagnosis Differential diagnosis: Likely urinary tract infection, urethritis, epididymitis, genital herpes simplex, prostatitis and acute retention of urine Lab Data Labs: Lab Results 02/23/25 Range/Units 15:53 POC Urine Color Yellow POC Urine Clarity Cloudy POC Urine pH 5.5 POC Ur Specif [place] 1.020 POC Urine Protein 2+ (Negative) POC Ur Glucose (UA) 3+ (Negative) POC Urine Ketones Trace (Negative) POC Urine Blood 1+ (Negative) POC Urine Nitrite Positive (Negative) POC Urine Bilirubin Negative (Negative) POC Urine Urobilinogen 0.2 POC U Leukocyte Esteras Trace (Negative) Reviewed Critical Care Time Critical Care Time Critical Care Time: No Discharge Plan Discharge Clinical Impression: Urinary tract infection Patient Disposition: Home Condition: Stable Instructions: Antibiotic Form, Urinary Tract Infection in Men (ED) Additional Instructions: Increased water intake Take Tylenol as needed for pain Take antibiotic as prescribed Today your urine dip showed a probability of a UTI. You have been prescribed an antibiotic. Your urine will be sent to our lab for a culture. If at that time a bacteria grows that is not covered by the antibiotic prescribed you will be notified. Follow-up with primary care For new or worsening symptoms go directly to the emergency room Patient Language: Sudanese Prescriptions: New amoxicillin-pot clavulanate 875-125 mg tablet 1 tablet PO Q12H Qty: 14 0RF No Action carvedilol 6.25 mg tablet 6.25 mg PO BID lovastatin 40 mg tablet 40 mg PO HS glipizide 10 mg tablet 10 mg PO BID metformin 1,000 mg tablet 1,000 mg PO BID Eliquis 5 mg Tablet 5 mg PO BID omeprazole 20 mg Capsule,Delayed Release(Dr/Ec) 20 mg PO DIRECTED trazodone 50 mg Tablet 50 mg PO HS PRN (Reason: Insomnia) Qty: 30 0RF polyethylene glycol 3350 [Miralax] 17 gram Powder In Packet 17 g PO BID Qty: 100 0RF folic acid 1 mg Tablet 1 mg PO DAILY 30 Days Qty: 30 0RF Follow-up/Referrals: [facility] [Primary Care Provider] -
[2025-02-23 15:55] LABS: EDUAAPPEAR Cloudy; EDUABILI Negative (Negative); EDUABLOOD 1+ (Negative); EDUACOLOR1 Yellow; EDUAGLUCOSE 3+ (Negative); EDUAKETONE Trace (Negative); EDUALEUKO Trace (Negative); EDUANITRATE Positive (Negative); EDUAPH 5.5; EDUAPROTEIN 2+ (Negative); EDUAUROBILI 0.2
== END 2025-02-23 16:04 | disposition home or self-care (01) ==
PROVIDERS: Emergency Provider Nurse Practitioner
DX: N39.0 Urinary tract infection, site not specified (principal); Z87.891 Personal history of nicotine dependence; I10 Essential (primary) hypertension; I48.91 Unspecified atrial fibrillation; E03.9 Hypothyroidism, unspecified; K21.9 Gastro-esophageal reflux disease without esophagitis; G47.30 Sleep apnea, unspecified; E78.5 Hyperlipidemia, unspecified; E11.319 Type 2 diabetes mellitus with unspecified diabetic retinopathy without macular edema; Z79.84 Long term (current) use of oral hypoglycemic drugs; J44.9 Chronic obstructive pulmonary disease, unspecified; Z79.01 Long term (current) use of anticoagulants
CPT/HCPCS: 81003; 87086; 87186; 99213; G0463

== ENCOUNTER 2025-03-17 11:19 | Emergency (ER) | payer OTHER, SELFPAY ==
[2025-03-17 11:29] VITALS: BP 149/97; PULSE 75; RESP 16; TEMP 37.4; O2SAT 97
[2025-03-17 11:32] VITALS: BP 149/97; PULSE 75; RESP 16; TEMP 37.4; O2SAT 97
[2025-03-17 12:12] LABS: EDUAAPPEAR Cloudy; EDUABILI Negative (Negative); EDUABLOOD Trace (Negative); EDUACOLOR1 Yellow; EDUAGLUCOSE 3+ (Negative); EDUAKETONE Negative (Negative); EDUALEUKO 1+ (Negative); EDUANITRATE Positive (Negative); EDUAPH 5.5; EDUAPROTEIN Trace (Negative); EDUASPGRAVITY 1.010; EDUAUROBILI 0.2
--- NOTE | 2025-03-17 12:17 | ED.MALEGU ---
HPI - Male Genitourinary General Chief complaint: Urogenital-Male Stated complaint: UTI Time Seen by Provider: 03/17/25 12:17 Source: patient Mode of arrival: ambulatory Limitations: no limitations History of Present Illness HPI Narrative: 69 yo M presents with c/o urinary frequency, dysuria startin this AM. Hx of 4 UTIs in the past year. Has appt with urologist this week. Afebrile. All systems reviewed and negative except as noted above. Related Data Home Medications ?Medication ?Instructions ?Recorded ?Confirmed ?Last Taken ?Type glipizide 10 mg tablet 10 mg PO BID 12/11/20 07/17/24 Unknown History metformin 1,000 mg tablet 1,000 mg PO BID 12/11/20 07/17/24 Unknown History apixaban 5 mg tablet (Eliquis) 5 mg PO BID 12/12/20 07/17/24 Unknown History carvedilol 6.25 mg tablet 6.25 mg PO BID 10/16/22 07/17/24 Unknown History omeprazole 20 mg capsule,delayed 20 mg PO DIRECTED 02/22/23 07/17/24 Unknown History release lovastatin 40 mg tablet 40 mg PO HS 05/24/24 07/17/24 Unknown History Fish Oil 03/17/25 Unknown History Allergies Allergy/AdvReac Type Severity Reaction Status Date / Time empagliflozin (From AdvReac Intermediate Rash Verified 03/17/25 11:39 Jardiance) Review of Systems Review of Systems: CONSTITUTIONAL: Denies fever, chills, or sweats. EYES: Denies visual changes, redness, or discharge. ENT: Denies rhinorrhea, congestion, sore throat, or otalgia. CARDIOVASCULAR: Denies chest pain, palpitations, or edema. RESPIRATORY: Denies cough or dyspnea. GASTROINTESTINAL: Denies abdominal pain, nausea, vomiting, or diarrhea. GENITOURINARY: Reports dysuria, frequency. Denies hematuria. SKIN: Denies rash or itching. MUSCULOSKELETAL: Denies back pain, joint pain, or myalgia. NEUROLOGIC: Denies headache, numbness, or weakness. PSYCHIATRIC: Denies anxiety or depression. All other systems reviewed are negative, except as documented in HPI. [facility]MERLY [facility] Past Medical History Medical History Chronic hyponatremia Atrial fibrillation Chronic anticoagulation GIB (gastrointestinal bleeding) Brain tumor Hypothyroidism UTI (urinary tract infection) GERD (gastroesophageal reflux disease) Sleep apnea With CPAP HTN (hypertension) HLD (hyperlipidemia) Diabetic retinopathy Diabetes type 2, controlled A1c 6.7 12/2022 COPD (chronic obstructive pulmonary disease) Surgical History Surgical History Hx of craniotomy removal of brain tumor as a child Hx of tonsillectomy Family History Family History Mother Heart disease Father Cirrhosis Social History Social History Social History: He and his have been since he was 17. A used to smoke 2.5 packs of cigarettes per day but quit approximately 2018. He reports that is not unusual for him to drink 18 beers a day. He has drink heavily since he was 26 years old. He quit drinking alcohol 02/07/2023. He denies illicit substance use. Code status: DNR/DNI per patient request Surrogate decision maker: Smoking packs per day: 2.5 Smoking cigarettes per day: 50.0 Years smoked: 45 Smoking pack-years: 112.50 Smoking status: Former smoker Tobacco type: cigarettes Smoking end date: 02/22/18 Alcohol intake: former Drinks per week: 105 Substance use: never Substance use type: does not use Lack of Transportation: No Lack of Food: Never True Current Housing: I Have Housing Concerned About Future Housing: No Difficulty Paying Gas/Electric Bills: No Difficulty Paying for Meds: No Currently Unemployed: No Education: Trade/Vocational Certificate Difficulty w/ Childcare or Family Care: No Gender identity (if verbalized by the patient): Male Sexual Orientation (if Verbalized by the Patient): Straight or Heterosexual Spiritual care concerns: No Comments At time of signature, agree with nursing past medical, surgical, social and family history. There is no relevant family history pertinent to the presenting complaint. Exam Narrative: GENERAL: This is a well-nourished, well-developed patient, in no apparent distress. HEAD: normocephalic, atraumatic. EYES: PERRL. Sclera clear/white. Vision is grossly intact. EARS: External ears normal NOSE: External nose normal NECK: Neck supple, non-tender without lymphadenopathy, masses or thyromegaly. CARDIOVASCULAR: Regular rate and rhythm without murmurs, gallops, or rubs. RESPIRATORY: Clear to auscultation. Breath sounds equal bilaterally. No wheezes, rales, or rhonchi. SKIN: warm, Dry, intact with no suspicious lesions or rash, good texture and turgor. NEURO: awake, alert, and oriented to person, place and time. There were no obvious focal neurologic abnormalities. EXTREMITIES: No joint tenderness, effusion, or edema noted. Course Course Level of Care: Express Care Visit Vital Signs Vital signs: Vital Signs Temperature 37.4 C 03/17/25 11:29 Pulse Rate 75 03/17/25 11:29 Respiratory Rate 16 03/17/25 11:29 Blood Pressure 149/97 H 03/17/25 11:29 Pulse Oximetry 97 03/17/25 11:29 Oxygen Delivery Room Air 03/17/25 11:29 Temperature 37.4 C 03/17/25 11:32 Pulse Rate 75 03/17/25 11:32 Respiratory Rate 16 03/17/25 11:32 Blood Pressure 149/97 H 03/17/25 11:32 Pulse Oximetry 97 03/17/25 11:32 Oxygen Delivery Room Air 03/17/25 11:32 reviewed MDM - Male Genitourinary MDM Narrative Medical decision making narrative: urinalysis +leukocytes, nitrites, blood. well-appearing, nontoxic. Afebrile. Will treat with antibiotic for urinary tract infection. Has appointment with urologist this week. Stable for outpatient therapy. Lab Data Labs: Lab Results 03/17/25 Range/Units 11:46 POC Urine Color Yellow POC Urine Clarity Cloudy POC Urine pH 5.5 POC Ur Specif [place] 1.010 POC Urine Protein Trace (Negative) POC Ur Glucose (UA) 3+ (Negative) POC Urine Ketones Negative (Negative) POC Urine Blood Trace (Negative) POC Urine Nitrite Positive (Negative) POC Urine Bilirubin Negative (Negative) POC Urine Urobilinogen 0.2 POC U Leukocyte Esteras 1+ (Negative) Discharge Plan Discharge Clinical Impression: Urinary tract infection Patient Disposition: Home Condition: Stable Instructions: Antibiotic Form, Urinary Tract Infection in Men (ED) Additional Instructions: Take antibiotic as prescribed until gone. Follow-up with urologist at scheduled appointment. If you have severe pain, fever, vomiting go to the ER. Patient Language: [place] Prescriptions: New amoxicillin-pot clavulanate 875-125 mg tablet 1 tablet PO Q12H 10 Days Qty: 20 0RF No Action carvedilol 6.25 mg tablet 6.25 mg PO BID lovastatin 40 mg tablet 40 mg PO HS Fish Oil glipizide 10 mg tablet 10 mg PO BID metformin 1,000 mg tablet 1,000 mg PO BID Eliquis 5 mg Tablet 5 mg PO BID omeprazole 20 mg Capsule,Delayed Release(Dr/Ec) 20 mg PO DIRECTED trazodone 50 mg Tablet 50 mg PO HS PRN (Reason: Insomnia) Qty: 30 0RF folic acid 1 mg Tablet 1 mg PO DAILY 30 Days Qty: 30 0RF Follow-up/Referrals: [facility] [Primary Care Provider] - Time of Disposition: 12:24
== END 2025-03-17 12:32 | disposition home or self-care (01) ==
PROVIDERS: Emergency Provider Nurse Practitioner Family
DX: N39.0 Urinary tract infection, site not specified (principal); I48.91 Unspecified atrial fibrillation; E03.9 Hypothyroidism, unspecified; K21.9 Gastro-esophageal reflux disease without esophagitis; G47.33 Obstructive sleep apnea (adult) (pediatric); I10 Essential (primary) hypertension; E78.5 Hyperlipidemia, unspecified; E11.319 Type 2 diabetes mellitus with unspecified diabetic retinopathy without macular edema; Z79.84 Long term (current) use of oral hypoglycemic drugs; Z79.01 Long term (current) use of anticoagulants; Z87.891 Personal history of nicotine dependence
CPT/HCPCS: 81003; 87077; 87086; 87186; 99213; G0463

== ENCOUNTER 2025-06-12 15:07 | Emergency (ER) | payer OTHER, SELFPAY ==
--- NOTE | 2025-06-12 15:08 | ED.MALEGU ---
HPI - Male Genitourinary General Chief complaint: Urogenital-Male Stated complaint: UTI Time Seen by Provider: 06/12/25 15:08 Source: patient Mode of arrival: ambulatory Limitations: no limitations History of Present Illness HPI Narrative: Patient is a 69-year-old male who presents with 4 days lower abdominal pain, bladder spasms, dark urine and malodorous urine. Patient recently started Ozempic. Denies any low back pain, nausea, burning with urination, frequency urgency. Reports itis fever of 101. Related Data Home Medications ?Medication ?Instructions ?Recorded ?Confirmed ?Last Taken ?Type glipizide 10 mg tablet 10 mg PO BID 12/11/20 07/17/24 Unknown History metformin 1,000 mg tablet 1,000 mg PO BID 12/11/20 07/17/24 Unknown History apixaban 5 mg tablet (Eliquis) 5 mg PO BID 12/12/20 07/17/24 Unknown History carvedilol 6.25 mg tablet 6.25 mg PO BID 10/16/22 07/17/24 Unknown History omeprazole 20 mg capsule,delayed 20 mg PO DIRECTED 02/22/23 07/17/24 Unknown History release lovastatin 40 mg tablet 40 mg PO HS 05/24/24 07/17/24 Unknown History Fish Oil 03/17/25 Unknown History Allergies Allergy/AdvReac Type Severity Reaction Status Date / Time empagliflozin (From AdvReac Intermediate Rash Verified 06/12/25 15:09 Jardiance) Review of Systems Review of Systems: All systems reviewed & are unremarkable except as noted in HPI and below Constitutional: Constitutional: Denies chills, Reports fever(s), Denies headache(s), Denies malaise and Denies weakness Eyes: Eyes: Denies change in vision, Denies eye discharge and Denies irritation ENT: Denies otalgia, Denies headache(s), Denies nasal congestion, Denies nasal discharge, Denies sinus pain and Denies sore throat Cardiovascular: Cardiovascular: Denies chest pain, Denies edema, Denies palpitations and Denies dyspnea Respiratory: Respiratory: Denies cough and Denies dyspnea Gastrointestinal: Gastrointestinal: Reports abdominal pain, Denies diarrhea, Denies nausea and Denies vomiting Genitourinary: Genitourinary: Denies hematuria, Denies dysuria, Denies flank pain and Denies urinary urgency Musculoskeletal: Musculoskeletal: Denies back pain and Denies numbness Integumentary/Breasts: Skin/Breast: Denies pruritus and Denies rash Neurologic: Denies headache(s), Denies numbness and Denies weakness Psychiatric: Psychiatric: Reports no additional psychiatric complaints Endocrine: Endocrine: Denies palpitations REPLACED BY [facility] Past Medical History Medical History Chronic hyponatremia Atrial fibrillation Chronic anticoagulation GIB (gastrointestinal bleeding) Brain tumor Hypothyroidism UTI (urinary tract infection) GERD (gastroesophageal reflux disease) Sleep apnea With CPAP HTN (hypertension) HLD (hyperlipidemia) Diabetic retinopathy Diabetes type 2, controlled A1c 6.7 12/2022 COPD (chronic obstructive pulmonary disease) Surgical History Surgical History Hx of craniotomy removal of brain tumor as a child Hx of tonsillectomy Family History Family History Mother Heart disease Father Cirrhosis Social History Social History Social History: He and his have been since he was 17. A used to smoke 2.5 packs of cigarettes per day but quit approximately 2018. He reports that is not unusual for him to drink 18 beers a day. He has drink heavily since he was 26 years old. He quit drinking alcohol 02/07/2023. He denies illicit substance use. Code status: DNR/DNI per patient request Surrogate decision maker: Smoking packs per day: 2.5 Smoking cigarettes per day: 50.0 Years smoked: 45 Smoking pack-years: 112.50 Smoking status: Former smoker Tobacco type: cigarettes Smoking end date: 02/22/18 Alcohol intake: former Drinks per week: 105 Substance use: never Substance use type: does not use Lack of Transportation: No Lack of Food: Never True Current Housing: I Have Housing Concerned About Future Housing: No Difficulty Paying Gas/Electric Bills: No Difficulty Paying for Meds: No Currently Unemployed: No Education: Trade/Vocational Certificate Difficulty w/ Childcare or Family Care: No Gender identity (if verbalized by the patient): Male Sexual Orientation (if Verbalized by the Patient): Straight or Heterosexual Spiritual care concerns: No Comments At time of signature, agree with nursing past medical, surgical, social and family history. There is no relevant family history pertinent to the presenting complaint. Exam Const: General: cooperative, healthy appearing, comfortable, no acute distress and well nourished Nutritional Appearance: well nourished Orientation/consciousness: patient oriented x3 HENMT: Head: normocephalic and atraumatic Ears: external ears normal Face/Nose/Sinus: Normal external nose present, Normal nares present and normal facial exam Face and sinus: normal facial exam Eyes: General: appearance normal, both eyes and all related structures Pupils: Equal, round and reactive pupils present EOM: EOMs intact bilaterally Neck: Neck: normal visual inspection, full ROM and supple Chest: Chest palpation & inspection: normal inspection of the chest Resp: Effort & Inspection: normal respiratory effort and able to speak in complete sentences Cardio: Rate: regular rate Rhythm: regular rhythm GI: Inspection: normal to inspection GI Palp: No abdominal tenderness and Yes Soft to palpation : General: Yes no CVA tenderness Back/Spine/Pelvis: Back: no CVA tenderness Skin: General skin exam: normal color and no rashes or lesions noted Neuro: General: patient oriented x3 and moves all extremities Cranial nerves: Yes Equal, round and reactive pupils present Extrem: General: normal to inspection and full ROM Psych: Appearance: grossly normal and well kempt Course Course Emergency Course: Patient is aware of diagnosis, understands and agrees to treatment plan. Anticipatory guidance given. Patient agrees to follow-up as directed and is aware of reasons to seek care at the emergency department. Portions of this record may have been created with voice recognition software Level of Care: Express Care Visit Vital Signs Vital signs: Vital Signs Temperature 36.7 C 06/12/25 15:20 Pulse Rate 77 06/12/25 15:20 Respiratory Rate 18 06/12/25 15:20 Blood Pressure 132/71 06/12/25 15:20 Pulse Oximetry 98 06/12/25 15:20 Oxygen Delivery Room Air 06/12/25 15:20 Temperature 36.7 C 06/12/25 15:20 Pulse Rate 77 06/12/25 15:20 Respiratory Rate 18 06/12/25 15:20 Blood Pressure 132/71 06/12/25 15:20 Pulse Oximetry 98 06/12/25 15:20 Oxygen Delivery Room Air 06/12/25 15:20 Reviewed MDM - Male Genitourinary MDM Narrative Medical decision making narrative: Exam findings and UA show probable UTI, will treat with antibiotics. Patient needs to follow-up with urologist; patient is non-toxic appearing and is in no distress. No CMT, adnexal tenderness, or evidence of pelvic etiology. Patient is appropriate for outpatient treatment and follow-up. Differential Diagnosis Differential diagnosis: Likely urinary tract infection, urethritis, epididymitis and prostatitis Medical Records Attestation: I reviewed the patient's medical records. Lab Data Attestation: I reviewed the patient's lab results. Labs: Lab Results 06/12/25 Range/Units 16:15 POC Urine Color [place] POC Urine Clarity Cloudy POC Urine pH 6.0 POC Ur Specif [place] 1.020 POC Urine Protein 2+ (Negative) POC Ur Glucose (UA) 3+ (Negative) POC Urine Ketones Negative (Negative) POC Urine Blood 1+ (Negative) POC Urine Nitrite Negative (Negative) POC Urine Bilirubin Negative (Negative) POC Urine Urobilinogen 0.2 POC U Leukocyte Esteras Trace (Negative) Discharge Plan Discharge Clinical Impression: Acute UTI Patient Disposition: Home Condition: Stable Instructions: Urinary Tract Infection in Men (ED) Additional Instructions: We will send a urine culture to the lab, based on your symptoms and urine dip we will start treatment today. If culture comes back and bacteria is not susceptible to antibiotic, your prescription may change. Your symptoms should improve within a day of starting antibiotics, but you should finish all the antibiotic pills you get. Otherwise your infection might come back Continue with increased water intake. Take Tylenol or ibuprofen as needed for pain or fever. Follow-up with primary care provider for urine recheck or see ER visit if condition worsens with high fever, nausea, vomiting, severe back pain Patient Language: Welsh Prescriptions: New sulfamethoxazole-trimethoprim 800-160 mg tablet 1 tablet PO Q12H 10 Days Qty: 20 0RF No Action carvedilol 6.25 mg tablet 6.25 mg PO BID lovastatin 40 mg tablet 40 mg PO HS Fish Oil glipizide 10 mg tablet 10 mg PO BID metformin 1,000 mg tablet 1,000 mg PO BID Eliquis 5 mg Tablet 5 mg PO BID omeprazole 20 mg Capsule,Delayed Release(Dr/Ec) 20 mg PO DIRECTED trazodone 50 mg Tablet 50 mg PO HS PRN (Reason: Insomnia) Qty: 30 0RF folic acid 1 mg Tablet 1 mg PO DAILY 30 Days Qty: 30 0RF Follow-up/Referrals: [facility] [Primary Care Provider, Medical] - 3 Days Time of Disposition: 16:34
[2025-06-12 15:20] VITALS: BP 132/71; PULSE 77; RESP 18; TEMP 36.7; O2SAT 98
[2025-06-12 16:28] LABS: EDUAAPPEAR Cloudy; EDUABILI Negative (Negative); EDUABLOOD 1+ (Negative); EDUACOLOR1 Amber; EDUAGLUCOSE 3+ (Negative); EDUAKETONE Negative (Negative); EDUALEUKO Trace (Negative); EDUANITRATE Negative (Negative); EDUAPH 6.0; EDUAPROTEIN 2+ (Negative); EDUASPGRAVITY 1.020; EDUAUROBILI 0.2
== END 2025-06-12 16:45 | disposition home or self-care (01) ==
PROVIDERS: Emergency Provider Nurse Practitioner Family
DX: N39.0 Urinary tract infection, site not specified (principal); I48.91 Unspecified atrial fibrillation; E11.319 Type 2 diabetes mellitus with unspecified diabetic retinopathy without macular edema; Z79.84 Long term (current) use of oral hypoglycemic drugs; I10 Essential (primary) hypertension; E78.5 Hyperlipidemia, unspecified; E03.9 Hypothyroidism, unspecified; J44.9 Chronic obstructive pulmonary disease, unspecified; K21.9 Gastro-esophageal reflux disease without esophagitis; G47.30 Sleep apnea, unspecified; Z79.01 Long term (current) use of anticoagulants; Z87.891 Personal history of nicotine dependence
CPT/HCPCS: 81003; 87077; 87086; 87186; 99213; G0463

== ENCOUNTER 2025-08-19 18:22 | Emergency (ER) | payer OTHER, SELFPAY ==
--- NOTE | ~2025-08-19 | CT_ITS ---
Lalo Sexton EXAMINATION: CT abdomen pelvis w con COMPARISON: None HISTORY: Pneumaturia TECHNIQUE: Axial images were obtained through the abdomen, pelvis post administration of IV contrast. Oral contrast was also administered. Coronal reconstruction images were obtained from the axial views. CT scan performed using dose optimization techniques including the following automated exposure control; adjustment of mA and/or kV; use of iterative reconstruction technique. Automatic exposure control was used to reduce radiation dose. Permanent radiation dose record is archived to PACS. FINDINGS: CT abdomen: LUNG BASES: The lung bases demonstrate chronic changes with scattered areas of groundglass attenuation more focal in the right middle lobe nonspecific, correlate with symptoms of bronchopneumonia, dedicated chest CT may be of benefit. LIVER: Mild cirrhotic disease of the liver suspected. There are calcified liver granulomas. The main portal vein is patent. There is no intrahepatic biliary duct dilatation. SPLEEN: No calcified splenic granulomas noted.. KIDNEYS: Right Kidney: The right kidney renal parenchyma demonstrates a heterogeneous appearance with subcentimeter probable renal cysts. Left Kidney: The left kidney renal parenchyma demonstrates a heterogeneous appearance with subcentimeter probable renal cysts. ADRENAL GLANDS: Unremarkable. PANCREAS: Mild atrophy of the pancreas. Arising from the head of the pancreas there is a cystic lesion measuring 2.5 x 2 cm possibly an exophytic pancreatic cyst however distinction from a mesenteric cyst is limited. GALLBLADDER/BILIARY: Unremarkable. No biliary dilatation. STOMACH AND ESOPHAGUS: There is thickening of the esophagus may represent mild esophagitis. BOWEL/MESENTERY: Moderate fecal content. Moderate diverticulosis. No colitis or diverticulitis. Appendix normal. Mesentery normal. No thickened or dilated loops of small bowel. ADENOPATHY/RETROPERITONEUM: No lymphadenopathy. AORTA/VASCULATURE: Dense calcified atherosclerotic changes of the aorta without aneurysm. FREE FLUID OR FREE AIR: Trace free fluid.. CT pelvis: SOLID ORGANS/REPRODUCTIVE: The prostate is enlarged correlate with PSA. BLADDER: The bladder is distended. OSSEOUS STRUCTURES: No acute osseous abnormality.No suspicious lesions. OVERLYING SOFT TISSUES: Unremarkable. IMPRESSION: 1. Nonspecific heterogeneity of the renal parenchyma bilaterally, correlate for underlying pyelonephritis. No abscess is identified. Follow-up is recommended to assess. Other etiologies are not excluded. 2. Possible cystic pancreatic lesion. Contrast-enhanced MRI recommended Reviewed, dictated and finalized at location [facility]
--- NOTE | 2025-08-19 18:54 | ED.MALEGU ---
HPI - Male Genitourinary General Chief complaint: Urogenital-Male Stated complaint: I passed gas while urinating through - Time Seen by Provider: 08/19/25 18:28 History of Present Illness HPI Narrative: Patient is a 69-year-old male presents to the ER with air when I pee and I just feel yucky. He reports he has had chronic urinary tract infections over the past year (approximately 8-9). Patient reports he started releasing gas with urination yesterday. He denies any hematuria, abdominal pain, or recent fevers. Patient endorses a history of constipation, chronic back pain, atrial fibrillation and diabetes. He reports he his normal temperature ranges from 97.4 to 97.8 but recently has been in the 99 range. Related Data Home Medications ?Medication ?Instructions ?Recorded ?Confirmed ?Last Taken ?Type glipizide 10 mg tablet 10 mg PO BID 12/11/20 07/17/24 Unknown History metformin 1,000 mg tablet 1,000 mg PO BID 12/11/20 07/17/24 Unknown History apixaban 5 mg tablet (Eliquis) 5 mg PO BID 12/12/20 07/17/24 Unknown History carvedilol 6.25 mg tablet 6.25 mg PO BID 10/16/22 07/17/24 Unknown History omeprazole 20 mg capsule,delayed 20 mg PO DIRECTED 02/22/23 07/17/24 Unknown History release lovastatin 40 mg tablet 40 mg PO HS 05/24/24 07/17/24 Unknown History Fish Oil 03/17/25 Unknown History Allergies Allergy/AdvReac Type Severity Reaction Status Date / Time empagliflozin (From AdvReac Intermediate Rash Verified 06/12/25 15:09 Jardiance) Review of Systems Review of Systems: All systems reviewed & are unremarkable except as noted in HPI and below PMFSH Past Medical History Medical History Chronic hyponatremia Atrial fibrillation Chronic anticoagulation GIB (gastrointestinal bleeding) Brain tumor Hypothyroidism UTI (urinary tract infection) GERD (gastroesophageal reflux disease) Sleep apnea With CPAP HTN (hypertension) HLD (hyperlipidemia) Diabetic retinopathy Diabetes type 2, controlled A1c 6.7 12/2022 COPD (chronic obstructive pulmonary disease) Surgical History Surgical History Hx of craniotomy removal of brain tumor as a child Hx of tonsillectomy Family History Family History Mother Heart disease Father Cirrhosis Social History Social History Social History: He and his have been since he was 17. A used to smoke 2.5 packs of cigarettes per day but quit approximately 2017. He reports that is not unusual for him to drink 18 beers a day. He has drink heavily since he was 26 years old. He quit drinking alcohol 02/07/2023. He denies illicit substance use. Code status: DNR/DNI per patient request Surrogate decision maker: Smoking packs per day: 2.5 Smoking cigarettes per day: 50.0 Years smoked: 45 Smoking pack-years: 112.50 Smoking status: Former smoker Tobacco type: cigarettes Smoking end date: 02/22/18 Alcohol intake: former Drinks per week: 105 Substance use: never Substance use type: does not use Lack of Transportation: No Lack of Food: Never True Current Housing: I Have Housing Concerned About Future Housing: No Difficulty Paying Gas/Electric Bills: No Difficulty Paying for Meds: No Currently Unemployed: No Education: Trade/Vocational Certificate Difficulty w/ Childcare or Family Care: No Gender identity (if verbalized by the patient): Male Sexual Orientation (if Verbalized by the Patient): Straight or Heterosexual Spiritual care concerns: No Exam Narrative: GENERAL: Well appearing, obese, non-toxic, in no acute distress. HEAD: Normocephalic, atraumatic. NECK: Supple. No adenopathy, no masses. RESPIRATORY: Airway patent, respirations nonlabored. Clear to auscultation bilaterally, no rales, rhonchi, wheezing. CARDIOVASCULAR: Regular rate and rhythm without murmurs, rubs, or gallops. Peripheral pulses 2+ and equal bilaterally. ABDOMINAL: Soft, nontender, nondistended, no hepatosplenomegaly. Normoactive BS. MUSCULOSKELETAL: Moves all extremities. Strength/ROM intact without gross deformities. SKIN: Warm, dry, normal color. No rashes. NEURO: A&O X3. Speech clear. Cranial nerves II-XII intact. No ataxic movements. PSYCHIATRIC: Appropriate mood and affect. Normal interaction. Course Vital Signs Vital signs: Vital Signs Temperature 36.8 C 08/19/25 19:03 Pulse Rate 74 08/19/25 19:03 Respiratory Rate 20 08/19/25 19:03 Blood Pressure 144/83 H 08/19/25 19:03 Pulse Oximetry 99 08/19/25 19:03 Oxygen Delivery Room Air 08/19/25 19:03 Temperature 36.7 C 08/19/25 22:41 Pulse Rate 78 08/19/25 22:41 Respiratory Rate 19 08/19/25 22:41 Blood Pressure 140/75 08/19/25 22:41 Pulse Oximetry 100 08/19/25 22:41 Oxygen Delivery Room Air 08/19/25 19:03 MDM MDM Narrative Medical decision making narrative: Patient is a 69-year-old male presents to the ER with air when I pee and I just feel yucky. He reports he has had chronic urinary tract infections over the past year (approximately 8-9). Patient reports he started releasing gas with urination yesterday. He denies any hematuria, abdominal pain, or recent fevers. Patient endorses a history of constipation, chronic back pain, atrial fibrillation and diabetes. He reports he was normal the only temperature ranges from 97.4 to 97.8 but recently has been in the 99 range. Labs Ordered:CBC, CMP, UA Imaging Ordered:CT abdomen/pelvis Medications Ordered: 1 L normal saline IV bolus, ceftriaxone 1 g IV Results: Pt's CT indicates CT abdomen: LUNG BASES: The lung bases demonstrate chronic changes with scattered areas of groundglass attenuation more focal in the right middle lobe nonspecific, correlate with symptoms of bronchopneumonia, dedicated chest CT may be of benefit. LIVER: Mild cirrhotic disease of the liver suspected. There are calcified liver granulomas. The main portal vein is patent. There is no intrahepatic biliary duct dilatation. SPLEEN: No calcified splenic granulomas noted.. KIDNEYS: Right Kidney: The right kidney renal parenchyma demonstrates a heterogeneous appearance with subcentimeter probable renal cysts. Left Kidney: The left kidney renal parenchyma demonstrates a heterogeneous appearance with subcentimeter probable renal cysts. ADRENAL GLANDS: Unremarkable. PANCREAS: Mild atrophy of the pancreas. Arising from the head of the pancreas there is a cystic lesion measuring 2.5 x 2 cm possibly an exophytic pancreatic cyst however distinction from a mesenteric cyst is limited. GALLBLADDER/BILIARY: Unremarkable. No biliary dilatation. STOMACH AND ESOPHAGUS: There is thickening of the esophagus may represent mild esophagitis. BOWEL/MESENTERY: Moderate fecal content. Moderate diverticulosis. No colitis or diverticulitis. Appendix normal. Mesentery normal. No thickened or dilated loops of small bowel. ADENOPATHY/RETROPERITONEUM: No lymphadenopathy. AORTA/VASCULATURE: Dense calcified atherosclerotic changes of the aorta without aneurysm. FREE FLUID OR FREE AIR: Trace free fluid.. CT pelvis: SOLID ORGANS/REPRODUCTIVE: The prostate is enlarged correlate with PSA. BLADDER: The bladder is distended. OSSEOUS STRUCTURES: No acute osseous abnormality.No suspicious lesions. OVERLYING SOFT TISSUES: Unremarkable. Diagnosis: urinary tract infection, pyelonephritis, pancreatic lesions Patient has chosen to refuse further care. Risks of an incomplete evaluation and treatment were discussed with the patient, including potential for or permanent disability. Patient seems to understand these risks, but still desires to refuse further care. Patient recommended to follow up with PCP in the next possible interval. Specifically, patient was told they can return to the ED at any time to resume care. Differential Diagnosis Differential Diagnosis: pneumaturia, fistula, pancreatitis, COVID, flu, urinary tract infection, pyelonephritis Lab Data MDM Lab Attestation statement: I personally reviewed the patient's lab results. 08/19/25 19:02 08/19/25 19:02 Labs: Lab Results 08/19/25 08/19/25 08/19/25 Range/Units 18:59 19:02 20:27 WBC 6.9 (4.5-10.0) K/mm3 RBC 4.38 L (4.6-6.20) M/mm3 Hgb 13.3 L (14.0-18.0) g/dL Hct 38.2 L (42.0-52.0) % MCV 87.2 (80-100) fl MCH 30.4 (26-34) pg MCHC 34.8 (32-36) g/dl RDW 13.9 (11.5-14.5) % Plt Count 192 (150-375) k/mm3 MPV 10.6 H (7.4-10.4) fl Immature Gran % (Auto) 0.9 H (0-0.5) % Neut % (Auto) 73.2 H (45.5-73.1) % Lymph % (Auto) 13.3 L (18.3-44.2) % [place] % (Auto) 10.4 H (2.6-8.5) % Eos % (Auto) 1.3 (0-4.4) % Baso % (Auto) 0.9 (0.2-1.2) % Lymph # (Auto) 0.92 (0.9-3.2) K/mm3 [place] # (Auto) 0.7 H (0.1-0.6) K/mm3 Eos # (Auto) 0.1 (0-0.3) K/mm3 Baso # (Auto) 0.1 (0.0-0.1) K/mm3 Abs Immat Gran (auto) 0.06 H (0.00-0.031) K/mm3 Absolute Neuts (auto) 5.1 (1.3-6.7) K/mm3 Absolute Nucleated RBC 0.000 (0.0-0.012) K/mm3 Nucleated RBC % 0.0 (0.0-0.2) % ESR 40 H (0-20) mm/hr PT 13.4 (11.1-14.7) Seconds INR 1.0 APTT 29.6 (22.3-36.8) Seconds Sodium 131 L (137-145) mmol/L Potassium 4.4 (3.4-5.0) mmol/L Chloride 100 (98-107) mmol/L Carbon Dioxide 24 (22-30) mmol/L Anion Gap 7 (4-12) mmol/L BUN 16 (9-20) mg/dL Creatinine 0.87 (0.7-1.3) mg/dL Estim Creat Clear Calc 100 ml/min Estimated GFR > 60 (59 - ) Glucose 363 H (65-110) mg/dL Lactic Acid (0.7-2.0) mmol/L Calcium 9.2 (8.4-10.2) mg/dL Phosphorus 3.7 (2.5-4.5) mg/dL Magnesium 1.8 (1.6-2.3) mg/dL Total Bilirubin 0.7 (0.2-1.3) mg/dL AST 17 (17-59) U/L ALT 16 (6-50) U/L Alkaline Phosphatase 71 (38-126) U/L C-Reactive Protein 2.4 H (<1.0) mg/dL Total Protein 7.2 (6.3-8.2) g/dL Albumin 3.9 (3.5-5.1) g/dL Lipase 126 (23-300) U/L Procalcitonin 0.0 ng/mL Urine Color Yellow (Yellow) Urine Appearance Cloudy H (Clear) Urine pH 5.0 (5.0-9.0) Ur Specific [place] 1.023 (1.001-1.035) Urine Protein 1+ H (Negative) mg/dL Urine Glucose (UA) 3+ H (Negative) mg/dL Urine Ketones Negative (Negative) mg/dL Ur Blood (Man) 1+ H (Negative) Urine Nitrate Negative (Negative) Urine Bilirubin Negative (Negative) Urine Urobilinogen 0.2 (<2.0) mg/dL Add Ur Microanalysis Reviewed Leukocyte Esterase Rfl 2+ H (Negative) JOY/UL Urine RBC 3-5 H (0-2) /hpf Urine WBC >100 H (0-3) /hpf Urine WBC Clumps Present H (None) /HPF Ur Squamous Epith Cells Occasional (Few) /hpf Urine Bacteria 4+ H /hpf Urine Casts 0-2 Ethyl Alcohol < 10 (<10) mg/dL Influenza A (RT-PCR) Negative (Negative) Influenza B (RT-PCR) Negative (Negative) RSV (RT-PCR) Negative (Negative) SARS-CoV-2 RNA (RT-PCR) Negative (Negative) 08/19/25 Range/Units 20:51 WBC (4.5-10.0) K/mm3 RBC (4.6-6.20) M/mm3 Hgb (14.0-18.0) g/dL Hct (42.0-52.0) % MCV (80-100) fl MCH (26-34) pg MCHC (32-36) g/dl RDW (11.5-14.5) % Plt Count (150-375) k/mm3 MPV (7.4-10.4) fl Immature Gran % (Auto) (0-0.5) % Neut % (Auto) (45.5-73.1) % Lymph % (Auto) (18.3-44.2) % [place] % (Auto) (2.6-8.5) % Eos % (Auto) (0-4.4) % Baso % (Auto) (0.2-1.2) % Lymph # (Auto) (0.9-3.2) K/mm3 [place] # (Auto) (0.1-0.6) K/mm3 Eos # (Auto) (0-0.3) K/mm3 Baso # (Auto) (0.0-0.1) K/mm3 Abs Immat Gran (auto) (0.00-0.031) K/mm3 Absolute Neuts (auto) (1.3-6.7) K/mm3 Absolute Nucleated RBC (0.0-0.012) K/mm3 Nucleated RBC % (0.0-0.2) % ESR (0-20) mm/hr PT (11.1-14.7) Seconds INR APTT (22.3-36.8) Seconds Sodium (137-145) mmol/L Potassium (3.4-5.0) mmol/L Chloride (98-107) mmol/L Carbon Dioxide (22-30) mmol/L Anion Gap (4-12) mmol/L BUN (9-20) mg/dL Creatinine (0.7-1.3) mg/dL Estim Creat Clear Calc ml/min Estimated GFR (59 - ) Glucose (65-110) mg/dL Lactic Acid 1.3 (0.7-2.0) mmol/L Calcium (8.4-10.2) mg/dL Phosphorus (2.5-4.5) mg/dL Magnesium (1.6-2.3) mg/dL Total Bilirubin (0.2-1.3) mg/dL AST (17-59) U/L ALT (6-50) U/L Alkaline Phosphatase (38-126) U/L C-Reactive Protein (<1.0) mg/dL Total Protein (6.3-8.2) g/dL Albumin (3.5-5.1) g/dL Lipase (23-300) U/L Procalcitonin ng/mL Urine Color (Yellow) Urine Appearance (Clear) Urine pH (5.0-9.0) Ur Specific [place] (1.001-1.035) Urine Protein (Negative) mg/dL Urine Glucose (UA) (Negative) mg/dL Urine Ketones (Negative) mg/dL Ur Blood (Man) (Negative) Urine Nitrate (Negative) Urine Bilirubin (Negative) Urine Urobilinogen (<2.0) mg/dL Add Ur Microanalysis Leukocyte Esterase Rfl (Negative) JOY/UL Urine RBC (0-2) /hpf Urine WBC (0-3) /hpf Urine WBC Clumps (None) /HPF Ur Squamous Epith Cells (Few) /hpf Urine Bacteria /hpf Urine Casts Ethyl Alcohol (<10) mg/dL Influenza A (RT-PCR) (Negative) Influenza B (RT-PCR) (Negative) RSV (RT-PCR) (Negative) SARS-CoV-2 RNA (RT-PCR) (Negative) Imaging Data Attestation: I personally reviewed and interpreted this imaging study as follows: Radiologist's impression: ITS Impressions Abdomen/Pelvis CT 08/19/25 19:43 IMPRESSION: 1. Nonspecific heterogeneity of the renal parenchyma bilaterally, correlate for underlying pyelonephritis. No abscess is identified. Follow-up is recommended to assess. Other etiologies are not excluded. 2. Possible cystic pancreatic lesion. Contrast-enhanced MRI recommended Discharge Plan Discharge Clinical Impression: Urinary tract infection, Pyelonephritis, Pancreatic lesion Patient Disposition: Left Against Medical Advice Condition: Stable Patient Language: [place] Prescriptions: No Action carvedilol 6.25 mg tablet 6.25 mg PO BID lovastatin 40 mg tablet 40 mg PO HS Fish Oil sulfamethoxazole-trimethoprim 800-160 mg tablet 1 tablet PO Q12H 10 Days Qty: 20 0RF glipizide 10 mg tablet 10 mg PO BID metformin 1,000 mg tablet 1,000 mg PO BID Eliquis 5 mg Tablet 5 mg PO BID omeprazole 20 mg Capsule,Delayed Release(Dr/Ec) 20 mg PO DIRECTED trazodone 50 mg Tablet 50 mg PO HS PRN (Reason: Insomnia) Qty: 30 0RF folic acid 1 mg Tablet 1 mg PO DAILY 30 Days Qty: 30 0RF Follow-up/Referrals: [facility] [Primary Care Provider, Medical]
[2025-08-19 19:03] VITALS: BP 144/83; PULSE 74; RESP 20; TEMP 36.8; O2SAT 99
[2025-08-19 19:12] LABS: Hematocrit 38.2 % (42.0-52.0); Hemoglobin 13.3 g/dL (14.0-18.0); Immature Granulocyte Percent A 0.9 % (0-0.5); Lymphocytes Absolute Auto 0.92 K/mm3 (0.9-3.2); Mean Corpuscular HGB Conc 34.8 g/dl (32-36); Mean Corpuscular Hemoglobin 30.4 pg (26-34); Mean Corpuscular Volume 87.2 fl (80-100); Nucleated Red Blood Cells Absolute Auto 0.000 K/mm3 (0.0-0.012); Nucleated Red Blood Cells Perc 0.0 % (0.0-0.2); Platelet Count Result 192 k/mm3 (150-375); Red Blood Count 4.38 M/mm3 (4.6-6.20); White Blood Count 6.9 K/mm3 (4.5-10.0)
[2025-08-19 19:20] LABS: Alanine Aminotransferase 16 U/L (6-50); Albumin Level 3.9 g/dL (3.5-5.1); Alkaline Phosphatase 71 U/L (38-126); Anion Gap 7 mmol/L (4-12); Aspartate Amino Transferase 17 U/L (17-59); Bilirubin,Total 0.7 mg/dL (0.2-1.3); Blood Urea Nitrogen 16 mg/dL (9-20); Calcium 9.2 mg/dL (8.4-10.2); Carbon Dioxide 24 mmol/L (22-30); Chloride 100 mmol/L (98-107); Estimated CRCL calculation 100 ml/min; Estimated Glomerular Filt Rate > 60; Glucose 363 mg/dL (65-110); Potassium 4.4 mmol/L (3.4-5.0); Sodium 131 mmol/L (137-145); Total Protein 7.2 g/dL (6.3-8.2)
[2025-08-19 19:39] LABS: Add Urine Microscopic? YES; Appearance Urine Cloudy (Clear); Glucose Urine UA 3+ mg/dL (Negative); Leukocyte Esterase Ur 2+ LEU/UL (Negative); Need Manual Microscopic Reviewed; Nitrate Urine Negative (Negative); Non Pathogenic Casts 0-2; Specific Grav Ur 1.023 (1.001-1.035)
[2025-08-19 19:46] LABS: Influenza A QL RT-PCR Negative (Negative); Influenza B QL RT-PCR Negative (Negative); RSV RNA, RT-PCR Negative (Negative); SARS-CoV-2 RNA PCR Negative (Negative)
[2025-08-19 20:44] LABS: INR 1.0; Prothrombin Time 13.4 Seconds (11.1-14.7)
[2025-08-19 20:45] LABS: Partial Thromboplastin Time 29.6 Seconds (22.3-36.8)
[2025-08-19 20:54] LABS: CRP 2.4 mg/dL (<1.0); Lipase 126 U/L (23-300); Magnesium 1.8 mg/dL (1.6-2.3)
[2025-08-19 21:20] LABS: Procalcitonin 0.0 ng/mL
[2025-08-19] MEDS: SODIUM CHLORIDE 0.9% IV 1,000 ML 999 ML IV CONT (21:23)
[2025-08-19] MEDS: cefTRIAXone 1 GM in SODIUM CHLORIDE 0.9% IV 50 ML 100 ML IVPB (21:23)
[2025-08-19 21:56] VITALS: BP 140/75; PULSE 78; RESP 19; TEMP 36.7; O2SAT 100
[2025-08-19 22:41] VITALS: BP 140/75; PULSE 78; RESP 19; TEMP 36.7; O2SAT 100
== END 2025-08-19 22:43 | disposition left against medical advice (07) ==
PROVIDERS: Emergency Provider Registered Nurse
DX: N39.0 Urinary tract infection, site not specified (principal); N12 Tubulo-interstitial nephritis, not specified as acute or chronic; K86.9 Disease of pancreas, unspecified; Z79.01 Long term (current) use of anticoagulants; M54.9 Dorsalgia, unspecified; G89.29 Other chronic pain; I48.91 Unspecified atrial fibrillation; E03.9 Hypothyroidism, unspecified; E11.319 Type 2 diabetes mellitus with unspecified diabetic retinopathy without macular edema; E78.5 Hyperlipidemia, unspecified; I10 Essential (primary) hypertension; J44.9 Chronic obstructive pulmonary disease, unspecified; G47.30 Sleep apnea, unspecified; Z99.89 Dependence on other enabling machines and devices; Z79.84 Long term (current) use of oral hypoglycemic drugs; Z87.891 Personal history of nicotine dependence; Z20.822 Contact with and (suspected) exposure to COVID-19
CPT/HCPCS: 36415; 74177; 80053; 81001; 82077; 83605; 83690; 83735; 84100; 84145; 85025; 85610; 85652; 85730; 86140; 87077; 87086; 87186; 87637; 96365; 99284; J0696; J7030; Q9967

== ENCOUNTER 2025-08-20 14:19 | Inpatient (IN) | payer MEDICARE, OTHER, SELFPAY ==
--- NOTE | ~2025-08-20 | CT_ITS ---
EXAMINATION: CT abdomen pelvis w con DATE: 08/20/2025 16:56 INDICATION: History of pneumaturia. TECHNIQUE: Computed tomography (CT) of the abdomen and pelvis was performed with IV contrast 100 cc Omnipaque 350 intravenous contrast. Automated exposure control and iterative reconstruction technique were employed. The dose-length product was 1563.97 mGy-cm. COMPARISON: CT with contrast dated 08/19/2025. FINDINGS: Lung bases do not show acute findings. No focal lesions of liver and spleen other than calcified granulomatous lesions. Hepatomegaly.. Gallbladder, bile ducts do not show acute findings. Stable 3.5 x 2 cm size cystic structure in the lesser peritoneal cavity posterior to the gastric antrum. Pancreas shows no acute findings. Mild cortical scarring of left kidney and perinephric stranding of both kidneys suggesting upper urinary tract infection. No calculi, obstruction or abscess. Diverticulosis of the distal colon. No CT evidence of acute diverticulitis. There is evidence of air in the urinary bladder, possibly due to cystitis. Mild enlargement of prostate. No herniations. Significant calcific atherosclerotic changes of the iliac arteries on both sides. IMPRESSION: 1. No calculi or obstruction of the upper urinary tract. Perinephric stranding of mild degree on both sides suggests upper urinary tract infection. No abscess at or around the kidneys. 2. Air noted in the urinary bladder possibly due to cystitis. No bladder calculi. 3. Stable cystic lesion, anterior to the pancreas in the lesser peritoneal sac. Possible pancreatic pseudocyst. 4. Significant atherosclerotic changes of iliac arteries on both sides. Reviewed, dictated and finalized at location T. T I FARMWORKER IMPRESSION: 1. No calculi or obstruction of the upper urinary tract. Perinephric stranding of mild degree on both sides suggests upper urinary tract infection. No abscess at or around the kidneys. 2. Air noted in the urinary bladder possibly due to cystitis. No bladder calcul i. 3. Stable cystic lesion, anterior to the pancreas in the lesser peritoneal sac. Possible pancreatic pseudocyst. 4. Significant atherosclerotic changes of iliac arteries on both sides.
[2025-08-20 14:30] VITALS: BP 133/71; PULSE 94; RESP 16; TEMP 36.7; O2SAT 96
--- NOTE | 2025-08-20 15:45 | ED_ITS ---
HPI - General Adult General Chief complaint: Urogenital-Male <ISREAL Perez - Last Filed: 08/20/25 15:54> Stated complaint: gas with urination <ISREAL Perez - Last Filed: 08/20/25 15:54> Time Seen by Provider: 08/20/25 17:04 <ISREAL Perez - Last Filed: 08/20/25 15:54> Focused HPI: 69 year old male presenting with concerns for air discharging from his penis. He reports he was seen in the ER yesterday where he left AMA. Reports a significant history of UTIs counting 8 or 9 within this last year. He has not attended appointments where he was scheduled for further workup and care. Denies hematuria, dysuria, fevers/chill, abdominal pain, or nausea/vomiting/diarrhea. GENERAL: No acute distress. HEAD: Normocephalic, atraumatic. CHEST: Clear to auscultation. ?No respiratory distress. ABDOMEN: No TTP. HEART: Regular rate and rhythm.? NEURO: ?Alert and oriented x3. Patient screened in triage and initial orders placed.? ?Additional care and disposition to be based upon?diagnostic testing and treatment. <ISREAL Perez - Last Filed: 08/20/25 15:54> History of Present Illness HPI narrative: per HPI <Billie Malcolm MD - Last Filed: 08/20/25 19:33> Related Data Home medications: Home Medications ?Medication ?Instructions ?Recorded ?Confirmed ?Last Taken ?Type glipizide 10 mg tablet 10 mg PO BID 12/11/20 Unknown History metformin 1,000 mg tablet 1,000 mg PO BID 12/11/2001/04 Unknown History apixaban 5 mg tablet (Eliquis) 5 mg PO BID 12/12/20 Unknown History carvedilol 6.25 mg tablet 6.25 mg PO BID 10/16/2201/04 Unknown History omeprazole 20 mg capsule,delayed 20 mg PO DIRECTED 02/22/23 07/17/24 Unknown History release lovastatin 40 mg tablet 40 mg PO HS 05/24/24 4 Unknown History Fish Oil 03/17/25 Unknown History <ISREAL Perez - Last Filed: 08/20/25 15:54> Allergies/adverse reactions: Allergies Allergy/AdvReac Type Severity Reaction Status Date / Time empagliflozin (From AdvReac Intermediate Rash Verified 06/12/25 15:09 Jardiance) <ISREAL Perez - Last Filed: 08/20/25 15:54> Review of Systems 2 Review of Systems: All systems reviewed & are unremarkable except as noted in HPI and below <Joselin Mathis PA-C - Last Filed: 08/20/25 17:59> [facility] Past Medical History Medical History: Medical History Chronic hyponatremia Atrial fibrillation Chronic anticoagulation GIB (gastrointestinal bleeding) Brain tumor Hypothyroidism UTI (urinary tract infection) GERD (gastroesophageal reflux disease) Sleep apnea With CPAP HTN (hypertension) HLD (hyperlipidemia) Diabetic retinopathy Diabetes type 2, controlled A1c 6.7 12/2022 COPD (chronic obstructive pulmonary disease) <ISREAL Perez - Last Filed: 08/20/25 15:54> Surgical History Surgical History: Surgical History Hx of craniotomy removal of brain tumor as a child Hx of tonsillectomy <ISREAL Perez - Last Filed: 08/20/25 15:54> Family History Family History: Family History Mother Heart disease Father Cirrhosis <ISREAL Perez - Last Filed: 08/20/25 15:54> Social History Social History: Social History Social History: He and his have been since he was 17. A used to smoke 2.5 packs of cigarettes per day but quit approximately 2018. He reports that is not unusual for him to drink 18 beers a day. He has drink heavily since he was 26 years old. He quit drinking alcohol 02/07/2023. He denies illicit substance use. Code status: DNR/DNI per patient request Surrogate decision maker: Smoking packs per day: 2.5 Smoking cigarettes per day: 50.0 Years smoked: 45 Smoking pack-years: 112.50 Smoking status: Former smoker Tobacco type: cigarettes Smoking end date: 02/22/18 Alcohol intake: former Drinks per week: 105 Substance use: never Substance use type: does not use Lack of Transportation: No Lack of Food: Never True Current Housing: I Have Housing Concerned About Future Housing: No Difficulty Paying Gas/Electric Bills: No Difficulty Paying for Meds: No Currently Unemployed: No Education: Trade/Vocational Certificate Difficulty w/ Childcare or Family Care: No Gender identity (if verbalized by the patient): Male Sexual Orientation (if Verbalized by the Patient): Straight or Heterosexual Spiritual care concerns: No <ISREAL Perez - Last Filed: 08/20/25 15:54> Exam 2 Narrative: GENERAL: Well-appearing, well-nourished, and in no acute distress. HEAD: Normocephalic, atraumatic. EYES: EOMI. CHEST: Clear to auscultation. No respiratory distress. No wheezes rales or rhonchi HEART: Regular rate and rhythm. No murmur heard. Normal peripheral pulses. ABDOMEN: Soft, nontender, nondistended, normal active bowel sounds. EXTREMITIES: Normal range of motion. No edema. SKIN: Warm, dry, no rash. NEURO: No focal deficits. Alert and oriented x3. PSYCH: Normal mood and affect <Joselin Mathis PA-C - Last Filed: 08/20/25 17:59> Course SURGICAL ATTENDANT/PA Physician Supervision This visit was performed by both a physician and an APC; I performed all aspects of the medical decision making component of this evaluation as documented. <Billie Malcolm MD - Last Filed: 08/20/25 19:33> Vital Signs Vital signs: Vital Signs Temperature 98.0 F 08/20/25 14:30 Pulse Rate 94 08/20/25 14:30 Respiratory Rate 16 08/20/25 14:30 Blood Pressure 133/71 08/20/25 14:30 Pulse Oximetry 96 08/20/25 14:30 Oxygen Delivery Room Air 08/20/25 14:30 Temperature 98.0 F 08/20/25 14:30 Pulse Rate 58 L 08/20/25 16:05 Respiratory Rate 17 08/20/25 16:05 Blood Pressure 133/71 08/20/25 16:05 Pulse Oximetry 98 08/20/25 16:05 Oxygen Delivery Room Air 08/20/25 14:30 <ISREAL Perez - Last Filed: 08/20/25 15:54> Vital Signs Temperature 98.0 F 08/20/25 14:30 Pulse Rate 94 08/20/25 14:30 Respiratory Rate 16 08/20/25 14:30 Blood Pressure 133/71 08/20/25 14:30 Pulse Oximetry 96 08/20/25 14:30 Oxygen Delivery Room Air 08/20/25 14:30 Temperature 98.0 F 08/20/25 14:30 Pulse Rate 58 L 08/20/25 16:05 Respiratory Rate 17 08/20/25 16:05 Blood Pressure 133/71 08/20/25 16:05 Pulse Oximetry 98 08/20/25 16:05 Oxygen Delivery Room Air 08/20/25 14:30 <Joselin Mathis PA-C - Last Filed: 08/20/25 17:59> Vital Signs Temperature 98.0 F 08/20/25 14:30 Pulse Rate 94 08/20/25 14:30 Respiratory Rate 16 08/20/25 14:30 Blood Pressure 133/71 08/20/25 14:30 Pulse Oximetry 96 08/20/25 14:30 Oxygen Delivery Room Air 08/20/25 14:30 Temperature 98.0 F 08/20/25 14:30 Pulse Rate 58 L 08/20/25 16:05 Respiratory Rate 17 08/20/25 16:05 Blood Pressure 133/71 08/20/25 16:05 Pulse Oximetry 98 08/20/25 16:05 Oxygen Delivery Room Air 08/20/25 14:30 <Billie Malcolm MD - Last Filed: 08/20/25 19:33> MDM MDM Narrative Medical decision making narrative: patient presents to the emergency department after signing out AMA yesterday after being diagnosed with pyelonephritis. He is afebrile and nontoxic appearing. Vitals are stable. Cbc without leukocytosis. Kidney function is normal. CT once again showing evidence of bilateral pyelonephritis. Patient is agreeable to admission at this time for IV antibiotics. Will be admitted to the hospitalist service <Joselin Mathis PA-C - Last Filed: 08/20/25 17:59> Differential Diagnosis Differential Diagnosis: Pyelonephritis, UTI <Joselin Mathis PA-C - Last Filed: 08/20/25 17:59> Medical Records I have reviewed the following patient records and this information was taken into consideration when formulating the assessment and plan.: previous labs and previous ER visits <Joselin Mathis PA-C - Last Filed: 08/20/25 17:59> Lab Data MDM Lab Attestation statement: I personally reviewed the patient's lab results. <Joselin Mathis PA-C - Last Filed: 08/20/25 17:59> Result diagrams: 08/20/25 16:03 08/20/25 16:03 <ISREAL Perez Last Filed: 08/20/25 15:54> Labs: Lab Results 08/20/25 Range/Units 16:03 WBC 6.9 (4.5-10.0) K/mm3 RBC 4.55 L (4.6-6.20) M/mm3 Hgb 13.9 L (14.0-18.0) g/dL Hct 40.5 L (42.0-52.0) % MCV 89.0 (80-100) fl MCH 30.5 (26-34) pg MCHC 34.3 (32-36) g/dl RDW 14.1 (11.5-14.5) % Plt Count 214 (150-375) k/mm3 MPV 10.6 H (7.4-10.4) fl Immature Gran % (Auto) 1.0 H (0-0.5) % Neut % (Auto) 75.7 H (45.5-73.1) % Lymph % (Auto) 12.4 L (18.3-44.2) % [place] % (Auto) 9.0 H (2.6-8.5) % Eos % (Auto) 1.3 (0-4.4) % Baso % (Auto) 0.6 (0.2-1.2) % Lymph # (Auto) 0.86 L (0.9-3.2) K/mm3 [place] # (Auto) 0.6 (0.1-0.6) K/mm3 Eos # (Auto) 0.1 (0-0.3) K/mm3 Baso # (Auto) 0.0 (0.0-0.1) K/mm3 Abs Immat Gran (auto) 0.07 H (0.00-0.031) K/mm3 Absolute Neuts (auto) 5.2 (1.3-6.7) K/mm3 Absolute Nucleated RBC 0.000 (0.0-0.012) K/mm3 Nucleated RBC % 0.0 (0.0-0.2) % Sodium 131 L (137-145) mmol/L Potassium 4.3 (3.4-5.0) mmol/L Chloride 99 (98-107) mmol/L Carbon Dioxide 25 (22-30) mmol/L Anion Gap 7 (4-12) mmol/L BUN 13 (9-20) mg/dL Creatinine 0.84 (0.7-1.3) mg/dL Estim Creat Clear Calc 103 ml/min Estimated GFR > 60 (59 - ) Glucose 284 H (65-110) mg/dL Calcium 8.9 (8.4-10.2) mg/dL Total Bilirubin 0.8 (0.2-1.3) mg/dL AST 20 (17-59) U/L ALT 14 (6-50) U/L Alkaline Phosphatase 78 (38-126) U/L Total Protein 7.3 (6.3-8.2) g/dL Albumin 3.9 (3.5-5.1) g/dL <ISREAL Perez - Last Filed: 08/20/25 15:54> Lab Results 08/20/25 Range/Units 16:03 WBC 6.9 (4.5-10.0) K/mm3 RBC 4.55 L (4.6-6.20) M/mm3 Hgb 13.9 L (14.0-18.0) g/dL Hct 40.5 L (42.0-52.0) % MCV 89.0 (80-100) fl MCH 30.5 (26-34) pg MCHC 34.3 (32-36) g/dl RDW 14.1 (11.5-14.5) % Plt Count 214 (150-375) k/mm3 MPV 10.6 H (7.4-10.4) fl Immature Gran % (Auto) 1.0 H (0-0.5) % Neut % (Auto) 75.7 H (45.5-73.1) % Lymph % (Auto) 12.4 L (18.3-44.2) % [place] % (Auto) 9.0 H (2.6-8.5) % Eos % (Auto) 1.3 (0-4.4) % Baso % (Auto) 0.6 (0.2-1.2) % Lymph # (Auto) 0.86 L (0.9-3.2) K/mm3 [place] # (Auto) 0.6 (0.1-0.6) K/mm3 Eos # (Auto) 0.1 (0-0.3) K/mm3 Baso # (Auto) 0.0 (0.0-0.1) K/mm3 Abs Immat Gran (auto) 0.07 H (0.00-0.031) K/mm3 Absolute Neuts (auto) 5.2 (1.3-6.7) K/mm3 Absolute Nucleated RBC 0.000 (0.0-0.012) K/mm3 Nucleated RBC % 0.0 (0.0-0.2) % Sodium 131 L (137-145) mmol/L Potassium 4.3 (3.4-5.0) mmol/L Chloride 99 (98-107) mmol/L Carbon Dioxide 25 (22-30) mmol/L Anion Gap 7 (4-12) mmol/L BUN 13 (9-20) mg/dL Creatinine 0.84 (0.7-1.3) mg/dL Estim Creat Clear Calc 103 ml/min Estimated GFR > 60 (59 - ) Glucose 284 H (65-110) mg/dL Calcium 8.9 (8.4-10.2) mg/dL Total Bilirubin 0.8 (0.2-1.3) mg/dL AST 20 (17-59) U/L ALT 14 (6-50) U/L Alkaline Phosphatase 78 (38-126) U/L Total Protein 7.3 (6.3-8.2) g/dL Albumin 3.9 (3.5-5.1) g/dL <Joselin Mathis PA-C - Last Filed: 08/20/25 17:59> Lab Results 08/20/25 Range/Units 16:03 WBC 6.9 (4.5-10.0) K/mm3 RBC 4.55 L (4.6-6.20) M/mm3 Hgb 13.9 L (14.0-18.0) g/dL Hct 40.5 L (42.0-52.0) % MCV 89.0 (80-100) fl MCH 30.5 (26-34) pg MCHC 34.3 (32-36) g/dl RDW 14.1 (11.5-14.5) % Plt Count 214 (150-375) k/mm3 MPV 10.6 H (7.4-10.4) fl Immature Gran % (Auto) 1.0 H (0-0.5) % Neut % (Auto) 75.7 H (45.5-73.1) % Lymph % (Auto) 12.4 L (18.3-44.2) % [place] % (Auto) 9.0 H (2.6-8.5) % Eos % (Auto) 1.3 (0-4.4) % Baso % (Auto) 0.6 (0.2-1.2) % Lymph # (Auto) 0.86 L (0.9-3.2) K/mm3 [place] # (Auto) 0.6 (0.1-0.6) K/mm3 Eos # (Auto) 0.1 (0-0.3) K/mm3 Baso # (Auto) 0.0 (0.0-0.1) K/mm3 Abs Immat Gran (auto) 0.07 H (0.00-0.031) K/mm3 Absolute Neuts (auto) 5.2 (1.3-6.7) K/mm3 Absolute Nucleated RBC 0.000 (0.0-0.012) K/mm3 Nucleated RBC % 0.0 (0.0-0.2) % Sodium 131 L (137-145) mmol/L Potassium 4.3 (3.4-5.0) mmol/L Chloride 99 (98-107) mmol/L Carbon Dioxide 25 (22-30) mmol/L Anion Gap 7 (4-12) mmol/L BUN 13 (9-20) mg/dL Creatinine 0.84 (0.7-1.3) mg/dL Estim Creat Clear Calc 103 ml/min Estimated GFR > 60 (59 - ) Glucose 284 H (65-110) mg/dL Calcium 8.9 (8.4-10.2) mg/dL Total Bilirubin 0.8 (0.2-1.3) mg/dL AST 20 (17-59) U/L ALT 14 (6-50) U/L Alkaline Phosphatase 78 (38-126) U/L Total Protein 7.3 (6.3-8.2) g/dL Albumin 3.9 (3.5-5.1) g/dL <Billie Malcolm MD - Last Filed: 08/20/25 19:33> Imaging Data Radiologist's impression: ITS Impressions Abdomen/Pelvis CT 08/20/25 16:57 IMPRESSION: 1. No calculi or obstruction of the upper urinary tract. Perinephric stranding of mild degree on both sides suggests upper urinary tract infection. No abscess at or around the kidneys. 2. Air noted in the urinary bladder possibly due to cystitis. No bladder calculi. 3. Stable cystic lesion, anterior to the pancreas in the lesser peritoneal sac. Possible pancreatic pseudocyst. 4. Significant atherosclerotic changes of iliac arteries on both sides. <ISREAL Perez - Last Filed: 08/20/25 15:54> ITS Impressions Abdomen/Pelvis CT 08/20/25 16:57 IMPRESSION: 1. No calculi or obstruction of the upper urinary tract. Perinephric stranding of mild degree on both sides suggests upper urinary tract infection. No abscess at or around the kidneys. 2. Air noted in the urinary bladder possibly due to cystitis. No bladder calculi. 3. Stable cystic lesion, anterior to the pancreas in the lesser peritoneal sac. Possible pancreatic pseudocyst. 4. Significant atherosclerotic changes of iliac arteries on both sides. <Joselin Mathis PA-C - Last Filed: 08/20/25 17:59> ITS Impressions Abdomen/Pelvis CT 08/20/25 16:57 IMPRESSION: 1. No calculi or obstruction of the upper urinary tract. Perinephric stranding of mild degree on both sides suggests upper urinary tract infection. No abscess at or around the kidneys. 2. Air noted in the urinary bladder possibly due to cystitis. No bladder calculi. 3. Stable cystic lesion, anterior to the pancreas in the lesser peritoneal sac. Possible pancreatic pseudocyst. 4. Significant atherosclerotic changes of iliac arteries on both sides. <Billie Malcolm MD - Last Filed: 08/20/25 19:33> Critical Care Time Critical Care Time Critical Care Time: No <Joselin Mathis PA-C - Last Filed: 08/20/25 17:59> Discharge Plan Discharge Clinical Impression: Acute pyelonephritis, Pancreatic pseudocyst <ISREAL Perez Last Filed: 08/20/25 15:54> Patient Disposition: Still a Patient <ISREAL Perez Last Filed: 08/20/25 15:54> Condition: Stable <ISREAL Perez Last Filed: 08/20/25 15:54> Patient Language: Panamanian <ISREAL Perez Last Filed: 08/20/25 15:54> Prescriptions: No Action carvedilol 6.25 mg tablet 6.25 mg PO BID lovastatin 40 mg tablet 40 mg PO HS Fish Oil sulfamethoxazole-trimethoprim 800-160 mg tablet 1 tablet PO Q12H 10 Days Qty: 20 0RF glipizide 10 mg tablet 10 mg PO BID metformin 1,000 mg tablet 1,000 mg PO BID Eliquis 5 mg Tablet 5 mg PO BID omeprazole 20 mg Capsule,Delayed Release(Dr/Ec) 20 mg PO DIRECTED trazodone 50 mg Tablet 50 mg PO HS PRN (Reason: Insomnia) Qty: 30 0RF folic acid 1 mg Tablet 1 mg PO DAILY 30 Days Qty: 30 0RF <ISREAL Perez Last Filed: 08/20/25 15:54> Follow-up/Referrals: [facility] [Primary Care Provider, Medical] <ISREAL Perez Last Filed: 08/20/25 15:54>
[2025-08-20 16:05] VITALS: BP 133/71; PULSE 58; RESP 17; O2SAT 98
[2025-08-20 16:14] LABS: Hematocrit 40.5 % (42.0-52.0); Hemoglobin 13.9 g/dL (14.0-18.0); Immature Granulocyte Percent A 1.0 % (0-0.5); Lymphocytes Absolute Auto 0.86 K/mm3 (0.9-3.2); Mean Corpuscular HGB Conc 34.3 g/dl (32-36); Mean Corpuscular Hemoglobin 30.5 pg (26-34); Mean Corpuscular Volume 89.0 fl (80-100); Nucleated Red Blood Cells Absolute Auto 0.000 K/mm3 (0.0-0.012); Nucleated Red Blood Cells Perc 0.0 % (0.0-0.2); Platelet Count Result 214 k/mm3 (150-375); Red Blood Count 4.55 M/mm3 (4.6-6.20); White Blood Count 6.9 K/mm3 (4.5-10.0)
[2025-08-20 16:40] LABS: Alanine Aminotransferase 14 U/L (6-50); Albumin Level 3.9 g/dL (3.5-5.1); Alkaline Phosphatase 78 U/L (38-126); Anion Gap 7 mmol/L (4-12); Aspartate Amino Transferase 20 U/L (17-59); Bilirubin,Total 0.8 mg/dL (0.2-1.3); Blood Urea Nitrogen 13 mg/dL (9-20); Calcium 8.9 mg/dL (8.4-10.2); Carbon Dioxide 25 mmol/L (22-30); Chloride 99 mmol/L (98-107); Estimated CRCL calculation 103 ml/min; Estimated Glomerular Filt Rate > 60; Glucose 284 mg/dL (65-110); Potassium 4.3 mmol/L (3.4-5.0); Sodium 131 mmol/L (137-145); Total Protein 7.3 g/dL (6.3-8.2)
--- NOTE | 2025-08-20 17:32 | PC.NURSE ---
RN called and ordered pt a dinner tray.
--- NOTE | 2025-08-20 17:33 | PM.IMHP2 ---
H&P: HPI History of Present Illness Date/Time: 08/20/25 17:33 Chief Complaint: Gas with urination Narrative: 69-year-old male with a past medical history of diabetes, AFib, hypertension, COPD, hyperlipidemia, MARCELINA with CPAP presents to the ED on 08/20/2025 with complaints of passing of gas while urinating. Patient was in the ED on 08/19 with the same complaint of passing air through his penis while urinating but left AMA as he was worried he would be in the ED for prolonged amount of time due to it being busy. He was found to have a UTI and pyelonephritis. reports he has had 8 or 9 UTIs within the last year. He denies any symptoms of for this UTI aside from the passing of air while urinating. Denies abdominal pain, dysuria, hematuria, fever, nausea, vomiting, diarrhea. Patient questions whether animals in his life are causing these frequent UTIs. The patient and his moved recently where 4 stray cats come up and sit on his lap sometimes. Of note, patient states he has a feeling he won't make it to 70. Initial vital signs 133/71, HR 94, respirations 16, afebrile and 96% on room air. Labs revealed no leukocytosis, baseline anemia, ESR was 40 yesterday and CRP 2.4. Sodium 131, glucose 248. UA yesterday 1+ protein, 3+ glucose, 1+ blood, 2+ leukocyte esterase, 3-5 RBC, >100 WBC, WBC clumps present, 4+ bacteria. CT abdomen pelvis reveals perinephric stranding bilaterally suggesting pyelonephritis. No abscess. Air in the urinary bladder possibly due to cystitis. Possible pancreatic pseudocyst. Significant atherosclerotic changes of iliac arteries bilaterally. Review of Systems Review of Systems: All systems reviewed & are unremarkable except as noted in HPI and below PMFSH Past Medical History Medical History (Updated 08/20/25 @ 23:47 by Columba Gooden APRN) Chronic hyponatremia Atrial fibrillation Chronic anticoagulation GIB (gastrointestinal bleeding) Brain tumor Hypothyroidism UTI (urinary tract infection) GERD (gastroesophageal reflux disease) Sleep apnea With CPAP HTN (hypertension) HLD (hyperlipidemia) Diabetic retinopathy Diabetes type 2, controlled A1c 6.7 12/2022 COPD (chronic obstructive pulmonary disease) Surgical History Surgical History Hx of craniotomy removal of brain tumor as a child Hx of tonsillectomy Family History Family History Mother Heart disease Father Cirrhosis Social History Social History Social History: He and his have been since he was 17. A used to smoke 2.5 packs of cigarettes per day but quit approximately 2017. He reports that is not unusual for him to drink 18 beers a day. He has drink heavily since he was 26 years old. He quit drinking alcohol 02/07/2023. He denies illicit substance use. Code status: DNR/DNI per patient request Surrogate decision maker: Smoking packs per day: 2.5 Smoking cigarettes per day: 50.0 Years smoked: 45 Smoking pack-years: 112.50 Smoking status: Former smoker Tobacco type: cigarettes Smoking end date: 02/22/18 Alcohol intake: current Drinks per week: 20 Substance use: never Substance use type: does not use Lack of Transportation: No Lack of Food: Never True Current Housing: I Have Housing Concerned About Future Housing: No Difficulty Paying Gas/Electric Bills: YES Difficulty Paying for Meds: No Currently Unemployed: No Education: Trade/Vocational Certificate Difficulty w/ Childcare or Family Care: No Gender identity (if verbalized by the patient): Male Sexual Orientation (if Verbalized by the Patient): Straight or Heterosexual Spiritual care concerns: No Meds Home Medications and Allergies Home Medications ?Medication ?Instructions ?Recorded ?Confirmed ?Type glipizide 10 mg tablet 10 mg PO BID 12/11/20 08/20/25 History metformin 1,000 mg tablet 1,000 mg PO BID 12/11/20 08/20/25 History apixaban 5 mg tablet (Eliquis) 5 mg PO BID 12/12/20 08/20/25 History carvedilol 6.25 mg tablet 6.25 mg PO BID 10/16/22 08/20/25 History omeprazole 20 mg capsule,delayed 20 mg PO DIRECTED 02/22/23 08/20/25 History release folic acid 1 mg tablet 1 mg PO DAILY 1 month #30 tabs 02/26/23 08/20/25 Rx trazodone 50 mg tablet 50 mg PO HS PRN Insomnia #30 tabs 02/26/23 08/20/25 Rx Held on 08/20/25. Instructions: takes OTC medication for insomnia lovastatin 40 mg tablet 40 mg PO HS 05/24/24 08/20/25 History Fish Oil 03/17/25 History diphenhydramine HCl 50 mg tablet 50 mg PO HS insomnia 08/20/25 08/20/25 History (Benadryl Allergy) docusate sodium 100 mg capsule 200 mg PO ONCE constipation 08/20/25 08/20/25 History (Colace) semaglutide 0.25 mg or 0.5 mg (2 0.25 mg subcut WEEKLY 08/20/25 08/20/25 History mg/3 mL) subcutaneous pen injector (Ozempic) tamsulosin 0.4 mg capsule 0.8 mg PO HS 08/20/25 08/20/25 History Allergies Allergy/AdvReac Type Severity Reaction Status Date / Time empagliflozin (From AdvReac Intermediate Rash Verified 08/20/25 23:02 Jardiance) Vital Signs Vital Signs - 24 hr 08/20/25 14:30 08/20/25 16:05 Temperature 98.0 F Pulse Rate 94 58 L Respiratory Rate 16 17 Blood Pressure 133/71 133/71 Pulse Oximetry 96 98 Oxygen Delivery Room Air Exam Narrative: GENERAL: non-toxic appearing, in no acute distress. HEAD: Normocephalic, atraumatic. EYES: PERRLA. Conjunctivae clear. NOSE: Normal no drainage. THROAT: Pharynx clear, no exudate. NECK: Trachea midline. No adenopathy, no masses. RESPIRATORY: Airway patent, respirations nonlabored. CTA. CARDIOVASCULAR: Regular rate and rhythm GASTROINTESTINAL: Abdomen is soft and nontender. No organomegaly. Bowel sounds normal in all quadrants. GENITOURINARY: Defer MUSCULOSKELETAL: Moves all extremities. Brace to right ankle and foot. SKIN: Warm, dry, normal color. NEURO: A&O X4. Speech clear PSYCHIATRIC: Normal interaction Results Labs Labs: Short CBC 08/20/25 Range/Units 16:03 WBC 6.9 (4.5-10.0) K/mm3 Hgb 13.9 L (14.0-18.0) g/dL Hct 40.5 L (42.0-52.0) % Plt Count 214 (150-375) k/mm3 BMP 08/20/25 16:03 Sodium 131 L Potassium 4.3 Chloride 99 Carbon Dioxide 25 BUN 13 Creatinine 0.84 Glucose 284 H Calcium 8.9 Liver Function 08/20/25 Range/Units 16:03 Total Bilirubin 0.8 (0.2-1.3) mg/dL AST 20 (17-59) U/L ALT 14 (6-50) U/L Alkaline Phosphatase 78 (38-126) U/L Albumin 3.9 (3.5-5.1) g/dL Quality VTE Prophylaxis VTE prophylaxis: mechanical ordered Assessment and Plan Assessment and plan (1) UTI (urinary tract infection): Qualifiers: Urinary tract infection type: site unspecified Code(s): N39.0 - Urinary tract infection, site not specified Status: Acute Assessment and Plan: Patient presents after passing air through his penis while urinating. No dysuria or symptoms of UTI. Patient has had about [address] abdomen pelvis reveals perinephric stranding bilaterally suggesting pyelonephritis. No abscess. Air in the urinary bladder possibly due to cystitis. - UA yesterday 1+ protein, 3+ glucose, 1+ blood, 2+ leukocyte esterase, 3-5 RBC, >100 WBC, WBC clumps present, 4+ bacteria. - UC pending - Urine culture 06/12/2025 grew Klebsiella - started on Ceftriaxone on 08/19 - Infectious Disease consult due to the frequent UTIs (2) Acute pyelonephritis: Code(s): N10 - Acute pyelonephritis Status: Acute Assessment and Plan: CT demonstrates bilateral pyelonephritis with no abscess identified. Patient does not complain of symptoms. -ceftriaxone started 08/19 -trend WBC -monitor for fever -NS @ 100 -monitor for urinary retention with history of BPH (3) Diabetes type 2, controlled: Code(s): E11.9 - Type 2 diabetes mellitus without complications Status: Chronic Assessment and Plan: - hypoglycemia protocol - POC blood glucose ACHS - correct regimen ordered moderate dose sliding scale (4) HTN (hypertension): Qualifiers: Hypertension type: unspecified Qualified Code(s): I10 - Essential (primary) hypertension Code(s): I10 - Essential (primary) hypertension Status: Chronic Assessment and Plan: continue Coreg (5) HLD (hyperlipidemia): Qualifiers: Hyperlipidemia type: unspecified Qualified Code(s): E78.5 - Hyperlipidemia, unspecified Code(s): E78.5 - Hyperlipidemia, unspecified Status: Chronic Assessment and Plan: continue lovastatin (6) GERD (gastroesophageal reflux disease): Qualifiers: Esophagitis presence: esophagitis presence not specified Qualified Code(s): K21.9 - Gastro-esophageal reflux disease without esophagitis Code(s): K21.9 - Gastro-esophageal reflux disease without esophagitis Status: Chronic Assessment and Plan: continue pantoprazole Prior Studies I have reviewed the following patient records and this information was taken into consideration when formulating the assessment and plan.: previous labs, previous ER visits, previous hospitalizations and previous clinic visits Time Spent with Patient Time with patient: 45 - 74 minutes Hospitalist MIPS Advance Care Plan I have confirmed that the patient's Advanced Care Plan is present, code status is documented, or surrogate decision maker is listed in patient medical record.: Yes Medication Reconciliation I have utilized all available resources to obtain, update and review the patients current medications (includes all prescriptions, OTC, herbals, cannabis, and nutritional supplements).: Yes
[2025-08-20] MEDS: cefTRIAXone 1 GM in SODIUM CHLORIDE 0.9% IV 50 ML 100 ML IVPB (17:37)
--- NOTE | 2025-08-20 21:26 | PC.NURSE ---
Patient moved to a room with a recliner, per patient request.
[2025-08-20 21:29] VITALS: BP 152/69; PULSE 50; RESP 20; TEMP 36.6; O2SAT 100
--- NOTE | 2025-08-20 22:24 | WPCEDHO ---
ED Hand Off Checklist All vitals saved:yes IV Site documented:yes All med administrations documented:yes Triage Note Triage Note Pt to ed ambulatory co gas with 08/20/25 19:00 urinations, has been dealing with many UTI, Pt was here yesterday, offered admission but decided to go home and come today to be admitted to the hospital. Allergies empagliflozin (From Jardiance) Adverse Reaction (Intermediate, Verified 06/12/25 15:09) Rash Family History (Last Reviewed 08/19/25 @ 18:59 by Mallory Tim, FINISHING INSPECTOR) Mother Heart disease Father Cirrhosis Administered/Completed Medications Discontinued Medications Ceftriaxone Sodium 1 gm/ (Sodium Chloride) 50 mls @ 100 mls/hr IVPB ONCE STA Stop: 08/20/25 17:57 Last Infusion: 08/20/25 18:19 Dose: Infused Documented By: Admin: 08/20/25 17:37 Dose: 100 mls/hr Documented By: MARLON Notes 08/20/25 21:26 Nurse Note by Denita Rawls Patient moved to a room with a recliner, per patient request. Initialized on 08/20/25 21:26 - END OF NOTE 08/20/25 17:32 Nurse Note by Denita Rawls RN called and ordered pt a dinner tray. Initialized on 08/20/25 17:32 - END OF NOTE Interventions/Assessments IV / Saline Lock, Insert Start: 08/20/25 14:22 Freq: Status: Active Protocol: Document 08/20/25 16:05 MELANIG (Rec: 08/20/25 16:05 MELANIG [id number]) IV Assessment Peripheral Access Left Antecubital IV Catheter Access Initiated IV Insertion Date 08/20/25 IV Insertion Time 16:05 Catheter Gauge 18 IV Site Assessment WNL IV Care and WNL Maintenance Last Vital Signs Temperature 97.9 F 08/20/25 21:29 Pulse Rate 50 L 08/20/25 21:29 Respiratory Rate 20 08/20/25 21:29 Pulse Oximetry 100 08/20/25 21:29 Blood Pressure 152/69 H 08/20/25 21:29 Blood Pressure Mean 96 08/20/25 21:29 Blood Pressure Position Sitting 08/20/25 14:30 Oxygen Delivery Room Air 08/20/25 14:30 Weight 124.5 kg 08/20/25 14:30 Last Result - Abnormals Only RBC 4.55 M/mm3 (4.6-6.20) L 08/20/25 16:03 Hgb 13.9 g/dL (14.0-18.0) L 08/20/25 16:03 Hct 40.5 % (42.0-52.0) L 08/20/25 16:03 MPV 10.6 fl (7.4-10.4) H 08/20/25 16:03 Immature Gran % (Auto) 1.0 % (0-0.5) H 08/20/25 16:03 Neut % (Auto) 75.7 % (45.5-73.1) H 08/20/25 16:03 Lymph % (Auto) 12.4 % (18.3-44.2) L 08/20/25 16:03 [place] % (Auto) 9.0 % (2.6-8.5) H 08/20/25 16:03 Lymph # (Auto) 0.86 K/mm3 (0.9-3.2) L 08/20/25 16:03 Abs Immat Gran (auto) 0.07 K/mm3 (0.00-0.031) H 08/20/25 16:03 Sodium 131 mmol/L (137-145) L 08/20/25 16:03 Glucose 284 mg/dL (65-110) H 08/20/25 16:03 Most Recent Suicide Severity Rating Suicide Severity Rating NO RISK INDICATED 08/20/25 19:00
[2025-08-20 22:33] VITALS: BMI 34.2
--- NOTE | 2025-08-20 23:00 | ADMGEN ---
This patient, Lalo Sexton, was admitted to Virtual Bed 3rd Floor-4. Patient/family oriented to hospital policies and general routines including ID bracelet, bed and alarms, visiting hours, pain management, procedures, bathroom and other care routines, personal items, smoking policy, room service/diet, and visiting hours. Information on how to activate the Rapid Response Team has been discussed. Patient/Family are encouraged to report perceived risks to care and to ask questions if they do not understand what they are told or what they should do.
--- NOTE | 2025-08-20 23:04 | PC.NURSE ---
Pt has just made it to floor and was very nasty with this nurse refused to allow nurse to complete an physical assessment stating nothing is on his body and no I can see private areas. Thi nurse asked pt was he okay or needed anything and he responded with if I everything was okay I wouldn't be here. pt is currently allowing another nurse to complete his admission but refused physical assessment at this time.
[2025-08-20 23:37] VITALS: BP 153/76; PULSE 76; RESP 18; TEMP 36.7; O2SAT 98
[2025-08-21] MEDS: APIXABAN 5 MG TABLET PO ×3 (00:30→20:48)
[2025-08-21] MEDS: LOVASTATIN 20 MG TABLET 40 MG PO ×2 (00:31→20:49)
[2025-08-21] MEDS: SODIUM CHLORIDE 0.9% IV 1,000 ML 100 ML IV CONT (00:32)
[2025-08-21] MEDS: TAMSULOSIN HCL 0.4 MG CAPSULE 0.8 MG PO ×2 (00:34→20:49)
[2025-08-21 00:35] VITALS: PULSE 62; RESP 35; O2SAT 97
[2025-08-21 06:00] VITALS: BP 146/85; PULSE 70; RESP 17; TEMP 35.9; O2SAT 97
[2025-08-21 06:18] LABS: Hematocrit 37.2 % (42.0-52.0); Hemoglobin 12.8 g/dL (14.0-18.0); Immature Granulocyte Percent A 1.2 % (0-0.5); Lymphocytes Absolute Auto 0.72 K/mm3 (0.9-3.2); Mean Corpuscular HGB Conc 34.4 g/dl (32-36); Mean Corpuscular Hemoglobin 30.7 pg (26-34); Mean Corpuscular Volume 89.2 fl (80-100); Nucleated Red Blood Cells Absolute Auto 0.000 K/mm3 (0.0-0.012); Nucleated Red Blood Cells Perc 0.0 % (0.0-0.2); Platelet Count Result 187 k/mm3 (150-375); Red Blood Count 4.17 M/mm3 (4.6-6.20); White Blood Count 5.8 K/mm3 (4.5-10.0)
[2025-08-21 06:54] LABS: Anion Gap 7 mmol/L (4-12); Blood Urea Nitrogen 11 mg/dL (9-20); Calcium 9.0 mg/dL (8.4-10.2); Carbon Dioxide 22 mmol/L (22-30); Chloride 102 mmol/L (98-107); Estimated CRCL calculation 119 ml/min; Estimated Glomerular Filt Rate > 60; Glucose 204 mg/dL (65-110); Potassium 4.0 mmol/L (3.4-5.0); Sodium 131 mmol/L (137-145)
[2025-08-21] MEDS: INSULIN ASPART (*BKC) 100 UNITS/ML SUB-Q ×3 (08:20→17:14)
[2025-08-21] MEDS: PANTOPRAZOLE 40 MG TABLET PO (08:21)
[2025-08-21] MEDS: FOLIC ACID 1 MG TABLET PO (08:21)
[2025-08-21 08:24] VITALS: PULSE 72
--- NOTE | 2025-08-21 10:53 | WPDIDCN ---
Assessment and Plan Assessment and plan (1) UTI (urinary tract infection): Qualifiers: Urinary tract infection type: site unspecified Code(s): N39.0 - Urinary tract infection, site not specified Status: Acute Plan ASSESSMENT: 1. pyelonephritis 2. recurrent UTIs--most recently with Klebsiella 3. DM 4. Afib 5. HTN, HL, COPD 6. MARCELINA RECOMMENDATIONS: -continue ceftriaxone for now -f/u on urine cx and tailor abx further -urology consult-->BPH, cystoscopy to r/o structural lesions-->pt is scheduled for cystoscopy in September -consider re-CT abdomen without contrast for stone protocol and consider using po contrast to evaluate for bowel fistula given pneumaturia -HgbA1c elevated-->needs tighter glucose control to prevent infections -psa d/w pharmacy staff Pt was seen via video telehealth consultation with the assistance of staff. Chart, data and patient info reviewed. Patient was located at [facility] while I was in my [place] office. Pt gave consent. HPI Data of Consult Date/Time: 08/21/25 10:53 Requesting Physician: Heidi Diego MD Primary Care Provider: [facility] Consult Narrative Reason for consult: recurrent UTIs Narrative: Lalo Sexton is a 69 year old male with pmhx/o DM, HTN, HL, COPD, Afib, BPH, MARCELINA, presented to hospital with pneumaturia. Had come to ED 08/19 with same complaint but left AMA. UA with pyuria. CT with pyelonephritis but no abscess. Has had multiple urine cxs/recurrent UTI for klebsiella. Currently on ceftriaxone. [facility] Past Medical History Medical History (Updated 08/20/25 @ 23:47 by Columba Gooden APRN) Chronic hyponatremia Atrial fibrillation Chronic anticoagulation GIB (gastrointestinal bleeding) Brain tumor Hypothyroidism UTI (urinary tract infection) GERD (gastroesophageal reflux disease) Sleep apnea With CPAP HTN (hypertension) HLD (hyperlipidemia) Diabetic retinopathy Diabetes type 2, controlled A1c 6.7 12/2022 COPD (chronic obstructive pulmonary disease) Surgical History Surgical History Hx of craniotomy removal of brain tumor as a child Hx of tonsillectomy Family History Family History Mother Heart disease Father Cirrhosis Social History Social History Social History: He and his have been since he was 17. A used to smoke 2.5 packs of cigarettes per day but quit approximately 2018. He reports that is not unusual for him to drink 18 beers a day. He has drink heavily since he was 26 years old. He quit drinking alcohol 02/07/2023. He denies illicit substance use. Code status: DNR/DNI per patient request Surrogate decision maker: Smoking packs per day: 2 Smoking cigarettes per day: 40.0 Years smoked: 45 Smoking pack-years: 90.00 Smoking status: Former smoker Tobacco type: cigarettes Second hand tobacco smoke exposure: No Smoking end date: 02/22/18 Alcohol intake: current Drinks per week: 20 Substance use: never Substance use type: does not use Lack of Transportation: No Lack of Food: Never True Current Housing: I Have Housing Concerned About Future Housing: No Difficulty Paying Gas/Electric Bills: YES Difficulty Paying for Meds: No Currently Unemployed: No Education: Trade/Vocational Certificate Difficulty w/ Childcare or Family Care: No Gender identity (if verbalized by the patient): Male Sexual Orientation (if Verbalized by the Patient): Straight or Heterosexual Spiritual care concerns: No Meds Home Medications and Allergies Home Medications ?Medication ?Instructions ?Recorded ?Confirmed ?Type glipizide 10 mg tablet 10 mg PO BID 12/11/20 08/20/25 History metformin 1,000 mg tablet 1,000 mg PO BID 12/11/20 08/20/25 History apixaban 5 mg tablet (Eliquis) 5 mg PO BID 12/12/20 08/20/25 History carvedilol 6.25 mg tablet 6.25 mg PO BID 10/16/22 08/20/25 History omeprazole 20 mg capsule,delayed 20 mg PO DIRECTED 02/22/23 08/20/25 History release folic acid 1 mg tablet 1 mg PO DAILY 1 month #30 tabs 02/26/23 08/20/25 Rx trazodone 50 mg tablet 50 mg PO HS PRN Insomnia #30 tabs 02/26/23 08/20/25 Rx Held on 08/20/25. Instructions: takes OTC medication for insomnia lovastatin 40 mg tablet 40 mg PO HS 05/24/24 08/20/25 History Fish Oil 03/17/25 History diphenhydramine HCl 50 mg tablet 50 mg PO HS insomnia 08/20/25 08/20/25 History (Benadryl Allergy) docusate sodium 100 mg capsule 200 mg PO ONCE constipation 08/20/25 08/20/25 History (Colace) semaglutide 0.25 mg or 0.5 mg (2 0.25 mg subcut WEEKLY 08/20/25 08/20/25 History mg/3 mL) subcutaneous pen injector (Ozempic) tamsulosin 0.4 mg capsule 0.8 mg PO HS 08/20/25 08/20/25 History Allergies Allergy/AdvReac Type Severity Reaction Status Date / Time empagliflozin (From AdvReac Intermediate Rash Verified 08/20/25 23:02 Jardiance) Vital Signs Vital Signs - 24 hr 08/20/25 14:30 08/20/25 16:05 08/20/25 21:29 Temperature 98.0 F 97.9 F Pulse Rate 94 58 L 50 L Respiratory Rate 16 17 20 Blood Pressure 133/71 133/71 152/69 H Pulse Oximetry 96 98 100 Oxygen Delivery Room Air 08/20/25 23:37 08/21/25 00:35 08/21/25 06:00 Temperature 98.1 F 96.7 F L Pulse Rate 76 62 70 Respiratory Rate 18 35 H 17 Blood Pressure 153/76 H 146/85 H Pulse Oximetry 98 97 97 Oxygen Delivery CPAP 08/21/25 08:20 08/21/25 08:24 Temperature Pulse Rate 72 Respiratory Rate Blood Pressure Pulse Oximetry Oxygen Delivery Room Air Exam Narrative: NAD, on room air, non-toxic Abd soft NT obese Results Labs 08/21/25 05:23 08/21/25 05:23 Labs: Short CBC 08/20/25 08/21/25 Range/Units 16:03 05:23 WBC 6.9 5.8 (4.5-10.0) K/mm3 Hgb 13.9 L 12.8 L (14.0-18.0) g/dL Hct 40.5 L 37.2 L (42.0-52.0) % Plt Count 214 187 (150-375) k/mm3 BMP 08/20/25 08/21/25 16:03 05:23 Sodium 131 L 131 L Potassium 4.3 4.0 Chloride 99 102 Carbon Dioxide 25 22 BUN 13 11 Creatinine 0.84 0.72 Glucose 284 H 204 H Calcium 8.9 9.0 Liver Function 08/20/25 Range/Units 16:03 Total Bilirubin 0.8 (0.2-1.3) mg/dL AST 20 (17-59) U/L ALT 14 (6-50) U/L Alkaline Phosphatase 78 (38-126) U/L Albumin 3.9 (3.5-5.1) g/dL
[2025-08-21 11:30] LABS: Hemoglobin A1C 9.4 % (<5.7)
[2025-08-21 11:55] LABS: Prostate Specific Antigen 2.5 ng/mL (< OR = 4.0)
[2025-08-21 14:00] VITALS: BP 148/90; PULSE 74; RESP 16; TEMP 36.1; O2SAT 99
--- NOTE | 2025-08-21 14:08 | P.PNIM_ITS ---
Assessment and Plan Assessment and Plan (1) UTI (urinary tract infection): Qualifiers: Urinary tract infection type: site unspecified Code(s): N39.0 - Urinary tract infection, site not specified Status: Acute Assessment and Plan: Patient presents after passing air through his penis while urinating. No dysuria or symptoms of UTI. Patient has had about [address] abdomen pelvis reveals perinephric stranding bilaterally suggesting pyelonephritis. No abscess. Air in the urinary bladder possibly due to cystitis. - UA yesterday 1+ protein, 3+ glucose, 1+ blood, 2+ leukocyte esterase, 3-5 RBC, >100 WBC, WBC clumps present, 4+ bacteria. - UC pending - Urine culture 06/12/2025 grew Klebsiella - started on Ceftriaxone on 08/19 - Infectious Disease consult due to the frequent UTIs (2) Acute pyelonephritis: Code(s): N10 - Acute pyelonephritis Status: Acute Assessment and Plan: CT demonstrates bilateral pyelonephritis with no abscess identified. Patient does not complain of symptoms. -ceftriaxone started 08/19 -trend WBC -monitor for fever s/p IVF -monitor for urinary retention with history of BPH (3) Diabetes type 2, controlled: Code(s): E11.9 - Type 2 diabetes mellitus without complications Status: Chronic Assessment and Plan: - hypoglycemia protocol - POC blood glucose ACHS - correct regimen ordered moderate dose sliding scale (4) HTN (hypertension): Qualifiers: Hypertension type: unspecified Qualified Code(s): I10 - Essential (primary) hypertension Code(s): I10 - Essential (primary) hypertension Status: Chronic Assessment and Plan: continue Coreg (5) HLD (hyperlipidemia): Qualifiers: Hyperlipidemia type: unspecified Qualified Code(s): E78.5 - Hyperlipidemia, unspecified Code(s): E78.5 - Hyperlipidemia, unspecified Status: Chronic Assessment and Plan: continue lovastatin (6) GERD (gastroesophageal reflux disease): Qualifiers: Esophagitis presence: esophagitis presence not specified Qualified Code(s): K21.9 - Gastro-esophageal reflux disease without esophagitis Code(s): K21.9 - Gastro-esophageal reflux disease without esophagitis Status: Chronic Assessment and Plan: continue pantoprazole Plan DVt prophylaxis on Eliquis Subjective Date/time seen: 08/21/25 14:08 Interval history: Comfortable at bedside Review of Systems Review of Systems: All systems reviewed & are unremarkable except as noted in HPI and below Exam Narrative: GENERAL: non-toxic appearing, in no acute distress. HEAD: Normocephalic, atraumatic. EYES: PERRLA. Conjunctivae clear. NOSE: Normal no drainage. THROAT: Pharynx clear, no exudate. NECK: Trachea midline. No adenopathy, no masses. RESPIRATORY: Airway patent, respirations nonlabored. CTA. CARDIOVASCULAR: Regular rate and rhythm GASTROINTESTINAL: Abdomen is soft and nontender. No organomegaly. Bowel sounds normal in all quadrants. GENITOURINARY: Defer MUSCULOSKELETAL: Moves all extremities. Brace to right ankle and foot. SKIN: Warm, dry, normal color. NEURO: A&O X4. Speech clear PSYCHIATRIC: Normal interaction Objective Data Vital Signs Vital Signs: Vital Signs - 24 hr 08/20/25 14:30 08/20/25 16:05 08/20/25 21:29 Temperature 98.0 F 97.9 F Pulse Rate 94 58 L 50 L Respiratory Rate 16 17 20 Blood Pressure 133/71 133/71 152/69 H Pulse Oximetry 96 98 100 Oxygen Delivery Room Air 08/20/25 23:37 08/21/25 00:35 08/21/25 06:00 Temperature 98.1 F 96.7 F L Pulse Rate 76 62 70 Respiratory Rate 18 35 H 17 Blood Pressure 153/76 H 146/85 H Pulse Oximetry 98 97 97 Oxygen Delivery CPAP 08/21/25 08:20 08/21/25 08:24 Temperature Pulse Rate 72 Respiratory Rate Blood Pressure Pulse Oximetry Oxygen Delivery Room Air Intake/Output Intake/Output: Intake & Output 08/18/25 08/19/25 08/20/25 08/21/25 23:59 23:59 23:59 23:59 Intake Total 50 1880 Balance 50 1880 Meds/Results Medications: Active Medications Generic Name Dose Route Start Last Admin Trade Name Freq PRN Reason Stop Dose Admin Acetaminophen 650 mg 08/21/25 00:08 Acetaminophen 325 Mg Tablet PO Q6H PRN Mild Pain (1-3) or Fever Apixaban 5 mg 08/20/25 23:50 08/21/25 08:21 Apixaban 5 Mg Tablet PO 5 mg Q12HR SWETHA Administration Carvedilol 6.25 mg 08/20/25 23:50 08/21/25 08:24 Carvedilol 6.25 Mg Tablet PO 6.25 mg Q12HR SWETHA Administration Dextrose 12.5 gm 08/20/25 23:44 Dextrose 50% 25 Gm/50 Ml Syringe IV PUSH PRN PRN Hypoglycemia Protocol Docusate Sodium 100 mg 08/21/25 21:00 Docusate Sodium 100 Mg Capsule PO Q12HR SWETHA Folic Acid 1 mg 08/21/25 09:00 08/21/25 08:21 Folic Acid 1 Mg Tablet PO 1 mg DAILY SWETHA Administration Glucagon 1 mg 08/20/25 23:44 Glucagon For Inj 1 Mg Vial IM PRN PRN Hypoglycemia Protocol Glucose 15 gm 08/20/25 23:44 Glucose Oral Gel 15 Gm Of Glucse In 37.5 Gm Tube PO PRN PRN Hypoglycemia Protocol Ceftriaxone Sodium 1 gm/ 50 mls @ 100 mls/hr 08/21/25 18:00 Sodium Chloride IVPB Q24H SWETHA Dextrose 1,000 mls @ 100 mls/hr 08/20/25 23:44 Dextrose 5% 1,000 Ml IVPB PRN PRN Hypoglycemia Protocol Insulin Aspart 3 - 6 units 08/21/25 08:00 08/21/25 12:00 Insulin Aspart (*Bkc) 100 Units/Ml SUB-Q 4 units TIDWM SWETHA Administration Protocol Lovastatin 40 mg 08/20/25 23:55 08/21/25 00:31 Lovastatin 20 Mg Tablet PO 40 mg HS SWETHA Administration Pantoprazole Sodium 40 mg 08/21/25 09:00 08/21/25 08:21 Pantoprazole 40 Mg Tablet PO 40 mg QAM SWETHA Administration Polyethylene Glycol 17 gm 08/21/25 17:00 Polyethylene Glycol 3350 17 Gm Powd.Pack PO TID SWETHA Senna 8.6 mg 08/21/25 21:00 Sennosides 8.6 Mg Tablet PO HS SWETHA Tamsulosin HCl 0.8 mg 08/20/25 23:55 08/21/25 00:34 Tamsulosin Hcl 0.4 Mg Capsule PO 0.8 mg HS SWETHA Administration Radiology Results: ITS Impressions Abdomen/Pelvis CT 08/20/25 16:57 IMPRESSION: 1. No calculi or obstruction of the upper urinary tract. Perinephric stranding of mild degree on both sides suggests upper urinary tract infection. No abscess at or around the kidneys. 2. Air noted in the urinary bladder possibly due to cystitis. No bladder calculi. 3. Stable cystic lesion, anterior to the pancreas in the lesser peritoneal sac. Possible pancreatic pseudocyst. 4. Significant atherosclerotic changes of iliac arteries on both sides. Labs Labs: Laboratory Results - last 24 hr 08/20/25 08/20/25 08/21/25 16:03 23:33 05:23 WBC 6.9 5.8 RBC 4.55 L 4.17 L Hgb 13.9 L 12.8 L Hct 40.5 L 37.2 L MCV 89.0 89.2 MCH 30.5 30.7 MCHC 34.3 34.4 RDW 14.1 14.1 Plt Count 214 187 MPV 10.6 H 10.9 H Immature Gran % (Auto) 1.0 H 1.2 H Neut % (Auto) 75.7 H 75.0 H Lymph % (Auto) 12.4 L 12.3 L [place] % (Auto) 9.0 H 9.1 H Eos % (Auto) 1.3 1.7 Baso % (Auto) 0.6 0.7 Lymph # (Auto) 0.86 L 0.72 L [place] # (Auto) 0.6 0.5 Eos # (Auto) 0.1 0.1 Baso # (Auto) 0.0 0.0 Abs Immat Gran (auto) 0.07 H 0.07 H Absolute Neuts (auto) 5.2 4.4 Absolute Nucleated RBC 0.000 0.000 Nucleated RBC % 0.0 0.0 Sodium 131 L 131 L Potassium 4.3 4.0 Chloride 99 102 Carbon Dioxide 25 22 Anion Gap 7 7 BUN 13 11 Creatinine 0.84 0.72 Estim Creat Clear Calc 103 119 Estimated GFR > 60 > 60 Glucose 284 H 204 H POC Capillary Glucose 238 H Hemoglobin A1c 9.4 H Calcium 8.9 9.0 Total Bilirubin 0.8 AST 20 ALT 14 Alkaline Phosphatase 78 Total Protein 7.3 Albumin 3.9 Prostate Specific Ag 2.5 08/21/25 08/21/25 07:38 11:18 WBC RBC Hgb Hct MCV MCH MCHC RDW Plt Count MPV Immature Gran % (Auto) Neut % (Auto) Lymph % (Auto) [place] % (Auto) Eos % (Auto) Baso % (Auto) Lymph # (Auto) [place] # (Auto) Eos # (Auto) Baso # (Auto) Abs Immat Gran (auto) Absolute Neuts (auto) Absolute Nucleated RBC Nucleated RBC % Sodium Potassium Chloride Carbon Dioxide Anion Gap BUN Creatinine Estim Creat Clear Calc Estimated GFR Glucose POC Capillary Glucose 219 H 297 H Hemoglobin A1c Calcium Total Bilirubin AST ALT Alkaline Phosphatase Total Protein Albumin Prostate Specific Ag Quality VTE Prophylaxis VTE prophylaxis: mechanical ordered
[2025-08-21] MEDS: cefTRIAXone 1 GM in SODIUM CHLORIDE 0.9% IV 50 ML 100 ML IVPB (17:15)
[2025-08-21] MEDS: SENNOSIDES 8.6 MG TABLET PO (20:48)
[2025-08-21] MEDS: DOCUSATE SODIUM 100 MG CAPSULE PO (20:49)
[2025-08-21 22:00] VITALS: BP 147/80; PULSE 85; RESP 18; TEMP 36.1; O2SAT 98
[2025-08-22] MEDS: ACETAMINOPHEN 325 MG TABLET 650 MG PO ×2 (00:35→17:12)
[2025-08-22 06:00] VITALS: BP 159/87; PULSE 77; RESP 18; TEMP 36.4; O2SAT 97
[2025-08-22 07:01] LABS: Hematocrit 37.3 % (42.0-52.0); Hemoglobin 12.7 g/dL (14.0-18.0); Immature Granulocyte Percent A 0.9 % (0-0.5); Lymphocytes Absolute Auto 0.78 K/mm3 (0.9-3.2); Mean Corpuscular HGB Conc 34.0 g/dl (32-36); Mean Corpuscular Hemoglobin 30.5 pg (26-34); Mean Corpuscular Volume 89.7 fl (80-100); Nucleated Red Blood Cells Absolute Auto 0.000 K/mm3 (0.0-0.012); Nucleated Red Blood Cells Perc 0.0 % (0.0-0.2); Platelet Count Result 169 k/mm3 (150-375); Red Blood Count 4.16 M/mm3 (4.6-6.20); White Blood Count 5.3 K/mm3 (4.5-10.0)
[2025-08-22 07:25] LABS: Alanine Aminotransferase 12 U/L (6-50); Albumin Level 3.7 g/dL (3.5-5.1); Alkaline Phosphatase 68 U/L (38-126); Anion Gap 5 mmol/L (4-12); Aspartate Amino Transferase 28 U/L (17-59); Bilirubin,Total 0.6 mg/dL (0.2-1.3); Blood Urea Nitrogen 11 mg/dL (9-20); Calcium 9.0 mg/dL (8.4-10.2); Carbon Dioxide 24 mmol/L (22-30); Chloride 101 mmol/L (98-107); Estimated CRCL calculation 120 ml/min; Estimated Glomerular Filt Rate > 60; Glucose 246 mg/dL (65-110); Magnesium 1.7 mg/dL (1.6-2.3); Potassium 4.1 mmol/L (3.4-5.0); Sodium 130 mmol/L (137-145); Total Protein 6.8 g/dL (6.3-8.2)
[2025-08-22 08:40] VITALS: PULSE 86
[2025-08-22] MEDS: PANTOPRAZOLE 40 MG TABLET PO (08:40)
[2025-08-22] MEDS: APIXABAN 5 MG TABLET PO ×2 (08:40→20:24)
[2025-08-22] MEDS: DOCUSATE SODIUM 100 MG CAPSULE PO ×2 (08:41→20:24)
[2025-08-22] MEDS: INSULIN ASPART (*BKC) 100 UNITS/ML SUB-Q ×3 (08:41→17:11)
[2025-08-22] MEDS: FOLIC ACID 1 MG TABLET PO (08:41)
--- NOTE | 2025-08-22 12:30 | PM.IMPN2 ---
Assessment and Plan Assessment and Plan (1) UTI (urinary tract infection): Qualifiers: Urinary tract infection type: site unspecified Code(s): N39.0 - Urinary tract infection, site not specified Status: Acute Assessment and Plan: Patient presents after passing air through his penis while urinating. No dysuria or symptoms of UTI. Patient has had about [address] abdomen pelvis reveals perinephric stranding bilaterally suggesting pyelonephritis. No abscess. Air in the urinary bladder possibly due to cystitis. - UA yesterday 1+ protein, 3+ glucose, 1+ blood, 2+ leukocyte esterase, 3-5 RBC, >100 WBC, WBC clumps present, 4+ bacteria. - UC pending - Urine culture 06/12/2025 grew Klebsiella - started on Ceftriaxone on 08/19 - Infectious Disease consult due to the frequent UTIs (2) Acute pyelonephritis: Code(s): N10 - Acute pyelonephritis Status: Acute Assessment and Plan: CT demonstrates bilateral pyelonephritis with no abscess identified. Patient does not complain of symptoms. -ceftriaxone started 08/19 -Urine culture positive GNB -monitor for fever s/p IVF -monitor for urinary retention with history of BPH (3) Diabetes type 2, controlled: Code(s): E11.9 - Type 2 diabetes mellitus without complications Status: Chronic Assessment and Plan: - hypoglycemia protocol - POC blood glucose ACHS - correct regimen ordered moderate dose sliding scale (4) HTN (hypertension): Qualifiers: Hypertension type: unspecified Qualified Code(s): I10 - Essential (primary) hypertension Code(s): I10 - Essential (primary) hypertension Status: Chronic Assessment and Plan: continue Coreg (5) HLD (hyperlipidemia): Qualifiers: Hyperlipidemia type: unspecified Qualified Code(s): E78.5 - Hyperlipidemia, unspecified Code(s): E78.5 - Hyperlipidemia, unspecified Status: Chronic Assessment and Plan: continue lovastatin (6) GERD (gastroesophageal reflux disease): Qualifiers: Esophagitis presence: esophagitis presence not specified Qualified Code(s): K21.9 - Gastro-esophageal reflux disease without esophagitis Code(s): K21.9 - Gastro-esophageal reflux disease without esophagitis Status: Chronic Assessment and Plan: continue pantoprazole Plan DVt prophylaxis on Eliquis Subjective Date/time seen: 08/22/25 12:30 Interval history: Comfortable at bedside Review of Systems Review of Systems: All systems reviewed & are unremarkable except as noted in HPI and below Exam Narrative: GENERAL: non-toxic appearing, in no acute distress. HEAD: Normocephalic, atraumatic. EYES: PERRLA. Conjunctivae clear. NOSE: Normal no drainage. THROAT: Pharynx clear, no exudate. NECK: Trachea midline. No adenopathy, no masses. RESPIRATORY: Airway patent, respirations nonlabored. CTA. CARDIOVASCULAR: Regular rate and rhythm GASTROINTESTINAL: Abdomen is soft and nontender. No organomegaly. Bowel sounds normal in all quadrants. GENITOURINARY: Defer MUSCULOSKELETAL: Moves all extremities. Brace to right ankle and foot. SKIN: Warm, dry, normal color. NEURO: A&O X4. Speech clear PSYCHIATRIC: Normal interaction Objective Data Vital Signs Vital Signs: Vital Signs - 24 hr 08/21/25 14:00 08/21/25 22:00 08/22/25 06:00 Temperature 96.9 F L 97.0 F L 97.5 F L Pulse Rate 74 85 77 Respiratory Rate 16 18 18 Blood Pressure 148/90 H 147/80 H 159/87 H Pulse Oximetry 99 98 97 08/22/25 08:40 Temperature Pulse Rate 86 Respiratory Rate Blood Pressure Pulse Oximetry Intake/Output Intake/Output: Intake & Output 08/19/25 08/20/25 08/21/25 08/22/25 23:59 23:59 23:59 23:59 Intake Total 50 2170 1240 Balance 50 2170 1240 Meds/Results Medications: Active Medications Generic Name Dose Route Start Last Admin Trade Name Freq PRN Reason Stop Dose Admin Acetaminophen 650 mg 08/21/25 00:08 08/22/25 00:35 Acetaminophen 325 Mg Tablet PO 650 mg Q6H PRN Administration Mild Pain (1-3) or Fever Apixaban 5 mg 08/20/25 23:50 08/22/25 08:40 Apixaban 5 Mg Tablet PO 5 mg Q12HR SWETHA Administration Carvedilol 6.25 mg 08/20/25 23:50 08/22/25 08:40 Carvedilol 6.25 Mg Tablet PO 6.25 mg Q12HR SWETHA Administration Dextrose 12.5 gm 08/20/25 23:44 Dextrose 50% 25 Gm/50 Ml Syringe IV PUSH PRN PRN Hypoglycemia Protocol Docusate Sodium 100 mg 08/21/25 21:00 08/22/25 08:41 Docusate Sodium 100 Mg Capsule PO 100 mg Q12HR SWETHA Administration Folic Acid 1 mg 08/21/25 09:00 08/22/25 08:41 Folic Acid 1 Mg Tablet PO 1 mg DAILY SWETHA Administration Glucagon 1 mg 08/20/25 23:44 Glucagon For Inj 1 Mg Vial IM PRN PRN Hypoglycemia Protocol Glucose 15 gm 08/20/25 23:44 Glucose Oral Gel 15 Gm Of Glucse In 37.5 Gm Tube PO PRN PRN Hypoglycemia Protocol Ceftriaxone Sodium 1 gm/ 50 mls @ 100 mls/hr 08/21/25 18:00 08/21/25 17:45 Sodium Chloride IVPB Infused Q24H SWETHA Infusion Dextrose 1,000 mls @ 100 mls/hr 08/20/25 23:44 Dextrose 5% 1,000 Ml IVPB PRN PRN Hypoglycemia Protocol Insulin Aspart 3 - 6 units 08/21/25 08:00 08/22/25 12:08 Insulin Aspart (*Bkc) 100 Units/Ml SUB-Q 5 units TIDWM SWETHA Administration Protocol Lovastatin 40 mg 08/20/25 23:55 08/21/25 20:49 Lovastatin 20 Mg Tablet PO 40 mg HS SWETHA Administration Pantoprazole Sodium 40 mg 08/21/25 09:00 08/22/25 08:40 Pantoprazole 40 Mg Tablet PO 40 mg QAM SWETHA Administration Polyethylene Glycol 17 gm 08/21/25 17:00 08/22/25 12:08 Polyethylene Glycol 3350 17 Gm Powd.Pack PO 17 gm TID SWETHA Administration Senna 8.6 mg 08/21/25 21:00 08/21/25 20:48 Sennosides 8.6 Mg Tablet PO 8.6 mg HS SWETHA Administration Tamsulosin HCl 0.8 mg 08/20/25 23:55 08/21/25 20:49 Tamsulosin Hcl 0.4 Mg Capsule PO 0.8 mg HS SWETHA Administration Radiology Results: ITS Impressions Abdomen/Pelvis CT 08/20/25 16:57 IMPRESSION: 1. No calculi or obstruction of the upper urinary tract. Perinephric stranding of mild degree on both sides suggests upper urinary tract infection. No abscess at or around the kidneys. 2. Air noted in the urinary bladder possibly due to cystitis. No bladder calculi. 3. Stable cystic lesion, anterior to the pancreas in the lesser peritoneal sac. Possible pancreatic pseudocyst. 4. Significant atherosclerotic changes of iliac arteries on both sides. Labs Labs: Laboratory Results - last 24 hr 08/21/25 08/21/25 08/22/25 16:32 20:32 06:35 WBC 5.3 RBC 4.16 L Hgb 12.7 L Hct 37.3 L MCV 89.7 MCH 30.5 MCHC 34.0 RDW 14.1 Plt Count 169 MPV 10.7 H Immature Gran % (Auto) 0.9 H Neut % (Auto) 71.4 Lymph % (Auto) 14.7 L [place] % (Auto) 10.5 H Eos % (Auto) 1.7 Baso % (Auto) 0.8 Lymph # (Auto) 0.78 L [place] # (Auto) 0.6 Eos # (Auto) 0.1 Baso # (Auto) 0.0 Abs Immat Gran (auto) 0.05 H Absolute Neuts (auto) 3.8 Absolute Nucleated RBC 0.000 Nucleated RBC % 0.0 Sodium 130 L Potassium 4.1 Chloride 101 Carbon Dioxide 24 Anion Gap 5 BUN 11 Creatinine 0.71 Estim Creat Clear Calc 120 Estimated GFR > 60 Glucose 246 H POC Capillary Glucose 269 H 260 H Calcium 9.0 Magnesium 1.7 Total Bilirubin 0.6 AST 28 ALT 12 Alkaline Phosphatase 68 Total Protein 6.8 Albumin 3.7 08/22/25 08/22/25 07:42 11:34 WBC RBC Hgb Hct MCV MCH MCHC RDW Plt Count MPV Immature Gran % (Auto) Neut % (Auto) Lymph % (Auto) [place] % (Auto) Eos % (Auto) Baso % (Auto) Lymph # (Auto) [place] # (Auto) Eos # (Auto) Baso # (Auto) Abs Immat Gran (auto) Absolute Neuts (auto) Absolute Nucleated RBC Nucleated RBC % Sodium Potassium Chloride Carbon Dioxide Anion Gap BUN Creatinine Estim Creat Clear Calc Estimated GFR Glucose POC Capillary Glucose 256 H 320 H Calcium Magnesium Total Bilirubin AST ALT Alkaline Phosphatase Total Protein Albumin Quality VTE Prophylaxis VTE prophylaxis: mechanical ordered
--- NOTE | 2025-08-22 13:23 | PC.NURSE ---
Patient's upper (right to them) bedrail was down. This nurse put it back in the correct position. Patient states should I wait until you leave to put that back down. This nurse stated due to safety we need the upper bed rails up while you're in the bed. Patient states good thing I can just put it back down when you leave. Im not keeping it up cause I don't want it up.
[2025-08-22 14:00] VITALS: BP 139/67; PULSE 83; RESP 18; TEMP 36.1; O2SAT 98
[2025-08-22] MEDS: cefTRIAXone 1 GM in SODIUM CHLORIDE 0.9% IV 50 ML 100 ML IVPB (17:12)
--- NOTE | 2025-08-22 17:14 | P.PNINF_ITS ---
Progress Note: A&P Assessment and Plan (1) UTI (urinary tract infection): Qualifiers: Urinary tract infection type: site unspecified Code(s): N39.0 - Urinary tract infection, site not specified Status: Acute Plan ASSESSMENT: 1. pyelonephritis 2. recurrent UTIs--most recently with Klebsiella 3. DM 4. Afib 5. HTN, HL, COPD 6. MARCELINA RECOMMENDATIONS: -continue ceftriaxone for now -f/u on urine cx and tailor abx further -urology consult-->BPH, cystoscopy to r/o structural lesions-->pt is scheduled for cystoscopy in September -consider re-CT abdomen without contrast for stone protocol and consider using po contrast to evaluate for bowel fistula given pneumaturia -HgbA1c elevated-->needs tighter glucose control to prevent infections -psa wnl d/w pharmacy staff Pt was seen via video telehealth consultation with the assistance of staff. Chart, data and patient info reviewed. Patient was located at [facility] while I was in my [place] office. Pt gave consent. Subjective Date/time seen: 08/22/25 17:14 Interval history: no fever no leukocytosis Exam Narrative: obese, NAD abd soft, NT HD Objective Data Vital Signs Vital Signs: Vital Signs - 24 hr 08/21/25 22:00 08/22/25 06:00 08/22/25 08:40 Temperature 97.0 F L 97.5 F L Pulse Rate 85 77 86 Respiratory Rate 18 18 Blood Pressure 147/80 H 159/87 H Pulse Oximetry 98 97 08/22/25 14:00 Temperature 96.9 F L Pulse Rate 83 Respiratory Rate 18 Blood Pressure 139/67 Pulse Oximetry 98 Intake/Output Intake/Output: Intake & Output 08/19/25 08/20/25 08/21/25 08/22/25 23:59 23:59 23:59 23:59 Intake Total 50 2170 1480 Balance 50 2170 1480 Meds/Results Medications: Active Medications Generic Name Dose Route Start Last Admin Trade Name Freq PRN Reason Stop Dose Admin Acetaminophen 650 mg 08/21/25 00:08 08/22/25 00:35 Acetaminophen 325 Mg Tablet PO 650 mg Q6H PRN Administration Mild Pain (1-3) or Fever Apixaban 5 mg 08/20/25 23:50 08/22/25 08:40 Apixaban 5 Mg Tablet PO 5 mg Q12HR SWETHA Administration Carvedilol 6.25 mg 08/20/25 23:50 08/22/25 08:40 Carvedilol 6.25 Mg Tablet PO 6.25 mg Q12HR SWETHA Administration Dextrose 12.5 gm 08/20/25 23:44 Dextrose 50% 25 Gm/50 Ml Syringe IV PUSH PRN PRN Hypoglycemia Protocol Docusate Sodium 100 mg 08/21/25 21:00 08/22/25 08:41 Docusate Sodium 100 Mg Capsule PO 100 mg Q12HR SWETHA Administration Folic Acid 1 mg 08/21/25 09:00 08/22/25 08:41 Folic Acid 1 Mg Tablet PO 1 mg DAILY SWETHA Administration Glucagon 1 mg 08/20/25 23:44 Glucagon For Inj 1 Mg Vial IM PRN PRN Hypoglycemia Protocol Glucose 15 gm 08/20/25 23:44 Glucose Oral Gel 15 Gm Of Glucse In 37.5 Gm Tube PO PRN PRN Hypoglycemia Protocol Ceftriaxone Sodium 1 gm/ 50 mls @ 100 mls/hr 08/21/25 18:00 08/21/25 17:45 Sodium Chloride IVPB Infused Q24H SWETHA Infusion Dextrose 1,000 mls @ 100 mls/hr 08/20/25 23:44 Dextrose 5% 1,000 Ml IVPB PRN PRN Hypoglycemia Protocol Insulin Aspart 3 - 6 units 08/21/25 08:00 08/22/25 12:08 Insulin Aspart (*Bkc) 100 Units/Ml SUB-Q 5 units TIDWM SWETHA Administration Protocol Lovastatin 40 mg 08/20/25 23:55 08/21/25 20:49 Lovastatin 20 Mg Tablet PO 40 mg HS SWETHA Administration Pantoprazole Sodium 40 mg 08/21/25 09:00 08/22/25 08:40 Pantoprazole 40 Mg Tablet PO 40 mg QAM SWETHA Administration Polyethylene Glycol 17 gm 08/21/25 17:00 08/22/25 12:08 Polyethylene Glycol 3350 17 Gm Powd.Pack PO 17 gm TID SWETHA Administration Senna 8.6 mg 08/21/25 21:00 08/21/25 20:48 Sennosides 8.6 Mg Tablet PO 8.6 mg HS SWETHA Administration Tamsulosin HCl 0.8 mg 08/20/25 23:55 08/21/25 20:49 Tamsulosin Hcl 0.4 Mg Capsule PO 0.8 mg HS SWETHA Administration Radiology Results: ITS Impressions Abdomen/Pelvis CT 08/20/25 16:57 IMPRESSION: 1. No calculi or obstruction of the upper urinary tract. Perinephric stranding of mild degree on both sides suggests upper urinary tract infection. No abscess at or around the kidneys. 2. Air noted in the urinary bladder possibly due to cystitis. No bladder calculi. 3. Stable cystic lesion, anterior to the pancreas in the lesser peritoneal sac. Possible pancreatic pseudocyst. 4. Significant atherosclerotic changes of iliac arteries on both sides. Labs Labs: Laboratory Results - last 24 hr 08/21/25 08/22/25 08/22/25 20:32 06:35 07:42 WBC 5.3 RBC 4.16 L Hgb 12.7 L Hct 37.3 L MCV 89.7 MCH 30.5 MCHC 34.0 RDW 14.1 Plt Count 169 MPV 10.7 H Immature Gran % (Auto) 0.9 H Neut % (Auto) 71.4 Lymph % (Auto) 14.7 L [place] % (Auto) 10.5 H Eos % (Auto) 1.7 Baso % (Auto) 0.8 Lymph # (Auto) 0.78 L [place] # (Auto) 0.6 Eos # (Auto) 0.1 Baso # (Auto) 0.0 Abs Immat Gran (auto) 0.05 H Absolute Neuts (auto) 3.8 Absolute Nucleated RBC 0.000 Nucleated RBC % 0.0 Sodium 130 L Potassium 4.1 Chloride 101 Carbon Dioxide 24 Anion Gap 5 BUN 11 Creatinine 0.71 Estim Creat Clear Calc 120 Estimated GFR > 60 Glucose 246 H POC Capillary Glucose 260 H 256 H Calcium 9.0 Magnesium 1.7 Total Bilirubin 0.6 AST 28 ALT 12 Alkaline Phosphatase 68 Total Protein 6.8 Albumin 3.7 08/22/25 08/22/25 11:34 16:35 WBC RBC Hgb Hct MCV MCH MCHC RDW Plt Count MPV Immature Gran % (Auto) Neut % (Auto) Lymph % (Auto) [place] % (Auto) Eos % (Auto) Baso % (Auto) Lymph # (Auto) [place] # (Auto) Eos # (Auto) Baso # (Auto) Abs Immat Gran (auto) Absolute Neuts (auto) Absolute Nucleated RBC Nucleated RBC % Sodium Potassium Chloride Carbon Dioxide Anion Gap BUN Creatinine Estim Creat Clear Calc Estimated GFR Glucose POC Capillary Glucose 320 H 296 H Calcium Magnesium Total Bilirubin AST ALT Alkaline Phosphatase Total Protein Albumin
[2025-08-22] MEDS: LOVASTATIN 20 MG TABLET 40 MG PO (20:23)
[2025-08-22] MEDS: TAMSULOSIN HCL 0.4 MG CAPSULE 0.8 MG PO (20:23)
[2025-08-22] MEDS: SENNOSIDES 8.6 MG TABLET PO (20:24)
[2025-08-22] MEDS: SENNOSIDES 8.6 MG TABLET 17.2 MG PO (20:58)
[2025-08-22 22:00] VITALS: BP 149/83; PULSE 73; RESP 18; TEMP 36.5; O2SAT 97
[2025-08-23 06:00] VITALS: BP 155/79; PULSE 84; RESP 18; TEMP 36.3; O2SAT 99
[2025-08-23 08:04] VITALS: PULSE 72
[2025-08-23] MEDS: APIXABAN 5 MG TABLET PO (08:04)
[2025-08-23] MEDS: PANTOPRAZOLE 40 MG TABLET PO (08:04)
[2025-08-23] MEDS: DOCUSATE SODIUM 100 MG CAPSULE PO (08:04)
[2025-08-23] MEDS: FOLIC ACID 1 MG TABLET PO (08:04)
[2025-08-23 08:05] VITALS: PULSE 72; RESP 18; O2SAT 99
[2025-08-23] MEDS: INSULIN ASPART (*BKC) 100 UNITS/ML SUB-Q ×2 (08:12→12:11)
--- NOTE | 2025-08-23 09:09 | WPDURCON ---
Assessment and Plan Assessment and plan (1) UTI (urinary tract infection): Qualifiers: Urinary tract infection type: acute pyelonephritis Qualified Code(s): N10 - Acute pyelonephritis Code(s): N39.0 - Urinary tract infection, site not specified Status: Acute (2) Pneumaturia: Code(s): R39.89 - Other symptoms and signs involving the genitourinary system Status: Acute (3) Acute pyelonephritis: Code(s): N10 - Acute pyelonephritis Status: Acute Plan - UA 1+ protein, 3+ glucose, 1+ blood, 2+ leukocyte esterase, 3-5 RBC, >100 WBC, WBC clumps present, 4+ bacteria. - ID on board - UCx shows klebsiella. Culture driven antibiotics per ID. - No urologic surgical intervention at this time. - Repeat a Non Con CT AP after resolution of infection. - Follow up outpatient for cystoscopy Urology Consult Note HPI Date Seen: 08/22/25 Time Seen: 16:45 Requesting Physician: Heidi Diego MD Primary Care Provider: [facility] Consult Narrative Narrative: Lalo Sexton is a 69 year old male presents after passing air through his penis while urinating. No dysuria or symptoms of UTI. Patient has had about [address] abdomen pelvis reveals perinephric stranding bilaterally suggesting pyelonephritis. No abscess. Air in the urinary bladder possibly due to cystitis. Review of Systems Review of Systems: All systems reviewed & are unremarkable except as noted in HPI and below PMFSH Past Medical History Medical History (Updated 08/23/25 @ 09:16 by Ana Cristina Garcia APRN) Chronic hyponatremia Atrial fibrillation Chronic anticoagulation GIB (gastrointestinal bleeding) Brain tumor Hypothyroidism UTI (urinary tract infection) GERD (gastroesophageal reflux disease) Sleep apnea With CPAP HTN (hypertension) HLD (hyperlipidemia) Diabetic retinopathy Diabetes type 2, controlled A1c 6.7 12/2022 COPD (chronic obstructive pulmonary disease) Surgical History Surgical History Hx of craniotomy removal of brain tumor as a child Hx of tonsillectomy Family History Family History Mother Heart disease Father Cirrhosis Social History Social History Social History: He and his have been since he was 17. A used to smoke 2.5 packs of cigarettes per day but quit approximately 2018. He reports that is not unusual for him to drink 18 beers a day. He has drink heavily since he was 26 years old. He quit drinking alcohol 02/07/2023. He denies illicit substance use. Code status: DNR/DNI per patient request Surrogate decision maker: Smoking packs per day: 2 Smoking cigarettes per day: 40.0 Years smoked: 45 Smoking pack-years: 90.00 Smoking status: Former smoker Tobacco type: cigarettes Second hand tobacco smoke exposure: No Smoking end date: 02/22/18 Alcohol intake: current Drinks per week: 20 Substance use: never Substance use type: does not use Lack of Transportation: No Lack of Food: Never True Current Housing: I Have Housing Concerned About Future Housing: No Difficulty Paying Gas/Electric Bills: YES Difficulty Paying for Meds: No Currently Unemployed: No Education: Trade/Vocational Certificate Difficulty w/ Childcare or Family Care: No Gender identity (if verbalized by the patient): Male Sexual Orientation (if Verbalized by the Patient): Straight or Heterosexual Spiritual care concerns: No Meds Home Medications and Allergies Home Medications ?Medication ?Instructions ?Recorded ?Confirmed ?Type glipizide 10 mg tablet 10 mg PO BID 12/11/20 08/20/25 History metformin 1,000 mg tablet 1,000 mg PO BID 12/11/20 08/20/25 History apixaban 5 mg tablet (Eliquis) 5 mg PO BID 12/12/20 08/20/25 History carvedilol 6.25 mg tablet 6.25 mg PO BID 10/16/22 08/20/25 History omeprazole 20 mg capsule,delayed 20 mg PO DIRECTED 02/22/23 08/20/25 History release folic acid 1 mg tablet 1 mg PO DAILY 1 month #30 tabs 02/26/23 08/20/25 Rx trazodone 50 mg tablet 50 mg PO HS PRN Insomnia #30 tabs 02/26/23 08/20/25 Rx Held on 08/20/25. Instructions: takes OTC medication for insomnia lovastatin 40 mg tablet 40 mg PO HS 05/24/24 08/20/25 History Fish Oil 03/17/25 History diphenhydramine HCl 50 mg tablet 50 mg PO HS insomnia 08/20/25 08/20/25 History (Benadryl Allergy) docusate sodium 100 mg capsule 200 mg PO ONCE constipation 08/20/25 08/20/25 History (Colace) semaglutide 0.25 mg or 0.5 mg (2 0.25 mg subcut WEEKLY 08/20/25 08/20/25 History mg/3 mL) subcutaneous pen injector (Ozempic) tamsulosin 0.4 mg capsule 0.8 mg PO HS 08/20/25 08/20/25 History Allergies Allergy/AdvReac Type Severity Reaction Status Date / Time empagliflozin (From AdvReac Intermediate Rash Verified 08/20/25 23:02 Jardiance) Vital Signs Vital Signs - 24 hr 08/22/25 14:00 08/22/25 22:00 08/23/25 06:00 Temperature 96.9 F L 97.7 F 97.4 F L Pulse Rate 83 73 84 Respiratory Rate 18 18 18 Blood Pressure 139/67 149/83 H 155/79 H Pulse Oximetry 98 97 99 08/23/25 08:04 Temperature Pulse Rate 72 Respiratory Rate Blood Pressure Pulse Oximetry Exam Const: General: comfortable and no acute distress HENMT: Face/Nose/Sinus: Normal nares present Eyes: General: appearance normal, both eyes and all related structures Resp: Effort & Inspection: normal respiratory effort Skin: General skin exam: normal color Neuro: Speech: normal speech Psych: Speech and movement: Normal speech and movement present Affect: normal affect Results Labs 08/22/25 06:35 08/22/25 06:35
--- NOTE | 2025-08-23 10:44 | WPDINFPN2 ---
Progress Note: A&P Assessment and Plan (1) UTI (urinary tract infection): Qualifiers: Urinary tract infection type: acute pyelonephritis Qualified Code(s): N10 - Acute pyelonephritis Code(s): N39.0 - Urinary tract infection, site not specified Status: Acute Plan ASSESSMENT: 1. pyelonephritis 2. recurrent UTIs--has grown basically the same strain of Klebsiella several times 3. DM 4. Afib 5. HTN, HL, COPD 6. MARCELINA RECOMMENDATIONS: -can dc home on po bactrim DS 1 tab bid -urology consult-->BPH, cystoscopy to r/o structural lesions-->pt is scheduled for cystoscopy in September -CT imaging without fistula, renal stone -HgbA1c elevated-->needs tighter glucose control to prevent infections -psa wnl d/w pharmacy staff Pt was seen via video telehealth consultation with the assistance of staff. Chart, data and patient info reviewed. Patient was located at [facility] while I was in my [place] office. Pt gave consent. Subjective Date/time seen: 08/23/25 10:44 Interval history: no fever no leukocytosis Exam Narrative: abd obese on room air, non-toxic, NAD Objective Data Vital Signs Vital Signs: Vital Signs - 24 hr 08/22/25 14:00 08/22/25 22:00 08/23/25 06:00 Temperature 96.9 F L 97.7 F 97.4 F L Pulse Rate 83 73 84 Respiratory Rate 18 18 18 Blood Pressure 139/67 149/83 H 155/79 H Pulse Oximetry 98 97 99 08/23/25 08:04 Temperature Pulse Rate 72 Respiratory Rate Blood Pressure Pulse Oximetry Intake/Output Intake/Output: Intake & Output 08/20/25 08/21/25 08/22/25 08/23/25 23:59 23:59 23:59 23:59 Intake Total 50 2170 1720 1260 Balance 50 2170 1720 1260 Meds/Results Medications: Active Medications Generic Name Dose Route Start Last Admin Trade Name Freq PRN Reason Stop Dose Admin Acetaminophen 650 mg 08/21/25 00:08 08/22/25 17:12 Acetaminophen 325 Mg Tablet PO 650 mg Q6H PRN Administration Mild Pain (1-3) or Fever Apixaban 5 mg 08/20/25 23:50 08/23/25 08:04 Apixaban 5 Mg Tablet PO 5 mg Q12HR SWETHA Administration Carvedilol 6.25 mg 08/20/25 23:50 08/23/25 08:04 Carvedilol 6.25 Mg Tablet PO 6.25 mg Q12HR SWETHA Administration Dextrose 12.5 gm 08/20/25 23:44 Dextrose 50% 25 Gm/50 Ml Syringe IV PUSH PRN PRN Hypoglycemia Protocol Docusate Sodium 100 mg 08/21/25 21:00 08/23/25 08:04 Docusate Sodium 100 Mg Capsule PO 100 mg Q12HR SWETHA Administration Folic Acid 1 mg 08/21/25 09:00 08/23/25 08:04 Folic Acid 1 Mg Tablet PO 1 mg DAILY SWETHA Administration Glucagon 1 mg 08/20/25 23:44 Glucagon For Inj 1 Mg Vial IM PRN PRN Hypoglycemia Protocol Glucose 15 gm 08/20/25 23:44 Glucose Oral Gel 15 Gm Of Glucse In 37.5 Gm Tube PO PRN PRN Hypoglycemia Protocol Ceftriaxone Sodium 1 gm/ 50 mls @ 100 mls/hr 08/21/25 18:00 08/22/25 17:12 Sodium Chloride IVPB 100 mls/hr Q24H SWETHA Administration Dextrose 1,000 mls @ 100 mls/hr 08/20/25 23:44 Dextrose 5% 1,000 Ml IVPB PRN PRN Hypoglycemia Protocol Insulin Aspart 3 - 6 units 08/21/25 08:00 08/23/25 08:12 Insulin Aspart (*Bkc) 100 Units/Ml SUB-Q 4 units TIDWM SWETHA Administration Protocol Lovastatin 40 mg 08/20/25 23:55 08/22/25 20:23 Lovastatin 20 Mg Tablet PO 40 mg HS SWETHA Administration Pantoprazole Sodium 40 mg 08/21/25 09:00 08/23/25 08:04 Pantoprazole 40 Mg Tablet PO 40 mg QAM SWETHA Administration Polyethylene Glycol 17 gm 08/21/25 17:00 08/23/25 08:05 Polyethylene Glycol 3350 17 Gm Powd.Pack PO 17 gm TID SWETHA Administration Senna 8.6 mg 08/21/25 21:00 08/22/25 20:24 Sennosides 8.6 Mg Tablet PO 8.6 mg HS SWETHA Administration Senna 17.2 mg 08/22/25 21:00 08/22/25 20:58 Sennosides 8.6 Mg Tablet PO 17.2 mg HS SWETHA Administration Trazodone HCl 50 mg 08/22/25 20:33 Trazodone Hcl 50 Mg Tablet PO HS PRN Insomnia Radiology Results: ITS Impressions Abdomen/Pelvis CT 08/20/25 16:57 IMPRESSION: 1. No calculi or obstruction of the upper urinary tract. Perinephric stranding of mild degree on both sides suggests upper urinary tract infection. No abscess at or around the kidneys. 2. Air noted in the urinary bladder possibly due to cystitis. No bladder calculi. 3. Stable cystic lesion, anterior to the pancreas in the lesser peritoneal sac. Possible pancreatic pseudocyst. 4. Significant atherosclerotic changes of iliac arteries on both sides. Labs Labs: Laboratory Results - last 24 hr 08/22/25 08/22/25 08/22/25 11:34 16:35 22:27 POC Capillary Glucose 320 H 296 H 352 H 08/23/25 07:57 POC Capillary Glucose 293 H
--- NOTE | 2025-08-23 13:20 | W.PM.PROC2 ---
Procedure Note - Detailed Date of Procedure 08/23/25 Pre-op Diagnosis Pyelonephritis Post-op Diagnosis Same (BPH) Procedure Performed T[facility]P Surgeon Cody Grace MD
--- NOTE | 2025-08-23 15:21 | P.DS_ITS ---
DS: Admitting Diagnosis Discharge Date 08/23/2025 Admitting Diagnosis Gas with urination DS: Discharge Diagnosis Discharge Diagnosis (1) Acute pyelonephritis: Code(s): N10 - Acute pyelonephritis Status: Acute DS: Summary Hospital Course Hospital Course: Reason for Admission Pneumaturia (passing gas with urination), recurrent urinary tract infections, and concern for pyelonephritis. History of Present Illness 69-year-old male with a history of type 2 diabetes, atrial fibrillation (on anticoagulation), hypertension, hyperlipidemia, COPD, MARCELINA (on CPAP), BPH, and recurrent UTIs presented with complaints of passing air per urethra during urination. He had a similar episode the day prior but left the ED AMA. He reports approximately 8?9 UTIs in the past year, most recently with Klebsiella. Denied dysuria, hematuria, fever, abdominal pain, or other constitutional symptoms. No recent animal bites or exposures, but he and his have recently been around stray cats. Hospital Course * Initial Evaluation: Vitals stable, afebrile, non-toxic. Labs showed mild hyponatremia, hyperglycemia, baseline anemia, and urinalysis with significant pyuria and bacteriuria. CT abdomen/pelvis: Bilateral perinephric stranding (suggesting pyelonephritis), air in the bladder (suggestive of cystitis), no abscess, no stones, possible pancreatic pseudocyst, and significant atherosclerosis of iliac arteries. * Infectious Disease: Consulted for recurrent UTIs. Urine cultures repeatedly grew Klebsiella. Ceftriaxone was started and continued during admission. No evidence of sepsis or abscess. No leukocytosis or fever during hospitalization. Discharged on Cipro x 20 days within which patient would have followed up urology. * Urology: Consulted for recurrent UTIs and pneumaturia. No acute surgical intervention required. Outpatient cystoscopy scheduled for September to evaluate for structural lesions or fistula. Plan for repeat non-contrast CT after infection resolution. * Glycemic Control: Noted hyperglycemia and elevated A1c (9.4). Managed with home oral agents and moderate-dose sliding scale insulin. Hypoglycemia protocol in place. * Other Chronic Conditions: Home medications for atrial fibrillation, hypertension, hyperlipidemia, GERD, and MARCELINA continued. No acute exacerbations of COPD or heart failure. * Hospital Course: The patient remained hemodynamically stable, afebrile, and without new symptoms. No evidence of urinary retention. No surgical intervention required. Discharged in stable condition. Discharge Diagnoses Principal: * Acute pyelonephritis (bilateral), resolved (N10) * Recurrent urinary tract infection, resolved (N39.0) * Pneumaturia (R39.89) Secondary: * Type 2 diabetes mellitus, uncontrolled (E11.9) * Atrial fibrillation, on anticoagulation (I48.91) * Hypertension (I10) * Hyperlipidemia (E78.5) * Chronic obstructive pulmonary disease (J44.9) * Obstructive sleep apnea, on CPAP (G47.33) * Benign prostatic hyperplasia (N40.1) * Chronic hyponatremia (E87.1) * Hypothyroidism (E03.9) * History of brain tumor, s/p craniotomy * Gastroesophageal reflux disease (K21.9) * Diabetic retinopathy (E11.319) * History of GI bleeding * History of heavy alcohol use (now abstinent) * History of tobacco use (now abstinent) * Possible pancreatic pseudocyst (R85.2) * Significant atherosclerosis of iliac arteries (I70.209) Procedures * None during this admission Consultations * Infectious Disease * Urology Hospital Medications * Ceftriaxone IV (discontinued at discharge) * Apixaban 5 mg PO BID * Carvedilol 6.25 mg PO BID * Lovastatin 40 mg PO HS * Metformin 1000 mg PO BID * Glipizide 10 mg PO BID * Semaglutide 0.25 mg SQ weekly * Tamsulosin 0.8 mg PO HS * Pantoprazole 40 mg PO daily * Docusate sodium, polyethylene glycol, senna (bowel regimen) * Folic acid 1 mg PO daily * Trazodone 50 mg PO HS PRN * Acetaminophen 650 mg PO q6h PRN Discharge Medications * Ciprofloxacin 500mg bid x 20 days * Apixaban 5 mg PO BID * Carvedilol 6.25 mg PO BID * Lovastatin 40 mg PO HS * Metformin 1000 mg PO BID * Glipizide 10 mg PO BID * Semaglutide 0.25 mg SQ weekly * Tamsulosin 0.8 mg PO HS * Pantoprazole 40 mg PO daily * Docusate sodium, polyethylene glycol, senna (as needed) * Folic acid 1 mg PO daily * Trazodone 50 mg PO HS PRN * Acetaminophen 650 mg PO q6h PRN Allergies: * Empagliflozin (Jardiance): Rash Discharge Condition * Afebrile, hemodynamically stable, non-toxic, no acute distress * No dysuria, hematuria, or abdominal pain * No evidence of urinary retention * Ambulating independently, alert and oriented * Tolerating diet Discharge Instructions * Complete prescribed course of Bactrim as directed * Monitor for fever, chills, dysuria, hematuria, abdominal or flank pain, or recurrence of pneumaturia * Maintain adequate hydration * Continue home medications as listed * Monitor blood glucose closely; follow diabetic diet and medication regimen * Maintain DVT prophylaxis with apixaban * Use CPAP nightly for MARCELINA * Outpatient follow-up with: * Urology:?Cystoscopy in September (already scheduled) * Primary Care:?Within 1 week of discharge * Infectious Disease:?As needed * Endocrinology:?For diabetes management, if not already established * Repeat non-contrast CT abdomen/pelvis after infection resolution (per urology) * Return to ED for fever, rigors, confusion, chest pain, shortness of breath, new or worsening urinary symptoms, or any other concerning symptoms F/u with PCP in 3-5 days F/u with Urology as instructed Time Spent with Patient Time attestation: Total time spent providing and/or coordinating discharge services: DS: Data Data Completed and Pending Labs on day of discharge: Labs from last 24 hours 08/23/25 08/23/25 08/22/25 11:48 07:57 22:27 POC Capillary Glucose 366 H 293 H 352 H 12/10/25 16:35 POC Capillary Glucose 296 H Discharge Plan Discharge Attending physician on discharge: Rin Appiah Consulting providers: Rin Appiah; Sharmaine Mukherjee; Humberto Hung Discharging Clinician: Rin Appiah Anticipated Discharge Date/Time: 08/23/25 15:04 Patient Disposition: Home Activity: as tolerated Diet: as tolerated and diabetic Patient Instructions: Antibiotic Form Patient Language: Lebanese Stand Alone Forms: General Discharge Information Follow-up/Referrals: Humberto Hung MD [Physician, Urology] Referral Note: F/u with Urology as instructed Sharmaine Mukherjee MD [Physician, Infectious Disease] Referral Note: F/u with ID as instructed [facility] [Primary Care Provider, Medical] Referral Note: F/u with PCP in 3-5 days Discharge Medications: New ciprofloxacin HCl 500 mg tablet 500 mg PO Q12H 20 Days Qty: 40 0RF Continued carvedilol 6.25 mg tablet 6.25 mg PO BID lovastatin 40 mg tablet 40 mg PO HS Fish Oil glipizide 10 mg tablet 10 mg PO BID metformin 1,000 mg tablet 1,000 mg PO BID Eliquis 5 mg Tablet 5 mg PO BID omeprazole 20 mg Capsule,Delayed Release(Dr/Ec) 20 mg PO DIRECTED trazodone 50 mg Tablet 50 mg PO HS PRN (Reason: Insomnia) Qty: 30 0RF folic acid 1 mg Tablet 1 mg PO DAILY 30 Days Qty: 30 0RF Benadryl Allergy 50 mg tablet 50 mg PO HS tamsulosin 0.4 mg capsule 0.8 mg PO HS docusate sodium [Colace] 100 mg capsule 200 mg PO ONCE Ozempic 0.25 mg or 0.5 mg (2 mg/3 mL) pen injector 0.25 mg subcut WEEKLY Rx Instructions: for 4 weeks Date of admission: 08/22/25 12:49 Primary Care Provider: [facility] Admitting Provider: Heidi Diego Attending physician on admission: Heidi Diego Condition: Stable
--- NOTE | 2025-08-23 15:21 | PM.DS ---
DS: Admitting Diagnosis Discharge Date 08/23/2025 Admitting Diagnosis Gas with urination DS: Discharge Diagnosis Discharge Diagnosis (1) Acute pyelonephritis: Code(s): N10 - Acute pyelonephritis Status: Acute DS: Summary Hospital Course Hospital Course: Reason for Admission Pneumaturia (passing gas with urination), recurrent urinary tract infections, and concern for pyelonephritis. History of Present Illness 69-year-old male with a history of type 2 diabetes, atrial fibrillation (on anticoagulation), hypertension, hyperlipidemia, COPD, MARCELINA (on CPAP), BPH, and recurrent UTIs presented with complaints of passing air per urethra during urination. He had a similar episode the day prior but left the ED AMA. He reports approximately 8?9 UTIs in the past year, most recently with Klebsiella. Denied dysuria, hematuria, fever, abdominal pain, or other constitutional symptoms. No recent animal bites or exposures, but he and his have recently been around stray cats. Hospital Course Initial Evaluation: Vitals stable, afebrile, non-toxic. Labs showed mild hyponatremia, hyperglycemia, baseline anemia, and urinalysis with significant pyuria and bacteriuria. CT abdomen/pelvis: Bilateral perinephric stranding (suggesting pyelonephritis), air in the bladder (suggestive of cystitis), no abscess, no stones, possible pancreatic pseudocyst, and significant atherosclerosis of iliac arteries. Infectious Disease: Consulted for recurrent UTIs. Urine cultures repeatedly grew Klebsiella. Ceftriaxone was started and continued during admission. No evidence of sepsis or abscess. No leukocytosis or fever during hospitalization. Discharged on Cipro x 20 days within which patient would have followed up urology. Urology: Consulted for recurrent UTIs and pneumaturia. No acute surgical intervention required. Outpatient cystoscopy scheduled for September to evaluate for structural lesions or fistula. Plan for repeat non-contrast CT after infection resolution. Glycemic Control: Noted hyperglycemia and elevated A1c (9.4). Managed with home oral agents and moderate-dose sliding scale insulin. Hypoglycemia protocol in place. Other Chronic Conditions: Home medications for atrial fibrillation, hypertension, hyperlipidemia, GERD, and MARCELINA continued. No acute exacerbations of COPD or heart failure. Hospital Course: The patient remained hemodynamically stable, afebrile, and without new symptoms. No evidence of urinary retention. No surgical intervention required. Discharged in stable condition. Discharge Diagnoses Principal: Acute pyelonephritis (bilateral), resolved (N10) Recurrent urinary tract infection, resolved (N39.0) Pneumaturia (R39.89) Secondary: Type 2 diabetes mellitus, uncontrolled (E11.9) Atrial fibrillation, on anticoagulation (I48.91) Hypertension (I10) Hyperlipidemia (E78.5) Chronic obstructive pulmonary disease (J44.9) Obstructive sleep apnea, on CPAP (G47.33) Benign prostatic hyperplasia (N40.1) Chronic hyponatremia (E87.1) Hypothyroidism (E03.9) History of brain tumor, s/p craniotomy Gastroesophageal reflux disease (K21.9) Diabetic retinopathy (E11.319) History of GI bleeding History of heavy alcohol use (now abstinent) History of tobacco use (now abstinent) Possible pancreatic pseudocyst (R85.2) Significant atherosclerosis of iliac arteries (I70.209) Procedures None during this admission Consultations Infectious Disease Urology Hospital Medications Ceftriaxone IV (discontinued at discharge) Apixaban 5 mg PO BID Carvedilol 6.25 mg PO BID Lovastatin 40 mg PO HS Metformin 1000 mg PO BID Glipizide 10 mg PO BID Semaglutide 0.25 mg SQ weekly Tamsulosin 0.8 mg PO HS Pantoprazole 40 mg PO daily Docusate sodium, polyethylene glycol, senna (bowel regimen) Folic acid 1 mg PO daily Trazodone 50 mg PO HS PRN Acetaminophen 650 mg PO q6h PRN Discharge Medications Ciprofloxacin 500mg bid x 20 days Apixaban 5 mg PO BID Carvedilol 6.25 mg PO BID Lovastatin 40 mg PO HS Metformin 1000 mg PO BID Glipizide 10 mg PO BID Semaglutide 0.25 mg SQ weekly Tamsulosin 0.8 mg PO HS Pantoprazole 40 mg PO daily Docusate sodium, polyethylene glycol, senna (as needed) Folic acid 1 mg PO daily Trazodone 50 mg PO HS PRN Acetaminophen 650 mg PO q6h PRN Allergies: Empagliflozin (Jardiance): Rash Discharge Condition Afebrile, hemodynamically stable, non-toxic, no acute distress No dysuria, hematuria, or abdominal pain No evidence of urinary retention Ambulating independently, alert and oriented Tolerating diet Discharge Instructions Complete prescribed course of Bactrim as directed Monitor for fever, chills, dysuria, hematuria, abdominal or flank pain, or recurrence of pneumaturia Maintain adequate hydration Continue home medications as listed Monitor blood glucose closely; follow diabetic diet and medication regimen Maintain DVT prophylaxis with apixaban Use CPAP nightly for MARCELINA Outpatient follow-up with: Urology:?Cystoscopy in September (already scheduled) Primary Care:?Within 1 week of discharge Infectious Disease:?As needed Endocrinology:?For diabetes management, if not already established Repeat non-contrast CT abdomen/pelvis after infection resolution (per urology) Return to ED for fever, rigors, confusion, chest pain, shortness of breath, new or worsening urinary symptoms, or any other concerning symptoms F/u with PCP in 3-5 days F/u with Urology as instructed Time Spent with Patient Time attestation: Total time spent providing and/or coordinating discharge services: DS: Data Data Completed and Pending Labs on day of discharge: Labs from last 24 hours 08/23/25 08/23/25 08/22/25 11:48 07:57 22:27 POC Capillary Glucose 366 H 293 H 352 H 08/22/25 16:35 POC Capillary Glucose 296 H Discharge Plan Discharge Attending physician on discharge: Rin Appiah Consulting providers: Rin Appiah; Sharmaine Mukherjee; Humberto Hung Discharging Clinician: Rin Appiah Anticipated Discharge Date/Time: 08/23/25 15:04 Patient Disposition: Home Activity: as tolerated Diet: as tolerated and diabetic Patient Instructions: Antibiotic Form Patient Language: Occitan Stand Alone Forms: General Discharge Information Follow-up/Referrals: Humberto Hung MD [Physician, Urology] Referral Note: F/u with Urology as instructed Sharmaine Mukherjee MD [Physician, Infectious Disease] Referral Note: F/u with ID as instructed [facility] [Primary Care Provider, Medical] Referral Note: F/u with PCP in 3-5 days Discharge Medications: New ciprofloxacin HCl 500 mg tablet 500 mg PO Q12H 20 Days Qty: 40 0RF Continued carvedilol 6.25 mg tablet 6.25 mg PO BID lovastatin 40 mg tablet 40 mg PO HS Fish Oil glipizide 10 mg tablet 10 mg PO BID metformin 1,000 mg tablet 1,000 mg PO BID Eliquis 5 mg Tablet 5 mg PO BID omeprazole 20 mg Capsule,Delayed Release(Dr/Ec) 20 mg PO DIRECTED trazodone 50 mg Tablet 50 mg PO HS PRN (Reason: Insomnia) Qty: 30 0RF folic acid 1 mg Tablet 1 mg PO DAILY 30 Days Qty: 30 0RF Benadryl Allergy 50 mg tablet 50 mg PO HS tamsulosin 0.4 mg capsule 0.8 mg PO HS docusate sodium [Colace] 100 mg capsule 200 mg PO ONCE Ozempic 0.25 mg or 0.5 mg (2 mg/3 mL) pen injector 0.25 mg subcut WEEKLY Rx Instructions: for 4 weeks Date of admission: 08/22/25 12:49 Primary Care Provider: [facility] Admitting Provider: Heidi Diego Attending physician on admission: Heidi Diego Condition: Stable
== END 2025-08-23 15:20 | disposition home or self-care (01) | DRG 690 ==
LOC: ANHED 17:59 → ANH3MEDSUR 20:17
PROVIDERS: Internal Medicine Infectious Disease; Nurse Practitioner Adult Health; Admitting Provider Family Medicine; Emergency Provider Physician Assistant; Visit Provider Internal Medicine
DX: N10 Acute pyelonephritis (principal); E87.1 Hypo-osmolality and hyponatremia; I48.20 Chronic atrial fibrillation, unspecified; I10 Essential (primary) hypertension; I70.209 Unspecified atherosclerosis of native arteries of extremities, unspecified extremity; J44.9 Chronic obstructive pulmonary disease, unspecified; E11.319 Type 2 diabetes mellitus with unspecified diabetic retinopathy without macular edema; E78.5 Hyperlipidemia, unspecified; E03.9 Hypothyroidism, unspecified; K21.9 Gastro-esophageal reflux disease without esophagitis; N40.0 Benign prostatic hyperplasia without lower urinary tract symptoms; R39.89 Other symptoms and signs involving the genitourinary system; G47.30 Sleep apnea, unspecified; F10.90 Alcohol use, unspecified, uncomplicated; Z79.01 Long term (current) use of anticoagulants; Z87.891 Personal history of nicotine dependence
CPT/HCPCS: 36415; 74177; 80048; 80053; 82948; 83036; 83735; 84153; 85025; 96365; 99285; A9270; G0378; J0696; J1815; J7030; Q9967